=== PATIENT | male | born 1950 | race Caucasian/White ===

== ENCOUNTER 2017-04-12 14:31 | Inpatient (IN) | payer MEDICARE, OTHER ==
--- NOTE | 2017-04-12 15:02 | ED Physician Chart ---
Chief Complaint/HPI - Patient Information Date Seen:: 04/12/17 Time Seen:: 14:57 Chief Complaint:: psychosis History of Present Illness:: This is a 66 [facility] male [facility] treatment of his psychotic behavior. He has been wandering in and out of other patients room and fighting with the staff. Allergies:: Allergies Allergy/AdvReac Type Severity Reaction Status Date / Time No Known Allergies Allergy Verified 06/30/16 18:07 Vitals:: Vital Signs - 8 hr 04/12/17 14:39 Temp 98.2 F HR 88 RR 16 BP 162/67 O2 Sat % 99 Historian:: EMS, Medical Records Review:: Nurse's Note Reviewed, Old Chart Reviewed Review of Systems - Review of Systems General/Constitutional: No fever, No chills, No weight loss, No weakness, No diaphoresis, No edema, No loss of appetite Skin: No skin lesions, No rash, No bruising Head: No headache, No light-headedness Eyes: No loss of vision, No pain, No diplopia ENT: No earache, No nasal drainage, No sore throat, No tinnitus Neck: No neck pain, No swelling, No thyromegaly, No stiffness, No mass noted Cardio Vascular: No chest pain, No palpitations, No PND, No orthopnea, No edema Pulmonary: No SOB, No cough, No sputum, No wheezing GI: No nausea, No vomiting, No diarrhea, No pain, No melena, No hematochezia, No constipation, No hematemesis G/U: No dysuria, No frequency, No hematuria Musculoskeletal: No bone or joint pain, No back pain, No muscle pain Endocrine: No polyuria, No polydipsia Psychiatric: Prior psych history, No depression, No anxiety, No suicidal ideation, Homicidal ideation Hematopoietic: No bruising, No lymphadenopathy Allergic/Immuno: No urticaria, No angioedema Neurological: No syncope, No focal symptoms, No weakness, No paresthesia, No headache, No seizure, No dizziness, No confusion, No vertigo Past Medical History - Past Medical History Obtainable: Yes Past Medical History: HTN, DM, CVA/TIA, Dyslipidemia, Dementia Family History: None Social History: Non Smoker, No Alcohol, No Drug Use Surgical History: None Psychiatricy History: Dementia Medication: Reviewed Family Medical History - Family Member Mother History Unknown: Yes Ethnicity: Physical Exam - Physical Examination General/Constitutional: Awake, Well-developed, well-nourished, Alert, No distress, GCS 15, Non-toxic appearing, Ambulatory Head: Atraumatic Eyes: Lids, conjuctiva normal, PERRL, EOMI Skin: Nl inspection, No rash, No skin lesions, No ecchymosis, Well hydrated, No lymphadenopathy ENMT: External ears, nose nl, Nasal exam nl, Lips, teeth, gums nl Neck: Nontender, Full ROM w/o pain, No JVD, No nuchal rigidity, No bruit, No mass, No stridor Respiratory: Nl effort/Exclusion, Clear to Auscultation, No Wheeze/Rhonchi/Rales Cardio Vascular: RRR, No murmur, gallop, rubs, NL S1 S2 GI: No tenderness/rebounding/guarding, No organomegaly, No hernia, Normal BS's, Nondistended, No mass/bruits, No McBurney tenderness : No CVA tenderness Extremities: No tenderness or effusion, Full ROM, normal strength in all extremities, No edema, Normal digits & nails Neuro/Psych: Alert/oriented, DTR's symmetric, Normal sensory exam, Normal motor strength, Normal gait, No focal deficits Other Neuro/Psych comments:: THIS PATIENT IS UNCOOPERATIVE AND ANXIOUS. Misc: normal gait, Normal back, No paraspinal tenderness Labs/Radiology/EKG Results - Lab Results Results: Abnormal Lab Results 04/12/17 04/12/17 04/12/17 14:54 14:54 14:54 WBC 6.7 RBC 3.03 L Hgb 8.6 L Hct 25.8 L D MCV 85.3 MCH 28.4 MCHC Differential 33.3 RDW 14.6 Plt Count 225 MPV 8.5 Neutrophils % 63.9 Lymphocytes % 21.5 Monocytes % 10.6 H Eosinophils % 3.6 Basophils % 0.4 PT 9.1 L INR 0.89 PTT (Actin FS) 23.4 L Sodium Potassium Chloride Carbon Dioxide Anion Gap BUN Creatinine Est GFR ( Amer) Est GFR (Non-Af Amer) BUN/Creatinine Ratio Glucose Calcium Total Bilirubin AST ALT Alkaline Phosphatase Troponin I Total Protein Albumin Globulin Albumin/Globulin Ratio Triglycerides 217 H Cholesterol 178 LDL Cholesterol Direct 108 HDL Cholesterol 47 04/12/17 04/12/17 14:54 14:54 WBC RBC Hgb Hct MCV MCH MCHC Differential RDW Plt Count MPV Neutrophils % Lymphocytes % Monocytes % Eosinophils % Basophils % PT INR PTT (Actin FS) Sodium 134 L Potassium 4.7 Chloride 107 Carbon Dioxide 23.2 Anion Gap 8.5 BUN 33 H Creatinine 1.7 H Est GFR ( Amer) 52.3 Est GFR (Non-Af Amer) 43.2 BUN/Creatinine Ratio 19.4 Glucose 395 H Calcium 9.3 Total Bilirubin 0.2 L AST 43 H ALT 71 H Alkaline Phosphatase 145 H Troponin I 0.01 Total Protein 7.2 Albumin 3.7 L Globulin 3.5 Albumin/Globulin Ratio 1.1 Triglycerides Cholesterol LDL Cholesterol Direct HDL Cholesterol - Radiology Results Results: CHEST X-RAY = NAD - EKG Interpretations EKG Time:: 14:57 Rate & Rhythm: 86 , SINUS RHYTHM [place]: LEFT Intervals: NO ECTOPY SEEN Assessment - Assessment General Assessment: SEVERE ANEMIA RENAL FAILURE PSYCHOSIS ED Septic Shock - . Is Septic Shock (SBP<90, OR Lactate>4 mmol\L) present?: No - <6hrs of presentation: Vital Signs: Vital Signs - 8 hr 04/12/17 14:39 Temp 98.2 F HR 88 RR 16 BP 162/67 O2 Sat % 99 Reassessment (Disposition) - Reassessment Reassessment Condition:: Unchanged - Diagnosis Diagnosis:: SEVERE ANEMIA RENAL FAILURE PSYCHOSIS - Patient Disposition Discharge/Transfer:: Acute Care w/in this hosp Admitting Medical Physician:: Jermaine Nobles Admitting Psych Physician:: Jonny Allen Condition at Disposition:: Unchanged ED Discharge Plan - Patient Disposition Admit/Discharge/Transfer: Acute Care w/in this hosp Condition at Disposition: Unchanged Instructions: Psychosis
[2017-04-12 15:05] LABS: % BASOPHILS 0.4 % (0.0-2.0); % EOSINOPHILS 3.6 % (0.0-5.0); % LYMPHOCYTES 21.5 % (20.0-50.0); % MONOCYTES 10.6 % (2.0-10.0); % NEUTROPHILS 63.9 % (40.0-80.0); HEMOGLOBIN 8.6 gm/dL (12.6-17.4); MEAN CELL VOLUME 85.3 fl (80-99); MEAN CORPUSCULAR HEMOGLOBIN 28.4 pg (27.0-31.0); MEAN CORPUSCULAR HGB CONC 33.3 pg (28.0-36.0); MEAN PLATELET VOLUME 8.5 fl; NEUTROPHILE ABSOLUTE 4.4 Th/cmm (1.8-8.0); PLATELET COUNT 225 Th/cmm (150-400); RED BLOOD COUNT 3.03 Mil/cmm (3.80-5.80); RED CELL DISTRIBUTION WIDTH 14.6 % (11.5-20.0); WHITE BLOOD COUNT 6.7 Th/cmm (4.8-10.8)
[2017-04-12 15:06] LABS: HEMATOCRIT 25.8 % (39.0-49.0)
--- NOTE | 2017-04-12 15:08 | Diagnostic Imaging Report ---
Portable chest x-ray History: Shortness of breath Allowing for portable technique the heart size is normal. No focal pulmonary parenchymal processes. No hilar or mediastinal abnormalities. Impression: No acute abnormalities.
[2017-04-12 15:16] LABS: INR 0.89 (0.5-1.4); PROTHROMBIN TIME (TEST) 9.1 SECONDS (9.5-11.5)
[2017-04-12 15:20] LABS: ALB/GLOB RATIO 1.1 (1.0-1.8); ANION GAP 8.5 (7.0-16.0); BILIRUBIN,TOTAL 0.2 mg/dL (0.3-1.0); BUN/CREATININE RATIO 19.4; CALCIUM SERUM 9.3 mg/dL (8.6-10.3); CARBON DIOXIDE 23.2 mEq/L (21.0-31.0); CREATININE - SERUM 1.7 mg/dL (0.7-1.3); POTASSIUM SERUM 4.7 mEq/L (3.5-5.1)
[2017-04-12 15:21] LABS: CHOLESTEROL 178 mg/dL (<200); TRIGLYCERIDES 217 mg/dL (<150)
--- NOTE | 2017-04-12 16:57 | Admit Criteria Form ---
Admit Criteria Forms - Admit Criteria Diagnosis: ANEMIA, IRON DEFICIENCY OR UNSPECIFIED Clinical Indications for Inpatient Care (Place 'X' for any and all applicable criteria): Admission is indicated for ANY ONE of the following(1)(2)(3)(4)(5)(6)(7): [X] I. Inpatient admission required rather than observation care (Also use Anemia, Iron Deficiency or Unspecified: Observation Care guideline as appropriate) because of ANY ONE of the following: [] a) Hemodynamic instability that is severe or persistent [] b) Active bleeding that cannot be rapidly controlled [] c) CVS symptoms (i.e., dyspnea, chest pain, heart failure) that are severe or persistent [] d) Neurologic symptoms (i.e., cognitive impairment, recurrent syncope or near syncope) that are severe or persistent [] e) Cardiac arrhythmias of immediate concern [] f) Acute peripheral ischemia (e.g., pulseless, cool, mottled, or cyanotic extremity) [] g) High-risk low platelet count [X] h) Acute renal failure [] i) Ongoing transfusion for blood loss (greater than 2 units) [] j) IV fluid to replace significant ongoing (eg, >24 hours) losses (> 3 L/m2 per day) [] k) Pulmonary artery catheter monitoring [] l) Supplemental oxygen or respiratory treatments for over 24 hours that are performable only in acute inpatient setting [] m) Immediate inpatient surgery [] n) Other condition, treatment or monitoring requiring inpatient admission [] II Active massive hemorrhage [] III. Active hemolysis with rapidly progressive anemia [A](6) Extended stay beyond goal length of stay may be needed for (17)(18) []a) Diagnosed cause of anemia requiring longer hospitalization (eg, active GI bleeding, immune hemolysis requiring electrophoresis, complications of malignancy requiring acute care []b) Continued emergent anemia indicators (23) []c) Transfusion reactions []d) Associated leukopenia or thrombocytopenia needing inpatient care []e) Active comorbidities (eg, renal failure, heart failure) The original [employer] content created by [employer] has been revised. The portions of the content which have been revised are identified through the use of italic text or in bold. [employer] has neither reviewed nor approved the modified material. All other unmodified content is copyright [employer]. Please see references footnoted in the original [facility] edition 2016
[2017-04-12] MEDS ORDERED: Magnesium Hydroxide (MOM) 30 mL UDC PO PRN (18:54)
[2017-04-12] MEDS: Insulin Detemir 100 units/mL 10mL Vial SUBQ SCH (22:36)
[2017-04-12] MEDS: INSULIN ASPART SLIDING SCALE 100 UNITS/ML UNIT SUBQ SCH (22:37)
[2017-04-12] MEDS: Polyvinyl Alcohol Ophth Soln 15 mL Bottle EACH EYE SCH (23:09)
[2017-04-13] MEDS: Sodium Chloride 0.9% 1,000 ML IV SCH ×2 (02:45→08:23)
[2017-04-13 03:04] VITALS: BP 154/78
[2017-04-13] MEDS: INSULIN ASPART SLIDING SCALE 100 UNITS/ML UNIT SUBQ SCH ×4 (06:59→20:34)
[2017-04-13 07:16] LABS: % BASOPHILS 0.5 % (0.0-2.0); % EOSINOPHILS 3.8 % (0.0-5.0); % NEUTROPHILS 59.7 % (40.0-80.0); HEMOGLOBIN 10.3 gm/dL (12.6-17.4); MEAN CELL VOLUME 85.4 fl (80-99); MEAN CORPUSCULAR HEMOGLOBIN 28.1 pg (27.0-31.0); MEAN CORPUSCULAR HGB CONC 32.9 pg (28.0-36.0); MEAN PLATELET VOLUME 8.7 fl; PLATELET COUNT 211 Th/cmm (150-400); RED BLOOD COUNT 3.68 Mil/cmm (3.80-5.80)
[2017-04-13 07:21] LABS: HEMATOCRIT 31.5 % (39.0-49.0); WHITE BLOOD COUNT 8.3 Th/cmm (4.8-10.8)
[2017-04-13] MEDS ORDERED: INSULIN ASPART SLIDING SCALE 100 UNITS/ML UNIT SUBQ SCH (07:30)
[2017-04-13 07:34] LABS: ANION GAP 9.3 (7.0-16.0); BILIRUBIN,TOTAL 0.3 mg/dL (0.3-1.0); BUN/CREATININE RATIO 19.4; CALCIUM SERUM 9.1 mg/dL (8.6-10.3); CARBON DIOXIDE 23.8 mEq/L (21.0-31.0); CREATININE - SERUM 1.6 mg/dL (0.7-1.3); POTASSIUM SERUM 4.1 mEq/L (3.5-5.1)
[2017-04-13] MEDS: Multivitamin w/ Minerals Tab PO SCH (08:23)
[2017-04-13] MEDS: Polyvinyl Alcohol Ophth Soln 15 mL Bottle EACH EYE SCH ×4 (08:24→20:33)
[2017-04-13] MEDS ORDERED: VTE Chemical Prophylaxis Screen/Admission MC PRN (09:10)
[2017-04-13] MEDS ORDERED: Pneumococcal Vaccine 0.5 mL Vial IM ONE (10:12)
--- NOTE | 2017-04-13 11:21 | History and Physical ---
History of Present Illness - HPI Chief Complaint: Increased in agitation HPI: Patient was transfered from SNF for eval due to woundering and became aggresive to nurses and workers. During evaluation in ER was found anemia and ARF reazon why patient was send to Medical/Surgical floor. 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: Dementia GI: Report: No Pertinent Hx Psych: Report: Psychosis Musculoskeletal: Report: Weakness Rheumatologic: Report: No pertinent Hx Infectious Disease: Report: No Pertinent Hx Renal/: Report: Chronic Renal Failure, Other (Acute Renal failure over Chronic renal failure.) Endocrine: Report: Diabetes Dermatology: Report: No Pertinent Hx - Past Surgical History Past Surgical History: No pertinent Hx Family Medical History - Family Member Mother History Unknown: Yes Ethnicity: Social History Smoke: No Alcohol: None Drugs: None Lives: Prison Domestic Violence: Negative - Medications Home Medications: Home Medication Medication Instructions Recorded Type Aspirin [Adult Low Dose Aspirin EC] 81 mg PO DAILY #0 tablet. 07/02/16 Rx Clopidogrel [Plavix] 75 mg PO DAILY #0 tab 07/02/16 Rx Levetiracetam [Keppra] 500 mg PO BID #0 tab 07/02/16 Rx Acetaminophen [Tylenol Extra 100 mg PO Q4HR PRN 04/12/17 History Strength] Acetaminophen [Tylenol Extra 500 mg PO Q4HR PRN 04/12/17 History Strength] Acetaminophen [Tylenol] 650 mg PO Q4HR PRN 04/12/17 History Amlodipine Besylate 10 mg PO DAILY 04/12/17 History Bisacodyl [Dulcolax 10 Mg Supp] 10 mg RC PRN PRN 04/12/17 History Donepezil HCl [Donepezil HCl Odt] 5 mg PO DAILY 04/12/17 History Fleet Enema [Fleet Enema] 135 ml RC Q72H PRN 04/12/17 History Folic Acid [Folate] 1 mg PO DAILY 04/12/17 History Insulin Detemir [Levemir] 10 unit SQ HS 04/12/17 History Insulin Human Regular [NovoLIN R] 0 units SUBQ AC 04/12/17 History Magnesium Hydroxide [Milk of 30 ml PO Q48H PRN 04/12/17 History Magnesia] Multivitamin w/ Minerals 1 tab PO DAILY 04/12/17 History [Theragran M] Polyvinyl Alcohol Ophth Soln 1 drop EACH EYE QID 04/12/17 History [Artificial Tears Ophth Soln] Thiamine [Vitamin B1] 100 mg PO DAILY 04/12/17 History - Allergies Allergies/Adverse Reactions: Allergies Allergy/AdvReac Type Severity Reaction Status Date / Time No Known Allergies Allergy Verified 06/30/16 18:07 Review of Systems - Review of Systems Constitutional: Report: Weakness Eyes: Report: Other (Pupils reactive to light, isocoric) ENT: Report: Other (No nasal congestion) Respiratory: Report: Cough Cardiovascular: Report: Other (none) Musculoskeletal: Report: Other (no pain) Skin: Report: Other (warm and dry) Neurological: Report: Weakness, Confusion Physical Exam - Physical Exam HEENT: Report: Ears Nose Throat Within Normal Limits Neck: Report: WNL Cardiovascular Systems: Report: Regular, Rate and Rhythm Respiratory: Report: Clear to Auscultation of lung velazquez Abdomen: Report: Non-tender to palpation Back: Report: Inspection of back is within normal limits. Extremities: Report: Non-tender to palpation., No pedal edema was noted on inspection Skin: Report: Color of skin is within normal limits Neuro/Psych: Report: CN II-XII intact, No motor deficit - Lab Results All Lab Results last 24 hours: Laboratory Last Values WBC 8.3 Th/cmm (4.8-10.8) D 04/13/17 07:00 RBC 3.68 Mil/cmm (3.80-5.80) L 04/13/17 07:00 Hgb 10.3 gm/dL (12.6-17.4) L 04/13/17 07:00 Hct 31.5 % (39.0-49.0) L D 04/13/17 07:00 MCV 85.4 fl (80-99) 04/13/17 07:00 MCH 28.1 pg (27.0-31.0) 04/13/17 07:00 MCHC Differential 32.9 pg (28.0-36.0) 04/13/17 07:00 RDW 14.0 % (11.5-20.0) 04/13/17 07:00 Plt Count 211 Th/cmm (150-400) 04/13/17 07:00 MPV 8.7 fl 04/13/17 07:00 Neutrophils % 59.7 % (40.0-80.0) 04/13/17 07:00 Lymphocytes % 24.0 % (20.0-50.0) 04/13/17 07:00 Monocytes % 12.0 % (2.0-10.0) H 04/13/17 07:00 Eosinophils % 3.8 % (0.0-5.0) 04/13/17 07:00 Basophils % 0.5 % (0.0-2.0) 04/13/17 07:00 PT 9.1 SECONDS (9.5-11.5) L 04/12/17 14:54 INR 0.89 (0.5-1.4) 04/12/17 14:54 PTT (Actin FS) 23.4 SECONDS (26.0-38.0) L 04/12/17 14:54 Sodium 136 mEq/L (136-145) 04/13/17 07:00 Potassium 4.1 mEq/L (3.5-5.1) 04/13/17 07:00 Chloride 107 mEq/L (98-107) 04/13/17 07:00 Carbon Dioxide 23.8 mEq/L (21.0-31.0) 04/13/17 07:00 Anion Gap 9.3 (7.0-16.0) 04/13/17 07:00 BUN 31 mg/dL (7-25) H 04/13/17 07:00 Creatinine 1.6 mg/dL (0.7-1.3) H 04/13/17 07:00 Est GFR ( Amer) 56.1 ml/min (>90) 04/13/17 07:00 Est GFR (Non-Af Amer) 46.3 ml/min 04/13/17 07:00 BUN/Creatinine Ratio 19.4 04/13/17 07:00 Glucose 171 mg/dL (70-105) H 04/13/17 07:00 POC Glucose 156 MG/DL (70 - 105) H 04/13/17 06:50 Hemoglobin A1c % 7.0 % (4.0-6.0) H 04/12/17 14:54 Calcium 9.1 mg/dL (8.6-10.3) 04/13/17 07:00 Total Bilirubin 0.3 mg/dL (0.3-1.0) 04/13/17 07:00 AST 43 U/L (13-39) H 04/13/17 07:00 ALT 65 U/L (7-52) H 04/13/17 07:00 Alkaline Phosphatase 126 U/L (34-104) H 04/13/17 07:00 Troponin I 0.01 ng/mL (0.01-0.05) 04/12/17 14:54 Total Protein 6.9 gm/dL (6.0-8.3) 04/13/17 07:00 Albumin 3.5 gm/dL (4.2-5.5) L 04/13/17 07:00 Globulin 3.4 gm/dL 04/13/17 07:00 Albumin/Globulin Ratio 1.0 (1.0-1.8) 04/13/17 07:00 Triglycerides 217 mg/dL (<150) H 04/12/17 14:54 Cholesterol 178 mg/dL (<200) 04/12/17 14:54 LDL Cholesterol Direct 108 mg/dL (75-193) 04/12/17 14:54 HDL Cholesterol 47 mg/dL (23-92) 04/12/17 14:54 TSH 1.12 uIU/ml (0.34-5.60) 04/12/17 14:54 RPR NONREACTIVE (NONREACTIVE) 04/12/17 14:54 Blood Type A POSITIVE 04/12/17 19:34 Antibody Screen NEGATIVE 04/12/17 19:34 Crossmatch See Detail 04/12/17 19:34 Laboratory Results - last 24 hr 04/12/17 04/12/17 04/13/17 19:34 22:00 06:50 WBC RBC Hgb Hct MCV MCH MCHC Differential RDW Plt Count MPV Neutrophils % Lymphocytes % Monocytes % Eosinophils % Basophils % Sodium Potassium Chloride Carbon Dioxide Anion Gap BUN Creatinine Est GFR ( Amer) Est GFR (Non-Af Amer) BUN/Creatinine Ratio Glucose POC Glucose 341 H 156 H Calcium Total Bilirubin AST ALT Alkaline Phosphatase Total Protein Albumin Globulin Albumin/Globulin Ratio Blood Type A POSITIVE Antibody Screen NEGATIVE Crossmatch See Detail 04/13/17 04/13/17 07:00 07:00 WBC 8.3 D RBC 3.68 L Hgb 10.3 L Hct 31.5 L D MCV 85.4 MCH 28.1 MCHC Differential 32.9 RDW 14.0 Plt Count 211 MPV 8.7 Neutrophils % 59.7 Lymphocytes % 24.0 Monocytes % 12.0 H Eosinophils % 3.8 Basophils % 0.5 Sodium 136 Potassium 4.1 Chloride 107 Carbon Dioxide 23.8 Anion Gap 9.3 BUN 31 H Creatinine 1.6 H Est GFR ( Amer) 56.1 Est GFR (Non-Af Amer) 46.3 BUN/Creatinine Ratio 19.4 Glucose 171 H POC Glucose Calcium 9.1 Total Bilirubin 0.3 AST 43 H ALT 65 H Alkaline Phosphatase 126 H Total Protein 6.9 Albumin 3.5 L Globulin 3.4 Albumin/Globulin Ratio 1.0 Blood Type Antibody Screen Crossmatch - Assessment Assessment: Current Active Problems Problem Status Onset WANDERING AND UNABLE TO REDIRECT Acute - Plan Plan: Patient came from SNF and during ER examination was found that he had anemia and ARF, patient was send to Medical/surgical floor. Dx; Anemia, ARF over CRF , Psychosis, Dementia, HTN. Plan: patient was tranfused, Continue with SNF meds, awaiting Nephro eval. As soon patient is clear by nephro, patient will be transfer to [facility].
--- NOTE | 2017-04-13 12:13 | Consultation ---
Consult Note - Consult Note Service Date: 04/13/17 Consult Note: PHYSICIAN Consultation Note: Date of Admission: 04/12/17 Purpose of Consultation: CKD Chief Complaint: Elevated Bun/Cr History of Present Illness: 66 Y/O H,M PMH: CKD came in because of aggressive behavior. 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 Brought to ER. HGB was 8.6. Transfused 1 U PRBC. HGB up to 10.3. Hx of CKD. His bun/cr 3 mos. ago were 65/2.1. Bun/Cr today were 31/1.6. No N/V , diarrhea. Past Medical History: Htn Type 2 DM CKD Anemia of CKD ESS HTN Epilepsy Allergies NKDA Allergy/AdvReac Type Severity Reaction Status Date / Time No Known Allergies Allergy Verified 06/30/16 18:07 Vital Signs Temp 98.4 F 04/13/17 08:00 Pulse 91 04/13/17 08:23 Resp 18 04/13/17 08:00 BP 161/84 04/13/17 08:23 Pulse Ox 97 04/13/17 08:00 Intake & Output 04/12/17 04/13/17 04/13/17 18:59 06:59 18:59 Intake Total 507 Balance 507 Weight (lbs) 58.649 kg Intake: Intake, IV Amount 507 Sodium Chloride 0.9% 1, 507 000 ml @ 90 mls/hr IV . Q11H7M [facility] Rx#:[id number] Other: Stool Characteristics Soft Soft Laboratory Results - last 24 hr 04/12/17 04/12/17 04/13/17 19:34 22:00 06:50 WBC RBC Hgb Hct MCV MCH MCHC Differential RDW Plt Count MPV Neutrophils % Lymphocytes % Monocytes % Eosinophils % Basophils % Sodium Potassium Chloride Carbon Dioxide Anion Gap BUN Creatinine Est GFR ( Amer) Est GFR (Non-Af Amer) BUN/Creatinine Ratio Glucose POC Glucose 341 H 156 H Calcium Total Bilirubin AST ALT Alkaline Phosphatase Total Protein Albumin Globulin Albumin/Globulin Ratio Blood Type A POSITIVE Antibody Screen NEGATIVE Crossmatch See Detail 04/13/17 04/13/17 04/13/17 07:00 07:00 11:46 WBC 8.3 D RBC 3.68 L Hgb 10.3 L Hct 31.5 L D MCV 85.4 MCH 28.1 MCHC Differential 32.9 RDW 14.0 Plt Count 211 MPV 8.7 Neutrophils % 59.7 Lymphocytes % 24.0 Monocytes % 12.0 H Eosinophils % 3.8 Basophils % 0.5 Sodium 136 Potassium 4.1 Chloride 107 Carbon Dioxide 23.8 Anion Gap 9.3 BUN 31 H Creatinine 1.6 H Est GFR ( Amer) 56.1 Est GFR (Non-Af Amer) 46.3 BUN/Creatinine Ratio 19.4 Glucose 171 H POC Glucose 305 H Calcium 9.1 Total Bilirubin 0.3 AST 43 H ALT 65 H Alkaline Phosphatase 126 H Total Protein 6.9 Albumin 3.5 L Globulin 3.4 Albumin/Globulin Ratio 1.0 Blood Type Antibody Screen Crossmatch Home Medication Medication Instructions Recorded Type Aspirin [Adult Low Dose Aspirin EC] 81 mg PO DAILY #0 tablet. 07/02/16 Rx Clopidogrel [Plavix] 75 mg PO DAILY #0 tab 07/02/16 Rx Levetiracetam [Keppra] 500 mg PO BID #0 tab 07/02/16 Rx Acetaminophen [Tylenol Extra 100 mg PO Q4HR PRN 04/12/17 History Strength] Acetaminophen [Tylenol Extra 500 mg PO Q4HR PRN 04/12/17 History Strength] Acetaminophen [Tylenol] 650 mg PO Q4HR PRN 04/12/17 History Amlodipine Besylate 10 mg PO DAILY 04/12/17 History Bisacodyl [Dulcolax 10 Mg Supp] 10 mg RC PRN PRN 04/12/17 History Donepezil HCl [Donepezil HCl Odt] 5 mg PO DAILY 04/12/17 History Fleet Enema [Fleet Enema] 135 ml RC Q72H PRN 04/12/17 History Folic Acid [Folate] 1 mg PO DAILY 04/12/17 History Insulin Detemir [Levemir] 10 unit SQ HS 04/12/17 History Insulin Human Regular [NovoLIN R] 0 units SUBQ AC 04/12/17 History Magnesium Hydroxide [Milk of 30 ml PO Q48H PRN 04/12/17 History Magnesia] Multivitamin w/ Minerals 1 tab PO DAILY 04/12/17 History [Theragran M] Polyvinyl Alcohol Ophth Soln 1 drop EACH EYE QID 04/12/17 History [Artificial Tears Ophth Soln] Thiamine [Vitamin B1] 100 mg PO DAILY 04/12/17 History Current Medications Generic Name Dose Route Start Last Admin Trade Name Freq PRN Reason Stop Dose Admin Acetaminophen 650 mg 04/12/17 18:54 Tylenol PO 06/11/17 18:53 Q4HR PRN MODERATE PAIN Amlodipine Besylate 10 mg 04/13/17 09:00 04/13/17 08:23 Norvasc PO 06/12/17 08:59 10 mg DAILY HOLGER Administration Artificial Tears 1 drop 04/12/17 21:00 04/13/17 08:24 Artificial Tears Ophth Soln EACH EYE 06/11/17 20:59 1 drop QID HOLGER Administration Aspirin 81 mg 04/13/17 09:00 04/13/17 08:23 Ecotrin PO 06/12/17 08:59 81 mg DAILY HOLGER Administration Bisacodyl 10 mg 04/12/17 18:54 Dulcolax 10 Mg Supp RC 06/11/17 18:53 PRN PRN FOR CONSTIPATION IF MOM INEFFE Clopidogrel Bisulfate 75 mg 04/13/17 09:00 04/13/17 08:23 Plavix PO 06/12/17 08:59 75 mg DAILY HOLGER Administration Donepezil HCl 5 mg 04/13/17 09:00 04/13/17 08:23 Aricept PO 06/12/17 08:59 5 mg DAILY HOLGER Administration Folic Acid 1 mg 04/13/17 09:00 04/13/17 08:23 Folate PO 06/12/17 08:59 1 mg DAILY HOLGER Administration Insulin Aspart 0 units 04/12/17 22:25 04/13/17 11:51 Novolog Insulin Sliding Scale SUBQ 06/11/17 22:24 9 units ACHS HOLGER Administration Protocol Insulin Detemir 10 units 04/12/17 21:00 04/12/17 22:36 Levemir Insulin SUBQ 06/11/17 20:59 10 units HS HOLGER Administration Protocol Levetiracetam 500 mg 04/13/17 09:00 04/13/17 08:23 Keppra PO 06/12/17 08:59 500 mg BID HOLGER Administration Magnesium Hydroxide 30 ml 04/12/17 18:54 Milk Of Magnesia PO 06/11/17 18:53 Q48H PRN IF NO BM Miscellaneous 1 ea 04/13/17 09:10 Vte Chemical Prophylaxis Screen/ Admission 06/12/17 09:09 PRN PRN PROTOCOL Thiamine HCl 100 mg 04/13/17 09:00 04/13/17 08:23 Vitamin B1 PO 06/12/17 08:59 100 mg DAILY HOLGER Administration Review of Systems: A 12 point ROS was reviewed with the pertinent positive and negatives noted in the HPI. Social History UNKNOWN Family Medical History Family Medical History Start: 04/12/17 18: 02 Freq: ONCE Status: Active Document 04/12/17 18:02 DALE (Rec: 04/13/17 02:52 DALE NANCY-[id number]) Family Medical History UNKNOWN Physical Exam: General: awake, confused, No Acute Distress HEENT: EOMI Bilaterally, Head is normocephalic, atraumatic on inspection, supple Cardio: +S1/S2 Auscultated, RRR, no murmurs/rubs/gallops noted Respiratory: Clear to Auscultate Bilaterally, no use of accessory ms Abdominal: Soft, Nondistended, Nontender to palpation x 4 quadrants Genital/Urinary: deferred, rectal: deferred Extremities: No Edema noted in the lower extremities, pulses intact Neurological: No Focal Deficits noted, uncooperative Assessment: CKD Acute decompensation of Psychosis Dementia w/ Behvioral Disturbance Ess Htn Anemia of CKD Epilepsy PLAN: continue ivf encourage po intake possible transfer to [facility] in am f/u electrolytes Signed, Angel Jacobson 04/13/[id number]
[2017-04-13] MEDS: Insulin Detemir 100 units/mL 10mL Vial SUBQ SCH (20:34)
[2017-04-13 22:31] LABS: URINE BILIRUBIN NEGATIVE (NEGATIVE); URINE COLOR YELLOW; URINE GLUCOSE (UA) 100 mg/dL (NEGATIVE); URINE KETONE NEGATIVE (NEGATIVE)
[2017-04-13 22:32] LABS: URINE BLOOD MODERATE (NEGATIVE); URINE PH 5.5; URINE PROTEIN >300 mg/dL (NEGATIVE); URINE UROBILINOGEN 0.2 E.U./dL (0.2 - 1.0)
[2017-04-13 22:33] LABS: URINE BACTERIA FEW /hpf (NONE SEEN); URINE EPITHELIAL CELLS FEW /lpf (FEW); URINE WBC 0-2 /hpf (0-5)
[2017-04-14 06:37] LABS: % BASOPHILS 0.3 % (0.0-2.0); % EOSINOPHILS 3.2 % (0.0-5.0); % MONOCYTES 10.6 % (2.0-10.0); % NEUTROPHILS 61.9 % (40.0-80.0); HEMATOCRIT 29.2 % (39.0-49.0); HEMOGLOBIN 9.6 gm/dL (12.6-17.4); MEAN CELL VOLUME 85.3 fl (80-99); MEAN CORPUSCULAR HGB CONC 32.8 pg (28.0-36.0); MEAN PLATELET VOLUME 8.1 fl; PLATELET COUNT 227 Th/cmm (150-400); RED BLOOD COUNT 3.42 Mil/cmm (3.80-5.80); RED CELL DISTRIBUTION WIDTH 14.6 % (11.5-20.0); WHITE BLOOD COUNT 8.1 Th/cmm (4.8-10.8)
[2017-04-14] MEDS: INSULIN ASPART SLIDING SCALE 100 UNITS/ML UNIT SUBQ SCH ×2 (06:49→12:06)
[2017-04-14 07:33] LABS: ANION GAP 9.4 (7.0-16.0); BUN - UREA NITROGEN 29 mg/dL (7-25); BUN/CREATININE RATIO 19.3; CALCIUM SERUM 8.5 mg/dL (8.6-10.3); CARBON DIOXIDE 21.5 mEq/L (21.0-31.0); CHLORIDE 113 mEq/L (98-107); CREATININE - SERUM 1.5 mg/dL (0.7-1.3); GLUCOSE 94 mg/dL (70-105); POTASSIUM SERUM 3.9 mEq/L (3.5-5.1); SODIUM SERUM 140 mEq/L (136-145); URIC ACID 5.2 mg/dL (4.4-7.6)
--- NOTE | 2017-04-14 08:52 | General Progress Note ---
Subjective - Review of Systems Service Date: 04/14/17 Subjective: Patient is confused Objective - Results Result Diagrams: 04/14/17 06:20 04/14/17 06:20 Recent Labs: Laboratory Last Values WBC 8.1 Th/cmm (4.8-10.8) 04/14/17 06:20 RBC 3.42 Mil/cmm (3.80-5.80) L 04/14/17 06:20 Hgb 9.6 gm/dL (12.6-17.4) L 04/14/17 06:20 Hct 29.2 % (39.0-49.0) L 04/14/17 06:20 MCV 85.3 fl (80-99) 04/14/17 06:20 MCH 28.0 pg (27.0-31.0) 04/14/17 06:20 MCHC Differential 32.8 pg (28.0-36.0) 04/14/17 06:20 RDW 14.6 % (11.5-20.0) 04/14/17 06:20 Plt Count 227 Th/cmm (150-400) 04/14/17 06:20 MPV 8.1 fl 04/14/17 06:20 Neutrophils % 61.9 % (40.0-80.0) 04/14/17 06:20 Lymphocytes % 24.0 % (20.0-50.0) 04/14/17 06:20 Monocytes % 10.6 % (2.0-10.0) H 04/14/17 06:20 Eosinophils % 3.2 % (0.0-5.0) 04/14/17 06:20 Basophils % 0.3 % (0.0-2.0) 04/14/17 06:20 PT 9.1 SECONDS (9.5-11.5) L 04/12/17 14:54 INR 0.89 (0.5-1.4) 04/12/17 14:54 PTT (Actin FS) 23.4 SECONDS (26.0-38.0) L 04/12/17 14:54 Sodium 140 mEq/L (136-145) 04/14/17 06:20 Potassium 3.9 mEq/L (3.5-5.1) 04/14/17 06:20 Chloride 113 mEq/L (98-107) H 04/14/17 06:20 Carbon Dioxide 21.5 mEq/L (21.0-31.0) 04/14/17 06:20 Anion Gap 9.4 (7.0-16.0) 04/14/17 06:20 BUN 29 mg/dL (7-25) H 04/14/17 06:20 Creatinine 1.5 mg/dL (0.7-1.3) H 04/14/17 06:20 Est GFR ( Amer) > 60.0 ml/min (>90) 04/14/17 06:20 Est GFR (Non-Af Amer) 49.9 ml/min 04/14/17 06:20 BUN/Creatinine Ratio 19.3 04/14/17 06:20 Glucose 94 mg/dL (70-105) 04/14/17 06:20 POC Glucose 86 MG/DL (70 - 105) 04/14/17 05:35 Hemoglobin A1c % 7.0 % (4.0-6.0) H 04/12/17 14:54 Uric Acid 5.2 mg/dL (4.4-7.6) 04/14/17 06:20 Calcium 8.5 mg/dL (8.6-10.3) L 04/14/17 06:20 Phosphorus 4.0 mg/dL (2.5-5.0) 04/14/17 06:20 Magnesium 2.0 mg/dL (1.9-2.7) 04/14/17 06:20 Total Bilirubin 0.3 mg/dL (0.3-1.0) 04/13/17 07:00 AST 43 U/L (13-39) H 04/13/17 07:00 ALT 65 U/L (7-52) H 04/13/17 07:00 Alkaline Phosphatase 126 U/L (34-104) H 04/13/17 07:00 Troponin I 0.01 ng/mL (0.01-0.05) 04/12/17 14:54 Total Protein 6.9 gm/dL (6.0-8.3) 04/13/17 07:00 Albumin 3.5 gm/dL (4.2-5.5) L 04/13/17 07:00 Globulin 3.4 gm/dL 04/13/17 07:00 Albumin/Globulin Ratio 1.0 (1.0-1.8) 04/13/17 07:00 Triglycerides 217 mg/dL (<150) H 04/12/17 14:54 Cholesterol 178 mg/dL (<200) 04/12/17 14:54 LDL Cholesterol Direct 108 mg/dL (75-193) 04/12/17 14:54 HDL Cholesterol 47 mg/dL (23-92) 04/12/17 14:54 TSH 1.12 uIU/ml (0.34-5.60) 04/12/17 14:54 Urine Source MIDSTREAM 04/13/17 20:57 Urine Color YELLOW 04/13/17 20:57 Urine Clarity CLEAR (CLEAR) 04/13/17 20:57 Urine pH 5.5 04/13/17 20:57 Ur Specific [place] 1.020 (1.005-1.030) 04/13/17 20:57 Urine Protein >300 mg/dL (NEGATIVE) H 04/13/17 20:57 Urine Glucose (UA) 100 mg/dL (NEGATIVE) H 04/13/17 20:57 Urine Ketones NEGATIVE mg/dL (NEGATIVE) 04/13/17 20:57 Urine Blood MODERATE (NEGATIVE) H 04/13/17 20:57 Urine Nitrate NEGATIVE (NEGATIVE) 04/13/17 20:57 Urine Bilirubin NEGATIVE (NEGATIVE) 04/13/17 20:57 Urine Urobilinogen 0.2 E.U./dL (0.2 - 1.0) 04/13/17 20:57 Ur Leukocyte Esterase NEGATIVE (NEGATIVE) 04/13/17 20:57 Urine RBC 5-10 /hpf (0-5) H 04/13/17 20:57 Urine WBC 0-2 /hpf (0-5) 04/13/17 20:57 Ur Epithelial Cells FEW /lpf (FEW) 04/13/17 20:57 Urine Bacteria FEW /hpf (NONE SEEN) 04/13/17 20:57 Ur Random Sodium 70 mmol/L 04/13/17 20:57 Urine Creatinine 107.0 mg/dl (39.0-259.0) 04/13/17 20:57 RPR NONREACTIVE (NONREACTIVE) 04/12/17 14:54 Blood Type A POSITIVE 04/12/17 19:34 Antibody Screen NEGATIVE 04/12/17 19:34 Crossmatch See Detail 04/12/17 19:34 - Physical Exam Vitals and I&O: Vital Signs Temp 98.4 F 04/14/17 04:00 Pulse 67 04/14/17 04:00 Resp 19 04/14/17 04:00 BP 146/73 04/14/17 04:00 Pulse Ox 100 04/14/17 04:00 Intake & Output 04/13/17 04/14/17 04/14/17 18:59 06:59 18:59 Intake Total 1207 350 Balance 1207 350 Weight (lbs) 58.513 kg 58.559 kg Intake: Intake, IV Amount 507 Sodium Chloride 0.9% 1, 507 000 ml @ 90 mls/hr IV . Q11H7M [facility] Rx#:[id number] Oral 700 350 Other: # Voids 3 1 # Bowel Movements 2 Stool Characteristics Soft Soft Active Medications: Current Medications Acetaminophen (Tylenol) 650 mg PO Q4HR PRN PRN Reason: MODERATE PAIN Stop: 06/11/17 18:53 Amlodipine Besylate (Norvasc) 10 mg PO DAILY [facility] Stop: 06/12/17 08:59 Last Admin: 04/13/17 08:23 Dose: 10 mg Artificial Tears (Artificial Tears Ophth Soln) 1 drop EACH EYE QID [facility] Stop: 06/11/17 20:59 Last Admin: 04/13/17 20:33 Dose: 1 drop Aspirin (Ecotrin) 81 mg PO DAILY [facility] Stop: 06/12/17 08:59 Last Admin: 04/13/17 08:23 Dose: 81 mg Bisacodyl (Dulcolax 10 Mg Supp) 10 mg RC PRN PRN PRN Reason: FOR CONSTIPATION IF MOM INEFFE Stop: 06/11/17 18:53 Clopidogrel Bisulfate (Plavix) 75 mg PO DAILY [facility] Stop: 06/12/17 08:59 Last Admin: 04/13/17 08:23 Dose: 75 mg Donepezil HCl (Aricept) 5 mg PO DAILY [facility] Stop: 06/12/17 08:59 Last Admin: 04/13/17 08:23 Dose: 5 mg Folic Acid (Folate) 1 mg PO DAILY [facility] Stop: 06/12/17 08:59 Last Admin: 04/13/17 08:23 Dose: 1 mg Insulin Aspart (Novolog Insulin Sliding Scale) 0 units SUBQ ACHS [facility] PRN Reason: Protocol Stop: 06/11/17 22:24 Last Admin: 04/14/17 06:49 Dose: Not Given Insulin Detemir (Levemir Insulin) 10 units SUBQ HS [facility] PRN Reason: Protocol Stop: 06/11/17 20:59 Last Admin: 04/13/17 20:34 Dose: 10 units Levetiracetam (Keppra) 500 mg PO BID [facility] Stop: 06/12/17 08:59 Last Admin: 04/13/17 16:44 Dose: 500 mg Magnesium Hydroxide (Milk Of Magnesia) 30 ml PO Q48H PRN PRN Reason: IF NO BM Stop: 06/11/17 18:53 Miscellaneous (Vte Chemical Prophylaxis Screen/ Admission) 1 ea [facility] PRN PRN PRN Reason: PROTOCOL Stop: 06/12/17 09:09 Thiamine HCl (Vitamin B1) 100 mg PO DAILY [facility] Stop: 06/12/17 08:59 Last Admin: 04/13/17 08:23 Dose: 100 mg General: Alert, Other (Confused) HEENT: Atraumatic Neck: Supple Cardiovascular: Regular rate Lungs: Clear to auscultation Abdomen: Bowel sounds, Soft Extremities: Other (No edema) Neurological: Other (Unstable gait) Skin: Other (Warm and dry) Psych/Mental Status: Other (Confused) - Procedures Procedures: Procedures Procedure Code Date BLOOD TRANSFUSION SERVICE 18526 04/12/17 TRANSFUSE NONAUT RED BLOOD CELLS IN PERIPH VEIN, [facility]C 63803D3 04/12/17 Assessment/Plan - Problem List Patient Problems: All Active Problems WANDERING AND UNABLE TO REDIRECT (Acute) - Assessment Assessment: Current Active Problems Problem Status Onset WANDERING AND UNABLE TO REDIRECT Acute Patient is sleeping but arousable, in no acute distress. Dx: increased in agitation, anemia, HTN, dementia. - Plan Plan: Patient came from SNF and during ER examination was found that he had anemia and ARF, patient was send to Medical/surgical floor. Dx; Anemia, ARF over CRF , Psychosis, Dementia, HTN. Plan: patient was tranfused, Continue with SNF meds, awaiting Nephro eval. As soon patient is clear by nephro, patient will be transfer to [facility]. Nutritional Asmnt/Malnutr-PDOC - Dietary Evaluation Malnutrition Findings (Please click <Entered> for more info): Nutritional Asmnt/Malnutrition Start: 04/13/17 12: 08 Text: Status: Complete Freq: Document 04/13/17 12:08 NICKI (Rec: 04/13/17 12:38 [id number]) Nutritional Asmnt/Malnutrition Patient General Information Nutritional Screening High Risk Screening Diagnosis Reason for visit: severe anemia, acute renal failure Pertinent Medical Hx/Surgical Hx HTN, dementia, chronic renal failure, DM, psychosis Subjective Information 66 year old male from SNF. Pt made eye contact with RD, appeared ot be selectively mute during visit. RD asked several nutrition questions and explained diet, pt nodded only. Unable to provide edu due to cognition. No severe wasting noted. Spoke to RN at bedside, RN stated pt with good appetite, ate 100% of breakfast, no difficulties noted. Current Diet Order/ Nutrition Support Renal Pertinent Medications Dulcolax, Folate, Novolog, Levemir, MOM, Vitamin B1 Pertinent Labs /: A1c 7H, glucose 395H, BUN 33H, Compensation Agent 1.7H, triglycerides 217H Nutritional Hx/Data Height 1.57 m Height (Calculated Centimeters) 157.5 Current Weight (lbs) 58.649 kg Weight (Calculated Kilograms) 58.6 Weight (Calculated Grams) 85139.5 [place] Body Weight 110 Weight Status Approriate GI Symptoms Food Allergies No Skin Integrity/Comment: Maykel 14. Skin intact. Current %PO Good (75-100%) Estimated Nutritional Goals BEE in Kcals: Using Current wt Calories/Kcals/Kg CBW 129.3lb/58.8kg Kcals Calculated 1470-1764kcal (25-30kcal/kg) Protein: Using Current wt Protein Calculated 59g (1g/kg) Fluid: ml 1470-1764ml (1ml/kcal) Nutritional Problem 2. Problem Problem Impaired nutrient utilization related to Etiology renal failure aeb Signs/Symptoms: BUN 33H, creatinine 1.7H 1. Problem Problem Altered nutrition related laboratory values related to Etiology DM aeb Signs/Symptoms: A1c 7, glucose 395 on adm Intervention/Recommendation Comments 1. Recommend [id number] renal diet. RD briefly explained diet, pt nodded. Pt noted with good appetite. Expected Outcomes/Goals Expected Outcomes/Goals 1. PO itnake to meet at least 75% of estimated nutritional needs.
[2017-04-14] MEDS: Polyvinyl Alcohol Ophth Soln 15 mL Bottle EACH EYE SCH ×2 (10:00→13:39)
[2017-04-14] MEDS: Multivitamin w/ Minerals Tab PO SCH (10:00)
--- NOTE | 2017-04-14 12:50 | Diagnostic Imaging Report ---
Renal ultrasound HISTORY: Chronic renal disease. COMPARISON: Ultrasound abdomen on 07/01/2016 Technique: Sonography of the kidneys and urinary bladder was performed in multiple planes. FINDINGS: The right kidney measures 10.7 x 5 cm. The left kidney measures 10.7 x 6.1 cm. No evidence of focal lesions or hydronephrosis. The prostate gland measures 5.6 x 7.1 x 4.6 cm demonstrates a heterogeneous echotexture. The prevoid urinary bladder volume is 274 ml. Patient refused voiding during the exam. IMPRESSION: No evidence of hydronephrosis Prominent heterogeneous prostate gland. Please correlate with clinical findings and PSA levels. Distended urinary bladder. Note patient refuse voiding, as such, post void residual bladder wall was not performed.
--- NOTE | 2017-04-14 14:33 | General Progress Note ---
Subjective - Review of Systems Service Date: 04/14/17 Subjective: Alert, comfortable, periods of confusion Objective - Results Result Diagrams: 04/14/17 06:20 04/14/17 06:20 Recent Labs: Laboratory Last Values WBC 8.1 Th/cmm (4.8-10.8) 04/14/17 06:20 RBC 3.42 Mil/cmm (3.80-5.80) L 04/14/17 06:20 Hgb 9.6 gm/dL (12.6-17.4) L 04/14/17 06:20 Hct 29.2 % (39.0-49.0) L 04/14/17 06:20 MCV 85.3 fl (80-99) 04/14/17 06:20 MCH 28.0 pg (27.0-31.0) 04/14/17 06:20 MCHC Differential 32.8 pg (28.0-36.0) 04/14/17 06:20 RDW 14.6 % (11.5-20.0) 04/14/17 06:20 Plt Count 227 Th/cmm (150-400) 04/14/17 06:20 MPV 8.1 fl 04/14/17 06:20 Neutrophils % 61.9 % (40.0-80.0) 04/14/17 06:20 Lymphocytes % 24.0 % (20.0-50.0) 04/14/17 06:20 Monocytes % 10.6 % (2.0-10.0) H 04/14/17 06:20 Eosinophils % 3.2 % (0.0-5.0) 04/14/17 06:20 Basophils % 0.3 % (0.0-2.0) 04/14/17 06:20 Eos Smear Source URINE 04/13/17 20:57 Eos Smear Total Cells NONE SEEN (NONE SEEN) 04/13/17 20:57 PT 9.1 SECONDS (9.5-11.5) L 04/12/17 14:54 INR 0.89 (0.5-1.4) 04/12/17 14:54 PTT (Actin FS) 23.4 SECONDS (26.0-38.0) L 04/12/17 14:54 Sodium 140 mEq/L (136-145) 04/14/17 06:20 Potassium 3.9 mEq/L (3.5-5.1) 04/14/17 06:20 Chloride 113 mEq/L (98-107) H 04/14/17 06:20 Carbon Dioxide 21.5 mEq/L (21.0-31.0) 04/14/17 06:20 Anion Gap 9.4 (7.0-16.0) 04/14/17 06:20 BUN 29 mg/dL (7-25) H 04/14/17 06:20 Creatinine 1.5 mg/dL (0.7-1.3) H 04/14/17 06:20 Est GFR ( Amer) > 60.0 ml/min (>90) 04/14/17 06:20 Est GFR (Non-Af Amer) 49.9 ml/min 04/14/17 06:20 BUN/Creatinine Ratio 19.3 04/14/17 06:20 Glucose 94 mg/dL (70-105) 04/14/17 06:20 POC Glucose 193 MG/DL (70 - 105) H 04/14/17 11:20 Hemoglobin A1c % 7.0 % (4.0-6.0) H 04/12/17 14:54 Uric Acid 5.2 mg/dL (4.4-7.6) 04/14/17 06:20 Calcium 8.5 mg/dL (8.6-10.3) L 04/14/17 06:20 Phosphorus 4.0 mg/dL (2.5-5.0) 04/14/17 06:20 Magnesium 2.0 mg/dL (1.9-2.7) 04/14/17 06:20 Total Bilirubin 0.3 mg/dL (0.3-1.0) 04/13/17 07:00 AST 43 U/L (13-39) H 04/13/17 07:00 ALT 65 U/L (7-52) H 04/13/17 07:00 Alkaline Phosphatase 126 U/L (34-104) H 04/13/17 07:00 Troponin I 0.01 ng/mL (0.01-0.05) 04/12/17 14:54 Total Protein 6.9 gm/dL (6.0-8.3) 04/13/17 07:00 Albumin 3.5 gm/dL (4.2-5.5) L 04/13/17 07:00 Globulin 3.4 gm/dL 04/13/17 07:00 Albumin/Globulin Ratio 1.0 (1.0-1.8) 04/13/17 07:00 Triglycerides 217 mg/dL (<150) H 04/12/17 14:54 Cholesterol 178 mg/dL (<200) 04/12/17 14:54 LDL Cholesterol Direct 108 mg/dL (75-193) 04/12/17 14:54 HDL Cholesterol 47 mg/dL (23-92) 04/12/17 14:54 TSH 1.12 uIU/ml (0.34-5.60) 04/12/17 14:54 Urine Source MIDSTREAM 04/13/17 20:57 Urine Color YELLOW 04/13/17 20:57 Urine Clarity CLEAR (CLEAR) 04/13/17 20:57 Urine pH 5.5 04/13/17 20:57 Ur Specific [place] 1.020 (1.005-1.030) 04/13/17 20:57 Urine Protein >300 mg/dL (NEGATIVE) H 04/13/17 20:57 Urine Glucose (UA) 100 mg/dL (NEGATIVE) H 04/13/17 20:57 Urine Ketones NEGATIVE mg/dL (NEGATIVE) 04/13/17 20:57 Urine Blood MODERATE (NEGATIVE) H 04/13/17 20:57 Urine Nitrate NEGATIVE (NEGATIVE) 04/13/17 20:57 Urine Bilirubin NEGATIVE (NEGATIVE) 04/13/17 20:57 Urine Urobilinogen 0.2 E.U./dL (0.2 - 1.0) 04/13/17 20:57 Ur Leukocyte Esterase NEGATIVE (NEGATIVE) 04/13/17 20:57 Urine RBC 5-10 /hpf (0-5) H 04/13/17 20:57 Urine WBC 0-2 /hpf (0-5) 04/13/17 20:57 Ur Epithelial Cells FEW /lpf (FEW) 04/13/17 20:57 Urine Bacteria FEW /hpf (NONE SEEN) 04/13/17 20:57 Ur Random Sodium 70 mmol/L 04/13/17 20:57 Urine Creatinine 107.0 mg/dl (39.0-259.0) 04/13/17 20:57 RPR NONREACTIVE (NONREACTIVE) 04/12/17 14:54 Blood Type A POSITIVE 04/12/17 19:34 Antibody Screen NEGATIVE 04/12/17 19:34 Crossmatch See Detail 04/12/17 19:34 - Physical Exam Vitals and I&O: Vital Signs Temp 97.3 F 04/14/17 13:50 Pulse 82 04/14/17 13:50 Resp 18 04/14/17 13:50 BP 148/71 04/14/17 13:50 Pulse Ox 100 04/14/17 13:50 Intake & Output 04/13/17 04/14/17 04/14/17 18:59 06:59 18:59 Intake Total 1207 350 Balance 1207 350 Weight (lbs) 58.513 kg 58.559 kg Intake: Intake, IV Amount 507 Sodium Chloride 0.9% 1, 507 000 ml @ 90 mls/hr IV . Q11H7M [facility] Rx#:[id number] Oral 700 350 Other: # Voids 3 1 # Bowel Movements 2 Stool Characteristics Soft Soft Soft Active Medications: Current Medications Acetaminophen (Tylenol) 650 mg PO Q4HR PRN PRN Reason: MODERATE PAIN Stop: 06/11/17 18:53 Amlodipine Besylate (Norvasc) 10 mg PO DAILY [facility] Stop: 06/12/17 08:59 Last Admin: 04/14/17 10:00 Dose: 10 mg Artificial Tears (Artificial Tears Ophth Soln) 1 drop EACH EYE QID [facility] Stop: 06/11/17 20:59 Last Admin: 04/14/17 13:39 Dose: 1 drop Aspirin (Ecotrin) 81 mg PO DAILY [facility] Stop: 06/12/17 08:59 Last Admin: 04/14/17 10:00 Dose: 81 mg Bisacodyl (Dulcolax 10 Mg Supp) 10 mg RC PRN PRN PRN Reason: FOR CONSTIPATION IF MOM INEFFE Stop: 06/11/17 18:53 Clopidogrel Bisulfate (Plavix) 75 mg PO DAILY [facility] Stop: 06/12/17 08:59 Last Admin: 04/14/17 10:00 Dose: 75 mg Donepezil HCl (Aricept) 5 mg PO DAILY [facility] Stop: 06/12/17 08:59 Last Admin: 04/14/17 10:00 Dose: 5 mg Folic Acid (Folate) 1 mg PO DAILY [facility] Stop: 06/12/17 08:59 Last Admin: 04/14/17 10:00 Dose: 1 mg Insulin Aspart (Novolog Insulin Sliding Scale) 0 units SUBQ ACHS [facility] PRN Reason: Protocol Stop: 06/11/17 22:24 Last Admin: 04/14/17 12:06 Dose: 3 units Insulin Detemir (Levemir Insulin) 10 units SUBQ HS [facility] PRN Reason: Protocol Stop: 06/11/17 20:59 Last Admin: 04/13/17 20:34 Dose: 10 units Levetiracetam (Keppra) 500 mg PO BID [facility] Stop: 06/12/17 08:59 Last Admin: 04/14/17 10:00 Dose: 500 mg Magnesium Hydroxide (Milk Of Magnesia) 30 ml PO Q48H PRN PRN Reason: IF NO BM Stop: 06/11/17 18:53 Miscellaneous (Vte Chemical Prophylaxis Screen/ Admission) 1 ea [facility] PRN PRN PRN Reason: PROTOCOL Stop: 06/12/17 09:09 Thiamine HCl (Vitamin B1) 100 mg PO DAILY [facility] Stop: 06/12/17 08:59 Last Admin: 04/14/17 10:00 Dose: 100 mg General: Alert, No acute distress HEENT: Atraumatic, EOMI, Mucous membr. moist/pink Neck: Supple, +2 carotid pulse wo bruit Cardiovascular: Normal S2 Lungs: Clear to auscultation Abdomen: Bowel sounds, Soft Extremities: no Edema Neurological: Sensation intact Skin: no Rash Psych/Mental Status: Mood NL - Procedures Procedures: Procedures Procedure Code Date BLOOD TRANSFUSION SERVICE 44514 04/12/17 TRANSFUSE NONAUT RED BLOOD CELLS IN PERIPH VEIN, [facility] [id number] 04/12/17 Assessment/Plan - Problem List Patient Problems: All Active Problems WANDERING AND UNABLE TO REDIRECT (Acute) - Assessment Assessment: CKD Acute decompensation of psychosis Dementia with behavioral modification Essential hypertension Anemia CKD Epilepsy - Plan Plan: Lab - Result Diagrams 04/14/17 06:20 04/14/17 06:20 Current Medications Acetaminophen (Tylenol) 650 mg PO Q4HR PRN PRN Reason: MODERATE PAIN Stop: 06/11/17 18:53 Amlodipine Besylate (Norvasc) 10 mg PO DAILY [facility] Stop: 06/12/17 08:59 Last Admin: 04/14/17 10:00 Dose: 10 mg Artificial Tears (Artificial Tears Ophth Soln) 1 drop EACH EYE QID [facility] Stop: 06/11/17 20:59 Last Admin: 04/14/17 13:39 Dose: 1 drop Aspirin (Ecotrin) 81 mg PO DAILY [facility] Stop: 06/12/17 08:59 Last Admin: 04/14/17 10:00 Dose: 81 mg Bisacodyl (Dulcolax 10 Mg Supp) 10 mg RC PRN PRN PRN Reason: FOR CONSTIPATION IF MOM INEFFE Stop: 06/11/17 18:53 Clopidogrel Bisulfate (Plavix) 75 mg PO DAILY [facility] Stop: 06/12/17 08:59 Last Admin: 04/14/17 10:00 Dose: 75 mg Donepezil HCl (Aricept) 5 mg PO DAILY [facility] Stop: 06/12/17 08:59 Last Admin: 04/14/17 10:00 Dose: 5 mg Folic Acid (Folate) 1 mg PO DAILY [facility] Stop: 06/12/17 08:59 Last Admin: 04/14/17 10:00 Dose: 1 mg Insulin Aspart (Novolog Insulin Sliding Scale) 0 units SUBQ ACHS [facility] PRN Reason: Protocol Stop: 06/11/17 22:24 Last Admin: 04/14/17 12:06 Dose: 3 units Insulin Detemir (Levemir Insulin) 10 units SUBQ HS [facility] PRN Reason: Protocol Stop: 06/11/17 20:59 Last Admin: 04/13/17 20:34 Dose: 10 units Levetiracetam (Keppra) 500 mg PO BID [facility] Stop: 06/12/17 08:59 Last Admin: 04/14/17 10:00 Dose: 500 mg Magnesium Hydroxide (Milk Of Magnesia) 30 ml PO Q48H PRN PRN Reason: IF NO BM Stop: 06/11/17 18:53 Miscellaneous (Vte Chemical Prophylaxis Screen/ Admission) 1 ea [facility] PRN PRN PRN Reason: PROTOCOL Stop: 06/12/17 09:09 Thiamine HCl (Vitamin B1) 100 mg PO DAILY [facility] Stop: 06/12/17 08:59 Last Admin: 04/14/17 10:00 Dose: 100 mg Lab - Result Diagrams 04/14/17 06:20 04/14/17 06:20 Kidney function slightly improved with a BUN/creatinine of 29/1.5 Received IV hydration No need for further IV hydration but encourage mouth fluid intake Possible transfer to [facility] Nutritional Asmnt/Malnutr-PDOC - Dietary Evaluation Malnutrition Findings (Please click <Entered> for more info): Nutritional Asmnt/Malnutrition Start: 04/13/17 12: 08 Text: Status: Complete Freq: Document 04/13/17 12:08 NICKI (Rec: 04/13/17 12:38 [email or web address] [id number]) Nutritional Asmnt/Malnutrition Patient General Information Nutritional Screening High Risk Screening Diagnosis Reason for visit: severe anemia, acute renal failure Pertinent Medical Hx/Surgical Hx HTN, dementia, chronic renal failure, DM, psychosis Subjective Information 66 year old male from SNF. Pt made eye contact with RD, appeared ot be selectively mute during visit. RD asked several nutrition questions and explained diet, pt nodded only. Unable to provide edu due to cognition. No severe wasting noted. Spoke to RN at bedside, RN stated pt with good appetite, ate 100% of breakfast, no difficulties noted. Current Diet Order/ Nutrition Support Renal Pertinent Medications Dulcolax, Folate, Novolog, Levemir, MOM, Vitamin B1 Pertinent Labs /: A1c 7H, glucose 395H, BUN 33H, Senior Web Analyst 1.7H, triglycerides 217H Nutritional Hx/Data Height 1.57 m Height (Calculated Centimeters) 157.5 Current Weight (lbs) 58.649 kg Weight (Calculated Kilograms) 58.6 Weight (Calculated Grams) 42568.5 [place] Body Weight 110 Weight Status Approriate GI Symptoms Food Allergies No Skin Integrity/Comment: Maykel 14. Skin intact. Current %PO Good (75-100%) Estimated Nutritional Goals BEE in Kcals: Using Current wt Calories/Kcals/Kg CBW 129.3lb/58.8kg Kcals Calculated 1470-1764kcal (25-30kcal/kg) Protein: Using Current wt Protein Calculated 59g (1g/kg) Fluid: ml 1470-1764ml (1ml/kcal) Nutritional Problem 2. Problem Problem Impaired nutrient utilization related to Etiology renal failure aeb Signs/Symptoms: BUN 33H, creatinine 1.7H 1. Problem Problem Altered nutrition related laboratory values related to Etiology DM aeb Signs/Symptoms: A1c 7, glucose 395 on adm Intervention/Recommendation Comments 1. Recommend [id number] renal diet. RD briefly explained diet, pt nodded. Pt noted with good appetite. Expected Outcomes/Goals Expected Outcomes/Goals 1. PO itnake to meet at least 75% of estimated nutritional needs.
[2017-04-15 12:15] LABS: MICROALBUMIN RANDOM RUINE 1085.7 ug/mL (Not Estab.)
== END 2017-04-14 14:53 | DRG 683 ==
LOC: ER 14:31 → MSI 16:22
PROVIDERS: ADMIT General Practice; ATTEND General Practice
PROC: 30233N1 Transfusion of Nonautologous Red Blood Cells into Peripheral Vein, Percutaneous Approach (ICD-10-PCS; principal; 2017-04-13)
DX: N17.9 Acute kidney failure, unspecified (principal); F03.91 Unspecified dementia, unspecified severity, with behavioral disturbance; E11.22 Type 2 diabetes mellitus with diabetic chronic kidney disease; F29 Unspecified psychosis not due to a substance or known physiological condition; I12.9 Hypertensive chronic kidney disease with stage 1 through stage 4 chronic kidney disease, or unspecified chronic kidney disease; N18.9 Chronic kidney disease, unspecified; G40.909 Epilepsy, unspecified, not intractable, without status epilepticus; E78.5 Hyperlipidemia, unspecified; D63.1 Anemia in chronic kidney disease; Z86.73 Personal history of transient ischemic attack (TIA), and cerebral infarction without residual deficits; Z79.82 Long term (current) use of aspirin; Z79.4 Long term (current) use of insulin
CPT/HCPCS: 36415-UA; 71010-TC; 76770-TC; 80048-TC; 80053-TC; 80061-TC; 81001-TC; 81015-TC; 82043-90; 82570-TC; 82948-90; 83036-90; 83735-TC; 84100-TC; 84300-TC; 84443-TC; 84484-TC; 84550-TC; 85025-TC; 85610-TC; 85730-TC; 86592-TC; 86850-TC; 86900-TC; 86901-TC; 86922-TC; 93005; J1815; J7030; P9016; Z7610

== ENCOUNTER 2017-04-14 15:00 | Inpatient (IN) | payer MEDICARE, OTHER ==
[2017-04-14 16:26] VITALS: BP 138/72
[2017-04-14] MEDS ORDERED: Magnesium Hydroxide (MOM) 30 mL UDC PO PRN (17:39)
[2017-04-14] MEDS ORDERED: Fleet Enema 135 mL RC PRN (17:39)
[2017-04-14] MEDS: INSULIN ASPART SLIDING SCALE 100 UNITS/ML UNIT SUBQ SCH (21:00)
[2017-04-14] MEDS ORDERED: Insulin Detemir 100 units/mL 10mL Vial SUBQ SCH (21:00)
[2017-04-14] MEDS: Polyvinyl Alcohol Ophth Soln 15 mL Bottle EACH EYE SCH (21:15)
[2017-04-15] MEDS: INSULIN ASPART SLIDING SCALE 100 UNITS/ML UNIT SUBQ SCH ×4 (07:35→20:54)
--- NOTE | 2017-04-15 09:12 | History and Physical ---
History of Present Illness - HPI Chief Complaint: Increased in agitation HPI: Patient was send from SNF to evaluate due that he has been woundering, became agressive to employes. During ER exam, was found ARF and anemia reazon why he stayed at [facility]. Patient was tranfer to [facility] to continue treatment. Vital Signs: Last Vital Signs Temp 99 F 04/14/17 20:00 Pulse 93 04/14/17 20:00 Resp 20 04/14/17 20:00 BP 134/83 04/14/17 20:00 Pulse Ox 100 04/14/17 20:00 Past Medical History Cardiovascular: Report: HTN Pulmonary: Report: No Pertinent Hx [employer]: Report: Dementia GI: Report: No Pertinent Hx Psych: Report: Psychosis Musculoskeletal: Report: Weakness Rheumatologic: Report: No pertinent Hx Infectious Disease: Report: No Pertinent Hx Renal/: Report: Chronic Renal Insuff Endocrine: Report: No Pertinent Hx Dermatology: Report: No Pertinent Hx - Past Surgical History Past Surgical History: No pertinent Hx Family Medical History - Family Member Mother History Unknown: Yes Ethnicity: Social History Smoke: No Alcohol: None Drugs: None Lives: Care Home Domestic Violence: Negative Health Maintenance Health Maintenance: Cholesterol - Medications Home Medications: Home Medication Medication Instructions Recorded Type Acetaminophen [Tylenol Extra 100 mg PO Q4HR PRN 04/12/17 History Strength] Acetaminophen [Tylenol Extra 500 mg PO Q4HR PRN 04/12/17 History Strength] Acetaminophen [Tylenol] 650 mg PO Q4HR PRN 04/12/17 History Amlodipine Besylate 10 mg PO DAILY 04/12/17 History Bisacodyl [Dulcolax 10 Mg Supp] 10 mg RC PRN PRN 04/12/17 History Donepezil HCl [Donepezil HCl Odt] 5 mg PO DAILY 04/12/17 History Fleet Enema 135 ml RC Q72H PRN 04/12/17 History Folic Acid [Folate*] 1 mg PO DAILY 04/12/17 History Insulin Detemir [Levemir] 10 unit SQ HS 04/12/17 History Insulin Human Regular [NovoLIN R*] 0 units SUBQ AC 04/12/17 History Magnesium Hydroxide [Milk of 30 ml PO Q48H PRN 04/12/17 History Magnesia] Multivitamin w/ Minerals 1 tab PO DAILY 04/12/17 History [Theragran M] Polyvinyl Alcohol Ophth Soln 1 drop EACH EYE QID 04/12/17 History [Artificial Tears Ophth Soln*] Thiamine [Vitamin B1] 100 mg PO DAILY 04/12/17 History Aspirin [Adult Low Dose Aspirin EC] 81 mg PO DAILY 04/14/17 History Clopidogrel [Plavix] 75 mg PO DAILY 04/14/17 History Insulin Aspart Sliding Scale See Protocol SUBQ ACHS 04/14/17 History [NovoLOG INSULIN SLIDING SCALE] Levetiracetam [Keppra] 500 mg PO BID 04/14/17 History - Allergies Allergies/Adverse Reactions: Allergies Allergy/AdvReac Type Severity Reaction Status Date / Time No Known Allergies Allergy Verified 06/30/16 18:07 Review of Systems - Review of Systems Constitutional: Report: Other (WNL) Eyes: Report: Other (WNL) Respiratory: Report: Dry Cardiovascular: Report: Other (WNL) Neurological: Report: Confusion Other: Information was not obtain due to patient mental condition Physical Exam - Physical Exam Neck: Report: WNL Cardiovascular Systems: Report: Regular, Rate and Rhythm Respiratory: Report: Clear to Auscultation of lung velazquez Abdomen: Report: Non-tender to palpation Back: Report: Inspection of back is within normal limits. Extremities: Report: Non-tender to palpation. Skin: Report: Color of skin is within normal limits Neuro/Psych: Report: No motor deficit - Lab Results All Lab Results last 24 hours: Laboratory Last Values POC Glucose 149 MG/DL (70 - 105) H 04/15/17 06:00 Laboratory Results - last 24 hr 04/14/17 04/14/17 04/15/17 16:39 20:27 06:00 POC Glucose 213 H 308 H 149 H - Assessment Assessment: Patient is awake, alert, calm, in no acute distress. DX: Increased in agitation , CRF, HTN, Anemia, Psychosis, Dementia. - Plan Plan: Patient will continue with SNF meds. He is follow by psychiatry. Will continue to monitor.
[2017-04-15] MEDS: Multivitamin w/ Minerals Tab PO SCH (10:05)
[2017-04-15] MEDS: Polyvinyl Alcohol Ophth Soln 15 mL Bottle EACH EYE SCH ×4 (10:05→20:39)
[2017-04-15] MEDS: Insulin Detemir 100 units/mL 10mL Vial SUBQ SCH (20:54)
[2017-04-16] MEDS: INSULIN ASPART SLIDING SCALE 100 UNITS/ML UNIT SUBQ SCH ×4 (07:05→21:15)
[2017-04-16 07:12] LABS: ALB/GLOB RATIO 1.1 (1.0-1.8); ANION GAP 5.8 (7.0-16.0); BILIRUBIN,TOTAL 0.2 mg/dL (0.3-1.0); BUN/CREATININE RATIO 20.5; CALCIUM SERUM 8.7 mg/dL (8.6-10.3); CARBON DIOXIDE 23.3 mEq/L (21.0-31.0); POTASSIUM SERUM 4.1 mEq/L (3.5-5.1)
[2017-04-16 07:36] LABS: % BASOPHILS 0.3 % (0.0-2.0); % EOSINOPHILS 4.7 % (0.0-5.0); % LYMPHOCYTES 29.7 % (20.0-50.0); % MONOCYTES 12.4 % (2.0-10.0); % NEUTROPHILS 52.9 % (40.0-80.0); HEMATOCRIT 26.7 % (39.0-49.0); HEMOGLOBIN 8.8 gm/dL (12.6-17.4); MEAN CELL VOLUME 84.2 fl (80-99); MEAN CORPUSCULAR HEMOGLOBIN 27.8 pg (27.0-31.0); MEAN CORPUSCULAR HGB CONC 33.1 pg (28.0-36.0); MEAN PLATELET VOLUME 8.7 fl; NEUTROPHILE ABSOLUTE 3.6 Th/cmm (1.8-8.0); PLATELET COUNT 233 Th/cmm (150-400); RED BLOOD COUNT 3.17 Mil/cmm (3.80-5.80); RED CELL DISTRIBUTION WIDTH 14.7 % (11.5-20.0); WHITE BLOOD COUNT 6.7 Th/cmm (4.8-10.8)
[2017-04-16] MEDS: Multivitamin w/ Minerals Tab PO SCH (08:27)
[2017-04-16] MEDS: Polyvinyl Alcohol Ophth Soln 15 mL Bottle EACH EYE SCH ×4 (08:30→20:25)
--- NOTE | 2017-04-16 09:10 | General Progress Note ---
Subjective - Review of Systems Service Date: 04/16/17 Subjective: Patient is confused Objective - Results Result Diagrams: 04/16/17 06:27 04/16/17 06:27 Recent Labs: Laboratory Last Values WBC 6.7 Th/cmm (4.8-10.8) 04/16/17 06:27 RBC 3.17 Mil/cmm (3.80-5.80) L 04/16/17 06:27 Hgb 8.8 gm/dL (12.6-17.4) L 04/16/17 06:27 Hct 26.7 % (39.0-49.0) L 04/16/17 06:27 MCV 84.2 fl (80-99) 04/16/17 06:27 MCH 27.8 pg (27.0-31.0) 04/16/17 06:27 MCHC Differential 33.1 pg (28.0-36.0) 04/16/17 06:27 RDW 14.7 % (11.5-20.0) 04/16/17 06:27 Plt Count 233 Th/cmm (150-400) 04/16/17 06:27 MPV 8.7 fl 04/16/17 06:27 Neutrophils % 52.9 % (40.0-80.0) 04/16/17 06:27 Lymphocytes % 29.7 % (20.0-50.0) 04/16/17 06:27 Monocytes % 12.4 % (2.0-10.0) H 04/16/17 06:27 Eosinophils % 4.7 % (0.0-5.0) 04/16/17 06:27 Basophils % 0.3 % (0.0-2.0) 04/16/17 06:27 Sodium 138 mEq/L (136-145) 04/16/17 06:27 Potassium 4.1 mEq/L (3.5-5.1) 04/16/17 06:27 Chloride 113 mEq/L (98-107) H 04/16/17 06:27 Carbon Dioxide 23.3 mEq/L (21.0-31.0) 04/16/17 06:27 Anion Gap 5.8 (7.0-16.0) L 04/16/17 06:27 BUN 41 mg/dL (7-25) H 04/16/17 06:27 Creatinine 2.0 mg/dL (0.7-1.3) H 04/16/17 06:27 Est GFR ( Amer) 43.3 ml/min (>90) 04/16/17 06:27 Est GFR (Non-Af Amer) 35.8 ml/min 04/16/17 06:27 BUN/Creatinine Ratio 20.5 04/16/17 06:27 Glucose 132 mg/dL (70-105) H 04/16/17 06:27 POC Glucose 132 MG/DL (70 - 105) H 04/16/17 05:32 Calcium 8.7 mg/dL (8.6-10.3) 04/16/17 06:27 Total Bilirubin 0.2 mg/dL (0.3-1.0) L 04/16/17 06:27 AST 38 U/L (13-39) 04/16/17 06:27 ALT 54 U/L (7-52) H 04/16/17 06:27 Alkaline Phosphatase 102 U/L (34-104) 04/16/17 06:27 Total Protein 6.0 gm/dL (6.0-8.3) 04/16/17 06:27 Albumin 3.1 gm/dL (4.2-5.5) L 04/16/17 06:27 Globulin 2.9 gm/dL 04/16/17 06:27 Albumin/Globulin Ratio 1.1 (1.0-1.8) 04/16/17 06:27 - Physical Exam Vitals and I&O: Vital Signs Temp 98.2 F 04/16/17 07:02 Pulse 76 04/16/17 08:28 Resp 18 04/16/17 07:02 BP 147/72 04/16/17 08:28 Pulse Ox 99 04/16/17 07:02 Intake & Output 04/15/17 04/16/17 04/16/17 18:59 06:59 18:59 Intake Total 120 Balance 120 Intake: Oral 120 Other: # Voids 2 Active Medications: Current Medications Acetaminophen (Tylenol) 650 mg PO Q4HR PRN PRN Reason: MODERATE PAIN Stop: 06/13/17 17:38 Amlodipine Besylate (Norvasc) 10 mg PO DAILY [facility] Stop: 06/14/17 08:59 Last Admin: 04/16/17 08:28 Dose: 10 mg Artificial Tears (Artificial Tears Ophth Soln) 1 drop EACH EYE QID [facility] Stop: 06/13/17 20:59 Last Admin: 04/16/17 08:30 Dose: 1 drop Aspirin (Ecotrin) 81 mg PO DAILY [facility] Stop: 06/14/17 08:59 Last Admin: 04/16/17 08:28 Dose: 81 mg Bisacodyl (Dulcolax 10 Mg Supp) 10 mg RC PRN PRN PRN Reason: FOR CONSTIPATION IF MOM INEFFE Stop: 06/13/17 17:38 Clopidogrel Bisulfate (Plavix) 75 mg PO DAILY [facility] Stop: 06/14/17 08:59 Last Admin: 04/16/17 08:27 Dose: 75 mg Donepezil HCl (Aricept) 5 mg PO DAILY [facility] Stop: 06/14/17 08:59 Last Admin: 04/16/17 08:28 Dose: 5 mg Folic Acid (Folate) 1 mg PO DAILY [facility] Stop: 06/14/17 08:59 Last Admin: 04/16/17 08:28 Dose: 1 mg Insulin Aspart (Novolog Insulin Sliding Scale) 3 - 13 units SUBQ ACHS [facility] PRN Reason: Protocol Stop: 06/13/17 20:59 Last Admin: 04/16/17 07:05 Dose: Not Given Insulin Detemir (Levemir Insulin) 10 units SUBQ HS [facility] PRN Reason: Protocol Stop: 06/14/17 09:18 Last Admin: 04/15/17 20:54 Dose: 10 unit Levetiracetam (Keppra) 500 mg PO BID [facility] Stop: 06/14/17 08:59 Last Admin: 04/16/17 08:28 Dose: 500 mg Magnesium Hydroxide (Milk Of Magnesia) 30 ml PO Q48H PRN PRN Reason: IF NO BM Stop: 06/13/17 17:38 Sodium Phosphate (Fleet Enema) 135 ml RC Q72H PRN PRN Reason: Constipation Stop: 06/13/17 17:38 Thiamine HCl (Vitamin B1) 100 mg PO DAILY [facility] Stop: 06/14/17 08:59 Last Admin: 04/16/17 08:27 Dose: 100 mg General: Alert, Other (Confused) HEENT: Atraumatic Neck: Supple Cardiovascular: Regular rate Lungs: Clear to auscultation Abdomen: Bowel sounds, Soft Extremities: Other (No edema), no Edema Neurological: Other (Non ambulatory) Skin: Other (Warm and dry) Psych/Mental Status: Other (Confused) - Procedures Procedures: Procedures Procedure Code Date BLOOD TRANSFUSION SERVICE 60123 04/12/17 TRANSFUSE NONAUT RED BLOOD CELLS IN PERIPH VEIN, PERC 55303I0 04/12/17 Assessment/Plan - Problem List Patient Problems: All Active Problems WANDERING AND UNABLE TO REDIRECT (Acute) - Assessment Assessment: Patient is awake, alert, calm, in no acute distress. DX: Increased in agitation , CRF, HTN, Anemia, Psychosis, Dementia. - Plan Plan: Patient will continue with SNF meds. He is follow by psychiatry. Will continue to monitor.
[2017-04-16] MEDS: Insulin Detemir 100 units/mL 10mL Vial SUBQ SCH (21:16)
[2017-04-17] MEDS: INSULIN ASPART SLIDING SCALE 100 UNITS/ML UNIT SUBQ SCH ×2 (06:33→12:11)
[2017-04-17 07:18] LABS: % BASOPHILS 0.1 % (0.0-2.0); MEAN CORPUSCULAR HGB CONC 33.9 pg (28.0-36.0); MEAN PLATELET VOLUME 8.3 fl
[2017-04-17 07:22] LABS: % EOSINOPHILS 0.4 % (0.0-5.0); % LYMPHOCYTES 8.2 % (20.0-50.0); % MONOCYTES 7.1 % (2.0-10.0); % NEUTROPHILS 84.2 % (40.0-80.0); HEMATOCRIT 29.9 % (39.0-49.0); HEMOGLOBIN 10.1 gm/dL (12.6-17.4); MEAN CELL VOLUME 85.3 fl (80-99); MEAN CORPUSCULAR HEMOGLOBIN 28.9 pg (27.0-31.0); NEUTROPHILE ABSOLUTE 13.4 Th/cmm (1.8-8.0); PLATELET COUNT 253 Th/cmm (150-400); RED BLOOD COUNT 3.51 Mil/cmm (3.80-5.80); RED CELL DISTRIBUTION WIDTH 14.6 % (11.5-20.0)
[2017-04-17 07:31] LABS: WHITE BLOOD COUNT 15.9 Th/cmm (4.8-10.8)
[2017-04-17 07:39] LABS: ALB/GLOB RATIO 1.1 (1.0-1.8); ANION GAP 7.8 (7.0-16.0); BILIRUBIN,TOTAL 0.2 mg/dL (0.3-1.0); BUN/CREATININE RATIO 18.8; CALCIUM SERUM 8.9 mg/dL (8.6-10.3); CARBON DIOXIDE 22.2 mEq/L (21.0-31.0); CREATININE - SERUM 1.6 mg/dL (0.7-1.3)
[2017-04-17 08:29] LABS: HEMATOCRIT 29.4 % (39.0-49.0); HEMOGLOBIN 9.9 gm/dL (12.6-17.4); MEAN CELL VOLUME 84.9 fl (80-99); MEAN CORPUSCULAR HEMOGLOBIN 28.6 pg (27.0-31.0); MEAN CORPUSCULAR HGB CONC 33.7 pg (28.0-36.0); MEAN PLATELET VOLUME 8.6 fl; PLATELET COUNT 261 Th/cmm (150-400); RED BLOOD COUNT 3.46 Mil/cmm (3.80-5.80)
[2017-04-17 08:40] LABS: WHITE BLOOD COUNT 17.2 Th/cmm (4.8-10.8)
[2017-04-17 08:49] LABS: NEUTROPHILS 82 % (40-80); TOTAL CELLS COUNTED 100
[2017-04-17 08:50] LABS: BAND NEUTROPHILE 3 % (0-10); EOSINOPHIL 1 % (0-5); PLATELET ESTIMATE ADEQUATE (NORMAL)
--- NOTE | 2017-04-17 09:11 | General Progress Note ---
Subjective - Review of Systems Service Date: 04/17/17 Subjective: Patient is confused, in no acute distress Objective - Results Result Diagrams: 04/17/17 07:58 04/17/17 07:00 Recent Labs: Laboratory Last Values WBC 17.2 Th/cmm (4.8-10.8) H 04/17/17 07:58 RBC 3.46 Mil/cmm (3.80-5.80) L 04/17/17 07:58 Hgb 9.9 gm/dL (12.6-17.4) L 04/17/17 07:58 Hct 29.4 % (39.0-49.0) L 04/17/17 07:58 MCV 84.9 fl (80-99) 04/17/17 07:58 MCH 28.6 pg (27.0-31.0) 04/17/17 07:58 MCHC Differential 33.7 pg (28.0-36.0) 04/17/17 07:58 RDW 15.0 % (11.5-20.0) 04/17/17 07:58 Plt Count 261 Th/cmm (150-400) 04/17/17 07:58 MPV 8.6 fl 04/17/17 07:58 Neutrophils % 84.2 % (40.0-80.0) H 04/17/17 07:00 Band Neutrophils % 3 % (0-10) 04/17/17 07:58 Lymphocytes % 8.2 % (20.0-50.0) L 04/17/17 07:00 Monocytes % 7.1 % (2.0-10.0) 04/17/17 07:00 Eosinophils % 0.4 % (0.0-5.0) 04/17/17 07:00 Basophils % 0.1 % (0.0-2.0) 04/17/17 07:00 Neutrophils (Manual) 82 % (40-80) H 04/17/17 07:58 Lymphocytes 8 % (20-50) L 04/17/17 07:58 Monocytes 6 % (2-10) 04/17/17 07:58 Eosinophils 1 % (0-5) 04/17/17 07:58 Platelet Estimate ADEQUATE (NORMAL) 04/17/17 07:58 Sodium 136 mEq/L (136-145) 04/17/17 07:00 Potassium 4.0 mEq/L (3.5-5.1) 04/17/17 07:00 Chloride 110 mEq/L (98-107) H 04/17/17 07:00 Carbon Dioxide 22.2 mEq/L (21.0-31.0) 04/17/17 07:00 Anion Gap 7.8 (7.0-16.0) 04/17/17 07:00 BUN 30 mg/dL (7-25) H 04/17/17 07:00 Creatinine 1.6 mg/dL (0.7-1.3) H 04/17/17 07:00 Est GFR ( Amer) 56.1 ml/min (>90) 04/17/17 07:00 Est GFR (Non-Af Amer) 46.3 ml/min 04/17/17 07:00 BUN/Creatinine Ratio 18.8 04/17/17 07:00 Glucose 83 mg/dL (70-105) 04/17/17 07:00 POC Glucose 77 MG/DL (70 - 105) 04/17/17 06:22 Calcium 8.9 mg/dL (8.6-10.3) 04/17/17 07:00 Total Bilirubin 0.2 mg/dL (0.3-1.0) L 04/17/17 07:00 AST 43 U/L (13-39) H 04/17/17 07:00 ALT 58 U/L (7-52) H 04/17/17 07:00 Alkaline Phosphatase 109 U/L (34-104) H 04/17/17 07:00 Total Protein 6.6 gm/dL (6.0-8.3) 04/17/17 07:00 Albumin 3.4 gm/dL (4.2-5.5) L 04/17/17 07:00 Globulin 3.2 gm/dL 04/17/17 07:00 Albumin/Globulin Ratio 1.1 (1.0-1.8) 04/17/17 07:00 - Physical Exam Vitals and I&O: Vital Signs Temp 98 F 04/17/17 06:43 Pulse 83 04/17/17 06:43 Resp 20 04/17/17 06:43 BP 121/65 04/17/17 06:43 Pulse Ox 98 04/17/17 06:43 Intake & Output 04/16/17 04/17/17 04/17/17 18:59 06:59 18:59 Intake Total 120 120 Balance 120 120 Intake: Oral 120 120 Other: # Voids 2 3 Stool Characteristics Soft Formed Active Medications: Current Medications Acetaminophen (Tylenol) 650 mg PO Q4HR PRN PRN Reason: MODERATE PAIN Stop: 06/13/17 17:38 Amlodipine Besylate (Norvasc) 10 mg PO DAILY [facility] Stop: 06/14/17 08:59 Last Admin: 04/16/17 08:28 Dose: 10 mg Artificial Tears (Artificial Tears Ophth Soln) 1 drop EACH EYE QID [facility] Stop: 06/13/17 20:59 Last Admin: 04/16/17 20:25 Dose: 1 drop Aspirin (Ecotrin) 81 mg PO DAILY [facility] Stop: 06/14/17 08:59 Last Admin: 04/16/17 08:28 Dose: 81 mg Bisacodyl (Dulcolax 10 Mg Supp) 10 mg RC PRN PRN PRN Reason: FOR CONSTIPATION IF MOM INEFFE Stop: 06/13/17 17:38 Clopidogrel Bisulfate (Plavix) 75 mg PO DAILY [facility] Stop: 06/14/17 08:59 Last Admin: 04/16/17 08:27 Dose: 75 mg Donepezil HCl (Aricept) 5 mg PO DAILY [facility] Stop: 06/14/17 08:59 Last Admin: 04/16/17 08:28 Dose: 5 mg Folic Acid (Folate) 1 mg PO DAILY [facility] Stop: 06/14/17 08:59 Last Admin: 04/16/17 08:28 Dose: 1 mg Insulin Aspart (Novolog Insulin Sliding Scale) 3 - 13 units SUBQ ACHS [facility] PRN Reason: Protocol Stop: 06/13/17 20:59 Last Admin: 04/17/17 06:33 Dose: Not Given Insulin Detemir (Levemir Insulin) 10 units SUBQ HS [facility] PRN Reason: Protocol Stop: 06/14/17 09:18 Last Admin: 04/16/17 21:16 Dose: 10 unit Levetiracetam (Keppra) 500 mg PO BID [facility] Stop: 06/14/17 08:59 Last Admin: 04/16/17 17:03 Dose: 500 mg Magnesium Hydroxide (Milk Of Magnesia) 30 ml PO Q48H PRN PRN Reason: IF NO BM Stop: 06/13/17 17:38 Risperidone (Risperdal) 0.5 mg PO HS [facility] PRN Reason: Protocol Stop: 06/15/17 20:59 Sodium Phosphate (Fleet Enema) 135 ml RC Q72H PRN PRN Reason: Constipation Stop: 06/13/17 17:38 Thiamine HCl (Vitamin B1) 100 mg PO DAILY [facility] Stop: 06/14/17 08:59 Last Admin: 04/16/17 08:27 Dose: 100 mg General: Alert, No acute distress, Other (Confused) HEENT: Atraumatic Neck: Supple Cardiovascular: Regular rate Lungs: Clear to auscultation Abdomen: Bowel sounds, Soft Extremities: Other (No edema), no Edema Neurological: Other (Non ambulatory) Skin: Other (Warm and dry) Psych/Mental Status: Other (Confused) - Procedures Procedures: Procedures Procedure Code Date BLOOD TRANSFUSION SERVICE 15087 04/12/17 TRANSFUSE NONAUT RED BLOOD CELLS IN PERIPH VEIN, PERC 30796C4 04/12/17 Assessment/Plan - Problem List Patient Problems: All Active Problems WANDERING AND UNABLE TO REDIRECT (Acute) - Assessment Assessment: Patient is awake, alert, calm, in no acute distress. Today WBC is high. DX: Increased in agitation, CRF, HTN, Anemia, Psychosis, Dementia. - Plan Plan: Blood culture, CXR, and UA are requested. Patient will transfer to [facility] to start AB.
[2017-04-17] MEDS: Multivitamin w/ Minerals Tab PO SCH (09:25)
[2017-04-17] MEDS: Polyvinyl Alcohol Ophth Soln 15 mL Bottle EACH EYE SCH ×2 (09:26→14:10)
--- NOTE | 2017-04-17 09:47 | Diagnostic Imaging Report ---
Exam: Chest x-ray HISTORY: Elevated WBC Findings: Portable upright summation chest at 0916 hours reviewed no prior studies available for comparison. Bony thorax is intact. The mediastinal structures midline and the costophrenic angles are clear. IMPRESSION: No acute disease
[2017-04-17 14:25] LABS: URINE BILIRUBIN NEGATIVE (NEGATIVE); URINE BLOOD MODERATE (NEGATIVE); URINE COLOR YELLOW; URINE GLUCOSE (UA) NEGATIVE (NEGATIVE); URINE KETONE NEGATIVE (NEGATIVE); URINE PH 5.5; URINE PROTEIN >300 mg/dL (NEGATIVE); URINE UROBILINOGEN 0.2 E.U./dL (0.2 - 1.0)
[2017-04-17 14:26] LABS: URINE AMORPHOUS SEDIMENT MANY URATES (NONE SEEN); URINE BACTERIA FEW /hpf (NONE SEEN); URINE EPITHELIAL CELLS OCCASIONAL /lpf (FEW); URINE WBC 0-2 /hpf (0-5)
== END 2017-04-17 14:00 | DRG 884 ==
LOC: GERO 15:00
PROVIDERS: ADMIT Psychiatry & Neurology Psychiatry; ATTEND Psychiatry & Neurology Psychiatry
DX: F03.91 Unspecified dementia, unspecified severity, with behavioral disturbance (principal); I12.9 Hypertensive chronic kidney disease with stage 1 through stage 4 chronic kidney disease, or unspecified chronic kidney disease; N18.9 Chronic kidney disease, unspecified; D64.9 Anemia, unspecified; F29 Unspecified psychosis not due to a substance or known physiological condition; Z91.83 Wandering in diseases classified elsewhere
CPT/HCPCS: 36415-UA; 71010-TC; 80053-TC; 81001-TC; 82948-90; 85007-TC; 85025-TC; 85027-TC; J1815; Z7610

== ENCOUNTER 2017-04-17 14:07 | Inpatient (IN) | payer MEDICARE, OTHER ==
[2017-04-17 14:52] VITALS: BP 120/65
[2017-04-17] MEDS: Sodium Chloride 0.9% 1,000 ML IV SCH (15:06)
--- NOTE | 2017-04-17 16:15 | Consultation ---
Consult Note - Consult Note Service Date: 04/17/17 Consult Note: PHYSICIAN Consultation Note: Date of Admission: 04/17/17 Purpose of Consultation: History of chronic kidney disease Chief Complaint: History of chronic kidney disease History of Present Illness: 66-year-old male with past medical history of chronic kidney disease who was transferred from geropsychiatry unit to [facility] because of elevated white count of 17,000. Past Medical History: CKD Essential hypertension Anemia of chronic disease Epilepsy Allergies Allergy/AdvReac Type Severity Reaction Status Date / Time No Known Allergies Allergy Verified 06/30/16 18:07 Vital Signs Temp Pulse Resp BP 120/65 04/17/17 14:46 Pulse Ox Intake & Output 04/16/17 04/17/17 04/17/17 18:59 06:59 18:59 Weight (lbs) 55.338 kg Laboratory Results - last 24 hr 04/17/17 15:32 POC Glucose 185 H Home Medication Medication Instructions Recorded Type Acetaminophen [Tylenol] 650 mg PO Q4HR PRN tab 04/17/17 Rx Aspirin EC [Ecotrin] 81 mg PO DAILY ect 04/17/17 Rx Bisacodyl [Dulcolax 10 Mg Supp] 10 mg RC PRN PRN sup 04/17/17 Rx Clopidogrel [Plavix] 75 mg PO DAILY tab 04/17/17 Rx Donepezil Hcl [Aricept] 5 mg PO DAILY tab 04/17/17 Rx Fleet Enema 135 ml RC Q72H PRN 04/17/17 Rx Folic Acid [Folate*] 1 mg PO DAILY tab 04/17/17 Rx Insulin Aspart Sliding Scale 3 - 13 units SUBQ ACHS unit 04/17/17 Rx [NovoLOG INSULIN SLIDING SCALE] Insulin Detemir [Levemir Insulin] 10 units SUBQ HS vial 04/17/17 Rx Levetiracetam [Keppra] 500 mg PO BID tab 04/17/17 Rx Magnesium Hydroxide [Milk of 30 ml PO Q48H PRN udc 04/17/17 Rx Magnesia] Multivitamin w/ Minerals 1 tab PO DAILY tab 04/17/17 Rx [Theragran M] Polyvinyl Alcohol Ophth Soln 1 drop EACH EYE QID 04/17/17 Rx [Artificial Tears Ophth Soln*] Thiamine [Vitamin B1] 100 mg PO DAILY tab 04/17/17 Rx amLODIPine Besylate [Norvasc*] 10 mg PO DAILY tab 04/17/17 Rx risperiDONE [RisperDAL] 0.5 mg PO HS tab 04/17/17 Rx Current Medications Generic Name Dose Route Start Last Admin Trade Name Freq PRN Reason Stop Dose Admin Sodium Chloride 1,000 mls @ 90 mls/hr 04/17/17 14:42 04/17/17 15:06 Nacl 0.9% IV 06/16/17 14:41 90 mls/hr .[id number] [facility] Administration Piperacillin Sod/Tazobactam 50 mls @ 100 mls/hr 04/17/17 18:00 Sod 2.25 gm/ Sodium Chloride IV 06/16/17 17:59 Q6HR [facility] Vancomycin HCl 750 mg/ Sodium 250 mls @ 250 mls/hr 04/17/17 15:30 04/17/17 15 :35 Chloride IV 06/16/17 15:29 250 mls/hr Q24HR@1530 [facility] Administration Insulin Aspart 0 units 04/17/17 16:30 Novolog Insulin Sliding Scale SUBQ 06/16/17 16:29 ACHS [facility] Protocol Miscellaneous 1 ea 04/17/17 14:51 Vancomycin Iv Per Pharmacy [facility] 06/16/17 14:50 PRN PRN PROTOCOL Review of Systems: A 12 point ROS was reviewed with the pertinent positive and negatives noted in the HPI. Social History Smoking Status Smoker, status unknown Drug Use No Alcohol Use No Physical Exam: General: Alert and disOriented, No Acute Distress HEENT: EOMI Bilaterally, PERRLA Bilaterally, Head is normocephalic, atraumatic on inspection. Cardio: +S1/S2 Auscultated, RRR, no murmurs/rubs/gallops noted Respiratory: Clear to Auscultate Bilaterally Abdominal: Soft, Nondistended, Nontender to palpation x 4 quadrants Genital/Urinary: Normal-appearing male genitalia Extremities: No Edema noted in the lower extremities, palpable femoral, popliteal and dorsalis pedis pulses Neurological: Cranial Nerves II-XII intact bilaterally, Gait Steady, No Focal Deficits noted. 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
[2017-04-17] MEDS: INSULIN ASPART SLIDING SCALE 100 UNITS/ML UNIT SUBQ SCH ×2 (16:57→21:32)
[2017-04-17] MEDS: Piperacillin/Tazobact 2.25 gm in 0.9% NS 50 ML IV SCH ×2 (17:42→23:58)
[2017-04-17] MEDS: Insulin Detemir 100 units/mL 10mL Vial SUBQ SCH (21:30)
[2017-04-18] MEDS: Sodium Chloride 0.9% 1,000 ML IV SCH ×2 (05:50→23:23)
[2017-04-18] MEDS: Piperacillin/Tazobact 2.25 gm in 0.9% NS 50 ML IV SCH ×4 (05:51→23:23)
[2017-04-18 06:32] LABS: % BASOPHILS 0.1 % (0.0-2.0); % EOSINOPHILS 2.7 % (0.0-5.0); % LYMPHOCYTES 15.9 % (20.0-50.0); % MONOCYTES 7.9 % (2.0-10.0); % NEUTROPHILS 73.4 % (40.0-80.0); HEMATOCRIT 27.2 % (39.0-49.0); HEMOGLOBIN 9.2 gm/dL (12.6-17.4); MEAN CORPUSCULAR HEMOGLOBIN 28.7 pg (27.0-31.0); MEAN CORPUSCULAR HGB CONC 33.7 pg (28.0-36.0); MEAN PLATELET VOLUME 8.5 fl; NEUTROPHILE ABSOLUTE 7.7 Th/cmm (1.8-8.0); PLATELET COUNT 246 Th/cmm (150-400); RED CELL DISTRIBUTION WIDTH 14.8 % (11.5-20.0); WHITE BLOOD COUNT 10.5 Th/cmm (4.8-10.8)
[2017-04-18 06:44] LABS: ALB/GLOB RATIO 1.1 (1.0-1.8); BILIRUBIN,TOTAL 0.2 mg/dL (0.3-1.0); BUN/CREATININE RATIO 15.6; CALCIUM SERUM 8.6 mg/dL (8.6-10.3); CARBON DIOXIDE 23.6 mEq/L (21.0-31.0); CREATININE - SERUM 1.6 mg/dL (0.7-1.3); MAGNESIUM 2.1 mg/dL (1.9-2.7); PHOSPHOROUS 3.4 mg/dL (2.5-5.0); POTASSIUM SERUM 3.6 mEq/L (3.5-5.1)
[2017-04-18] MEDS: INSULIN ASPART SLIDING SCALE 100 UNITS/ML UNIT SUBQ SCH ×4 (06:44→21:47)
[2017-04-18] MEDS: Multivitamin w/ Minerals Tab PO SCH (08:47)
--- NOTE | 2017-04-18 09:46 | History and Physical ---
History of Present Illness - HPI Chief Complaint: Elevated WBC HPI: Patient was in [facility] and WBC became elevated 17.2, reazon why patient was transfered to Med?surg unit. Vital Signs: Last Vital Signs Temp 98.2 F 04/18/17 00:00 Pulse 81 04/18/17 08:47 Resp 18 04/18/17 00:00 BP 147/75 04/18/17 08:47 Pulse Ox 94 04/18/17 00:00 Past Medical History Cardiovascular: Report: HTN Pulmonary: Report: No Pertinent Hx [employer]: Report: No Pertinent Hx GI: Report: Other (Dysphagia) Psych: Report: Psychosis, Other (Dementia) Musculoskeletal: Report: No Pertinent Hx Rheumatologic: Report: No pertinent Hx Infectious Disease: Report: Other (Rouled out sepsis) Renal/: Report: Acute Renal Failure Endocrine: Report: Diabetes Dermatology: Report: No Pertinent Hx - Past Surgical History Past Surgical History: No pertinent Hx Family Medical History - Family Member Mother History Unknown: Yes Ethnicity: Social History Smoke: No Alcohol: None Drugs: None Lives: Correction Domestic Violence: Negative Health Maintenance Health Maintenance: Cholesterol - Medications Home Medications: Home Medication Medication Instructions Recorded Type Acetaminophen [Tylenol] 650 mg PO Q4HR PRN tab 04/17/17 Rx Aspirin EC [Ecotrin] 81 mg PO DAILY ect 04/17/17 Rx Bisacodyl [Dulcolax 10 Mg Supp] 10 mg RC PRN PRN sup 04/17/17 Rx Clopidogrel [Plavix] 75 mg PO DAILY tab 04/17/17 Rx Donepezil Hcl [Aricept] 5 mg PO DAILY tab 04/17/17 Rx Fleet Enema 135 ml RC Q72H PRN 04/17/17 Rx Folic Acid [Folate*] 1 mg PO DAILY tab 04/17/17 Rx Insulin Aspart Sliding Scale 3 - 13 units SUBQ ACHS unit 04/17/17 Rx [NovoLOG INSULIN SLIDING SCALE] Insulin Detemir [Levemir Insulin] 10 units SUBQ HS vial 04/17/17 Rx Levetiracetam [Keppra] 500 mg PO BID tab 04/17/17 Rx Magnesium Hydroxide [Milk of 30 ml PO Q48H PRN udc 04/17/17 Rx Magnesia] Multivitamin w/ Minerals 1 tab PO DAILY tab 04/17/17 Rx [Theragran M] Polyvinyl Alcohol Ophth Soln 1 drop EACH EYE QID 04/17/17 Rx [Artificial Tears Ophth Soln*] Thiamine [Vitamin B1] 100 mg PO DAILY tab 04/17/17 Rx amLODIPine Besylate [Norvasc*] 10 mg PO DAILY tab 04/17/17 Rx risperiDONE [RisperDAL] 0.5 mg PO HS tab 04/17/17 Rx - Allergies Allergies/Adverse Reactions: Allergies Allergy/AdvReac Type Severity Reaction Status Date / Time No Known Allergies Allergy Verified 06/30/16 18:07 Review of Systems - Review of Systems Constitutional: Report: No Significant Eyes: Report: No Significant ENT: Report: No Significant Respiratory: Report: No Significant Cardiovascular: Report: No Significant Gastrointestinal: Report: Other (Dysphagia) Genitourinary: Report: No Significant Musculoskeletal: Report: No Significant Skin: Report: No Significant Neurological: Report: Weakness Physical Exam - Physical Exam HEENT: Report: Ears Nose Throat within normal limits Neck: Report: Within normal limits Cardiovascular Systems: Report: Regular, Rate and Rhythm Respiratory: Report: Breath Sounds are within normal limits Abdomen: Report: Non-tender to palpation Back: Report: Inspection of back is within normal limits. Extremities: Report: Non-tender to palpation. Skin: Report: Color of skin is within normal limits, Warm, Dry Neuro/Psych: Report: Disoriented to name time or place, No motor deficit - Lab Results All Lab Results last 24 hours: Laboratory Last Values WBC 10.5 Th/cmm (4.8-10.8) D 04/18/17 06:03 RBC 3.20 Mil/cmm (3.80-5.80) L 04/18/17 06:03 Hgb 9.2 gm/dL (12.6-17.4) L 04/18/17 06:03 Hct 27.2 % (39.0-49.0) L 04/18/17 06:03 MCV 85.0 fl (80-99) 04/18/17 06:03 MCH 28.7 pg (27.0-31.0) 04/18/17 06:03 MCHC Differential 33.7 pg (28.0-36.0) 04/18/17 06:03 RDW 14.8 % (11.5-20.0) 04/18/17 06:03 Plt Count 246 Th/cmm (150-400) 04/18/17 06:03 MPV 8.5 fl 04/18/17 06:03 Neutrophils % 73.4 % (40.0-80.0) 04/18/17 06:03 Lymphocytes % 15.9 % (20.0-50.0) L 04/18/17 06:03 Monocytes % 7.9 % (2.0-10.0) 04/18/17 06:03 Eosinophils % 2.7 % (0.0-5.0) 04/18/17 06:03 Basophils % 0.1 % (0.0-2.0) 04/18/17 06:03 Sodium 138 mEq/L (136-145) 04/18/17 06:03 Potassium 3.6 mEq/L (3.5-5.1) 04/18/17 06:03 Chloride 112 mEq/L (98-107) H 04/18/17 06:03 Carbon Dioxide 23.6 mEq/L (21.0-31.0) 04/18/17 06:03 Anion Gap 6.0 (7.0-16.0) L 04/18/17 06:03 BUN 25 mg/dL (7-25) 04/18/17 06:03 Creatinine 1.6 mg/dL (0.7-1.3) H 04/18/17 06:03 Est GFR ( Amer) 56.1 ml/min (>90) 04/18/17 06:03 Est GFR (Non-Af Amer) 46.3 ml/min 04/18/17 06:03 BUN/Creatinine Ratio 15.6 04/18/17 06:03 Glucose 67 mg/dL (70-105) L 04/18/17 06:03 POC Glucose 94 MG/DL (70 - 105) 04/18/17 07:08 Calcium 8.6 mg/dL (8.6-10.3) 04/18/17 06:03 Phosphorus 3.4 mg/dL (2.5-5.0) 04/18/17 06:03 Magnesium 2.1 mg/dL (1.9-2.7) 04/18/17 06:03 Total Bilirubin 0.2 mg/dL (0.3-1.0) L 04/18/17 06:03 AST 35 U/L (13-39) 04/18/17 06:03 ALT 48 U/L (7-52) 04/18/17 06:03 Alkaline Phosphatase 105 U/L (34-104) H 04/18/17 06:03 Total Protein 6.4 gm/dL (6.0-8.3) 04/18/17 06:03 Albumin 3.3 gm/dL (4.2-5.5) L 04/18/17 06:03 Globulin 3.1 gm/dL 04/18/17 06:03 Albumin/Globulin Ratio 1.1 (1.0-1.8) 04/18/17 06:03 Laboratory Results - last 24 hr 04/17/17 04/17/17 04/17/17 15:32 16:57 19:59 WBC RBC Hgb Hct MCV MCH MCHC Differential RDW Plt Count MPV Neutrophils % Lymphocytes % Monocytes % Eosinophils % Basophils % Sodium Potassium Chloride Carbon Dioxide Anion Gap BUN Creatinine Est GFR ( Amer) Est GFR (Non-Af Amer) BUN/Creatinine Ratio Glucose POC Glucose 185 H 143 H 188 H Calcium Phosphorus Magnesium Total Bilirubin AST ALT Alkaline Phosphatase Total Protein Albumin Globulin Albumin/Globulin Ratio 04/18/17 04/18/17 04/18/17 06:03 06:03 06:45 WBC 10.5 D RBC 3.20 L Hgb 9.2 L Hct 27.2 L MCV 85.0 MCH 28.7 MCHC Differential 33.7 RDW 14.8 Plt Count 246 MPV 8.5 Neutrophils % 73.4 Lymphocytes % 15.9 L Monocytes % 7.9 Eosinophils % 2.7 Basophils % 0.1 Sodium 138 Potassium 3.6 Chloride 112 H Carbon Dioxide 23.6 Anion Gap 6.0 L BUN 25 Creatinine 1.6 H Est GFR ( Amer) 56.1 Est GFR (Non-Af Amer) 46.3 BUN/Creatinine Ratio 15.6 Glucose 67 L POC Glucose 69 L Calcium 8.6 Phosphorus 3.4 Magnesium 2.1 Total Bilirubin 0.2 L AST 35 ALT 48 Alkaline Phosphatase 105 H Total Protein 6.4 Albumin 3.3 L Globulin 3.1 Albumin/Globulin Ratio 1.1 04/18/17 07:08 WBC RBC Hgb Hct MCV MCH MCHC Differential RDW Plt Count MPV Neutrophils % Lymphocytes % Monocytes % Eosinophils % Basophils % Sodium Potassium Chloride Carbon Dioxide Anion Gap BUN Creatinine Est GFR ( Amer) Est GFR (Non-Af Amer) BUN/Creatinine Ratio Glucose POC Glucose 94 Calcium Phosphorus Magnesium Total Bilirubin AST ALT Alkaline Phosphatase Total Protein Albumin Globulin Albumin/Globulin Ratio Microbiology 04/17/17 09:50 Urine Culture - Preliminary Urine,Clean Catch - Assessment Assessment: Patient is awake in no acute distress. Dx. Rouled out sepsis, CRF, DM, HTN, Psychosis, Dementia - Plan Plan: Patient was started on Vanco and Zosyn, he was continue with meds for HTN and DM. Consult with Nephro, ID and Psychiatry were done. Will continue to monitor.
--- NOTE | 2017-04-18 10:11 | Diagnostic Imaging Report ---
Exam: KUB HISTORY: Sepsis. Findings portable supine examination of the abdomen that 0844 hours reviewed. The study demonstrates a moderate amount of fecal content throughout the colon. The bowel gas distribution nonspecific. Bony structures are intact. Vascular calcifications are noted. No abnormal masses or calcifications are noted. IMPRESSION: Nonspecific bowel gas pattern.
--- NOTE | 2017-04-18 10:13 | Diagnostic Imaging Report ---
Exam: Portable positioning chest HISTORY: Sepsis. Findings: Portable upright examination of chest at 0836 hours reviewed. The study compared to previous exam the aerated. The study demonstrates no active pulmonic infiltrates or effusions. Costophrenic angles are clear. Bony thorax intact. Mediastinal structures midline. IMPRESSION: Normal chest.
--- NOTE | 2017-04-18 15:55 | General Progress Note ---
Subjective - Review of Systems Service Date: 04/18/17 Subjective: Sleeping, comfortable, quiet Objective - Results Result Diagrams: 04/18/17 06:03 04/18/17 06:03 Recent Labs: Laboratory Last Values WBC 10.5 Th/cmm (4.8-10.8) D 04/18/17 06:03 RBC 3.20 Mil/cmm (3.80-5.80) L 04/18/17 06:03 Hgb 9.2 gm/dL (12.6-17.4) L 04/18/17 06:03 Hct 27.2 % (39.0-49.0) L 04/18/17 06:03 MCV 85.0 fl (80-99) 04/18/17 06:03 MCH 28.7 pg (27.0-31.0) 04/18/17 06:03 MCHC Differential 33.7 pg (28.0-36.0) 04/18/17 06:03 RDW 14.8 % (11.5-20.0) 04/18/17 06:03 Plt Count 246 Th/cmm (150-400) 04/18/17 06:03 MPV 8.5 fl 04/18/17 06:03 Neutrophils % 73.4 % (40.0-80.0) 04/18/17 06:03 Lymphocytes % 15.9 % (20.0-50.0) L 04/18/17 06:03 Monocytes % 7.9 % (2.0-10.0) 04/18/17 06:03 Eosinophils % 2.7 % (0.0-5.0) 04/18/17 06:03 Basophils % 0.1 % (0.0-2.0) 04/18/17 06:03 Sodium 138 mEq/L (136-145) 04/18/17 06:03 Potassium 3.6 mEq/L (3.5-5.1) 04/18/17 06:03 Chloride 112 mEq/L (98-107) H 04/18/17 06:03 Carbon Dioxide 23.6 mEq/L (21.0-31.0) 04/18/17 06:03 Anion Gap 6.0 (7.0-16.0) L 04/18/17 06:03 BUN 25 mg/dL (7-25) 04/18/17 06:03 Creatinine 1.6 mg/dL (0.7-1.3) H 04/18/17 06:03 Est GFR ( Amer) 56.1 ml/min (>90) 04/18/17 06:03 Est GFR (Non-Af Amer) 46.3 ml/min 04/18/17 06:03 BUN/Creatinine Ratio 15.6 04/18/17 06:03 Glucose 67 mg/dL (70-105) L 04/18/17 06:03 POC Glucose 221 MG/DL (70 - 105) H 04/18/17 11:15 Calcium 8.6 mg/dL (8.6-10.3) 04/18/17 06:03 Phosphorus 3.4 mg/dL (2.5-5.0) 04/18/17 06:03 Magnesium 2.1 mg/dL (1.9-2.7) 04/18/17 06:03 Total Bilirubin 0.2 mg/dL (0.3-1.0) L 04/18/17 06:03 AST 35 U/L (13-39) 04/18/17 06:03 ALT 48 U/L (7-52) 04/18/17 06:03 Alkaline Phosphatase 105 U/L (34-104) H 04/18/17 06:03 Total Protein 6.4 gm/dL (6.0-8.3) 04/18/17 06:03 Albumin 3.3 gm/dL (4.2-5.5) L 04/18/17 06:03 Globulin 3.1 gm/dL 04/18/17 06:03 Albumin/Globulin Ratio 1.1 (1.0-1.8) 04/18/17 06:03 - Physical Exam Vitals and I&O: Vital Signs Temp 96.8 F 04/18/17 12:00 Pulse 84 04/18/17 12:00 Resp 17 04/18/17 12:00 BP 123/73 04/18/17 12:00 Pulse Ox 99 04/18/17 12:00 Intake & Output 04/17/17 04/18/17 04/18/17 18:59 06:59 18:59 Intake Total 300 1100 50 Balance 300 1100 50 Weight (lbs) 55.338 kg Intake: Intake, IV Amount 300 1100 50 Piperacillin Sodium/ 50 100 50 Tazobact 2.25 gm In Sodium Chloride 0.9% 50 ml @ 100 mls/hr IV Q6HR [facility] Rx#:[id number] Sodium Chloride 0.9% 1, 1000 000 ml @ 90 mls/hr IV . Q11H7M [facility] Rx#:[id number] Vancomycin HCl 750 mg In 250 Sodium Chloride 0.9% 250 ml @ 250 mls/hr IV Q24HR@ 1530 [facility] Rx#:[id number] Other: Stool Characteristics Soft Soft Formed Formed Active Medications: Current Medications Acetaminophen (Tylenol) 650 mg PO Q4HR PRN PRN Reason: MODERATE PAIN Stop: 06/16/17 19:36 Amlodipine Besylate (Norvasc) 10 mg PO DAILY [facility] Stop: 06/17/17 08:59 Last Admin: 04/18/17 08:47 Dose: 10 mg Aspirin (Ecotrin) 81 mg PO DAILY [facility] Stop: 06/17/17 08:59 Last Admin: 04/18/17 08:47 Dose: 81 mg Bisacodyl (Dulcolax 10 Mg Supp) 10 mg RC PRN PRN PRN Reason: FOR CONSTIPATION IF MOM INEFFE Stop: 06/16/17 19:36 Clopidogrel Bisulfate (Plavix) 75 mg PO DAILY [facility] Stop: 06/17/17 08:59 Last Admin: 04/18/17 08:47 Dose: 75 mg Donepezil HCl (Aricept) 5 mg PO DAILY [facility] Stop: 06/17/17 08:59 Last Admin: 04/18/17 08:47 Dose: 5 mg Folic Acid (Folate) 1 mg PO DAILY [facility] Stop: 06/17/17 08:59 Last Admin: 04/18/17 08:47 Dose: 1 mg Sodium Chloride (Nacl 0.9%) 1,000 mls @ 90 mls/hr IV .Q11H7M [facility] Stop: 06/16/17 14:41 Last Admin: 04/18/17 05:50 Dose: 90 mls/hr Piperacillin Sod/Tazobactam (Sod 2.25 gm/ Sodium Chloride) 50 mls @ 100 mls/hr IV Q6HR [facility] Stop: 06/16/17 17:59 Last Infusion: 04/18/17 11:46 Dose: Infused Vancomycin HCl 750 mg/ Sodium (Chloride) 250 mls @ 250 mls/hr IV Q24HR@1530 [facility] Stop: 06/16/17 15:29 Last Admin: 04/18/17 14:56 Dose: 250 mls/hr Insulin Aspart (Novolog Insulin Sliding Scale) 0 units SUBQ ACHS [facility] PRN Reason: Protocol Stop: 06/16/17 16:29 Last Admin: 04/18/17 11:17 Dose: 5 units Insulin Detemir (Levemir Insulin) 10 units SUBQ HS [facility] PRN Reason: Protocol Stop: 06/16/17 20:59 Last Admin: 04/17/17 21:30 Dose: 10 units Levetiracetam (Keppra) 500 mg PO BID [facility] Stop: 06/17/17 08:59 Last Admin: 04/18/17 08:47 Dose: 500 mg Miscellaneous (Vancomycin Iv Per Pharmacy) 1 ea [facility] PRN PRN PRN Reason: PROTOCOL Stop: 06/16/17 14:50 Risperidone (Risperdal) 0.5 mg PO HS [facility] PRN Reason: Protocol Stop: 06/16/17 20:59 Thiamine HCl (Vitamin B1) 100 mg PO DAILY [facility] Stop: 06/17/17 08:59 Last Admin: 04/18/17 08:47 Dose: 100 mg General: Alert, No acute distress HEENT: Atraumatic, PERRLA, EOMI, Mucous membr. moist/pink Neck: Supple, +2 carotid pulse wo bruit Cardiovascular: Regular rate, Normal S1, Normal S2 Lungs: Clear to auscultation Abdomen: Bowel sounds, Soft Extremities: no Edema Neurological: Sensation intact Skin: no Rash Psych/Mental Status: Mood NL - Procedures Procedures: Procedures Procedure Code Date BLOOD TRANSFUSION SERVICE 42577 04/12/17 TRANSFUSE NONAUT RED BLOOD CELLS IN PERIPH VEIN, [facility] 48864J3 04/12/17 Assessment/Plan - Problem List Patient Problems: All Active Problems WANDERING AND UNABLE TO REDIRECT (Acute) - Assessment Assessment: CKD Acute decompensation of psychosis Dementia with behavior modification Leukocytosis better Anemia of CKD Epilepsy - Plan Plan: Lab - Result Diagrams 04/18/17 06:03 04/18/17 06:03 Current Medications Acetaminophen (Tylenol) 650 mg PO Q4HR PRN PRN Reason: MODERATE PAIN Stop: 06/16/17 19:36 Amlodipine Besylate (Norvasc) 10 mg PO DAILY [facility] Stop: 06/17/17 08:59 Last Admin: 04/18/17 08:47 Dose: 10 mg Aspirin (Ecotrin) 81 mg PO DAILY [facility] Stop: 06/17/17 08:59 Last Admin: 04/18/17 08:47 Dose: 81 mg Bisacodyl (Dulcolax 10 Mg Supp) 10 mg RC PRN PRN PRN Reason: FOR CONSTIPATION IF MOM INEFFE Stop: 06/16/17 19:36 Clopidogrel Bisulfate (Plavix) 75 mg PO DAILY [facility] Stop: 06/17/17 08:59 Last Admin: 04/18/17 08:47 Dose: 75 mg Donepezil HCl (Aricept) 5 mg PO DAILY [facility] Stop: 06/17/17 08:59 Last Admin: 04/18/17 08:47 Dose: 5 mg Folic Acid (Folate) 1 mg PO DAILY [facility] Stop: 06/17/17 08:59 Last Admin: 04/18/17 08:47 Dose: 1 mg Sodium Chloride (Nacl 0.9%) 1,000 mls @ 90 mls/hr IV .Q11H7M [facility] Stop: 06/16/17 14:41 Last Admin: 04/18/17 05:50 Dose: 90 mls/hr Piperacillin Sod/Tazobactam (Sod 2.25 gm/ Sodium Chloride) 50 mls @ 100 mls/hr IV Q6HR [facility] Stop: 06/16/17 17:59 Last Infusion: 04/18/17 11:46 Dose: Infused Vancomycin HCl 750 mg/ Sodium (Chloride) 250 mls @ 250 mls/hr IV Q24HR@1530 [facility] Stop: 06/16/17 15:29 Last Admin: 04/18/17 14:56 Dose: 250 mls/hr Insulin Aspart (Novolog Insulin Sliding Scale) 0 units SUBQ ACHS [facility] PRN Reason: Protocol Stop: 06/16/17 16:29 Last Admin: 04/18/17 11:17 Dose: 5 units Insulin Detemir (Levemir Insulin) 10 units SUBQ HS [facility] PRN Reason: Protocol Stop: 06/16/17 20:59 Last Admin: 04/17/17 21:30 Dose: 10 units Levetiracetam (Keppra) 500 mg PO BID [facility] Stop: 06/17/17 08:59 Last Admin: 04/18/17 08:47 Dose: 500 mg Miscellaneous (Vancomycin Iv Per Pharmacy) 1 ea [facility] PRN PRN PRN Reason: PROTOCOL Stop: 06/16/17 14:50 Risperidone (Risperdal) 0.5 mg PO HS [facility] PRN Reason: Protocol Stop: 06/16/17 20:59 Thiamine HCl (Vitamin B1) 100 mg PO DAILY [facility] Stop: 06/17/17 08:59 Last Admin: 04/18/17 08:47 Dose: 100 mg Maintain IV hydration Continue Zosyn and vancomycin
--- NOTE | 2017-04-18 19:09 | Consultation ---
Consult Note - Consult Note Service Date: 04/17/17 Referring Physician: Jermaine Nobles Consult Note: PHYSICIAN Consultation Note: Date of Admission: 04/17/17 Purpose of Consultation: sepsis Chief Complaint: fever lethargy History of Present Illness: Patient CM RUDD was admitted to [facility] I with R/O SEPSIS. Past Medical History: ckd epilepsy dm2 lipid Allergies Allergy/AdvReac Type Severity Reaction Status Date / Time No Known Allergies Allergy Verified 06/30/16 18:07 Vital Signs Temp 97.3 F 04/18/17 16:00 Pulse 89 04/18/17 16:00 Resp 18 04/18/17 16:00 BP 156/70 04/18/17 16:00 Pulse Ox 99 04/18/17 16:00 Intake & Output 04/18/17 04/18/17 04/19/17 06:59 18:59 06:59 Intake Total 1100 1300 Balance 1100 1300 Intake: Intake, IV Amount 1100 1300 Piperacillin Sodium/ 100 50 Tazobact 2.25 gm In Sodium Chloride 0.9% 50 ml @ 100 mls/hr IV Q6HR [facility] Rx#:[id number] Sodium Chloride 0.9% 1, 1000 1000 000 ml @ 90 mls/hr IV . Q11H7M [facility] Rx#:[id number] Vancomycin HCl 750 mg In 250 Sodium Chloride 0.9% 250 ml @ 250 mls/hr IV Q24HR@ 1530 [facility] Rx#:[id number] Other: Stool Characteristics Soft Soft Formed Formed Laboratory Results - last 24 hr 04/17/17 04/18/17 04/18/17 19:59 06:03 06:03 WBC 10.5 D RBC 3.20 L Hgb 9.2 L Hct 27.2 L MCV 85.0 MCH 28.7 MCHC Differential 33.7 RDW 14.8 Plt Count 246 MPV 8.5 Neutrophils % 73.4 Lymphocytes % 15.9 L Monocytes % 7.9 Eosinophils % 2.7 Basophils % 0.1 Sodium 138 Potassium 3.6 Chloride 112 H Carbon Dioxide 23.6 Anion Gap 6.0 L BUN 25 Creatinine 1.6 H Est GFR ( Amer) 56.1 Est GFR (Non-Af Amer) 46.3 BUN/Creatinine Ratio 15.6 Glucose 67 L POC Glucose 188 H Calcium 8.6 Phosphorus 3.4 Magnesium 2.1 Total Bilirubin 0.2 L AST 35 ALT 48 Alkaline Phosphatase 105 H Total Protein 6.4 Albumin 3.3 L Globulin 3.1 Albumin/Globulin Ratio 1.1 04/18/17 04/18/17 04/18/17 06:45 07:08 11:15 WBC RBC Hgb Hct MCV MCH MCHC Differential RDW Plt Count MPV Neutrophils % Lymphocytes % Monocytes % Eosinophils % Basophils % Sodium Potassium Chloride Carbon Dioxide Anion Gap BUN Creatinine Est GFR ( Amer) Est GFR (Non-Af Amer) BUN/Creatinine Ratio Glucose POC Glucose 69 L 94 221 H Calcium Phosphorus Magnesium Total Bilirubin AST ALT Alkaline Phosphatase Total Protein Albumin Globulin Albumin/Globulin Ratio 04/18/17 16:27 WBC RBC Hgb Hct MCV MCH MCHC Differential RDW Plt Count MPV Neutrophils % Lymphocytes % Monocytes % Eosinophils % Basophils % Sodium Potassium Chloride Carbon Dioxide Anion Gap BUN Creatinine Est GFR ( Amer) Est GFR (Non-Af Amer) BUN/Creatinine Ratio Glucose POC Glucose 174 H Calcium Phosphorus Magnesium Total Bilirubin AST ALT Alkaline Phosphatase Total Protein Albumin Globulin Albumin/Globulin Ratio Home Medication Medication Instructions Recorded Type Acetaminophen [Tylenol] 650 mg PO Q4HR PRN tab 04/17/17 Rx Aspirin EC [Ecotrin] 81 mg PO DAILY ect 04/17/17 Rx Bisacodyl [Dulcolax 10 Mg Supp] 10 mg RC PRN PRN sup 04/17/17 Rx Clopidogrel [Plavix] 75 mg PO DAILY tab 04/17/17 Rx Donepezil Hcl [Aricept] 5 mg PO DAILY tab 04/17/17 Rx Fleet Enema 135 ml RC Q72H PRN 04/17/17 Rx Folic Acid [Folate*] 1 mg PO DAILY tab 04/17/17 Rx Insulin Aspart Sliding Scale 3 - 13 units SUBQ ACHS unit 04/17/17 Rx [NovoLOG INSULIN SLIDING SCALE] Insulin Detemir [Levemir Insulin] 10 units SUBQ HS vial 04/17/17 Rx Levetiracetam [Keppra] 500 mg PO BID tab 04/17/17 Rx Magnesium Hydroxide [Milk of 30 ml PO Q48H PRN udc 04/17/17 Rx Magnesia] Multivitamin w/ Minerals 1 tab PO DAILY tab 04/17/17 Rx [Theragran M] Polyvinyl Alcohol Ophth Soln 1 drop EACH EYE QID 04/17/17 Rx [Artificial Tears Ophth Soln*] Thiamine [Vitamin B1] 100 mg PO DAILY tab 04/17/17 Rx amLODIPine Besylate [Norvasc*] 10 mg PO DAILY tab 04/17/17 Rx risperiDONE [RisperDAL] 0.5 mg PO HS tab 04/17/17 Rx Current Medications Generic Name Dose Route Start Last Admin Trade Name Freq PRN Reason Stop Dose Admin Acetaminophen 650 mg 04/17/17 19:37 Tylenol PO 06/16/17 19:36 Q4HR PRN MODERATE PAIN Amlodipine Besylate 10 mg 04/18/17 09:00 04/18/17 08:47 Norvasc PO 06/17/17 08:59 10 mg DAILY [facility] Administration Aspirin 81 mg 04/18/17 09:00 04/18/17 08:47 Ecotrin PO 06/17/17 08:59 81 mg DAILY [facility] Administration Bisacodyl 10 mg 04/17/17 19:37 Dulcolax 10 Mg Supp RC 06/16/17 19:36 PRN PRN FOR CONSTIPATION IF MOM INEFFE Clopidogrel Bisulfate 75 mg 04/18/17 09:00 04/18/17 08:47 Plavix PO 06/17/17 08:59 75 mg DAILY [facility] Administration Donepezil HCl 5 mg 04/18/17 09:00 04/18/17 08:47 Aricept PO 06/17/17 08:59 5 mg DAILY [facility] Administration Folic Acid 1 mg 04/18/17 09:00 04/18/17 08:47 Folate PO 06/17/17 08:59 1 mg DAILY [facility] Administration Sodium Chloride 1,000 mls @ 90 mls/hr 04/17/17 14:42 04/18/17 16:57 Nacl 0.9% IV 06/16/17 14:41 Infused .Q11H7M [facility] Infusion Piperacillin Sod/Tazobactam 50 mls @ 100 mls/hr 04/17/17 18:00 04/18/17 17:24 Sod 2.25 gm/ Sodium Chloride IV 06/16/17 17:59 100 mls/hr Q6HR [facility] Administration Vancomycin HCl 750 mg/ Sodium 250 mls @ 250 mls/hr 04/17/17 15:30 04/18/17 16 :35 Chloride IV 06/16/17 15:29 Infused Q24HR@1530 [facility] Infusion Insulin Aspart 0 units 04/17/17 16:30 04/18/17 16:33 Novolog Insulin Sliding Scale SUBQ 06/16/17 16:29 3 units ACHS [facility] Administration Protocol Insulin Detemir 10 units 04/17/17 21:00 04/17/17 21:30 Levemir Insulin SUBQ 06/16/17 20:59 10 units HS [facility] Administration Protocol Levetiracetam 500 mg 04/18/17 09:00 04/18/17 16:25 Keppra PO 06/17/17 08:59 500 mg BID [facility] Administration Miscellaneous 1 ea 04/17/17 14:51 Vancomycin Iv Per Pharmacy [facility] 06/16/17 14:50 PRN PRN PROTOCOL Risperidone 0.5 mg 04/17/17 21:00 Risperdal PO 06/16/17 20:59 HS [facility] Protocol Thiamine HCl 100 mg 04/18/17 09:00 04/18/17 08:47 Vitamin B1 PO 06/17/17 08:59 100 mg DAILY HOLGER Administration Review of Systems: A 12 point ROS was reviewed with the pertinent positive and negatives noted in the HPI. Social History Smoking Status Never smoker Drug Use No Alcohol Use No Family Medical History Family Medical History Start: 04/17/17 14: 26 Freq: ONCE Status: Active Document 04/17/17 14:26 AD (Rec: 04/18/17 11:42 AD [id number]) Family Medical History Mother History Unknown Yes Living Status Still Living Hx Family Hypertension Yes Hx Family Diabetes Yes Physical Exam: General: Alert and Oriented x3, No Acute Distress HEENT: EOMI Bilaterally, PERRLA Bilaterally, Head is normocephalic, atraumatic on inspection. Cardio: +S1/S2 Auscultated, RRR, no murmurs/rubs/gallops noted Respiratory: Clear to Auscultate Bilaterally Abdominal: Soft, Nondistended, Nontender to palpation x 4 quadrants Genital/Urinary: Extremities: No Edema noted in the lower extremities Neurological: Cranial Nerves II-XII intact bilaterally, Gait Steady, No Focal Deficits noted. Assessment/Plan: sepsis vanco zosyn cxr urine ordered Signed, Erwin Javed N. 04/18/148029
[2017-04-18] MEDS: Insulin Detemir 100 units/mL 10mL Vial SUBQ SCH (21:48)
[2017-04-19] MEDS: Piperacillin/Tazobact 2.25 gm in 0.9% NS 50 ML IV SCH ×3 (06:44→19:36)
[2017-04-19] MEDS: INSULIN ASPART SLIDING SCALE 100 UNITS/ML UNIT SUBQ SCH ×3 (06:45→18:26)
[2017-04-19 07:20] LABS: % BASOPHILS 0.6 % (0.0-2.0); % LYMPHOCYTES 20.6 % (20.0-50.0); % MONOCYTES 10.6 % (2.0-10.0); % NEUTROPHILS 64.2 % (40.0-80.0); HEMATOCRIT 26.6 % (39.0-49.0); HEMOGLOBIN 8.9 gm/dL (12.6-17.4); MEAN CELL VOLUME 85.5 fl (80-99); MEAN CORPUSCULAR HEMOGLOBIN 28.5 pg (27.0-31.0); MEAN CORPUSCULAR HGB CONC 33.3 pg (28.0-36.0); MEAN PLATELET VOLUME 8.5 fl; PLATELET COUNT 267 Th/cmm (150-400); RED BLOOD COUNT 3.12 Mil/cmm (3.80-5.80); RED CELL DISTRIBUTION WIDTH 14.9 % (11.5-20.0)
[2017-04-19 07:22] LABS: ALB/GLOB RATIO 1.1 (1.0-1.8); ANION GAP 5.6 (7.0-16.0); BILIRUBIN,TOTAL 0.2 mg/dL (0.3-1.0); BUN/CREATININE RATIO 12.5; CALCIUM SERUM 8.2 mg/dL (8.6-10.3); CARBON DIOXIDE 23.2 mEq/L (21.0-31.0); CREATININE - SERUM 1.6 mg/dL (0.7-1.3); POTASSIUM SERUM 3.8 mEq/L (3.5-5.1)
[2017-04-19 07:28] LABS: WHITE BLOOD COUNT 7.7 Th/cmm (4.8-10.8)
--- NOTE | 2017-04-19 08:45 | General Progress Note ---
Subjective - Review of Systems Service Date: 04/19/17 Subjective: I am fine Objective - Results Result Diagrams: 04/19/17 06:35 04/19/17 06:35 Recent Labs: Laboratory Last Values WBC 7.7 Th/cmm (4.8-10.8) D 04/19/17 06:35 RBC 3.12 Mil/cmm (3.80-5.80) L 04/19/17 06:35 Hgb 8.9 gm/dL (12.6-17.4) L 04/19/17 06:35 Hct 26.6 % (39.0-49.0) L 04/19/17 06:35 MCV 85.5 fl (80-99) 04/19/17 06:35 MCH 28.5 pg (27.0-31.0) 04/19/17 06:35 MCHC Differential 33.3 pg (28.0-36.0) 04/19/17 06:35 RDW 14.9 % (11.5-20.0) 04/19/17 06:35 Plt Count 267 Th/cmm (150-400) 04/19/17 06:35 MPV 8.5 fl 04/19/17 06:35 Neutrophils % 64.2 % (40.0-80.0) 04/19/17 06:35 Lymphocytes % 20.6 % (20.0-50.0) 04/19/17 06:35 Monocytes % 10.6 % (2.0-10.0) H 04/19/17 06:35 Eosinophils % 4.0 % (0.0-5.0) 04/19/17 06:35 Basophils % 0.6 % (0.0-2.0) 04/19/17 06:35 Sodium 138 mEq/L (136-145) 04/19/17 06:35 Potassium 3.8 mEq/L (3.5-5.1) 04/19/17 06:35 Chloride 113 mEq/L (98-107) H 04/19/17 06:35 Carbon Dioxide 23.2 mEq/L (21.0-31.0) 04/19/17 06:35 Anion Gap 5.6 (7.0-16.0) L 04/19/17 06:35 BUN 20 mg/dL (7-25) 04/19/17 06:35 Creatinine 1.6 mg/dL (0.7-1.3) H 04/19/17 06:35 Est GFR ( Amer) 56.1 ml/min (>90) 04/19/17 06:35 Est GFR (Non-Af Amer) 46.3 ml/min 04/19/17 06:35 BUN/Creatinine Ratio 12.5 04/19/17 06:35 Glucose 104 mg/dL (70-105) 04/19/17 06:35 POC Glucose 107 MG/DL (70 - 105) H 04/19/17 06:42 Calcium 8.2 mg/dL (8.6-10.3) L 04/19/17 06:35 Phosphorus 3.4 mg/dL (2.5-5.0) 04/18/17 06:03 Magnesium 2.1 mg/dL (1.9-2.7) 04/18/17 06:03 Total Bilirubin 0.2 mg/dL (0.3-1.0) L 04/19/17 06:35 AST 35 U/L (13-39) 04/19/17 06:35 ALT 46 U/L (7-52) 04/19/17 06:35 Alkaline Phosphatase 99 U/L (34-104) 04/19/17 06:35 Total Protein 6.1 gm/dL (6.0-8.3) 04/19/17 06:35 Albumin 3.2 gm/dL (4.2-5.5) L 04/19/17 06:35 Globulin 2.9 gm/dL 04/19/17 06:35 Albumin/Globulin Ratio 1.1 (1.0-1.8) 04/19/17 06:35 - Physical Exam Vitals and I&O: Vital Signs Temp 98.3 F 04/19/17 04:00 Pulse 65 04/19/17 04:00 Resp 18 04/19/17 04:00 BP 130/59 04/19/17 04:00 Pulse Ox 94 04/19/17 04:00 Intake & Output 04/18/17 04/19/17 04/19/17 18:59 06:59 18:59 Intake Total 1350 50 Balance 1350 50 Intake: Intake, IV Amount 1350 50 Piperacillin Sodium/ 100 50 Tazobact 2.25 gm In Sodium Chloride 0.9% 50 ml @ 100 mls/hr IV Q6HR [facility] Rx#:[id number] Sodium Chloride 0.9% 1, 1000 000 ml @ 90 mls/hr IV . Q11H7M [facility] Rx#:[id number] Vancomycin HCl 750 mg In 250 Sodium Chloride 0.9% 250 ml @ 250 mls/hr IV Q24HR@ 1530 [facility] Rx#:[id number] Other: Stool Characteristics Soft Formed Active Medications: Current Medications Acetaminophen (Tylenol) 650 mg PO Q4HR PRN PRN Reason: MODERATE PAIN Stop: 06/16/17 19:36 Amlodipine Besylate (Norvasc) 10 mg PO DAILY [facility] Stop: 06/17/17 08:59 Last Admin: 04/18/17 08:47 Dose: 10 mg Aspirin (Ecotrin) 81 mg PO DAILY [facility] Stop: 06/17/17 08:59 Last Admin: 04/18/17 08:47 Dose: 81 mg Bisacodyl (Dulcolax 10 Mg Supp) 10 mg RC DAILY PRN PRN Reason: CONSTIPATION Stop: 06/16/17 19:36 Clopidogrel Bisulfate (Plavix) 75 mg PO DAILY [facility] Stop: 06/17/17 08:59 Last Admin: 04/18/17 08:47 Dose: 75 mg Donepezil HCl (Aricept) 5 mg PO DAILY [facility] Stop: 06/17/17 08:59 Last Admin: 04/18/17 08:47 Dose: 5 mg Folic Acid (Folate) 1 mg PO DAILY [facility] Stop: 06/17/17 08:59 Last Admin: 04/18/17 08:47 Dose: 1 mg Sodium Chloride (Nacl 0.9%) 1,000 mls @ 90 mls/hr IV .Q11H7M [facility] Stop: 06/16/17 14:41 Last Admin: 04/18/17 23:23 Dose: 90 mls/hr Piperacillin Sod/Tazobactam (Sod 2.25 gm/ Sodium Chloride) 50 mls @ 100 mls/hr IV Q6HR [facility] Stop: 06/16/17 17:59 Last Admin: 04/19/17 06:44 Dose: 100 mls/hr Vancomycin HCl 750 mg/ Sodium (Chloride) 250 mls @ 250 mls/hr IV Q24HR@1530 [facility] Stop: 06/16/17 15:29 Last Infusion: 04/18/17 16:35 Dose: Infused Insulin Aspart (Novolog Insulin Sliding Scale) 0 units SUBQ ACHS [facility] PRN Reason: Protocol Stop: 06/16/17 16:29 Last Admin: 04/19/17 06:45 Dose: Not Given Insulin Detemir (Levemir Insulin) 10 units SUBQ HS [facility] PRN Reason: Protocol Stop: 06/16/17 20:59 Last Admin: 04/18/17 21:48 Dose: Not Given Levetiracetam (Keppra) 500 mg PO BID [facility] Stop: 06/17/17 08:59 Last Admin: 04/18/17 16:25 Dose: 500 mg Miscellaneous (Vancomycin Iv Per Pharmacy) 1 ea [facility] PRN PRN PRN Reason: PROTOCOL Stop: 06/16/17 14:50 Risperidone (Risperdal) 0.5 mg PO HS [facility] PRN Reason: Protocol Stop: 06/16/17 20:59 Thiamine HCl (Vitamin B1) 100 mg PO DAILY [facility] Stop: 06/17/17 08:59 Last Admin: 04/18/17 08:47 Dose: 100 mg General: Alert, No acute distress HEENT: Atraumatic, PERRLA, EOMI, Mucous membr. moist/pink Neck: Supple, +2 carotid pulse wo bruit Cardiovascular: Regular rate, Normal S1, Normal S2 Lungs: Clear to auscultation Abdomen: Bowel sounds, Soft Extremities: no Edema Neurological: Sensation intact Skin: no Rash Psych/Mental Status: Mood NL, Other (Confused) - Procedures Procedures: Procedures Procedure Code Date BLOOD TRANSFUSION SERVICE 28009 04/12/17 TRANSFUSE NONAUT RED BLOOD CELLS IN PERIPH VEIN, [facility] [id number] 04/12/17 Assessment/Plan - Problem List Patient Problems: All Active Problems WANDERING AND UNABLE TO REDIRECT (Acute) - Assessment Assessment: Patient is awake in no acute distress. WBC has been normal, patient is asymptomatic, will discuss case with Dr. melo. Rouled out sepsis, CRF, DM , HTN, Psychosis, Dementia - Plan Plan: Patient was started on Vanco and Zosyn, he was continue with meds for HTN and DM. Consult with Nephro, ID and Psychiatry were done. Will continue to monitor.
[2017-04-19] MEDS: Multivitamin w/ Minerals Tab PO SCH (10:27)
--- NOTE | 2017-04-19 13:19 | General Progress Note ---
Subjective - Review of Systems Service Date: 04/19/17 Subjective: Sleeping, comfortable, quiet Objective - Results Result Diagrams: 04/19/17 06:35 04/19/17 06:35 Recent Labs: Laboratory Last Values WBC 7.7 Th/cmm (4.8-10.8) D 04/19/17 06:35 RBC 3.12 Mil/cmm (3.80-5.80) L 04/19/17 06:35 Hgb 8.9 gm/dL (12.6-17.4) L 04/19/17 06:35 Hct 26.6 % (39.0-49.0) L 04/19/17 06:35 MCV 85.5 fl (80-99) 04/19/17 06:35 MCH 28.5 pg (27.0-31.0) 04/19/17 06:35 MCHC Differential 33.3 pg (28.0-36.0) 04/19/17 06:35 RDW 14.9 % (11.5-20.0) 04/19/17 06:35 Plt Count 267 Th/cmm (150-400) 04/19/17 06:35 MPV 8.5 fl 04/19/17 06:35 Neutrophils % 64.2 % (40.0-80.0) 04/19/17 06:35 Lymphocytes % 20.6 % (20.0-50.0) 04/19/17 06:35 Monocytes % 10.6 % (2.0-10.0) H 04/19/17 06:35 Eosinophils % 4.0 % (0.0-5.0) 04/19/17 06:35 Basophils % 0.6 % (0.0-2.0) 04/19/17 06:35 Sodium 138 mEq/L (136-145) 04/19/17 06:35 Potassium 3.8 mEq/L (3.5-5.1) 04/19/17 06:35 Chloride 113 mEq/L (98-107) H 04/19/17 06:35 Carbon Dioxide 23.2 mEq/L (21.0-31.0) 04/19/17 06:35 Anion Gap 5.6 (7.0-16.0) L 04/19/17 06:35 BUN 20 mg/dL (7-25) 04/19/17 06:35 Creatinine 1.6 mg/dL (0.7-1.3) H 04/19/17 06:35 Est GFR ( Amer) 56.1 ml/min (>90) 04/19/17 06:35 Est GFR (Non-Af Amer) 46.3 ml/min 04/19/17 06:35 BUN/Creatinine Ratio 12.5 04/19/17 06:35 Glucose 104 mg/dL (70-105) 04/19/17 06:35 POC Glucose 160 MG/DL (70 - 105) H 04/19/17 12:20 Calcium 8.2 mg/dL (8.6-10.3) L 04/19/17 06:35 Phosphorus 3.4 mg/dL (2.5-5.0) 04/18/17 06:03 Magnesium 2.1 mg/dL (1.9-2.7) 04/18/17 06:03 Total Bilirubin 0.2 mg/dL (0.3-1.0) L 04/19/17 06:35 AST 35 U/L (13-39) 04/19/17 06:35 ALT 46 U/L (7-52) 04/19/17 06:35 Alkaline Phosphatase 99 U/L (34-104) 04/19/17 06:35 Total Protein 6.1 gm/dL (6.0-8.3) 04/19/17 06:35 Albumin 3.2 gm/dL (4.2-5.5) L 04/19/17 06:35 Globulin 2.9 gm/dL 04/19/17 06:35 Albumin/Globulin Ratio 1.1 (1.0-1.8) 04/19/17 06:35 - Physical Exam Vitals and I&O: Vital Signs Temp 98.3 F 04/19/17 04:00 Pulse 65 04/19/17 04:00 Resp 18 04/19/17 04:00 BP 130/59 04/19/17 04:00 Pulse Ox 94 04/19/17 04:00 Intake & Output 04/18/17 04/19/17 04/19/17 18:59 06:59 18:59 Intake Total 1350 50 50 Balance 1350 50 50 Intake: Intake, IV Amount 1350 50 50 Piperacillin Sodium/ 100 50 50 Tazobact 2.25 gm In Sodium Chloride 0.9% 50 ml @ 100 mls/hr IV Q6HR [facility] Rx#:[id number] Sodium Chloride 0.9% 1, 1000 000 ml @ 90 mls/hr IV . Q11H7M [facility] Rx#:[id number] Vancomycin HCl 750 mg In 250 Sodium Chloride 0.9% 250 ml @ 250 mls/hr IV Q24HR@ 1530 [facility] Rx#:[id number] Other: Stool Characteristics Soft Formed Active Medications: Current Medications Acetaminophen (Tylenol) 650 mg PO Q4HR PRN PRN Reason: MODERATE PAIN Stop: 06/16/17 19:36 Amlodipine Besylate (Norvasc) 10 mg PO DAILY [facility] Stop: 06/17/17 08:59 Last Admin: 04/19/17 10:27 Dose: Not Given Aspirin (Ecotrin) 81 mg PO DAILY [facility] Stop: 06/17/17 08:59 Last Admin: 04/19/17 10:27 Dose: Not Given Bisacodyl (Dulcolax 10 Mg Supp) 10 mg RC DAILY PRN PRN Reason: CONSTIPATION Stop: 06/16/17 19:36 Clopidogrel Bisulfate (Plavix) 75 mg PO DAILY [facility] Stop: 06/17/17 08:59 Last Admin: 04/19/17 10:27 Dose: Not Given Donepezil HCl (Aricept) 5 mg PO DAILY [facility] Stop: 06/17/17 08:59 Last Admin: 04/19/17 10:27 Dose: Not Given Folic Acid (Folate) 1 mg PO DAILY [facility] Stop: 06/17/17 08:59 Last Admin: 04/19/17 10:27 Dose: Not Given Sodium Chloride (Nacl 0.9%) 1,000 mls @ 90 mls/hr IV .Q11H7M [facility] Stop: 06/16/17 14:41 Last Admin: 04/18/17 23:23 Dose: 90 mls/hr Piperacillin Sod/Tazobactam (Sod 2.25 gm/ Sodium Chloride) 50 mls @ 100 mls/hr IV Q6HR [facility] Stop: 06/16/17 17:59 Last Admin: 04/19/17 12:46 Dose: 100 mls/hr Vancomycin HCl 750 mg/ Sodium (Chloride) 250 mls @ 250 mls/hr IV Q24HR@1530 [facility] Stop: 06/16/17 15:29 Last Infusion: 04/18/17 16:35 Dose: Infused Insulin Aspart (Novolog Insulin Sliding Scale) 0 units SUBQ ACHS [facility] PRN Reason: Protocol Stop: 06/16/17 16:29 Last Admin: 04/19/17 12:43 Dose: 3 units Insulin Detemir (Levemir Insulin) 10 units SUBQ HS [facility] PRN Reason: Protocol Stop: 06/16/17 20:59 Last Admin: 04/18/17 21:48 Dose: Not Given Levetiracetam (Keppra) 500 mg PO BID [facility] Stop: 06/17/17 08:59 Last Admin: 04/19/17 10:27 Dose: Not Given Miscellaneous (Vancomycin Iv Per Pharmacy) 1 ea [facility] PRN PRN PRN Reason: PROTOCOL Stop: 06/16/17 14:50 Risperidone (Risperdal) 0.5 mg PO HS [facility] PRN Reason: Protocol Stop: 06/16/17 20:59 Thiamine HCl (Vitamin B1) 100 mg PO DAILY [facility] Stop: 06/17/17 08:59 Last Admin: 04/19/17 10:27 Dose: Not Given General: Alert, No acute distress HEENT: Atraumatic, PERRLA, EOMI, Mucous membr. moist/pink Neck: Supple, +2 carotid pulse wo bruit Cardiovascular: Regular rate, Normal S1, Normal S2 Lungs: Clear to auscultation Abdomen: Bowel sounds, Soft Extremities: no Edema Neurological: Sensation intact Skin: no Rash Psych/Mental Status: Mood NL, Other (Confused) - Procedures Procedures: Procedures Procedure Code Date BLOOD TRANSFUSION SERVICE 04205 04/12/17 TRANSFUSE NONAUT RED BLOOD CELLS IN PERIPH VEIN, [facility] [id number] 04/12/17 Assessment/Plan - Problem List Patient Problems: All Active Problems WANDERING AND UNABLE TO REDIRECT (Acute) - Assessment Assessment: CKD Acute decompensation of psychosis Dementia with behavior modification Leukocytosis better Anemia of CKD Epilepsy - Plan Plan: Lab - Result Diagrams 04/18/17 06:03 04/18/17 06:03 Current Medications Acetaminophen (Tylenol) 650 mg PO Q4HR PRN PRN Reason: MODERATE PAIN Stop: 06/16/17 19:36 Amlodipine Besylate (Norvasc) 10 mg PO DAILY [facility] Stop: 06/17/17 08:59 Last Admin: 04/18/17 08:47 Dose: 10 mg Aspirin (Ecotrin) 81 mg PO DAILY [facility] Stop: 06/17/17 08:59 Last Admin: 04/18/17 08:47 Dose: 81 mg Bisacodyl (Dulcolax 10 Mg Supp) 10 mg RC PRN PRN PRN Reason: FOR CONSTIPATION IF MOM INEFFE Stop: 06/16/17 19:36 Clopidogrel Bisulfate (Plavix) 75 mg PO DAILY [facility] Stop: 06/17/17 08:59 Last Admin: 04/18/17 08:47 Dose: 75 mg Donepezil HCl (Aricept) 5 mg PO DAILY [facility] Stop: 06/17/17 08:59 Last Admin: 04/18/17 08:47 Dose: 5 mg Folic Acid (Folate) 1 mg PO DAILY [facility] Stop: 06/17/17 08:59 Last Admin: 04/18/17 08:47 Dose: 1 mg Sodium Chloride (Nacl 0.9%) 1,000 mls @ 90 mls/hr IV .Q11H7M [facility] Stop: 06/16/17 14:41 Last Admin: 04/18/17 05:50 Dose: 90 mls/hr Piperacillin Sod/Tazobactam (Sod 2.25 gm/ Sodium Chloride) 50 mls @ 100 mls/hr IV Q6HR [facility] Stop: 06/16/17 17:59 Last Infusion: 04/18/17 11:46 Dose: Infused Vancomycin HCl 750 mg/ Sodium (Chloride) 250 mls @ 250 mls/hr IV Q24HR@1530 [facility] Stop: 06/16/17 15:29 Last Admin: 04/18/17 14:56 Dose: 250 mls/hr Insulin Aspart (Novolog Insulin Sliding Scale) 0 units SUBQ ACHS [facility] PRN Reason: Protocol Stop: 06/16/17 16:29 Last Admin: 04/18/17 11:17 Dose: 5 units Insulin Detemir (Levemir Insulin) 10 units SUBQ HS [facility] PRN Reason: Protocol Stop: 06/16/17 20:59 Last Admin: 04/17/17 21:30 Dose: 10 units Levetiracetam (Keppra) 500 mg PO BID [facility] Stop: 06/17/17 08:59 Last Admin: 04/18/17 08:47 Dose: 500 mg Miscellaneous (Vancomycin Iv Per Pharmacy) 1 ea [facility] PRN PRN PRN Reason: PROTOCOL Stop: 06/16/17 14:50 Risperidone (Risperdal) 0.5 mg PO HS [facility] PRN Reason: Protocol Stop: 06/16/17 20:59 Thiamine HCl (Vitamin B1) 100 mg PO DAILY [facility] Stop: 06/17/17 08:59 Last Admin: 04/18/17 08:47 Dose: 100 mg Maintain IV hydration Continue Zosyn and vancomycin WBC stable @ 7.7 Cr. of 1.6 likely his baseline
--- NOTE | 2017-04-20 10:57 | Diagnostic Imaging Report ---
CT scan of the abdomen and pelvis without intravenous contrast History: Pain, sepsis Total DLP equals 410 CTDI equals 8.0 Axial sections were obtained from the xiphoid process down to the pubic symphysis. The liver demonstrates a normal size and contour. No focal lesions are seen. The spleen appears normal. No abnormalities are seen in the region of the pancreas. The kidneys appear normal bilaterally. The exam of the pelvis demonstrates preservation of normal fat planes. No abnormal soft tissue masses. No abnormal fluid collections. Nondilated stool-filled large bowel noted. Several colonic diverticula are seen. Diffuse atherosclerotic vascular calcification noted. Diffuse degenerative changes are seen in the spine. Impression: 1. No acute abnormalities 2. Stool-filled nondilated large bowel 3. Diffuse atherosclerotic vascular changes as well as evidence of coronary artery calcification.
== END 2017-04-19 20:08 | DRG 683 ==
LOC: MSI 14:07
PROVIDERS: ADMIT General Practice; ATTEND General Practice
DX: N17.9 Acute kidney failure, unspecified (principal); F03.91 Unspecified dementia, unspecified severity, with behavioral disturbance; E11.22 Type 2 diabetes mellitus with diabetic chronic kidney disease; D72.829 Elevated white blood cell count, unspecified; I12.9 Hypertensive chronic kidney disease with stage 1 through stage 4 chronic kidney disease, or unspecified chronic kidney disease; N18.9 Chronic kidney disease, unspecified; F29 Unspecified psychosis not due to a substance or known physiological condition; D63.1 Anemia in chronic kidney disease; G40.909 Epilepsy, unspecified, not intractable, without status epilepticus; Z79.4 Long term (current) use of insulin; Z79.82 Long term (current) use of aspirin; Z82.49 Family history of ischemic heart disease and other diseases of the circulatory system; Z83.3 Family history of diabetes mellitus; Z91.83 Wandering in diseases classified elsewhere
CPT/HCPCS: 36415-UA; 71010-TC; 74000-TC; 80053-TC; 80202-TC; 82948-90; 83735-TC; 84100-TC; 85025-TC; 87086-90; J1815; J2543; J3370; J7030; X3401; X3904; Z7610

== ENCOUNTER 2017-04-19 20:08 | Inpatient (IN) | payer MEDICARE, OTHER ==
[2017-04-19] MEDS ORDERED: Maalox 30 mL Cup PO PRN (22:05)
[2017-04-19] MEDS ORDERED: Magnesium Hydroxide (MOM) 30 mL UDC PO PRN (22:05)
[2017-04-19] MEDS: INSULIN ASPART SLIDING SCALE 100 UNITS/ML UNIT SUBQ SCH (22:52)
[2017-04-19] MEDS: Insulin Detemir 100 units/mL 10mL Vial SUBQ SCH (22:54)
[2017-04-20 07:12] VITALS: BP 142/71
[2017-04-20 07:12] LABS: % BASOPHILS 0.1 % (0.0-2.0); % EOSINOPHILS 3.5 % (0.0-5.0); % MONOCYTES 11.5 % (2.0-10.0); % NEUTROPHILS 59.9 % (40.0-80.0); HEMATOCRIT 27.5 % (39.0-49.0); HEMOGLOBIN 9.1 gm/dL (12.6-17.4); MEAN CELL VOLUME 85.8 fl (80-99); MEAN CORPUSCULAR HEMOGLOBIN 28.5 pg (27.0-31.0); MEAN CORPUSCULAR HGB CONC 33.2 pg (28.0-36.0); MEAN PLATELET VOLUME 8.1 fl; NEUTROPHILE ABSOLUTE 5.8 Th/cmm (1.8-8.0); PLATELET COUNT 293 Th/cmm (150-400); RED BLOOD COUNT 3.21 Mil/cmm (3.80-5.80); RED CELL DISTRIBUTION WIDTH 15.3 % (11.5-20.0)
[2017-04-20 07:31] LABS: WHITE BLOOD COUNT 9.6 Th/cmm (4.8-10.8)
[2017-04-20 07:34] LABS: ALB/GLOB RATIO 1.1 (1.0-1.8); ALKALINE PHOSPHATASE 99 U/L (34-104); BILIRUBIN,TOTAL 0.2 mg/dL (0.3-1.0); BUN - UREA NITROGEN 19 mg/dL (7-25); BUN/CREATININE RATIO 12.7; CALCIUM SERUM 8.7 mg/dL (8.6-10.3); CARBON DIOXIDE 25.7 mEq/L (21.0-31.0); CHLORIDE 111 mEq/L (98-107); CREATININE - SERUM 1.5 mg/dL (0.7-1.3); GLUCOSE 69 mg/dL (70-105); POTASSIUM SERUM 3.7 mEq/L (3.5-5.1); SGOT 37 U/L (13-39); SGPT/ALT 46 U/L (7-52); SODIUM SERUM 139 mEq/L (136-145)
[2017-04-20] MEDS: INSULIN ASPART SLIDING SCALE 100 UNITS/ML UNIT SUBQ SCH ×4 (07:42→21:18)
[2017-04-20] MEDS: Multivitamin Tab PO SCH (08:23)
--- NOTE | 2017-04-20 08:46 | History and Physical ---
History of Present Illness - HPI Chief Complaint: Suicidal ideas HPI: Patient was send from SNF due to increased in agitation, he was keep in [facility] unit due to anemia and AKF over CKD, he was transfered to [facility]. After few days in [facility] unit he had a sudenlly incresed in WBC he was transfered back to [facility] unit to rouled out Sepsis. Afetr 2 days in [facility] and normal WBC and due that patient refer suicidal ideas he was transfered back to [facility]. 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 GI: Report: No Pertinent Hx Psych: Report: Psychosis Musculoskeletal: Report: Weakness Rheumatologic: Report: No pertinent Hx Infectious Disease: Report: Other (WBC is normal now) Renal/: Report: Chronic Renal Failure Endocrine: Report: No Pertinent Hx Dermatology: Report: No Pertinent Hx - Past Surgical History Past Surgical History: No pertinent Hx Family Medical History - Family Member Mother History Unknown: Yes Ethnicity: Living Status: Still Living Hx Family Hypertension: Yes Hx Family Diabetes: Yes Social History Smoke: No Alcohol: None Drugs: None Lives: Alone Domestic Violence: Negative Health Maintenance Health Maintenance: Cholesterol - Medications Home Medications: Home Medication Medication Instructions Recorded Type Acetaminophen [Tylenol] 650 mg PO Q4HR PRN tab 04/17/17 Rx Aspirin EC [Ecotrin] 81 mg PO DAILY ect 04/17/17 Rx Bisacodyl [Dulcolax 10 Mg Supp] 10 mg RC PRN PRN sup 04/17/17 Rx Clopidogrel [Plavix] 75 mg PO DAILY tab 04/17/17 Rx Donepezil Hcl [Aricept] 5 mg PO DAILY tab 04/17/17 Rx Fleet Enema 135 ml RC Q72H PRN 04/17/17 Rx Folic Acid [Folate*] 1 mg PO DAILY tab 04/17/17 Rx Insulin Aspart Sliding Scale 3 - 13 units SUBQ ACHS unit 04/17/17 Rx [NovoLOG INSULIN SLIDING SCALE] Insulin Detemir [Levemir Insulin] 10 units SUBQ HS vial 04/17/17 Rx Levetiracetam [Keppra] 500 mg PO BID tab 04/17/17 Rx Magnesium Hydroxide [Milk of 30 ml PO Q48H PRN udc 04/17/17 Rx Magnesia] Multivitamin w/ Minerals 1 tab PO DAILY tab 04/17/17 Rx [Theragran M] Polyvinyl Alcohol Ophth Soln 1 drop EACH EYE QID 04/17/17 Rx [Artificial Tears Ophth Soln*] Thiamine [Vitamin B1] 100 mg PO DAILY tab 04/17/17 Rx amLODIPine Besylate [Norvasc*] 10 mg PO DAILY tab 04/17/17 Rx risperiDONE [RisperDAL] 0.5 mg PO HS tab 04/17/17 Rx Insulin Aspart Sliding Scale See Protocol SUBQ ACHS unit 04/19/17 Rx [NovoLOG INSULIN SLIDING SCALE] - Allergies Allergies/Adverse Reactions: Allergies Allergy/AdvReac Type Severity Reaction Status Date / Time No Known Allergies Allergy Verified 06/30/16 18:07 Review of Systems - Review of Systems Constitutional: Report: No Significant Eyes: Report: No Significant ENT: Report: No Significant Respiratory: Report: No Significant Cardiovascular: Report: No Significant Gastrointestinal: Report: No Significant Genitourinary: Report: No Significant Musculoskeletal: Report: No Significant Skin: Report: No Significant Neurological: Report: Weakness Physical Exam - Physical Exam HEENT: Report: Ears Nose Throat within normal limits Neck: Report: Within normal limits Cardiovascular Systems: Report: Regular, Rate and Rhythm Respiratory: Report: Breath Sounds are within normal limits Abdomen: Report: Non-tender to palpation Back: Report: Inspection of back is within normal limits. Extremities: Report: Non-tender to palpation. Skin: Report: Color of skin is within normal limits Neuro/Psych: Report: Disoriented to name time or place, No motor deficit - Lab Results All Lab Results last 24 hours: Laboratory Last Values WBC 9.6 Th/cmm (4.8-10.8) D 04/20/17 06:45 RBC 3.21 Mil/cmm (3.80-5.80) L 04/20/17 06:45 Hgb 9.1 gm/dL (12.6-17.4) L 04/20/17 06:45 Hct 27.5 % (39.0-49.0) L 04/20/17 06:45 MCV 85.8 fl (80-99) 04/20/17 06:45 MCH 28.5 pg (27.0-31.0) 04/20/17 06:45 MCHC Differential 33.2 pg (28.0-36.0) 04/20/17 06:45 RDW 15.3 % (11.5-20.0) 04/20/17 06:45 Plt Count 293 Th/cmm (150-400) 04/20/17 06:45 MPV 8.1 fl 04/20/17 06:45 Neutrophils % 59.9 % (40.0-80.0) 04/20/17 06:45 Lymphocytes % 25.0 % (20.0-50.0) 04/20/17 06:45 Monocytes % 11.5 % (2.0-10.0) H 04/20/17 06:45 Eosinophils % 3.5 % (0.0-5.0) 04/20/17 06:45 Basophils % 0.1 % (0.0-2.0) 04/20/17 06:45 Sodium 139 mEq/L (136-145) 04/20/17 06:45 Potassium 3.7 mEq/L (3.5-5.1) 04/20/17 06:45 Chloride 111 mEq/L (98-107) H 04/20/17 06:45 Carbon Dioxide 25.7 mEq/L (21.0-31.0) 04/20/17 06:45 Anion Gap 6.0 (7.0-16.0) L 04/20/17 06:45 BUN 19 mg/dL (7-25) 04/20/17 06:45 Creatinine 1.5 mg/dL (0.7-1.3) H 04/20/17 06:45 Est GFR ( Amer) > 60.0 ml/min (>90) 04/20/17 06:45 Est GFR (Non-Af Amer) 49.9 ml/min 04/20/17 06:45 BUN/Creatinine Ratio 12.7 04/20/17 06:45 Glucose 69 mg/dL (70-105) L 04/20/17 06:45 POC Glucose 58 MG/DL (70 - 105) L 04/20/17 06:22 Calcium 8.7 mg/dL (8.6-10.3) 04/20/17 06:45 Total Bilirubin 0.2 mg/dL (0.3-1.0) L 04/20/17 06:45 AST 37 U/L (13-39) 04/20/17 06:45 ALT 46 U/L (7-52) 04/20/17 06:45 Alkaline Phosphatase 99 U/L (34-104) 04/20/17 06:45 Total Protein 6.2 gm/dL (6.0-8.3) 04/20/17 06:45 Albumin 3.2 gm/dL (4.2-5.5) L 04/20/17 06:45 Globulin 3.0 gm/dL 04/20/17 06:45 Albumin/Globulin Ratio 1.1 (1.0-1.8) 04/20/17 06:45 Laboratory Results - last 24 hr 04/19/17 04/20/17 04/20/17 22:38 06:22 06:45 WBC 9.6 D RBC 3.21 L Hgb 9.1 L Hct 27.5 L MCV 85.8 MCH 28.5 MCHC Differential 33.2 RDW 15.3 Plt Count 293 MPV 8.1 Neutrophils % 59.9 Lymphocytes % 25.0 Monocytes % 11.5 H Eosinophils % 3.5 Basophils % 0.1 Sodium Potassium Chloride Carbon Dioxide Anion Gap BUN Creatinine Est GFR ( Amer) Est GFR (Non-Af Amer) BUN/Creatinine Ratio Glucose POC Glucose 105 58 L Calcium Total Bilirubin AST ALT Alkaline Phosphatase Total Protein Albumin Globulin Albumin/Globulin Ratio 04/20/17 06:45 WBC RBC Hgb Hct MCV MCH MCHC Differential RDW Plt Count MPV Neutrophils % Lymphocytes % Monocytes % Eosinophils % Basophils % Sodium 139 Potassium 3.7 Chloride 111 H Carbon Dioxide 25.7 Anion Gap 6.0 L BUN 19 Creatinine 1.5 H Est GFR ( Amer) > 60.0 Est GFR (Non-Af Amer) 49.9 BUN/Creatinine Ratio 12.7 Glucose 69 L POC Glucose Calcium 8.7 Total Bilirubin 0.2 L AST 37 ALT 46 Alkaline Phosphatase 99 Total Protein 6.2 Albumin 3.2 L Globulin 3.0 Albumin/Globulin Ratio 1.1 - Assessment Assessment: Patient is awake, cvalm in no acute distress. Today WBC is normal. - Plan Plan: Patient is follow by psychiatry. Will continue to monitor.
[2017-04-20] MEDS: Insulin Detemir 100 units/mL 10mL Vial SUBQ SCH (21:18)
[2017-04-21] MEDS: INSULIN ASPART SLIDING SCALE 100 UNITS/ML UNIT SUBQ SCH ×4 (06:29→21:25)
[2017-04-21] MEDS: Multivitamin Tab PO SCH (08:36)
[2017-04-21] MEDS: Escitalopram Oxalate 5 mg Tab PO SCH (09:02)
--- NOTE | 2017-04-21 09:11 | General Progress Note ---
Subjective - Review of Systems Service Date: 04/21/17 Subjective: I am fine Objective - Results Result Diagrams: 04/20/17 06:45 04/20/17 06:45 Recent Labs: Laboratory Last Values WBC 9.6 Th/cmm (4.8-10.8) D 04/20/17 06:45 RBC 3.21 Mil/cmm (3.80-5.80) L 04/20/17 06:45 Hgb 9.1 gm/dL (12.6-17.4) L 04/20/17 06:45 Hct 27.5 % (39.0-49.0) L 04/20/17 06:45 MCV 85.8 fl (80-99) 04/20/17 06:45 MCH 28.5 pg (27.0-31.0) 04/20/17 06:45 MCHC Differential 33.2 pg (28.0-36.0) 04/20/17 06:45 RDW 15.3 % (11.5-20.0) 04/20/17 06:45 Plt Count 293 Th/cmm (150-400) 04/20/17 06:45 MPV 8.1 fl 04/20/17 06:45 Neutrophils % 59.9 % (40.0-80.0) 04/20/17 06:45 Lymphocytes % 25.0 % (20.0-50.0) 04/20/17 06:45 Monocytes % 11.5 % (2.0-10.0) H 04/20/17 06:45 Eosinophils % 3.5 % (0.0-5.0) 04/20/17 06:45 Basophils % 0.1 % (0.0-2.0) 04/20/17 06:45 Sodium 139 mEq/L (136-145) 04/20/17 06:45 Potassium 3.7 mEq/L (3.5-5.1) 04/20/17 06:45 Chloride 111 mEq/L (98-107) H 04/20/17 06:45 Carbon Dioxide 25.7 mEq/L (21.0-31.0) 04/20/17 06:45 Anion Gap 6.0 (7.0-16.0) L 04/20/17 06:45 BUN 19 mg/dL (7-25) 04/20/17 06:45 Creatinine 1.5 mg/dL (0.7-1.3) H 04/20/17 06:45 Est GFR ( Amer) > 60.0 ml/min (>90) 04/20/17 06:45 Est GFR (Non-Af Amer) 49.9 ml/min 04/20/17 06:45 BUN/Creatinine Ratio 12.7 04/20/17 06:45 Glucose 69 mg/dL (70-105) L 04/20/17 06:45 POC Glucose 66 MG/DL (70 - 105) L 04/21/17 06:06 Calcium 8.7 mg/dL (8.6-10.3) 04/20/17 06:45 Total Bilirubin 0.2 mg/dL (0.3-1.0) L 04/20/17 06:45 AST 37 U/L (13-39) 04/20/17 06:45 ALT 46 U/L (7-52) 04/20/17 06:45 Alkaline Phosphatase 99 U/L (34-104) 04/20/17 06:45 Total Protein 6.2 gm/dL (6.0-8.3) 04/20/17 06:45 Albumin 3.2 gm/dL (4.2-5.5) L 04/20/17 06:45 Globulin 3.0 gm/dL 04/20/17 06:45 Albumin/Globulin Ratio 1.1 (1.0-1.8) 04/20/17 06:45 - Physical Exam Vitals and I&O: Vital Signs Temp 98.2 F 04/21/17 06:38 Pulse 65 04/21/17 08:37 Resp 20 04/21/17 06:38 BP 108/57 04/21/17 08:37 Pulse Ox 96 04/21/17 06:38 Intake & Output 04/20/17 04/21/17 04/21/17 18:59 06:59 18:59 Intake Total 800 120 Balance 800 120 Intake: Oral 800 120 Other: # Voids 3 3 # Bowel Movements 0 Active Medications: Current Medications Acetaminophen (Tylenol) 650 mg PO Q4HR PRN PRN Reason: Mild Pain / Temp above 100 Stop: 06/18/17 22:04 Al Hydrox/Mg Hydrox/Simethicone (Maalox) 30 ml PO Q4HR PRN PRN Reason: GI DISTRESS Stop: 06/18/17 22:04 Amlodipine Besylate (Norvasc) 10 mg PO DAILY [facility] Stop: 06/19/17 08:59 Last Admin: 04/21/17 08:37 Dose: Not Given Aspirin (Ecotrin) 81 mg PO DAILY [facility] Stop: 06/19/17 08:59 Last Admin: 04/21/17 08:36 Dose: 81 mg Bisacodyl (Dulcolax 10 Mg Supp) 10 mg RC DAILY PRN PRN Reason: Constipation Stop: 06/18/17 22:42 Clopidogrel Bisulfate (Plavix) 75 mg PO DAILY [facility] Stop: 06/19/17 08:59 Last Admin: 04/21/17 08:36 Dose: 75 mg Donepezil HCl (Aricept) 5 mg PO DAILY [facility] Stop: 06/19/17 08:59 Last Admin: 04/21/17 08:36 Dose: 5 mg Escitalopram Oxalate (Lexapro) 5 mg PO DAILY [facility] PRN Reason: Protocol Stop: 06/20/17 08:59 Folic Acid (Folate) 1 mg PO DAILY [facility] Stop: 06/19/17 08:59 Last Admin: 04/21/17 08:36 Dose: 1 mg Insulin Aspart (Novolog Insulin Sliding Scale) 0 units SUBQ ACHS [facility] PRN Reason: Protocol Stop: 06/18/17 22:19 Last Admin: 04/21/17 06:29 Dose: Not Given Insulin Detemir (Levemir Insulin) 5 units SUBQ HS [facility] PRN Reason: Protocol Stop: 06/20/17 20:59 Levetiracetam (Keppra) 500 mg PO BID [facility] Stop: 06/19/17 08:59 Last Admin: 04/21/17 08:36 Dose: 500 mg Lorazepam (Ativan) 0.5 mg PO Q4HR PRN; Protocol PRN Reason: Anxiety Stop: 05/19/17 22:04 Magnesium Hydroxide (Milk Of Magnesia) 30 ml PO HS PRN PRN Reason: Constipation Multivitamins/Vitamin C (Theragran) 1 tab PO DAILY [facility] Stop: 06/19/17 08:59 Last Admin: 04/21/17 08:36 Dose: 1 tab Risperidone (Risperdal) 0.75 mg PO HS [facility] PRN Reason: Protocol Stop: 06/19/17 20:59 Last Admin: 04/20/17 21:16 Dose: 0.75 mg Thiamine HCl (Vitamin B1) 100 mg PO DAILY [facility] Stop: 06/19/17 08:59 Last Admin: 04/21/17 08:36 Dose: 100 mg Zolpidem Tartrate (Ambien) 5 mg PO HS PRN PRN Reason: Insomnia Stop: 06/18/17 22:04 General: Alert, Other (Confused) HEENT: Atraumatic Neck: Supple Cardiovascular: Regular rate Abdomen: Bowel sounds, Soft Extremities: Other (No edema) Neurological: Other (Unstable gait) Skin: Other (Warm and dry) Psych/Mental Status: Other (Confused) - Procedures Procedures: Procedures Procedure Code Date BLOOD TRANSFUSION SERVICE 83537 04/12/17 TRANSFUSE NONAUT RED BLOOD CELLS IN PERIPH VEIN, PERC 85551J2 04/12/17 Assessment/Plan - Problem List Patient Problems: All Active Problems WANDERING AND UNABLE TO REDIRECT (Acute) - Assessment Assessment: Patient is awake, calm in no acute distress. - Plan Plan: Patient is follow by psychiatry. Will continue to monitor.
[2017-04-21] MEDS: Insulin Detemir 100 units/mL 10mL Vial SUBQ SCH (21:26)
[2017-04-22] MEDS: INSULIN ASPART SLIDING SCALE 100 UNITS/ML UNIT SUBQ SCH ×4 (06:37→20:50)
[2017-04-22] MEDS: Escitalopram Oxalate 5 mg Tab PO SCH (09:02)
[2017-04-22] MEDS: Multivitamin Tab PO SCH (09:03)
--- NOTE | 2017-04-22 13:57 | General Progress Note ---
Subjective - Review of Systems Service Date: 04/22/17 Subjective: I am fine Objective - Results Result Diagrams: 04/20/17 06:45 04/20/17 06:45 Recent Labs: Laboratory Last Values WBC 9.6 Th/cmm (4.8-10.8) D 04/20/17 06:45 RBC 3.21 Mil/cmm (3.80-5.80) L 04/20/17 06:45 Hgb 9.1 gm/dL (12.6-17.4) L 04/20/17 06:45 Hct 27.5 % (39.0-49.0) L 04/20/17 06:45 MCV 85.8 fl (80-99) 04/20/17 06:45 MCH 28.5 pg (27.0-31.0) 04/20/17 06:45 MCHC Differential 33.2 pg (28.0-36.0) 04/20/17 06:45 RDW 15.3 % (11.5-20.0) 04/20/17 06:45 Plt Count 293 Th/cmm (150-400) 04/20/17 06:45 MPV 8.1 fl 04/20/17 06:45 Neutrophils % 59.9 % (40.0-80.0) 04/20/17 06:45 Lymphocytes % 25.0 % (20.0-50.0) 04/20/17 06:45 Monocytes % 11.5 % (2.0-10.0) H 04/20/17 06:45 Eosinophils % 3.5 % (0.0-5.0) 04/20/17 06:45 Basophils % 0.1 % (0.0-2.0) 04/20/17 06:45 Sodium 139 mEq/L (136-145) 04/20/17 06:45 Potassium 3.7 mEq/L (3.5-5.1) 04/20/17 06:45 Chloride 111 mEq/L (98-107) H 04/20/17 06:45 Carbon Dioxide 25.7 mEq/L (21.0-31.0) 04/20/17 06:45 Anion Gap 6.0 (7.0-16.0) L 04/20/17 06:45 BUN 19 mg/dL (7-25) 04/20/17 06:45 Creatinine 1.5 mg/dL (0.7-1.3) H 04/20/17 06:45 Est GFR ( Amer) > 60.0 ml/min (>90) 04/20/17 06:45 Est GFR (Non-Af Amer) 49.9 ml/min 04/20/17 06:45 BUN/Creatinine Ratio 12.7 04/20/17 06:45 Glucose 69 mg/dL (70-105) L 04/20/17 06:45 POC Glucose 72 MG/DL (70 - 105) 04/22/17 06:34 Calcium 8.7 mg/dL (8.6-10.3) 04/20/17 06:45 Total Bilirubin 0.2 mg/dL (0.3-1.0) L 04/20/17 06:45 AST 37 U/L (13-39) 04/20/17 06:45 ALT 46 U/L (7-52) 04/20/17 06:45 Alkaline Phosphatase 99 U/L (34-104) 04/20/17 06:45 Total Protein 6.2 gm/dL (6.0-8.3) 04/20/17 06:45 Albumin 3.2 gm/dL (4.2-5.5) L 04/20/17 06:45 Globulin 3.0 gm/dL 04/20/17 06:45 Albumin/Globulin Ratio 1.1 (1.0-1.8) 04/20/17 06:45 - Physical Exam Vitals and I&O: Vital Signs Temp 98.3 F 04/22/17 06:03 Pulse 74 04/22/17 09:03 Resp 19 04/22/17 06:03 BP 148/65 04/22/17 09:03 Pulse Ox 99 04/22/17 06:03 Intake & Output 04/21/17 04/22/17 04/22/17 18:59 06:59 18:59 Intake Total 2100 120 Balance 2100 120 Intake: Oral 2100 120 Other: # Voids 4 1 # Bowel Movements 0 0 Active Medications: Current Medications Acetaminophen (Tylenol) 650 mg PO Q4HR PRN PRN Reason: Mild Pain / Temp above 100 Stop: 06/18/17 22:04 Al Hydrox/Mg Hydrox/Simethicone (Maalox) 30 ml PO Q4HR PRN PRN Reason: GI DISTRESS Stop: 06/18/17 22:04 Amlodipine Besylate (Norvasc) 10 mg PO DAILY [facility] Stop: 06/19/17 08:59 Last Admin: 04/22/17 09:03 Dose: 10 mg Aspirin (Ecotrin) 81 mg PO DAILY [facility] Stop: 06/19/17 08:59 Last Admin: 04/22/17 09:03 Dose: 81 mg Bisacodyl (Dulcolax 10 Mg Supp) 10 mg RC DAILY PRN PRN Reason: Constipation Stop: 06/18/17 22:42 Clopidogrel Bisulfate (Plavix) 75 mg PO DAILY [facility] Stop: 06/19/17 08:59 Last Admin: 04/22/17 09:03 Dose: 75 mg Donepezil HCl (Aricept) 5 mg PO DAILY [facility] Stop: 06/19/17 08:59 Last Admin: 04/22/17 09:02 Dose: 5 mg Escitalopram Oxalate (Lexapro) 5 mg PO DAILY [facility] PRN Reason: Protocol Stop: 06/20/17 08:59 Last Admin: 04/22/17 09:02 Dose: 5 mg Folic Acid (Folate) 1 mg PO DAILY [facility] Stop: 06/19/17 08:59 Last Admin: 04/22/17 09:03 Dose: 1 mg Insulin Aspart (Novolog Insulin Sliding Scale) 0 units SUBQ ACHS [facility] PRN Reason: Protocol Stop: 06/18/17 22:19 Last Admin: 04/22/17 11:15 Dose: Not Given Insulin Detemir (Levemir Insulin) 5 units SUBQ HS [facility] PRN Reason: Protocol Stop: 06/20/17 20:59 Last Admin: 04/21/17 21:26 Dose: 5 unit Levetiracetam (Keppra) 500 mg PO BID [facility] Stop: 06/19/17 08:59 Last Admin: 04/22/17 09:03 Dose: 500 mg Lorazepam (Ativan) 0.5 mg PO Q4HR PRN; Protocol PRN Reason: Anxiety Stop: 05/19/17 22:04 Magnesium Hydroxide (Milk Of Magnesia) 30 ml PO HS PRN PRN Reason: Constipation Multivitamins/Vitamin C (Theragran) 1 tab PO DAILY [facility] Stop: 06/19/17 08:59 Last Admin: 04/22/17 09:03 Dose: 1 tab Risperidone (Risperdal) 0.75 mg PO HS [facility] PRN Reason: Protocol Stop: 06/19/17 20:59 Last Admin: 04/21/17 21:07 Dose: 0.75 mg Thiamine HCl (Vitamin B1) 100 mg PO DAILY [facility] Stop: 06/19/17 08:59 Last Admin: 04/22/17 09:03 Dose: 100 mg Zolpidem Tartrate (Ambien) 5 mg PO HS PRN PRN Reason: Insomnia Stop: 06/18/17 22:04 General: Alert, Other (Confused) HEENT: Atraumatic Neck: Supple Cardiovascular: Regular rate Abdomen: Bowel sounds, Soft Extremities: Other (No edema) Neurological: Other (Unstable gait) Skin: Other (Warm and dry) Psych/Mental Status: Other (Confused) - Procedures Procedures: Procedures Procedure Code Date BLOOD TRANSFUSION SERVICE 75310 04/12/17 TRANSFUSE NONAUT RED BLOOD CELLS IN PERIPH VEIN, PERC 01027L5 04/12/17 Assessment/Plan - Problem List Patient Problems: All Active Problems WANDERING AND UNABLE TO REDIRECT (Acute) - Assessment Assessment: Patient is awake, calm in no acute distress. - Plan Plan: Patient is follow by psychiatry. Will continue to monitor.
[2017-04-22] MEDS: Insulin Detemir 100 units/mL 10mL Vial SUBQ SCH (20:51)
[2017-04-23] MEDS: INSULIN ASPART SLIDING SCALE 100 UNITS/ML UNIT SUBQ SCH ×4 (06:38→20:50)
--- NOTE | 2017-04-23 08:57 | General Progress Note ---
Subjective - Review of Systems Service Date: 04/23/17 Subjective: I am fine Objective - Results Result Diagrams: 04/20/17 06:45 04/20/17 06:45 Recent Labs: Laboratory Last Values WBC 9.6 Th/cmm (4.8-10.8) D 04/20/17 06:45 RBC 3.21 Mil/cmm (3.80-5.80) L 04/20/17 06:45 Hgb 9.1 gm/dL (12.6-17.4) L 04/20/17 06:45 Hct 27.5 % (39.0-49.0) L 04/20/17 06:45 MCV 85.8 fl (80-99) 04/20/17 06:45 MCH 28.5 pg (27.0-31.0) 04/20/17 06:45 MCHC Differential 33.2 pg (28.0-36.0) 04/20/17 06:45 RDW 15.3 % (11.5-20.0) 04/20/17 06:45 Plt Count 293 Th/cmm (150-400) 04/20/17 06:45 MPV 8.1 fl 04/20/17 06:45 Neutrophils % 59.9 % (40.0-80.0) 04/20/17 06:45 Lymphocytes % 25.0 % (20.0-50.0) 04/20/17 06:45 Monocytes % 11.5 % (2.0-10.0) H 04/20/17 06:45 Eosinophils % 3.5 % (0.0-5.0) 04/20/17 06:45 Basophils % 0.1 % (0.0-2.0) 04/20/17 06:45 Sodium 139 mEq/L (136-145) 04/20/17 06:45 Potassium 3.7 mEq/L (3.5-5.1) 04/20/17 06:45 Chloride 111 mEq/L (98-107) H 04/20/17 06:45 Carbon Dioxide 25.7 mEq/L (21.0-31.0) 04/20/17 06:45 Anion Gap 6.0 (7.0-16.0) L 04/20/17 06:45 BUN 19 mg/dL (7-25) 04/20/17 06:45 Creatinine 1.5 mg/dL (0.7-1.3) H 04/20/17 06:45 Est GFR ( Amer) > 60.0 ml/min (>90) 04/20/17 06:45 Est GFR (Non-Af Amer) 49.9 ml/min 04/20/17 06:45 BUN/Creatinine Ratio 12.7 04/20/17 06:45 Glucose 69 mg/dL (70-105) L 04/20/17 06:45 POC Glucose 94 MG/DL (70 - 105) 04/23/17 06:14 Calcium 8.7 mg/dL (8.6-10.3) 04/20/17 06:45 Total Bilirubin 0.2 mg/dL (0.3-1.0) L 04/20/17 06:45 AST 37 U/L (13-39) 04/20/17 06:45 ALT 46 U/L (7-52) 04/20/17 06:45 Alkaline Phosphatase 99 U/L (34-104) 04/20/17 06:45 Total Protein 6.2 gm/dL (6.0-8.3) 04/20/17 06:45 Albumin 3.2 gm/dL (4.2-5.5) L 04/20/17 06:45 Globulin 3.0 gm/dL 04/20/17 06:45 Albumin/Globulin Ratio 1.1 (1.0-1.8) 04/20/17 06:45 - Physical Exam Vitals and I&O: Vital Signs Temp 97.4 F 04/23/17 07:18 Pulse 18 04/23/17 07:18 Resp 18 04/23/17 07:18 BP 105/69 04/23/17 07:18 Pulse Ox 97 04/23/17 07:18 Intake & Output 04/22/17 04/23/17 04/23/17 18:59 06:59 18:59 Other: # Voids 2 Active Medications: Current Medications Acetaminophen (Tylenol) 650 mg PO Q4HR PRN PRN Reason: Mild Pain / Temp above 100 Stop: 06/18/17 22:04 Al Hydrox/Mg Hydrox/Simethicone (Maalox) 30 ml PO Q4HR PRN PRN Reason: GI DISTRESS Stop: 06/18/17 22:04 Amlodipine Besylate (Norvasc) 10 mg PO DAILY [facility] Stop: 06/19/17 08:59 Last Admin: 04/22/17 09:03 Dose: 10 mg Aspirin (Ecotrin) 81 mg PO DAILY [facility] Stop: 06/19/17 08:59 Last Admin: 04/22/17 09:03 Dose: 81 mg Bisacodyl (Dulcolax 10 Mg Supp) 10 mg RC DAILY PRN PRN Reason: Constipation Stop: 06/18/17 22:42 Clopidogrel Bisulfate (Plavix) 75 mg PO DAILY [facility] Stop: 06/19/17 08:59 Last Admin: 04/22/17 09:03 Dose: 75 mg Donepezil HCl (Aricept) 5 mg PO DAILY [facility] Stop: 06/19/17 08:59 Last Admin: 04/22/17 09:02 Dose: 5 mg Escitalopram Oxalate (Lexapro) 10 mg PO DAILY [facility] PRN Reason: Protocol Stop: 06/20/17 08:59 Folic Acid (Folate) 1 mg PO DAILY [facility] Stop: 06/19/17 08:59 Last Admin: 04/22/17 09:03 Dose: 1 mg Insulin Aspart (Novolog Insulin Sliding Scale) 0 units SUBQ ACHS [facility] PRN Reason: Protocol Stop: 06/18/17 22:19 Last Admin: 04/23/17 06:38 Dose: Not Given Insulin Detemir (Levemir Insulin) 5 units SUBQ HS [facility] PRN Reason: Protocol Stop: 06/20/17 20:59 Last Admin: 04/22/17 20:51 Dose: 5 unit Levetiracetam (Keppra) 500 mg PO BID [facility] Stop: 06/19/17 08:59 Last Admin: 04/22/17 17:14 Dose: 500 mg Lorazepam (Ativan) 0.5 mg PO Q4HR PRN; Protocol PRN Reason: Anxiety Stop: 05/19/17 22:04 Magnesium Hydroxide (Milk Of Magnesia) 30 ml PO HS PRN PRN Reason: Constipation Multivitamins/Vitamin C (Theragran) 1 tab PO DAILY [facility] Stop: 06/19/17 08:59 Last Admin: 04/22/17 09:03 Dose: 1 tab Risperidone (Risperdal) 0.75 mg PO HS [facility] PRN Reason: Protocol Stop: 06/19/17 20:59 Last Admin: 04/22/17 20:43 Dose: 0.75 mg Thiamine HCl (Vitamin B1) 100 mg PO DAILY [facility] Stop: 06/19/17 08:59 Last Admin: 04/22/17 09:03 Dose: 100 mg Zolpidem Tartrate (Ambien) 5 mg PO HS PRN PRN Reason: Insomnia Stop: 06/18/17 22:04 General: Alert, Other (Confused) HEENT: Atraumatic Neck: Supple Cardiovascular: Regular rate Abdomen: Bowel sounds, Soft Extremities: Other (No edema) Neurological: Other (Unstable gait) Skin: Other (Warm and dry) Psych/Mental Status: Other (Confused) - Procedures Procedures: Procedures Procedure Code Date BLOOD TRANSFUSION SERVICE 95329 04/12/17 TRANSFUSE NONAUT RED BLOOD CELLS IN PERIPH VEIN, PERC 38246W5 04/12/17 Assessment/Plan - Problem List Patient Problems: All Active Problems WANDERING AND UNABLE TO REDIRECT (Acute) - Assessment Assessment: Patient is awake, calm in no acute distress. - Plan Plan: Patient is follow by psychiatry. Will continue to monitor
[2017-04-23 09:01] LABS: ANION GAP 8.1 (7.0-16.0); BILIRUBIN,TOTAL 0.3 mg/dL (0.3-1.0); BUN/CREATININE RATIO 17.2; CALCIUM SERUM 8.6 mg/dL (8.6-10.3); CREATININE - SERUM 1.8 mg/dL (0.7-1.3); POTASSIUM SERUM 4.1 mEq/L (3.5-5.1)
[2017-04-23] MEDS: Multivitamin Tab PO SCH (09:31)
[2017-04-23 10:19] LABS: % BASOPHILS 0.3 % (0.0-2.0); % EOSINOPHILS 3.8 % (0.0-5.0); % LYMPHOCYTES 22.9 % (20.0-50.0); % MONOCYTES 13.3 % (2.0-10.0); % NEUTROPHILS 59.7 % (40.0-80.0); HEMATOCRIT 27.3 % (39.0-49.0); MEAN CELL VOLUME 85.7 fl (80-99); MEAN CORPUSCULAR HEMOGLOBIN 28.1 pg (27.0-31.0); MEAN CORPUSCULAR HGB CONC 32.8 pg (28.0-36.0); MEAN PLATELET VOLUME 8.1 fl; PLATELET COUNT 287 Th/cmm (150-400); RED BLOOD COUNT 3.19 Mil/cmm (3.80-5.80); RED CELL DISTRIBUTION WIDTH 15.1 % (11.5-20.0); WHITE BLOOD COUNT 6.1 Th/cmm (4.8-10.8)
[2017-04-23 10:20] LABS: NEUTROPHILE ABSOLUTE 3.7 Th/cmm (1.8-8.0)
[2017-04-23] MEDS: Insulin Detemir 100 units/mL 10mL Vial SUBQ SCH (20:50)
[2017-04-24] MEDS: INSULIN ASPART SLIDING SCALE 100 UNITS/ML UNIT SUBQ SCH ×4 (06:49→20:26)
[2017-04-24] MEDS: Multivitamin Tab PO SCH (08:19)
[2017-04-24] MEDS: Insulin Detemir 100 units/mL 10mL Vial SUBQ SCH (20:27)
[2017-04-25] MEDS: INSULIN ASPART SLIDING SCALE 100 UNITS/ML UNIT SUBQ SCH ×4 (06:42→20:57)
[2017-04-25] MEDS: Multivitamin Tab PO SCH (09:16)
--- NOTE | 2017-04-25 09:17 | General Progress Note ---
Subjective - Review of Systems Service Date: 04/25/17 Subjective: I am fine Objective - Results Result Diagrams: 04/23/17 08:00 04/23/17 08:00 Recent Labs: Laboratory Last Values WBC 6.1 Th/cmm (4.8-10.8) D 04/23/17 08:00 RBC 3.19 Mil/cmm (3.80-5.80) L 04/23/17 08:00 Hgb 9.0 gm/dL (12.6-17.4) L 04/23/17 08:00 Hct 27.3 % (39.0-49.0) L 04/23/17 08:00 MCV 85.7 fl (80-99) 04/23/17 08:00 MCH 28.1 pg (27.0-31.0) 04/23/17 08:00 MCHC Differential 32.8 pg (28.0-36.0) 04/23/17 08:00 RDW 15.1 % (11.5-20.0) 04/23/17 08:00 Plt Count 287 Th/cmm (150-400) 04/23/17 08:00 MPV 8.1 fl 04/23/17 08:00 Neutrophils % 59.7 % (40.0-80.0) 04/23/17 08:00 Lymphocytes % 22.9 % (20.0-50.0) 04/23/17 08:00 Monocytes % 13.3 % (2.0-10.0) H 04/23/17 08:00 Eosinophils % 3.8 % (0.0-5.0) 04/23/17 08:00 Basophils % 0.3 % (0.0-2.0) 04/23/17 08:00 Sodium 139 mEq/L (136-145) 04/23/17 08:00 Potassium 4.1 mEq/L (3.5-5.1) 04/23/17 08:00 Chloride 109 mEq/L (98-107) H 04/23/17 08:00 Carbon Dioxide 26.0 mEq/L (21.0-31.0) 04/23/17 08:00 Anion Gap 8.1 (7.0-16.0) 04/23/17 08:00 BUN 31 mg/dL (7-25) H 04/23/17 08:00 Creatinine 1.8 mg/dL (0.7-1.3) H 04/23/17 08:00 Est GFR ( Amer) 48.9 ml/min (>90) 04/23/17 08:00 Est GFR (Non-Af Amer) 40.4 ml/min 04/23/17 08:00 BUN/Creatinine Ratio 17.2 04/23/17 08:00 Glucose 104 mg/dL (70-105) 04/23/17 08:00 POC Glucose 163 MG/DL (70 - 105) H 04/25/17 06:25 Calcium 8.6 mg/dL (8.6-10.3) 04/23/17 08:00 Total Bilirubin 0.3 mg/dL (0.3-1.0) 04/23/17 08:00 AST 39 U/L (13-39) 04/23/17 08:00 ALT 46 U/L (7-52) 04/23/17 08:00 Alkaline Phosphatase 111 U/L (34-104) H 04/23/17 08:00 Total Protein 6.6 gm/dL (6.0-8.3) 04/23/17 08:00 Albumin 3.3 gm/dL (4.2-5.5) L 04/23/17 08:00 Globulin 3.3 gm/dL 04/23/17 08:00 Albumin/Globulin Ratio 1.0 (1.0-1.8) 04/23/17 08:00 - Physical Exam Vitals and I&O: Vital Signs Temp 97.8 F 04/25/17 07:23 Pulse 88 04/25/17 07:23 Resp 18 04/25/17 07:23 BP 133/80 04/25/17 07:23 Pulse Ox 97 04/25/17 07:23 Intake & Output 04/24/17 04/25/17 04/25/17 18:59 06:59 18:59 Intake Total 1800 Balance 1800 Intake: Oral 1800 Other: # Voids 4 1 # Bowel Movements 1 Active Medications: Current Medications Acetaminophen (Tylenol) 650 mg PO Q4HR PRN PRN Reason: Mild Pain / Temp above 100 Stop: 06/18/17 22:04 Al Hydrox/Mg Hydrox/Simethicone (Maalox) 30 ml PO Q4HR PRN PRN Reason: GI DISTRESS Stop: 06/18/17 22:04 Amlodipine Besylate (Norvasc) 10 mg PO DAILY [facility] Stop: 06/19/17 08:59 Last Admin: 04/24/17 08:19 Dose: 10 mg Aspirin (Ecotrin) 81 mg PO DAILY [facility] Stop: 06/19/17 08:59 Last Admin: 04/24/17 08:19 Dose: 81 mg Bisacodyl (Dulcolax 10 Mg Supp) 10 mg RC DAILY PRN PRN Reason: Constipation Stop: 06/18/17 22:42 Clopidogrel Bisulfate (Plavix) 75 mg PO DAILY [facility] Stop: 06/19/17 08:59 Last Admin: 04/24/17 08:19 Dose: 75 mg Donepezil HCl (Aricept) 5 mg PO DAILY [facility] Stop: 06/19/17 08:59 Last Admin: 04/24/17 08:19 Dose: 5 mg Escitalopram Oxalate (Lexapro) 10 mg PO DAILY [facility] PRN Reason: Protocol Stop: 06/20/17 08:59 Last Admin: 04/24/17 08:19 Dose: 10 mg Folic Acid (Folate) 1 mg PO DAILY [facility] Stop: 06/19/17 08:59 Last Admin: 04/24/17 08:19 Dose: 1 mg Insulin Aspart (Novolog Insulin Sliding Scale) 0 units SUBQ ACHS [facility] PRN Reason: Protocol Stop: 06/18/17 22:19 Last Admin: 04/25/17 06:42 Dose: 3 units Insulin Detemir (Levemir Insulin) 5 units SUBQ HS [facility] PRN Reason: Protocol Stop: 06/20/17 20:59 Last Admin: 04/24/17 20:27 Dose: 5 unit Levetiracetam (Keppra) 500 mg PO BID [facility] Stop: 06/19/17 08:59 Last Admin: 04/24/17 18:00 Dose: 500 mg Lorazepam (Ativan) 0.5 mg PO Q4HR PRN; Protocol PRN Reason: Anxiety Stop: 05/19/17 22:04 Last Admin: 04/24/17 13:43 Dose: 0.5 mg Magnesium Hydroxide (Milk Of Magnesia) 30 ml PO HS PRN PRN Reason: Constipation Multivitamins/Vitamin C (Theragran) 1 tab PO DAILY [facility] Stop: 06/19/17 08:59 Last Admin: 04/24/17 08:19 Dose: 1 tab Risperidone (Risperdal) 1 mg PO HS [facility] PRN Reason: Protocol Stop: 06/24/17 07:45 Thiamine HCl (Vitamin B1) 100 mg PO DAILY [facility] Stop: 06/19/17 08:59 Last Admin: 04/24/17 08:19 Dose: 100 mg Zolpidem Tartrate (Ambien) 5 mg PO HS PRN PRN Reason: Insomnia Stop: 06/18/17 22:04 General: Alert, Other (Confused) HEENT: Atraumatic Neck: Supple Cardiovascular: Regular rate Abdomen: Bowel sounds, Soft Extremities: Other (No edema) Neurological: Other (Unstable gait) Skin: Other (Warm and dry) Psych/Mental Status: Other (Confused) - Procedures Procedures: Procedures Procedure Code Date BLOOD TRANSFUSION SERVICE 20531 04/12/17 TRANSFUSE NONAUT RED BLOOD CELLS IN PERIPH VEIN, PERC 26983U6 04/12/17 Assessment/Plan - Problem List Patient Problems: All Active Problems WANDERING AND UNABLE TO REDIRECT (Acute) - Assessment Assessment: Patient is awake, calm in no acute distress. - Plan Plan: Patient is follow by psychiatry. Will continue to monitor Nutritional Asmnt/Malnutr-PDOC - Dietary Evaluation Malnutrition Findings (Please click <Entered> for more info): Nutritional Asmnt/Malnutrition Start: 04/23/17 14: 45 Text: Status: Complete Freq: Document 04/23/17 14:45 GSUN (Rec: 04/23/17 14:47 [id number]) Nutritional Asmnt/Malnutrition Patient General Information Nutritional Screening Moderate Risk Screening Diagnosis Reason for visit: psychosis. Pertinent Medical Hx/Surgical Hx HTN, dementia, psychosis, weakness, chronic renal failure Subjective Information 66 year old male, transfered from [facility]. Pt was awake and pleasant, selectively responses, answered simple questions, did not provide meaningful information. Pt is edentulous, denied difficulties chewing/ swallowing. No wasting noted. Avg PO intake 92% of meals since adm, meeting nutritional needs. Current Diet Order/ Nutrition Support Renal, pureed Pertinent Medications Dulcolax, Folate, Novolog, Levemir, MOM, Theragran, Vitamin B1 Pertinent Labs 04/23: BUN 31H, creatinine 1.8H , glucose 104 POC glucose 58-228 since adm Nutritional Hx/Data Height 1.57 m Height (Calculated Centimeters) 157.5 Current Weight (lbs) 55.338 kg Weight (Calculated Kilograms) 55.3 Weight (Calculated Grams) 63645.3 [place] Body Weight 118 Weight Status Approriate GI Symptoms Food Allergies No Skin Integrity/Comment: Maykel 18. Skin intact. Current %PO Good (75-100%) Estimated Nutritional Goals BEE in Kcals: Using Current wt Calories/Kcals/Kg CBW 122lb/55.5kg Kcals Calculated 1388-1665kcal (25-30kcal/kg) Protein: Using Current wt Protein Calculated 56g (1g/kg) Fluid: ml 1388-1665ml (1ml/kcal) Nutritional Problem 2. Problem Problem Altered nutrition related laboratory values related to Etiology endocrine dysfunction, unknown etiology aeb Signs/Symptoms: pt is on insulin, POC glucose 58-228 since adm 1. Problem Problem Impaired nutrient utilization related to Etiology chronic renal failure aeb Signs/Symptoms: BUN 31H, creatinine 1.8H Intervention/Recommendation Comments 1. Recommend pureed renal [id number]. Pt noted with elevated glucose levels and on insulin. 2. Avg PO intake is adequate. Expected Outcomes/Goals Expected Outcomes/Goals 1. PO intake continue to meet at least 75% of estimated nutritional needs.
[2017-04-25] MEDS: Insulin Detemir 100 units/mL 10mL Vial SUBQ SCH (20:58)
[2017-04-26] MEDS: INSULIN ASPART SLIDING SCALE 100 UNITS/ML UNIT SUBQ SCH ×4 (06:35→21:00)
--- NOTE | 2017-04-26 08:37 | General Progress Note ---
Subjective - Review of Systems Service Date: 04/26/17 Subjective: I am fine Objective - Results Result Diagrams: 04/23/17 08:00 04/23/17 08:00 Recent Labs: Laboratory Last Values WBC 6.1 Th/cmm (4.8-10.8) D 04/23/17 08:00 RBC 3.19 Mil/cmm (3.80-5.80) L 04/23/17 08:00 Hgb 9.0 gm/dL (12.6-17.4) L 04/23/17 08:00 Hct 27.3 % (39.0-49.0) L 04/23/17 08:00 MCV 85.7 fl (80-99) 04/23/17 08:00 MCH 28.1 pg (27.0-31.0) 04/23/17 08:00 MCHC Differential 32.8 pg (28.0-36.0) 04/23/17 08:00 RDW 15.1 % (11.5-20.0) 04/23/17 08:00 Plt Count 287 Th/cmm (150-400) 04/23/17 08:00 MPV 8.1 fl 04/23/17 08:00 Neutrophils % 59.7 % (40.0-80.0) 04/23/17 08:00 Lymphocytes % 22.9 % (20.0-50.0) 04/23/17 08:00 Monocytes % 13.3 % (2.0-10.0) H 04/23/17 08:00 Eosinophils % 3.8 % (0.0-5.0) 04/23/17 08:00 Basophils % 0.3 % (0.0-2.0) 04/23/17 08:00 Sodium 139 mEq/L (136-145) 04/23/17 08:00 Potassium 4.1 mEq/L (3.5-5.1) 04/23/17 08:00 Chloride 109 mEq/L (98-107) H 04/23/17 08:00 Carbon Dioxide 26.0 mEq/L (21.0-31.0) 04/23/17 08:00 Anion Gap 8.1 (7.0-16.0) 04/23/17 08:00 BUN 31 mg/dL (7-25) H 04/23/17 08:00 Creatinine 1.8 mg/dL (0.7-1.3) H 04/23/17 08:00 Est GFR ( Amer) 48.9 ml/min (>90) 04/23/17 08:00 Est GFR (Non-Af Amer) 40.4 ml/min 04/23/17 08:00 BUN/Creatinine Ratio 17.2 04/23/17 08:00 Glucose 104 mg/dL (70-105) 04/23/17 08:00 POC Glucose 95 MG/DL (70 - 105) 04/26/17 06:05 Calcium 8.6 mg/dL (8.6-10.3) 04/23/17 08:00 Total Bilirubin 0.3 mg/dL (0.3-1.0) 04/23/17 08:00 AST 39 U/L (13-39) 04/23/17 08:00 ALT 46 U/L (7-52) 04/23/17 08:00 Alkaline Phosphatase 111 U/L (34-104) H 04/23/17 08:00 Total Protein 6.6 gm/dL (6.0-8.3) 04/23/17 08:00 Albumin 3.3 gm/dL (4.2-5.5) L 04/23/17 08:00 Globulin 3.3 gm/dL 04/23/17 08:00 Albumin/Globulin Ratio 1.0 (1.0-1.8) 04/23/17 08:00 - Physical Exam Vitals and I&O: Vital Signs Temp 97.6 F 04/26/17 06:38 Pulse 84 04/26/17 06:38 Resp 20 04/26/17 06:38 BP 153/71 04/26/17 06:38 Pulse Ox 98 04/26/17 06:38 Intake & Output 04/25/17 04/26/17 04/26/17 18:59 06:59 18:59 Intake Total 850 120 Balance 850 120 Intake: Oral 850 120 Other: # Voids 3 3 # Bowel Movements 0 Active Medications: Current Medications Acetaminophen (Tylenol) 650 mg PO Q4HR PRN PRN Reason: Mild Pain / Temp above 100 Stop: 06/18/17 22:04 Al Hydrox/Mg Hydrox/Simethicone (Maalox) 30 ml PO Q4HR PRN PRN Reason: GI DISTRESS Stop: 06/18/17 22:04 Amlodipine Besylate (Norvasc) 10 mg PO DAILY [facility] Stop: 06/19/17 08:59 Last Admin: 04/25/17 09:16 Dose: 10 mg Aspirin (Ecotrin) 81 mg PO DAILY [facility] Stop: 06/19/17 08:59 Last Admin: 04/25/17 09:16 Dose: 81 mg Bisacodyl (Dulcolax 10 Mg Supp) 10 mg RC DAILY PRN PRN Reason: Constipation Stop: 06/18/17 22:42 Clopidogrel Bisulfate (Plavix) 75 mg PO DAILY [facility] Stop: 06/19/17 08:59 Last Admin: 04/25/17 09:16 Dose: 75 mg Donepezil HCl (Aricept) 5 mg PO DAILY [facility] Stop: 06/19/17 08:59 Last Admin: 04/25/17 09:16 Dose: 5 mg Escitalopram Oxalate (Lexapro) 10 mg PO DAILY [facility] PRN Reason: Protocol Stop: 06/20/17 08:59 Last Admin: 04/25/17 09:15 Dose: 10 mg Folic Acid (Folate) 1 mg PO DAILY [facility] Stop: 06/19/17 08:59 Last Admin: 04/25/17 09:16 Dose: 1 mg Insulin Aspart (Novolog Insulin Sliding Scale) 0 units SUBQ ACHS [facility] PRN Reason: Protocol Stop: 06/18/17 22:19 Last Admin: 04/26/17 06:35 Dose: Not Given Insulin Detemir (Levemir Insulin) 5 units SUBQ HS [facility] PRN Reason: Protocol Stop: 06/20/17 20:59 Last Admin: 04/25/17 20:58 Dose: 5 unit Levetiracetam (Keppra) 500 mg PO BID [facility] Stop: 06/19/17 08:59 Last Admin: 04/25/17 17:43 Dose: 500 mg Lorazepam (Ativan) 0.5 mg PO Q4HR PRN; Protocol PRN Reason: Anxiety Stop: 05/19/17 22:04 Last Admin: 04/25/17 15:26 Dose: 0.5 mg Magnesium Hydroxide (Milk Of Magnesia) 30 ml PO HS PRN PRN Reason: Constipation Multivitamins/Vitamin C (Theragran) 1 tab PO DAILY [facility] Stop: 06/19/17 08:59 Last Admin: 04/25/17 09:16 Dose: 1 tab Risperidone (Risperdal) 1 mg PO HS [facility] PRN Reason: Protocol Stop: 06/24/17 07:45 Last Admin: 04/25/17 20:53 Dose: 1 mg Thiamine HCl (Vitamin B1) 100 mg PO DAILY [facility] Stop: 06/19/17 08:59 Last Admin: 04/25/17 09:16 Dose: 100 mg Zolpidem Tartrate (Ambien) 5 mg PO HS PRN PRN Reason: Insomnia Stop: 06/18/17 22:04 General: Alert, Other (Confused) HEENT: Atraumatic Neck: Supple Cardiovascular: Regular rate Abdomen: Bowel sounds, Soft Extremities: Other (No edema) Neurological: Other (Unstable gait) Skin: Other (Warm and dry) Psych/Mental Status: Other (Confused) - Procedures Procedures: Procedures Procedure Code Date BLOOD TRANSFUSION SERVICE 37997 04/12/17 TRANSFUSE NONAUT RED BLOOD CELLS IN PERIPH VEIN, PERC 03112O4 04/12/17 Assessment/Plan - Problem List Patient Problems: All Active Problems WANDERING AND UNABLE TO REDIRECT (Acute) - Assessment Assessment: Patient is awake, calm in no acute distress. - Plan Plan: Patient is follow by psychiatry. Will continue to monitor Nutritional Asmnt/Malnutr-PDOC - Dietary Evaluation Malnutrition Findings (Please click <Entered> for more info): Nutritional Asmnt/Malnutrition Start: 04/23/17 14: 45 Text: Status: Complete Freq: Document 04/23/17 14:45 GSUN (Rec: 04/23/17 14:47 [email or web address] [email or web address]) Nutritional Asmnt/Malnutrition Patient General Information Nutritional Screening Moderate Risk Screening Diagnosis Reason for visit: psychosis. Pertinent Medical Hx/Surgical Hx HTN, dementia, psychosis, weakness, chronic renal failure Subjective Information 66 year old male, transfered from [facility]. Pt was awake and pleasant, selectively responses, answered simple questions, did not provide meaningful information. Pt is edentulous, denied difficulties chewing/ swallowing. No wasting noted. Avg PO intake 92% of meals since adm, meeting nutritional needs. Current Diet Order/ Nutrition Support Renal, pureed Pertinent Medications Dulcolax, Folate, Novolog, Levemir, MOM, Theragran, Vitamin B1 Pertinent Labs 04/23: BUN 31H, creatinine 1.8H , glucose 104 POC glucose 58-228 since adm Nutritional Hx/Data Height 1.57 m Height (Calculated Centimeters) 157.5 Current Weight (lbs) 55.338 kg Weight (Calculated Kilograms) 55.3 Weight (Calculated Grams) 58178.3 [place] Body Weight 118 Weight Status Approriate GI Symptoms Food Allergies No Skin Integrity/Comment: Maykel 18. Skin intact. Current %PO Good (75-100%) Estimated Nutritional Goals BEE in Kcals: Using Current wt Calories/Kcals/Kg CBW 122lb/55.5kg Kcals Calculated 1388-1665kcal (25-30kcal/kg) Protein: Using Current wt Protein Calculated 56g (1g/kg) Fluid: ml 1388-1665ml (1ml/kcal) Nutritional Problem 2. Problem Problem Altered nutrition related laboratory values related to Etiology endocrine dysfunction, unknown etiology aeb Signs/Symptoms: pt is on insulin, POC glucose 58-228 since adm 1. Problem Problem Impaired nutrient utilization related to Etiology chronic renal failure aeb Signs/Symptoms: BUN 31H, creatinine 1.8H Intervention/Recommendation Comments 1. Recommend pureed renal [id number]. Pt noted with elevated glucose levels and on insulin. 2. Avg PO intake is adequate. Expected Outcomes/Goals Expected Outcomes/Goals 1. PO intake continue to meet at least 75% of estimated nutritional needs.
[2017-04-26] MEDS: Multivitamin Tab PO SCH (08:38)
[2017-04-26] MEDS: Insulin Detemir 100 units/mL 10mL Vial SUBQ SCH (21:01)
[2017-04-27] MEDS: INSULIN ASPART SLIDING SCALE 100 UNITS/ML UNIT SUBQ SCH ×4 (06:32→20:52)
[2017-04-27] MEDS ORDERED: Magnesium Hydroxide (MOM) 30 mL UDC PO PRN (08:00)
[2017-04-27 08:52] LABS: % BASOPHILS 0.4 % (0.0-2.0); % LYMPHOCYTES 21.4 % (20.0-50.0); % MONOCYTES 12.8 % (2.0-10.0); % NEUTROPHILS 62.4 % (40.0-80.0); HEMATOCRIT 26.2 % (39.0-49.0); HEMOGLOBIN 8.6 gm/dL (12.6-17.4); MEAN CELL VOLUME 85.1 fl (80-99); MEAN CORPUSCULAR HEMOGLOBIN 28.1 pg (27.0-31.0); NEUTROPHILE ABSOLUTE 4.2 Th/cmm (1.8-8.0); PLATELET COUNT 260 Th/cmm (150-400); RED BLOOD COUNT 3.08 Mil/cmm (3.80-5.80); WHITE BLOOD COUNT 6.8 Th/cmm (4.8-10.8)
--- NOTE | 2017-04-27 09:05 | General Progress Note ---
Subjective - Review of Systems Service Date: 04/27/17 Subjective: I am fine Objective - Results Result Diagrams: 04/27/17 08:10 04/23/17 08:00 Recent Labs: Laboratory Last Values WBC 6.8 Th/cmm (4.8-10.8) 04/27/17 08:10 RBC 3.08 Mil/cmm (3.80-5.80) L 04/27/17 08:10 Hgb 8.6 gm/dL (12.6-17.4) L 04/27/17 08:10 Hct 26.2 % (39.0-49.0) L 04/27/17 08:10 MCV 85.1 fl (80-99) 04/27/17 08:10 MCH 28.1 pg (27.0-31.0) 04/27/17 08:10 MCHC Differential 33.0 pg (28.0-36.0) 04/27/17 08:10 RDW 15.0 % (11.5-20.0) 04/27/17 08:10 Plt Count 260 Th/cmm (150-400) 04/27/17 08:10 MPV 8.0 fl 04/27/17 08:10 Neutrophils % 62.4 % (40.0-80.0) 04/27/17 08:10 Lymphocytes % 21.4 % (20.0-50.0) 04/27/17 08:10 Monocytes % 12.8 % (2.0-10.0) H 04/27/17 08:10 Eosinophils % 3.0 % (0.0-5.0) 04/27/17 08:10 Basophils % 0.4 % (0.0-2.0) 04/27/17 08:10 Sodium 139 mEq/L (136-145) 04/23/17 08:00 Potassium 4.1 mEq/L (3.5-5.1) 04/23/17 08:00 Chloride 109 mEq/L (98-107) H 04/23/17 08:00 Carbon Dioxide 26.0 mEq/L (21.0-31.0) 04/23/17 08:00 Anion Gap 8.1 (7.0-16.0) 04/23/17 08:00 BUN 31 mg/dL (7-25) H 04/23/17 08:00 Creatinine 1.8 mg/dL (0.7-1.3) H 04/23/17 08:00 Est GFR ( Amer) 48.9 ml/min (>90) 04/23/17 08:00 Est GFR (Non-Af Amer) 40.4 ml/min 04/23/17 08:00 BUN/Creatinine Ratio 17.2 04/23/17 08:00 Glucose 104 mg/dL (70-105) 04/23/17 08:00 POC Glucose 84 MG/DL (70 - 105) 04/27/17 06:10 Calcium 8.6 mg/dL (8.6-10.3) 04/23/17 08:00 Total Bilirubin 0.3 mg/dL (0.3-1.0) 04/23/17 08:00 AST 39 U/L (13-39) 04/23/17 08:00 ALT 46 U/L (7-52) 04/23/17 08:00 Alkaline Phosphatase 111 U/L (34-104) H 04/23/17 08:00 Total Protein 6.6 gm/dL (6.0-8.3) 04/23/17 08:00 Albumin 3.3 gm/dL (4.2-5.5) L 04/23/17 08:00 Globulin 3.3 gm/dL 04/23/17 08:00 Albumin/Globulin Ratio 1.0 (1.0-1.8) 04/23/17 08:00 - Physical Exam Vitals and I&O: Vital Signs Temp 98.3 F 04/27/17 06:13 Pulse 74 04/27/17 06:13 Resp 20 04/27/17 06:13 BP 138/70 04/27/17 06:13 Pulse Ox 96 04/27/17 06:13 Intake & Output 04/26/17 04/27/17 04/27/17 18:59 06:59 18:59 Intake Total 900 120 Balance 900 120 Intake: Oral 900 120 Other: # Voids 4 1 # Bowel Movements 1 0 Active Medications: Current Medications Acetaminophen (Tylenol) 650 mg PO Q4HR PRN PRN Reason: Mild Pain / Temp above 100 Stop: 06/18/17 22:04 Al Hydrox/Mg Hydrox/Simethicone (Maalox) 30 ml PO Q4HR PRN PRN Reason: GI DISTRESS Stop: 06/18/17 22:04 Amlodipine Besylate (Norvasc) 10 mg PO DAILY [facility] Stop: 06/19/17 08:59 Last Admin: 04/26/17 08:37 Dose: 10 mg Aspirin (Ecotrin) 81 mg PO DAILY [facility] Stop: 06/19/17 08:59 Last Admin: 04/26/17 08:38 Dose: 81 mg Bisacodyl (Dulcolax 10 Mg Supp) 10 mg RC DAILY PRN PRN Reason: Constipation Stop: 06/18/17 22:42 Clopidogrel Bisulfate (Plavix) 75 mg PO DAILY [facility] Stop: 06/19/17 08:59 Last Admin: 04/26/17 08:38 Dose: 75 mg Donepezil HCl (Aricept) 5 mg PO DAILY [facility] Stop: 06/19/17 08:59 Last Admin: 04/26/17 08:38 Dose: 5 mg Escitalopram Oxalate (Lexapro) 10 mg PO DAILY [facility] PRN Reason: Protocol Stop: 06/20/17 08:59 Last Admin: 04/26/17 08:38 Dose: 10 mg Folic Acid (Folate) 1 mg PO DAILY [facility] Stop: 06/19/17 08:59 Last Admin: 04/26/17 08:38 Dose: 1 mg Insulin Aspart (Novolog Insulin Sliding Scale) 0 units SUBQ ACHS [facility] PRN Reason: Protocol Stop: 06/18/17 22:19 Last Admin: 04/27/17 06:32 Dose: Not Given Insulin Detemir (Levemir Insulin) 5 units SUBQ HS [facility] PRN Reason: Protocol Stop: 06/20/17 20:59 Last Admin: 04/26/17 21:01 Dose: 5 unit Levetiracetam (Keppra) 500 mg PO BID [facility] Stop: 06/19/17 08:59 Last Admin: 04/26/17 16:24 Dose: 500 mg Lorazepam (Ativan) 0.5 mg PO Q4HR PRN; Protocol PRN Reason: Anxiety Stop: 05/19/17 22:04 Last Admin: 04/25/17 15:26 Dose: 0.5 mg Magnesium Hydroxide (Milk Of Magnesia) 30 ml PO DAILY PRN PRN Reason: Constipation Stop: 06/26/17 07:59 Multivitamins/Vitamin C (Theragran) 1 tab PO DAILY [facility] Stop: 06/19/17 08:59 Last Admin: 04/26/17 08:38 Dose: 1 tab Risperidone (Risperdal) 1 mg PO HS [facility] PRN Reason: Protocol Stop: 06/24/17 07:45 Last Admin: 04/26/17 20:46 Dose: 1 mg Thiamine HCl (Vitamin B1) 100 mg PO DAILY [facility] Stop: 06/19/17 08:59 Last Admin: 04/26/17 08:38 Dose: 100 mg Zolpidem Tartrate (Ambien) 5 mg PO HS PRN PRN Reason: Insomnia Stop: 06/18/17 22:04 General: Alert, Other (Confused) HEENT: Atraumatic Neck: Supple Cardiovascular: Regular rate Abdomen: Bowel sounds, Soft Extremities: Other (No edema) Neurological: Other (Unstable gait) Skin: Other (Warm and dry) Psych/Mental Status: Other (Confused) - Procedures Procedures: Procedures Procedure Code Date BLOOD TRANSFUSION SERVICE 18047 04/12/17 TRANSFUSE NONAUT RED BLOOD CELLS IN PERIPH VEIN, PERC 71559L5 04/12/17 Assessment/Plan - Problem List Patient Problems: All Active Problems WANDERING AND UNABLE TO REDIRECT (Acute) - Assessment Assessment: Patient is awake, calm in no acute distress. - Plan Plan: Patient is follow by psychiatry. Will continue to monitor. Nutritional Asmnt/Malnutr-PDOC - Dietary Evaluation Malnutrition Findings (Please click <Entered> for more info): Nutritional Asmnt/Malnutrition Start: 04/23/17 14: 45 Text: Status: Complete Freq: Document 04/23/17 14:45 GSUN (Rec: 04/23/17 14:47 [email or web address] [email or web address]) Nutritional Asmnt/Malnutrition Patient General Information Nutritional Screening Moderate Risk Screening Diagnosis Reason for visit: psychosis. Pertinent Medical Hx/Surgical Hx HTN, dementia, psychosis, weakness, chronic renal failure Subjective Information 66 year old male, transfered from [facility]. Pt was awake and pleasant, selectively responses, answered simple questions, did not provide meaningful information. Pt is edentulous, denied difficulties chewing/ swallowing. No wasting noted. Avg PO intake 92% of meals since adm, meeting nutritional needs. Current Diet Order/ Nutrition Support Renal, pureed Pertinent Medications Dulcolax, Folate, Novolog, Levemir, MOM, Theragran, Vitamin B1 Pertinent Labs 04/23: BUN 31H, creatinine 1.8H , glucose 104 POC glucose 58-228 since adm Nutritional Hx/Data Height 1.57 m Height (Calculated Centimeters) 157.5 Current Weight (lbs) 55.338 kg Weight (Calculated Kilograms) 55.3 Weight (Calculated Grams) 14949.3 [place] Body Weight 118 Weight Status Approriate GI Symptoms Food Allergies No Skin Integrity/Comment: Maykel 18. Skin intact. Current %PO Good (75-100%) Estimated Nutritional Goals BEE in Kcals: Using Current wt Calories/Kcals/Kg CBW 122lb/55.5kg Kcals Calculated 1388-1665kcal (25-30kcal/kg) Protein: Using Current wt Protein Calculated 56g (1g/kg) Fluid: ml 1388-1665ml (1ml/kcal) Nutritional Problem 2. Problem Problem Altered nutrition related laboratory values related to Etiology endocrine dysfunction, unknown etiology aeb Signs/Symptoms: pt is on insulin, POC glucose 58-228 since adm 1. Problem Problem Impaired nutrient utilization related to Etiology chronic renal failure aeb Signs/Symptoms: BUN 31H, creatinine 1.8H Intervention/Recommendation Comments 1. Recommend pureed renal [id number]. Pt noted with elevated glucose levels and on insulin. 2. Avg PO intake is adequate. Expected Outcomes/Goals Expected Outcomes/Goals 1. PO intake continue to meet at least 75% of estimated nutritional needs.
[2017-04-27 09:10] LABS: ALB/GLOB RATIO 0.9 (1.0-1.8); ANION GAP 7.4 (7.0-16.0); BILIRUBIN,TOTAL 0.2 mg/dL (0.3-1.0); BUN/CREATININE RATIO 16.5; CALCIUM SERUM 8.7 mg/dL (8.6-10.3); CARBON DIOXIDE 26.9 mEq/L (21.0-31.0); CREATININE - SERUM 1.7 mg/dL (0.7-1.3); POTASSIUM SERUM 4.3 mEq/L (3.5-5.1)
[2017-04-27] MEDS: Multivitamin Tab PO SCH (09:48)
[2017-04-27] MEDS: Insulin Detemir 100 units/mL 10mL Vial SUBQ SCH (20:54)
[2017-04-28] MEDS: INSULIN ASPART SLIDING SCALE 100 UNITS/ML UNIT SUBQ SCH ×4 (06:30→21:04)
--- NOTE | 2017-04-28 09:04 | General Progress Note ---
Subjective - Review of Systems Service Date: 04/28/17 Subjective: I am fine Objective - Results Result Diagrams: 04/27/17 08:10 04/27/17 08:10 Recent Labs: Laboratory Last Values WBC 6.8 Th/cmm (4.8-10.8) 04/27/17 08:10 RBC 3.08 Mil/cmm (3.80-5.80) L 04/27/17 08:10 Hgb 8.6 gm/dL (12.6-17.4) L 04/27/17 08:10 Hct 26.2 % (39.0-49.0) L 04/27/17 08:10 MCV 85.1 fl (80-99) 04/27/17 08:10 MCH 28.1 pg (27.0-31.0) 04/27/17 08:10 MCHC Differential 33.0 pg (28.0-36.0) 04/27/17 08:10 RDW 15.0 % (11.5-20.0) 04/27/17 08:10 Plt Count 260 Th/cmm (150-400) 04/27/17 08:10 MPV 8.0 fl 04/27/17 08:10 Neutrophils % 62.4 % (40.0-80.0) 04/27/17 08:10 Lymphocytes % 21.4 % (20.0-50.0) 04/27/17 08:10 Monocytes % 12.8 % (2.0-10.0) H 04/27/17 08:10 Eosinophils % 3.0 % (0.0-5.0) 04/27/17 08:10 Basophils % 0.4 % (0.0-2.0) 04/27/17 08:10 Sodium 135 mEq/L (136-145) L 04/27/17 08:10 Potassium 4.3 mEq/L (3.5-5.1) 04/27/17 08:10 Chloride 105 mEq/L (98-107) 04/27/17 08:10 Carbon Dioxide 26.9 mEq/L (21.0-31.0) 04/27/17 08:10 Anion Gap 7.4 (7.0-16.0) 04/27/17 08:10 BUN 28 mg/dL (7-25) H 04/27/17 08:10 Creatinine 1.7 mg/dL (0.7-1.3) H 04/27/17 08:10 Est GFR ( Amer) 52.3 ml/min (>90) 04/27/17 08:10 Est GFR (Non-Af Amer) 43.2 ml/min 04/27/17 08:10 BUN/Creatinine Ratio 16.5 04/27/17 08:10 Glucose 108 mg/dL (70-105) H 04/27/17 08:10 POC Glucose 79 MG/DL (70 - 105) 04/28/17 06:24 Calcium 8.7 mg/dL (8.6-10.3) 04/27/17 08:10 Total Bilirubin 0.2 mg/dL (0.3-1.0) L 04/27/17 08:10 AST 44 U/L (13-39) H 04/27/17 08:10 ALT 48 U/L (7-52) 04/27/17 08:10 Alkaline Phosphatase 108 U/L (34-104) H 04/27/17 08:10 Total Protein 6.8 gm/dL (6.0-8.3) 04/27/17 08:10 Albumin 3.3 gm/dL (4.2-5.5) L 04/27/17 08:10 Globulin 3.5 gm/dL 04/27/17 08:10 Albumin/Globulin Ratio 0.9 (1.0-1.8) L 04/27/17 08:10 TSH 2.88 uIU/ml (0.34-5.60) 04/27/17 08:10 - Physical Exam Vitals and I&O: Vital Signs Temp 97.8 F 04/28/17 06:03 Pulse 70 04/28/17 06:03 Resp 20 04/28/17 06:03 BP 142/73 04/28/17 06:03 Pulse Ox 98 04/28/17 06:03 Intake & Output 04/27/17 04/28/17 04/28/17 18:59 06:59 18:59 Intake Total 900 60 Balance 900 60 Intake: Oral 900 60 Other: # Voids 4 1 # Bowel Movements 1 1 Active Medications: Current Medications Acetaminophen (Tylenol) 650 mg PO Q4HR PRN PRN Reason: Mild Pain / Temp above 100 Stop: 06/18/17 22:04 Al Hydrox/Mg Hydrox/Simethicone (Maalox) 30 ml PO Q4HR PRN PRN Reason: GI DISTRESS Stop: 06/18/17 22:04 Amlodipine Besylate (Norvasc) 10 mg PO DAILY [facility] Stop: 06/19/17 08:59 Last Admin: 04/27/17 09:47 Dose: 10 mg Aspirin (Ecotrin) 81 mg PO DAILY [facility] Stop: 06/19/17 08:59 Last Admin: 04/27/17 09:49 Dose: 81 mg Bisacodyl (Dulcolax 10 Mg Supp) 10 mg RC DAILY PRN PRN Reason: Constipation Stop: 06/18/17 22:42 Clopidogrel Bisulfate (Plavix) 75 mg PO DAILY [facility] Stop: 06/19/17 08:59 Last Admin: 04/27/17 09:48 Dose: 75 mg Donepezil HCl (Aricept) 5 mg PO DAILY [facility] Stop: 06/19/17 08:59 Last Admin: 04/27/17 09:48 Dose: 5 mg Escitalopram Oxalate (Lexapro) 10 mg PO DAILY [facility] PRN Reason: Protocol Stop: 06/20/17 08:59 Last Admin: 04/27/17 09:48 Dose: 10 mg Folic Acid (Folate) 1 mg PO DAILY [facility] Stop: 06/19/17 08:59 Last Admin: 04/27/17 09:49 Dose: 1 mg Insulin Aspart (Novolog Insulin Sliding Scale) 0 units SUBQ ACHS [facility] PRN Reason: Protocol Stop: 06/18/17 22:19 Last Admin: 04/28/17 06:30 Dose: Not Given Insulin Detemir (Levemir Insulin) 5 units SUBQ HS [facility] PRN Reason: Protocol Stop: 06/20/17 20:59 Last Admin: 04/27/17 20:54 Dose: 5 unit Levetiracetam (Keppra) 500 mg PO BID [facility] Stop: 06/19/17 08:59 Last Admin: 04/27/17 17:02 Dose: 500 mg Lorazepam (Ativan) 0.5 mg PO Q4HR PRN; Protocol PRN Reason: Anxiety Stop: 05/19/17 22:04 Last Admin: 04/25/17 15:26 Dose: 0.5 mg Magnesium Hydroxide (Milk Of Magnesia) 30 ml PO DAILY PRN PRN Reason: Constipation Stop: 06/26/17 07:59 Multivitamins/Vitamin C (Theragran) 1 tab PO DAILY [facility] Stop: 06/19/17 08:59 Last Admin: 04/27/17 09:48 Dose: 1 tab Risperidone (Risperdal) 1 mg PO HS [facility] PRN Reason: Protocol Stop: 06/24/17 07:45 Last Admin: 04/27/17 20:46 Dose: 1 mg Thiamine HCl (Vitamin B1) 100 mg PO DAILY [facility] Stop: 06/19/17 08:59 Last Admin: 04/27/17 09:48 Dose: 100 mg Zolpidem Tartrate (Ambien) 5 mg PO HS PRN PRN Reason: Insomnia Stop: 06/18/17 22:04 General: Alert, Other (Confused) HEENT: Atraumatic Neck: Supple Cardiovascular: Regular rate Abdomen: Bowel sounds, Soft Extremities: Other (No edema) Neurological: Other (Unstable gait) Skin: Other (Warm and dry) Psych/Mental Status: Other (Confused) - Procedures Procedures: Procedures Procedure Code Date BLOOD TRANSFUSION SERVICE 63810 04/12/17 TRANSFUSE NONAUT RED BLOOD CELLS IN PERIPH VEIN, PERC 93650X9 04/12/17 Assessment/Plan - Problem List Patient Problems: All Active Problems WANDERING AND UNABLE TO REDIRECT (Acute) - Assessment Assessment: Patient is awake, calm in no acute distress. - Plan Plan: Patient is follow by psychiatry. Will continue to monitor. Nutritional Asmnt/Malnutr-PDOC - Dietary Evaluation Malnutrition Findings (Please click <Entered> for more info): Nutritional Asmnt/Malnutrition Start: 04/23/17 14: 45 Text: Status: Complete Freq: Document 04/23/17 14:45 GSUN (Rec: 04/23/17 14:47 [email or web address] [email or web address]) Nutritional Asmnt/Malnutrition Patient General Information Nutritional Screening Moderate Risk Screening Diagnosis Reason for visit: psychosis. Pertinent Medical Hx/Surgical Hx HTN, dementia, psychosis, weakness, chronic renal failure Subjective Information 66 year old male, transfered from [facility]. Pt was awake and pleasant, selectively responses, answered simple questions, did not provide meaningful information. Pt is edentulous, denied difficulties chewing/ swallowing. No wasting noted. Avg PO intake 92% of meals since adm, meeting nutritional needs. Current Diet Order/ Nutrition Support Renal, pureed Pertinent Medications Dulcolax, Folate, Novolog, Levemir, MOM, Theragran, Vitamin B1 Pertinent Labs 04/23: BUN 31H, creatinine 1.8H , glucose 104 POC glucose 58-228 since adm Nutritional Hx/Data Height 1.57 m Height (Calculated Centimeters) 157.5 Current Weight (lbs) 55.338 kg Weight (Calculated Kilograms) 55.3 Weight (Calculated Grams) 84483.3 [place] Body Weight 118 Weight Status Approriate GI Symptoms Food Allergies No Skin Integrity/Comment: Maykel 18. Skin intact. Current %PO Good (75-100%) Estimated Nutritional Goals BEE in Kcals: Using Current wt Calories/Kcals/Kg CBW 122lb/55.5kg Kcals Calculated 1388-1665kcal (25-30kcal/kg) Protein: Using Current wt Protein Calculated 56g (1g/kg) Fluid: ml 1388-1665ml (1ml/kcal) Nutritional Problem 2. Problem Problem Altered nutrition related laboratory values related to Etiology endocrine dysfunction, unknown etiology aeb Signs/Symptoms: pt is on insulin, POC glucose 58-228 since adm 1. Problem Problem Impaired nutrient utilization related to Etiology chronic renal failure aeb Signs/Symptoms: BUN 31H, creatinine 1.8H Intervention/Recommendation Comments 1. Recommend pureed renal [id number]. Pt noted with elevated glucose levels and on insulin. 2. Avg PO intake is adequate. Expected Outcomes/Goals Expected Outcomes/Goals 1. PO intake continue to meet at least 75% of estimated nutritional needs.
[2017-04-28] MEDS: Multivitamin Tab PO SCH (09:47)
[2017-04-28] MEDS ORDERED: VTE Chemical Prophylaxis Screen/Admission MC PRN (11:40)
[2017-04-28] MEDS: Insulin Detemir 100 units/mL 10mL Vial SUBQ SCH (21:05)
[2017-04-29] MEDS: INSULIN ASPART SLIDING SCALE 100 UNITS/ML UNIT SUBQ SCH ×4 (06:37→20:53)
--- NOTE | 2017-04-29 08:48 | General Progress Note ---
Subjective - Review of Systems Service Date: 04/29/17 Subjective: I am fine Objective - Results Result Diagrams: 04/27/17 08:10 04/27/17 08:10 Recent Labs: Laboratory Last Values WBC 6.8 Th/cmm (4.8-10.8) 04/27/17 08:10 RBC 3.08 Mil/cmm (3.80-5.80) L 04/27/17 08:10 Hgb 8.6 gm/dL (12.6-17.4) L 04/27/17 08:10 Hct 26.2 % (39.0-49.0) L 04/27/17 08:10 MCV 85.1 fl (80-99) 04/27/17 08:10 MCH 28.1 pg (27.0-31.0) 04/27/17 08:10 MCHC Differential 33.0 pg (28.0-36.0) 04/27/17 08:10 RDW 15.0 % (11.5-20.0) 04/27/17 08:10 Plt Count 260 Th/cmm (150-400) 04/27/17 08:10 MPV 8.0 fl 04/27/17 08:10 Neutrophils % 62.4 % (40.0-80.0) 04/27/17 08:10 Lymphocytes % 21.4 % (20.0-50.0) 04/27/17 08:10 Monocytes % 12.8 % (2.0-10.0) H 04/27/17 08:10 Eosinophils % 3.0 % (0.0-5.0) 04/27/17 08:10 Basophils % 0.4 % (0.0-2.0) 04/27/17 08:10 Sodium 135 mEq/L (136-145) L 04/27/17 08:10 Potassium 4.3 mEq/L (3.5-5.1) 04/27/17 08:10 Chloride 105 mEq/L (98-107) 04/27/17 08:10 Carbon Dioxide 26.9 mEq/L (21.0-31.0) 04/27/17 08:10 Anion Gap 7.4 (7.0-16.0) 04/27/17 08:10 BUN 28 mg/dL (7-25) H 04/27/17 08:10 Creatinine 1.7 mg/dL (0.7-1.3) H 04/27/17 08:10 Est GFR ( Amer) 52.3 ml/min (>90) 04/27/17 08:10 Est GFR (Non-Af Amer) 43.2 ml/min 04/27/17 08:10 BUN/Creatinine Ratio 16.5 04/27/17 08:10 Glucose 108 mg/dL (70-105) H 04/27/17 08:10 POC Glucose 72 MG/DL (70 - 105) 04/29/17 06:34 Calcium 8.7 mg/dL (8.6-10.3) 04/27/17 08:10 Total Bilirubin 0.2 mg/dL (0.3-1.0) L 04/27/17 08:10 AST 44 U/L (13-39) H 04/27/17 08:10 ALT 48 U/L (7-52) 04/27/17 08:10 Alkaline Phosphatase 108 U/L (34-104) H 04/27/17 08:10 Total Protein 6.8 gm/dL (6.0-8.3) 04/27/17 08:10 Albumin 3.3 gm/dL (4.2-5.5) L 04/27/17 08:10 Globulin 3.5 gm/dL 04/27/17 08:10 Albumin/Globulin Ratio 0.9 (1.0-1.8) L 04/27/17 08:10 TSH 2.88 uIU/ml (0.34-5.60) 04/27/17 08:10 - Physical Exam Vitals and I&O: Vital Signs Temp 97.8 F 04/29/17 07:07 Pulse 78 04/29/17 07:07 Resp 19 04/29/17 07:07 BP 160/77 04/29/17 07:07 Pulse Ox 97 04/29/17 07:07 Intake & Output 04/28/17 04/29/17 04/29/17 18:59 06:59 18:59 Intake Total 120 Balance 120 Intake: Oral 120 Other: # Voids 3 Stool Characteristics Soft Active Medications: Current Medications Acetaminophen (Tylenol) 650 mg PO Q4HR PRN PRN Reason: Mild Pain / Temp above 100 Stop: 06/18/17 22:04 Al Hydrox/Mg Hydrox/Simethicone (Maalox) 30 ml PO Q4HR PRN PRN Reason: GI DISTRESS Stop: 06/18/17 22:04 Amlodipine Besylate (Norvasc) 10 mg PO DAILY HOLGER Stop: 06/19/17 08:59 Last Admin: 04/28/17 09:48 Dose: 10 mg Aspirin (Ecotrin) 81 mg PO DAILY HOLGER Stop: 06/19/17 08:59 Last Admin: 04/28/17 09:47 Dose: 81 mg Bisacodyl (Dulcolax 10 Mg Supp) 10 mg RC DAILY PRN PRN Reason: Constipation Stop: 06/18/17 22:42 Clopidogrel Bisulfate (Plavix) 75 mg PO DAILY [facility] Stop: 06/19/17 08:59 Last Admin: 04/28/17 09:47 Dose: 75 mg Donepezil HCl (Aricept) 5 mg PO DAILY HOLGER Stop: 06/19/17 08:59 Last Admin: 04/28/17 09:48 Dose: 5 mg Escitalopram Oxalate (Lexapro) 10 mg PO DAILY HOLGER PRN Reason: Protocol Stop: 06/20/17 08:59 Last Admin: 04/28/17 09:47 Dose: 10 mg Folic Acid (Folate) 1 mg PO DAILY [facility] Stop: 06/19/17 08:59 Last Admin: 04/28/17 09:47 Dose: 1 mg Insulin Aspart (Novolog Insulin Sliding Scale) 0 units SUBQ ACHS HOLGER PRN Reason: Protocol Stop: 06/18/17 22:19 Last Admin: 04/29/17 06:37 Dose: Not Given Insulin Detemir (Levemir Insulin) 5 units SUBQ HS HOLGER PRN Reason: Protocol Stop: 06/20/17 20:59 Last Admin: 04/28/17 21:05 Dose: 5 unit Levetiracetam (Keppra) 500 mg PO BID [facility] Stop: 06/19/17 08:59 Last Admin: 04/28/17 17:19 Dose: 500 mg Lorazepam (Ativan) 0.5 mg PO Q4HR PRN; Protocol PRN Reason: Anxiety Stop: 05/19/17 22:04 Last Admin: 04/25/17 15:26 Dose: 0.5 mg Magnesium Hydroxide (Milk Of Magnesia) 30 ml PO DAILY PRN PRN Reason: Constipation Stop: 06/26/17 07:59 Multivitamins/Vitamin C (Theragran) 1 tab PO DAILY HOLGER Stop: 06/19/17 08:59 Last Admin: 04/28/17 09:47 Dose: 1 tab Risperidone (Risperdal) 1 mg PO HS HOLGER PRN Reason: Protocol Stop: 06/24/17 07:45 Last Admin: 04/28/17 21:04 Dose: 1 mg Thiamine HCl (Vitamin B1) 100 mg PO DAILY HOLGER Stop: 06/19/17 08:59 Last Admin: 04/28/17 09:47 Dose: 100 mg Zolpidem Tartrate (Ambien) 5 mg PO HS PRN PRN Reason: Insomnia Stop: 06/18/17 22:04 Last Admin: 04/28/17 21:04 Dose: 5 mg General: Alert, Other (Confused) HEENT: Atraumatic Neck: Supple Cardiovascular: Regular rate Abdomen: Bowel sounds, Soft Extremities: Other (No edema) Neurological: Other (Unstable gait) Skin: Other (Warm and dry) Psych/Mental Status: Other (Confused) - Procedures Procedures: Procedures Procedure Code Date BLOOD TRANSFUSION SERVICE 67467 04/12/17 TRANSFUSE NONAUT RED BLOOD CELLS IN PERIPH VEIN, PERC 26251I0 04/12/17 Assessment/Plan - Problem List Patient Problems: All Active Problems WANDERING AND UNABLE TO REDIRECT (Acute) - Assessment Assessment: Patient is awake, calm in no acute distress. - Plan Plan: Patient is follow by psychiatry. Will continue to monitor. Nutritional Asmnt/Malnutr-PDOC - Dietary Evaluation Malnutrition Findings (Please click <Entered> for more info): Nutritional Asmnt/Malnutrition Start: 04/23/17 14: 45 Text: Status: Complete Freq: Document 04/23/17 14:45 GSUN (Rec: 04/23/17 14:47 [email or web address] [id number]) Nutritional Asmnt/Malnutrition Patient General Information Nutritional Screening Moderate Risk Screening Diagnosis Reason for visit: psychosis. Pertinent Medical Hx/Surgical Hx HTN, dementia, psychosis, weakness, chronic renal failure Subjective Information 66 year old male, transfered from [facility]. Pt was awake and pleasant, selectively responses, answered simple questions, did not provide meaningful information. Pt is edentulous, denied difficulties chewing/ swallowing. No wasting noted. Avg PO intake 92% of meals since adm, meeting nutritional needs. Current Diet Order/ Nutrition Support Renal, pureed Pertinent Medications Dulcolax, Folate, Novolog, Levemir, MOM, Theragran, Vitamin B1 Pertinent Labs 04/23: BUN 31H, creatinine 1.8H , glucose 104 POC glucose 58-228 since adm Nutritional Hx/Data Height 1.57 m Height (Calculated Centimeters) 157.5 Current Weight (lbs) 55.338 kg Weight (Calculated Kilograms) 55.3 Weight (Calculated Grams) 17807.3 Halls Body Weight 118 Weight Status Approriate GI Symptoms Food Allergies No Skin Integrity/Comment: Maykel 18. Skin intact. Current %PO Good (75-100%) Estimated Nutritional Goals BEE in Kcals: Using Current wt Calories/Kcals/Kg CBW 122lb/55.5kg Kcals Calculated 1388-1665kcal (25-30kcal/kg) Protein: Using Current wt Protein Calculated 56g (1g/kg) Fluid: ml 1388-1665ml (1ml/kcal) Nutritional Problem 2. Problem Problem Altered nutrition related laboratory values related to Etiology endocrine dysfunction, unknown etiology aeb Signs/Symptoms: pt is on insulin, POC glucose 58-228 since adm 1. Problem Problem Impaired nutrient utilization related to Etiology chronic renal failure aeb Signs/Symptoms: BUN 31H, creatinine 1.8H Intervention/Recommendation Comments 1. Recommend pureed renal [id number]. Pt noted with elevated glucose levels and on insulin. 2. Avg PO intake is adequate. Expected Outcomes/Goals Expected Outcomes/Goals 1. PO intake continue to meet at least 75% of estimated nutritional needs.
[2017-04-29] MEDS: Multivitamin Tab PO SCH (09:53)
--- NOTE | 2017-04-29 16:14 | Discharge Summary ---
General Discharge Summary - Discharge Summary Date of Admission: 04/12/17 Admitting Diagnosis: Anemia, CARLOS ENRIQUE over CKI, Increased in agitation, HTN, DM, Dementia, Patient Problems: All Active Problems WANDERING AND UNABLE TO REDIRECT (Acute) Discharge Date: 04/14/17 Discharge Diagnosis: Anemia, CARLOS ENRIQUE over CKI, HTN, DM, Increased in agitation, Dementia Laboratory Findings: Laboratory Tests 04/19/17 04/20/17 04/20/17 22:38 06:22 06:45 WBC 9.6 D RBC 3.21 L Hgb 9.1 L Hct 27.5 L MCV 85.8 MCH 28.5 MCHC Differential 33.2 RDW 15.3 Plt Count 293 MPV 8.1 Neutrophils % 59.9 Lymphocytes % 25.0 Monocytes % 11.5 H Eosinophils % 3.5 Basophils % 0.1 Sodium Potassium Chloride Carbon Dioxide Anion Gap BUN Creatinine Est GFR ( Amer) Est GFR (Non-Af Amer) BUN/Creatinine Ratio Glucose POC Glucose 105 58 L Calcium Total Bilirubin AST ALT Alkaline Phosphatase Total Protein Albumin Globulin Albumin/Globulin Ratio [facility] 04/20/17 04/20/17 04/20/17 06:45 11:14 19:50 WBC RBC Hgb Hct MCV MCH MCHC Differential RDW Plt Count MPV Neutrophils % Lymphocytes % Monocytes % Eosinophils % Basophils % Sodium 139 Potassium 3.7 Chloride 111 H Carbon Dioxide 25.7 Anion Gap 6.0 L BUN 19 Creatinine 1.5 H Est GFR ( Amer) > 60.0 Est GFR (Non-Af Amer) 49.9 BUN/Creatinine Ratio 12.7 Glucose 69 L POC Glucose 188 H 206 H Calcium 8.7 Total Bilirubin 0.2 L AST 37 ALT 46 Alkaline Phosphatase 99 Total Protein 6.2 Albumin 3.2 L Globulin 3.0 Albumin/Globulin Ratio 1.1 [facility] 04/21/17 04/21/17 04/21/17 06:06 11:10 16:04 WBC RBC Hgb Hct MCV MCH MCHC Differential RDW Plt Count MPV Neutrophils % Lymphocytes % Monocytes % Eosinophils % Basophils % Sodium Potassium Chloride Carbon Dioxide Anion Gap BUN Creatinine Est GFR ( Amer) Est GFR (Non-Af Amer) BUN/Creatinine Ratio Glucose POC Glucose 66 L 133 H 166 H Calcium Total Bilirubin AST ALT Alkaline Phosphatase Total Protein Albumin Globulin Albumin/Globulin Ratio [facility] 04/21/17 04/22/17 04/22/17 21:09 06:34 20:49 WBC RBC Hgb Hct MCV MCH MCHC Differential RDW Plt Count MPV Neutrophils % Lymphocytes % Monocytes % Eosinophils % Basophils % Sodium Potassium Chloride Carbon Dioxide Anion Gap BUN Creatinine Est GFR ( Amer) Est GFR (Non-Af Amer) BUN/Creatinine Ratio Glucose POC Glucose 228 H 72 200 H Calcium Total Bilirubin AST ALT Alkaline Phosphatase Total Protein Albumin Globulin Albumin/Globulin Ratio [facility] 04/23/17 04/23/17 04/23/17 06:14 08:00 08:00 WBC 6.1 D RBC 3.19 L Hgb 9.0 L Hct 27.3 L MCV 85.7 MCH 28.1 MCHC Differential 32.8 RDW 15.1 Plt Count 287 MPV 8.1 Neutrophils % 59.7 Lymphocytes % 22.9 Monocytes % 13.3 H Eosinophils % 3.8 Basophils % 0.3 Sodium 139 Potassium 4.1 Chloride 109 H Carbon Dioxide 26.0 Anion Gap 8.1 BUN 31 H Creatinine 1.8 H Est GFR ( Amer) 48.9 Est GFR (Non-Af Amer) 40.4 BUN/Creatinine Ratio 17.2 Glucose 104 POC Glucose 94 Calcium 8.6 Total Bilirubin 0.3 AST 39 ALT 46 Alkaline Phosphatase 111 H Total Protein 6.6 Albumin 3.3 L Globulin 3.3 Albumin/Globulin Ratio 1.0 [facility] 04/23/17 04/23/17 04/24/17 11:17 20:33 06:44 WBC RBC Hgb Hct MCV MCH MCHC Differential RDW Plt Count MPV Neutrophils % Lymphocytes % Monocytes % Eosinophils % Basophils % Sodium Potassium Chloride Carbon Dioxide Anion Gap BUN Creatinine Est GFR ( Amer) Est GFR (Non-Af Amer) BUN/Creatinine Ratio Glucose POC Glucose 215 H 217 H 82 Calcium Total Bilirubin AST ALT Alkaline Phosphatase Total Protein Albumin Globulin Albumin/Globulin Ratio [facility] 04/24/17 04/24/17 04/24/17 11:30 16:32 20:24 WBC RBC Hgb Hct MCV MCH MCHC Differential RDW Plt Count MPV Neutrophils % Lymphocytes % Monocytes % Eosinophils % Basophils % Sodium Potassium Chloride Carbon Dioxide Anion Gap BUN Creatinine Est GFR ( Amer) Est GFR (Non-Af Amer) BUN/Creatinine Ratio Glucose POC Glucose 166 H 120 H 142 H Calcium Total Bilirubin AST ALT Alkaline Phosphatase Total Protein Albumin Globulin Albumin/Globulin Ratio [facility] 04/25/17 04/25/17 04/25/17 06:25 11:35 17:22 WBC RBC Hgb Hct MCV MCH MCHC Differential RDW Plt Count MPV Neutrophils % Lymphocytes % Monocytes % Eosinophils % Basophils % Sodium Potassium Chloride Carbon Dioxide Anion Gap BUN Creatinine Est GFR ( Amer) Est GFR (Non-Af Amer) BUN/Creatinine Ratio Glucose POC Glucose 163 H 163 H 161 H Calcium Total Bilirubin AST ALT Alkaline Phosphatase Total Protein Albumin Globulin Albumin/Globulin Ratio [facility] 04/25/17 04/26/17 04/26/17 19:58 06:05 11:47 WBC RBC Hgb Hct MCV MCH MCHC Differential RDW Plt Count MPV Neutrophils % Lymphocytes % Monocytes % Eosinophils % Basophils % Sodium Potassium Chloride Carbon Dioxide Anion Gap BUN Creatinine Est GFR ( Amer) Est GFR (Non-Af Amer) BUN/Creatinine Ratio Glucose POC Glucose 99 95 160 H Calcium Total Bilirubin AST ALT Alkaline Phosphatase Total Protein Albumin Globulin Albumin/Globulin Ratio [facility] 04/26/17 04/26/17 04/27/17 16:41 19:57 06:10 WBC RBC Hgb Hct MCV MCH MCHC Differential RDW Plt Count MPV Neutrophils % Lymphocytes % Monocytes % Eosinophils % Basophils % Sodium Potassium Chloride Carbon Dioxide Anion Gap BUN Creatinine Est GFR ( Amer) Est GFR (Non-Af Amer) BUN/Creatinine Ratio Glucose POC Glucose 108 H 218 H 84 Calcium Total Bilirubin AST ALT Alkaline Phosphatase Total Protein Albumin Globulin Albumin/Globulin Ratio [facility] 04/27/17 04/27/17 04/27/17 08:10 08:10 08:10 WBC 6.8 RBC 3.08 L Hgb 8.6 L Hct 26.2 L MCV 85.1 MCH 28.1 MCHC Differential 33.0 RDW 15.0 Plt Count 260 MPV 8.0 Neutrophils % 62.4 Lymphocytes % 21.4 Monocytes % 12.8 H Eosinophils % 3.0 Basophils % 0.4 Sodium 135 L Potassium 4.3 Chloride 105 Carbon Dioxide 26.9 Anion Gap 7.4 BUN 28 H Creatinine 1.7 H Est GFR ( Amer) 52.3 Est GFR (Non-Af Amer) 43.2 BUN/Creatinine Ratio 16.5 Glucose 108 H POC Glucose Calcium 8.7 Total Bilirubin 0.2 L AST 44 H ALT 48 Alkaline Phosphatase 108 H Total Protein 6.8 Albumin 3.3 L Globulin 3.5 Albumin/Globulin Ratio 0.9 L TSH 2.88 04/27/17 04/27/17 04/27/17 12:00 17:37 20:06 WBC RBC Hgb Hct MCV MCH MCHC Differential RDW Plt Count MPV Neutrophils % Lymphocytes % Monocytes % Eosinophils % Basophils % Sodium Potassium Chloride Carbon Dioxide Anion Gap BUN Creatinine Est GFR ( Amer) Est GFR (Non-Af Amer) BUN/Creatinine Ratio Glucose POC Glucose 144 H 166 H 162 H Calcium Total Bilirubin AST ALT Alkaline Phosphatase Total Protein Albumin Globulin Albumin/Globulin Ratio TSH 04/28/17 04/28/17 04/28/17 06:24 11:57 17:23 WBC RBC Hgb Hct MCV MCH MCHC Differential RDW Plt Count MPV Neutrophils % Lymphocytes % Monocytes % Eosinophils % Basophils % Sodium Potassium Chloride Carbon Dioxide Anion Gap BUN Creatinine Est GFR ( Amer) Est GFR (Non-Af Amer) BUN/Creatinine Ratio Glucose POC Glucose 79 153 H 90 Calcium Total Bilirubin AST ALT Alkaline Phosphatase Total Protein Albumin Globulin Albumin/Globulin Ratio TSH 04/28/17 04/29/17 04/29/17 20:35 06:34 11:39 WBC RBC Hgb Hct MCV MCH MCHC Differential RDW Plt Count MPV Neutrophils % Lymphocytes % Monocytes % Eosinophils % Basophils % Sodium Potassium Chloride Carbon Dioxide Anion Gap BUN Creatinine Est GFR ( Amer) Est GFR (Non-Af Amer) BUN/Creatinine Ratio Glucose POC Glucose 182 H 72 150 H Calcium Total Bilirubin AST ALT Alkaline Phosphatase Total Protein Albumin Globulin Albumin/Globulin Ratio TSH Hospital Course: Patient was send to ER from SNF due to increased in agitation, during ER evaluation was found that he has Anemia and CARLOS ENRIQUE and was hospitalized to [facility]. He was started in IV NS, Insulin sliding scale, continue with SNF meds, consult with Nephro was done and recommendation were follow. as soon renal function was adecuated patient was transfered to [facility]. Treatment: IV NS, Insulin sliding scale, continue with SNF meds Disposition: Other Care w/in this hosp Home Medications: Home Medication Medication Instructions Recorded Type Acetaminophen [Tylenol] 650 mg PO Q4HR PRN tab 04/17/17 Rx Aspirin EC [Ecotrin] 81 mg PO DAILY ect 04/17/17 Rx Bisacodyl [Dulcolax 10 Mg Supp] 10 mg RC PRN PRN sup 04/17/17 Rx Clopidogrel [Plavix] 75 mg PO DAILY tab 04/17/17 Rx Donepezil Hcl [Aricept] 5 mg PO DAILY tab 04/17/17 Rx Fleet Enema 135 ml RC Q72H PRN 04/17/17 Rx Folic Acid [Folate*] 1 mg PO DAILY tab 04/17/17 Rx Insulin Aspart Sliding Scale 3 - 13 units SUBQ ACHS unit 04/17/17 Rx [NovoLOG INSULIN SLIDING SCALE] Insulin Detemir [Levemir Insulin] 10 units SUBQ HS vial 04/17/17 Rx Levetiracetam [Keppra] 500 mg PO BID tab 04/17/17 Rx Magnesium Hydroxide [Milk of 30 ml PO Q48H PRN udc 04/17/17 Rx Magnesia] Multivitamin w/ Minerals 1 tab PO DAILY tab 04/17/17 Rx [Theragran M] Polyvinyl Alcohol Ophth Soln 1 drop EACH EYE QID 04/17/17 Rx [Artificial Tears Ophth Soln*] Thiamine [Vitamin B1] 100 mg PO DAILY tab 04/17/17 Rx amLODIPine Besylate [Norvasc*] 10 mg PO DAILY tab 04/17/17 Rx risperiDONE [RisperDAL] 0.5 mg PO HS tab 04/17/17 Rx Insulin Aspart Sliding Scale See Protocol SUBQ ACHS unit 04/19/17 Rx [NovoLOG INSULIN SLIDING SCALE] Inpatient Medications: Current Medications Acetaminophen (Tylenol) 650 mg PO Q4HR PRN PRN Reason: Mild Pain / Temp above 100 Stop: 06/18/17 22:04 Al Hydrox/Mg Hydrox/Simethicone (Maalox) 30 ml PO Q4HR PRN PRN Reason: GI DISTRESS Stop: 06/18/17 22:04 Amlodipine Besylate (Norvasc) 10 mg PO DAILY HOLGER Stop: 06/19/17 08:59 Last Admin: 04/29/17 09:52 Dose: 10 mg Aspirin (Ecotrin) 81 mg PO DAILY [facility]OLGER Stop: 06/19/17 08:59 Last Admin: 04/29/17 09:53 Dose: 81 mg Bisacodyl (Dulcolax 10 Mg Supp) 10 mg RC DAILY PRN PRN Reason: Constipation Stop: 06/18/17 22:42 Clopidogrel Bisulfate (Plavix) 75 mg PO DAILY HOLGER Stop: 06/19/17 08:59 Last Admin: 04/29/17 09:53 Dose: 75 mg Donepezil HCl (Aricept) 5 mg PO DAILY [facility]OLGER Stop: 06/19/17 08:59 Last Admin: 04/29/17 09:53 Dose: 5 mg Escitalopram Oxalate (Lexapro) 10 mg PO DAILY HOLGER PRN Reason: Protocol Stop: 06/20/17 08:59 Last Admin: 04/29/17 09:52 Dose: 10 mg Folic Acid (Folate) 1 mg PO DAILY HOLGER Stop: 06/19/17 08:59 Last Admin: 04/29/17 09:53 Dose: 1 mg Insulin Aspart (Novolog Insulin Sliding Scale) 0 units SUBQ ACHS HOLGER PRN Reason: Protocol Stop: 06/18/17 22:19 Last Admin: 04/29/17 11:41 Dose: Not Given Insulin Detemir (Levemir Insulin) 5 units SUBQ HS HOLGER PRN Reason: Protocol Stop: 06/20/17 20:59 Last Admin: 04/28/17 21:05 Dose: 5 unit Levetiracetam (Keppra) 500 mg PO BID HOLGER Stop: 06/19/17 08:59 Last Admin: 04/29/17 09:53 Dose: 500 mg Lorazepam (Ativan) 0.5 mg PO Q4HR PRN; Protocol PRN Reason: Anxiety Stop: 05/19/17 22:04 Last Admin: 04/25/17 15:26 Dose: 0.5 mg Magnesium Hydroxide (Milk Of Magnesia) 30 ml PO DAILY PRN PRN Reason: Constipation Stop: 06/26/17 07:59 Multivitamins/Vitamin C (Theragran) 1 tab PO DAILY HOLGER Stop: 06/19/17 08:59 Last Admin: 04/29/17 09:53 Dose: 1 tab Risperidone (Risperdal) 1 mg PO HS HOLGER PRN Reason: Protocol Stop: 06/24/17 07:45 Last Admin: 04/28/17 21:04 Dose: 1 mg Thiamine HCl (Vitamin B1) 100 mg PO DAILY HOLGER Stop: 06/19/17 08:59 Last Admin: 04/29/17 09:53 Dose: 100 mg Zolpidem Tartrate (Ambien) 5 mg PO HS PRN PRN Reason: Insomnia Stop: 06/18/17 22:04 Last Admin: 04/28/17 21:04 Dose: 5 mg Activity: As Tolerated Discharge Diet: Regular Consults and Follow-Up: Jermaine Nobles [Primary Care Provider] - Consulting Speciality: Psychology, Other (Psychiatry)
--- NOTE | 2017-04-29 16:39 | Discharge Summary ---
General Discharge Summary - Discharge Summary Date of Admission: 04/17/17 Admitting Diagnosis: Rouled out sepsis (Elevated WBC) Patient Problems: All Active Problems WANDERING AND UNABLE TO REDIRECT (Acute) Discharge Date: 04/19/17 Discharge Diagnosis: Elevated WBC, Psychosis, HTN, DM Laboratory Findings: Laboratory Tests 04/19/17 04/20/17 04/20/17 22:38 06:22 06:45 WBC 9.6 D RBC 3.21 L Hgb 9.1 L Hct 27.5 L MCV 85.8 MCH 28.5 MCHC Differential 33.2 RDW 15.3 Plt Count 293 MPV 8.1 Neutrophils % 59.9 Lymphocytes % 25.0 Monocytes % 11.5 H Eosinophils % 3.5 Basophils % 0.1 Sodium Potassium Chloride Carbon Dioxide Anion Gap BUN Creatinine Est GFR ( Amer) Est GFR (Non-Af Amer) BUN/Creatinine Ratio Glucose POC Glucose 105 58 L Calcium Total Bilirubin AST ALT Alkaline Phosphatase Total Protein Albumin Globulin Albumin/Globulin Ratio [facility] 04/20/17 04/20/17 04/20/17 06:45 11:14 19:50 WBC RBC Hgb Hct MCV MCH MCHC Differential RDW Plt Count MPV Neutrophils % Lymphocytes % Monocytes % Eosinophils % Basophils % Sodium 139 Potassium 3.7 Chloride 111 H Carbon Dioxide 25.7 Anion Gap 6.0 L BUN 19 Creatinine 1.5 H Est GFR ( Amer) > 60.0 Est GFR (Non-Af Amer) 49.9 BUN/Creatinine Ratio 12.7 Glucose 69 L POC Glucose 188 H 206 H Calcium 8.7 Total Bilirubin 0.2 L AST 37 ALT 46 Alkaline Phosphatase 99 Total Protein 6.2 Albumin 3.2 L Globulin 3.0 Albumin/Globulin Ratio 1.1 [facility] 04/21/17 04/21/17 04/21/17 06:06 11:10 16:04 WBC RBC Hgb Hct MCV MCH MCHC Differential RDW Plt Count MPV Neutrophils % Lymphocytes % Monocytes % Eosinophils % Basophils % Sodium Potassium Chloride Carbon Dioxide Anion Gap BUN Creatinine Est GFR ( Amer) Est GFR (Non-Af Amer) BUN/Creatinine Ratio Glucose POC Glucose 66 L 133 H 166 H Calcium Total Bilirubin AST ALT Alkaline Phosphatase Total Protein Albumin Globulin Albumin/Globulin Ratio [facility] 04/21/17 04/22/17 04/22/17 21:09 06:34 20:49 WBC RBC Hgb Hct MCV MCH MCHC Differential RDW Plt Count MPV Neutrophils % Lymphocytes % Monocytes % Eosinophils % Basophils % Sodium Potassium Chloride Carbon Dioxide Anion Gap BUN Creatinine Est GFR ( Amer) Est GFR (Non-Af Amer) BUN/Creatinine Ratio Glucose POC Glucose 228 H 72 200 H Calcium Total Bilirubin AST ALT Alkaline Phosphatase Total Protein Albumin Globulin Albumin/Globulin Ratio [facility] 04/23/17 04/23/17 04/23/17 06:14 08:00 08:00 WBC 6.1 D RBC 3.19 L Hgb 9.0 L Hct 27.3 L MCV 85.7 MCH 28.1 MCHC Differential 32.8 RDW 15.1 Plt Count 287 MPV 8.1 Neutrophils % 59.7 Lymphocytes % 22.9 Monocytes % 13.3 H Eosinophils % 3.8 Basophils % 0.3 Sodium 139 Potassium 4.1 Chloride 109 H Carbon Dioxide 26.0 Anion Gap 8.1 BUN 31 H Creatinine 1.8 H Est GFR ( Amer) 48.9 Est GFR (Non-Af Amer) 40.4 BUN/Creatinine Ratio 17.2 Glucose 104 POC Glucose 94 Calcium 8.6 Total Bilirubin 0.3 AST 39 ALT 46 Alkaline Phosphatase 111 H Total Protein 6.6 Albumin 3.3 L Globulin 3.3 Albumin/Globulin Ratio 1.0 [facility] 04/23/17 04/23/17 04/24/17 11:17 20:33 06:44 WBC RBC Hgb Hct MCV MCH MCHC Differential RDW Plt Count MPV Neutrophils % Lymphocytes % Monocytes % Eosinophils % Basophils % Sodium Potassium Chloride Carbon Dioxide Anion Gap BUN Creatinine Est GFR ( Amer) Est GFR (Non-Af Amer) BUN/Creatinine Ratio Glucose POC Glucose 215 H 217 H 82 Calcium Total Bilirubin AST ALT Alkaline Phosphatase Total Protein Albumin Globulin Albumin/Globulin Ratio [facility] 04/24/17 04/24/17 04/24/17 11:30 16:32 20:24 WBC RBC Hgb Hct MCV MCH MCHC Differential RDW Plt Count MPV Neutrophils % Lymphocytes % Monocytes % Eosinophils % Basophils % Sodium Potassium Chloride Carbon Dioxide Anion Gap BUN Creatinine Est GFR ( Amer) Est GFR (Non-Af Amer) BUN/Creatinine Ratio Glucose POC Glucose 166 H 120 H 142 H Calcium Total Bilirubin AST ALT Alkaline Phosphatase Total Protein Albumin Globulin Albumin/Globulin Ratio [facility] 04/25/17 04/25/17 04/25/17 06:25 11:35 17:22 WBC RBC Hgb Hct MCV MCH MCHC Differential RDW Plt Count MPV Neutrophils % Lymphocytes % Monocytes % Eosinophils % Basophils % Sodium Potassium Chloride Carbon Dioxide Anion Gap BUN Creatinine Est GFR ( Amer) Est GFR (Non-Af Amer) BUN/Creatinine Ratio Glucose POC Glucose 163 H 163 H 161 H Calcium Total Bilirubin AST ALT Alkaline Phosphatase Total Protein Albumin Globulin Albumin/Globulin Ratio TSH 04/25/17 04/26/17 04/26/17 19:58 06:05 11:47 WBC RBC Hgb Hct MCV MCH MCHC Differential RDW Plt Count MPV Neutrophils % Lymphocytes % Monocytes % Eosinophils % Basophils % Sodium Potassium Chloride Carbon Dioxide Anion Gap BUN Creatinine Est GFR ( Amer) Est GFR (Non-Af Amer) BUN/Creatinine Ratio Glucose POC Glucose 99 95 160 H Calcium Total Bilirubin AST ALT Alkaline Phosphatase Total Protein Albumin Globulin Albumin/Globulin Ratio TSH 04/26/17 04/26/17 04/27/17 16:41 19:57 06:10 WBC RBC Hgb Hct MCV MCH MCHC Differential RDW Plt Count MPV Neutrophils % Lymphocytes % Monocytes % Eosinophils % Basophils % Sodium Potassium Chloride Carbon Dioxide Anion Gap BUN Creatinine Est GFR ( Amer) Est GFR (Non-Af Amer) BUN/Creatinine Ratio Glucose POC Glucose 108 H 218 H 84 Calcium Total Bilirubin AST ALT Alkaline Phosphatase Total Protein Albumin Globulin Albumin/Globulin Ratio TSH 04/27/17 04/27/17 04/27/17 08:10 08:10 08:10 WBC 6.8 RBC 3.08 L Hgb 8.6 L Hct 26.2 L MCV 85.1 MCH 28.1 MCHC Differential 33.0 RDW 15.0 Plt Count 260 MPV 8.0 Neutrophils % 62.4 Lymphocytes % 21.4 Monocytes % 12.8 H Eosinophils % 3.0 Basophils % 0.4 Sodium 135 L Potassium 4.3 Chloride 105 Carbon Dioxide 26.9 Anion Gap 7.4 BUN 28 H Creatinine 1.7 H Est GFR ( Amer) 52.3 Est GFR (Non-Af Amer) 43.2 BUN/Creatinine Ratio 16.5 Glucose 108 H POC Glucose Calcium 8.7 Total Bilirubin 0.2 L AST 44 H ALT 48 Alkaline Phosphatase 108 H Total Protein 6.8 Albumin 3.3 L Globulin 3.5 Albumin/Globulin Ratio 0.9 L TSH 2.88 04/27/17 04/27/1717 12:00 17:37 20:06 WBC RBC Hgb Hct MCV MCH MCHC Differential RDW Plt Count MPV Neutrophils % Lymphocytes % Monocytes % Eosinophils % Basophils % Sodium Potassium Chloride Carbon Dioxide Anion Gap BUN Creatinine Est GFR ( Amer) Est GFR (Non-Af Amer) BUN/Creatinine Ratio Glucose POC Glucose 144 H 166 H 162 H Calcium Total Bilirubin AST ALT Alkaline Phosphatase Total Protein Albumin Globulin Albumin/Globulin Ratio TSH 04/28/17 04/28/17 04/28/17 06:24 11:57 17:23 WBC RBC Hgb Hct MCV MCH MCHC Differential RDW Plt Count MPV Neutrophils % Lymphocytes % Monocytes % Eosinophils % Basophils % Sodium Potassium Chloride Carbon Dioxide Anion Gap BUN Creatinine Est GFR ( Amer) Est GFR (Non-Af Amer) BUN/Creatinine Ratio Glucose POC Glucose 79 153 H 90 Calcium Total Bilirubin AST ALT Alkaline Phosphatase Total Protein Albumin Globulin Albumin/Globulin Ratio TSH 04/28/17 04/29/17 04/29/17 20:35 06:34 11:39 WBC RBC Hgb Hct MCV MCH MCHC Differential RDW Plt Count MPV Neutrophils % Lymphocytes % Monocytes % Eosinophils % Basophils % Sodium Potassium Chloride Carbon Dioxide Anion Gap BUN Creatinine Est GFR ( Amer) Est GFR (Non-Af Amer) BUN/Creatinine Ratio Glucose POC Glucose 182 H 72 150 H Calcium Total Bilirubin AST ALT Alkaline Phosphatase Total Protein Albumin Globulin Albumin/Globulin Ratio TSH Hospital Course: Patient was in [facility] unit and was found Elevated WBC and was transfered to [facility]. He was treated with IV NS, antibiotics and consult with ID and Nephro were requested and recommendations were follow. He was transferred back to [facility] due to suicidal ideas Condition at Discharge: Stable Disposition: Other Care w/in this hosp Home Medications: Home Medication Medication Instructions Recorded Type Acetaminophen [Tylenol] 650 mg PO Q4HR PRN tab 04/17/17 Rx Aspirin EC [Ecotrin] 81 mg PO DAILY ect 04/17/17 Rx Bisacodyl [Dulcolax 10 Mg Supp] 10 mg RC PRN PRN sup 04/17/17 Rx Clopidogrel [Plavix] 75 mg PO DAILY tab 04/17/17 Rx Donepezil Hcl [Aricept] 5 mg PO DAILY tab 04/17/17 Rx Fleet Enema 135 ml RC Q72H PRN 04/17/17 Rx Folic Acid [Folate*] 1 mg PO DAILY tab 04/17/17 Rx Insulin Aspart Sliding Scale 3 - 13 units SUBQ ACHS unit 04/17/17 Rx [NovoLOG INSULIN SLIDING SCALE] Insulin Detemir [Levemir Insulin] 10 units SUBQ HS vial 04/17/17 Rx Levetiracetam [Keppra] 500 mg PO BID tab 04/17/17 Rx Magnesium Hydroxide [Milk of 30 ml PO Q48H PRN udc 04/17/17 Rx Magnesia] Multivitamin w/ Minerals 1 tab PO DAILY tab 04/17/17 Rx [Theragran M] Polyvinyl Alcohol Ophth Soln 1 drop EACH EYE QID 04/17/17 Rx [Artificial Tears Ophth Soln*] Thiamine [Vitamin B1] 100 mg PO DAILY tab 04/17/17 Rx amLODIPine Besylate [Norvasc*] 10 mg PO DAILY tab 04/17/17 Rx risperiDONE [RisperDAL] 0.5 mg PO HS tab 04/17/17 Rx Insulin Aspart Sliding Scale See Protocol SUBQ ACHS unit 04/19/17 Rx [NovoLOG INSULIN SLIDING SCALE] Inpatient Medications: Current Medications Acetaminophen (Tylenol) 650 mg PO Q4HR PRN PRN Reason: Mild Pain / Temp above 100 Stop: 06/18/17 22:04 Al Hydrox/Mg Hydrox/Simethicone (Maalox) 30 ml PO Q4HR PRN PRN Reason: GI DISTRESS Stop: 06/18/17 22:04 Amlodipine Besylate (Norvasc) 10 mg PO DAILY [facility] Stop: 06/19/17 08:59 Last Admin: 04/29/17 09:52 Dose: 10 mg Aspirin (Ecotrin) 81 mg PO DAILY [facility] Stop: 06/19/17 08:59 Last Admin: 04/29/17 09:53 Dose: 81 mg Bisacodyl (Dulcolax 10 Mg Supp) 10 mg RC DAILY PRN PRN Reason: Constipation Stop: 06/18/17 22:42 Clopidogrel Bisulfate (Plavix) 75 mg PO DAILY [facility] Stop: 06/19/17 08:59 Last Admin: 04/29/17 09:53 Dose: 75 mg Donepezil HCl (Aricept) 5 mg PO DAILY [facility] Stop: 06/19/17 08:59 Last Admin: 04/29/17 09:53 Dose: 5 mg Escitalopram Oxalate (Lexapro) 10 mg PO DAILY [facility] PRN Reason: Protocol Stop: 06/20/17 08:59 Last Admin: 04/29/17 09:52 Dose: 10 mg Folic Acid (Folate) 1 mg PO DAILY [facility] Stop: 06/19/17 08:59 Last Admin: 04/29/17 09:53 Dose: 1 mg Insulin Aspart (Novolog Insulin Sliding Scale) 0 units SUBQ ACHS [facility] PRN Reason: Protocol Stop: 06/18/17 22:19 Last Admin: 04/29/17 11:41 Dose: Not Given Insulin Detemir (Levemir Insulin) 5 units SUBQ HS [facility] PRN Reason: Protocol Stop: 06/20/17 20:59 Last Admin: 04/28/17 21:05 Dose: 5 unit Levetiracetam (Keppra) 500 mg PO BID [facility] Stop: 06/19/17 08:59 Last Admin: 04/29/17 09:53 Dose: 500 mg Lorazepam (Ativan) 0.5 mg PO Q4HR PRN; Protocol PRN Reason: Anxiety Stop: 05/19/17 22:04 Last Admin: 04/25/17 15:26 Dose: 0.5 mg Magnesium Hydroxide (Milk Of Magnesia) 30 ml PO DAILY PRN PRN Reason: Constipation Stop: 06/26/17 07:59 Multivitamins/Vitamin C (Theragran) 1 tab PO DAILY [facility] Stop: 06/19/17 08:59 Last Admin: 04/29/17 09:53 Dose: 1 tab Risperidone (Risperdal) 1 mg PO HS [facility] PRN Reason: Protocol Stop: 06/24/17 07:45 Last Admin: 04/28/17 21:04 Dose: 1 mg Thiamine HCl (Vitamin B1) 100 mg PO DAILY [facility] Stop: 06/19/17 08:59 Last Admin: 04/29/17 09:53 Dose: 100 mg Zolpidem Tartrate (Ambien) 5 mg PO HS PRN PRN Reason: Insomnia Stop: 06/18/17 22:04 Last Admin: 04/28/17 21:04 Dose: 5 mg Activity: As Tolerated Discharge Diet: Other (Diabetic diet) Consults and Follow-Up: Jermaine Nobles [Primary Care Provider] - Consulting Speciality: Psychology, Other (Psychiatry)
[2017-04-29] MEDS: Insulin Detemir 100 units/mL 10mL Vial SUBQ SCH (20:52)
[2017-04-30] MEDS: INSULIN ASPART SLIDING SCALE 100 UNITS/ML UNIT SUBQ SCH ×4 (06:30→21:01)
--- NOTE | 2017-04-30 08:37 | General Progress Note ---
Subjective - Review of Systems Service Date: 04/30/17 Subjective: I am fine Objective - Results Result Diagrams: 04/27/17 08:10 04/27/17 08:10 Recent Labs: Laboratory Last Values WBC 6.8 Th/cmm (4.8-10.8) 04/27/17 08:10 RBC 3.08 Mil/cmm (3.80-5.80) L 04/27/17 08:10 Hgb 8.6 gm/dL (12.6-17.4) L 04/27/17 08:10 Hct 26.2 % (39.0-49.0) L 04/27/17 08:10 MCV 85.1 fl (80-99) 04/27/17 08:10 MCH 28.1 pg (27.0-31.0) 04/27/17 08:10 MCHC Differential 33.0 pg (28.0-36.0) 04/27/17 08:10 RDW 15.0 % (11.5-20.0) 04/27/17 08:10 Plt Count 260 Th/cmm (150-400) 04/27/17 08:10 MPV 8.0 fl 04/27/17 08:10 Neutrophils % 62.4 % (40.0-80.0) 04/27/17 08:10 Lymphocytes % 21.4 % (20.0-50.0) 04/27/17 08:10 Monocytes % 12.8 % (2.0-10.0) H 04/27/17 08:10 Eosinophils % 3.0 % (0.0-5.0) 04/27/17 08:10 Basophils % 0.4 % (0.0-2.0) 04/27/17 08:10 Sodium 135 mEq/L (136-145) L 04/27/17 08:10 Potassium 4.3 mEq/L (3.5-5.1) 04/27/17 08:10 Chloride 105 mEq/L (98-107) 04/27/17 08:10 Carbon Dioxide 26.9 mEq/L (21.0-31.0) 04/27/17 08:10 Anion Gap 7.4 (7.0-16.0) 04/27/17 08:10 BUN 28 mg/dL (7-25) H 04/27/17 08:10 Creatinine 1.7 mg/dL (0.7-1.3) H 04/27/17 08:10 Est GFR ( Amer) 52.3 ml/min (>90) 04/27/17 08:10 Est GFR (Non-Af Amer) 43.2 ml/min 04/27/17 08:10 BUN/Creatinine Ratio 16.5 04/27/17 08:10 Glucose 108 mg/dL (70-105) H 04/27/17 08:10 POC Glucose 106 MG/DL (70 - 105) H 04/30/17 06:20 Calcium 8.7 mg/dL (8.6-10.3) 04/27/17 08:10 Total Bilirubin 0.2 mg/dL (0.3-1.0) L 04/27/17 08:10 AST 44 U/L (13-39) H 04/27/17 08:10 ALT 48 U/L (7-52) 04/27/17 08:10 Alkaline Phosphatase 108 U/L (34-104) H 04/27/17 08:10 Total Protein 6.8 gm/dL (6.0-8.3) 04/27/17 08:10 Albumin 3.3 gm/dL (4.2-5.5) L 04/27/17 08:10 Globulin 3.5 gm/dL 04/27/17 08:10 Albumin/Globulin Ratio 0.9 (1.0-1.8) L 04/27/17 08:10 TSH 2.88 uIU/ml (0.34-5.60) 04/27/17 08:10 - Physical Exam Vitals and I&O: Vital Signs Temp 97.8 F 04/30/17 06:30 Pulse 86 04/30/17 06:30 Resp 20 04/30/17 06:30 BP 118/73 04/30/17 06:30 Pulse Ox 98 04/30/17 06:30 Intake & Output 04/29/17 04/30/17 04/30/17 18:59 06:59 18:59 Intake Total 120 Balance 120 Intake: Oral 120 Other: # Voids 3 Active Medications: Current Medications Acetaminophen (Tylenol) 650 mg PO Q4HR PRN PRN Reason: Mild Pain / Temp above 100 Stop: 06/18/17 22:04 Al Hydrox/Mg Hydrox/Simethicone (Maalox) 30 ml PO Q4HR PRN PRN Reason: GI DISTRESS Stop: 06/18/17 22:04 Amlodipine Besylate (Norvasc) 10 mg PO DAILY [facility] Stop: 06/19/17 08:59 Last Admin: 04/29/17 09:52 Dose: 10 mg Aspirin (Ecotrin) 81 mg PO DAILY [facility] Stop: 06/19/17 08:59 Last Admin: 04/29/17 09:53 Dose: 81 mg Bisacodyl (Dulcolax 10 Mg Supp) 10 mg RC DAILY PRN PRN Reason: Constipation Stop: 06/18/17 22:42 Clopidogrel Bisulfate (Plavix) 75 mg PO DAILY [facility] Stop: 06/19/17 08:59 Last Admin: 04/29/17 09:53 Dose: 75 mg Donepezil HCl (Aricept) 5 mg PO DAILY [facility] Stop: 06/19/17 08:59 Last Admin: 04/29/17 09:53 Dose: 5 mg Escitalopram Oxalate (Lexapro) 10 mg PO DAILY [facility] PRN Reason: Protocol Stop: 06/20/17 08:59 Last Admin: 04/29/17 09:52 Dose: 10 mg Folic Acid (Folate) 1 mg PO DAILY [facility] Stop: 06/19/17 08:59 Last Admin: 04/29/17 09:53 Dose: 1 mg Insulin Aspart (Novolog Insulin Sliding Scale) 0 units SUBQ ACHS [facility] PRN Reason: Protocol Stop: 06/18/17 22:19 Last Admin: 04/30/17 06:30 Dose: Not Given Insulin Detemir (Levemir Insulin) 5 units SUBQ HS [facility] PRN Reason: Protocol Stop: 06/20/17 20:59 Last Admin: 04/29/17 20:52 Dose: Not Given Levetiracetam (Keppra) 500 mg PO BID [facility] Stop: 06/19/17 08:59 Last Admin: 04/29/17 17:57 Dose: 500 mg Lorazepam (Ativan) 0.5 mg PO Q4HR PRN; Protocol PRN Reason: Anxiety Stop: 05/19/17 22:04 Last Admin: 04/25/17 15:26 Dose: 0.5 mg Magnesium Hydroxide (Milk Of Magnesia) 30 ml PO DAILY PRN PRN Reason: Constipation Stop: 06/26/17 07:59 Multivitamins/Vitamin C (Theragran) 1 tab PO DAILY [facility] Stop: 06/19/17 08:59 Last Admin: 04/29/17 09:53 Dose: 1 tab Risperidone (Risperdal) 1 mg PO HS [facility] PRN Reason: Protocol Stop: 06/24/17 07:45 Last Admin: 04/29/17 20:53 Dose: 1 mg Thiamine HCl (Vitamin B1) 100 mg PO DAILY [facility] Stop: 06/19/17 08:59 Last Admin: 04/29/17 09:53 Dose: 100 mg Zolpidem Tartrate (Ambien) 5 mg PO HS PRN PRN Reason: Insomnia Stop: 06/18/17 22:04 Last Admin: 04/28/17 21:04 Dose: 5 mg General: Alert, Other (Confused) HEENT: Atraumatic Neck: Supple Cardiovascular: Regular rate Abdomen: Bowel sounds, Soft Extremities: Other (No edema) Neurological: Other (Unstable gait) Skin: Other (Warm and dry) Psych/Mental Status: Other (Confused) - Procedures Procedures: Procedures Procedure Code Date BLOOD TRANSFUSION SERVICE 73321 04/12/17 TRANSFUSE NONAUT RED BLOOD CELLS IN PERIPH VEIN, PERC 19295N6 04/12/17 Assessment/Plan - Problem List Patient Problems: All Active Problems WANDERING AND UNABLE TO REDIRECT (Acute) - Assessment Assessment: Patient is awake, calm in no acute distress. BS has been in control. - Plan Plan: Patient is follow by psychiatry. Will continue to monitor. Nutritional Asmnt/Malnutr-PDOC - Dietary Evaluation Malnutrition Findings (Please click <Entered> for more info): Nutritional Asmnt/Malnutrition Start: 04/23/17 14: 45 Text: Status: Complete Freq: Document 04/23/17 14:45 GSUN (Rec: 04/23/17 14:47 GSUN [id number]) Nutritional Asmnt/Malnutrition Patient General Information Nutritional Screening Moderate Risk Screening Diagnosis Reason for visit: psychosis. Pertinent Medical Hx/Surgical Hx HTN, dementia, psychosis, weakness, chronic renal failure Subjective Information 66 year old male, transfered from [facility]. Pt was awake and pleasant, selectively responses, answered simple questions, did not provide meaningful information. Pt is edentulous, denied difficulties chewing/ swallowing. No wasting noted. Avg PO intake 92% of meals since adm, meeting nutritional needs. Current Diet Order/ Nutrition Support Renal, pureed Pertinent Medications Dulcolax, Folate, Novolog, Levemir, MOM, Theragran, Vitamin B1 Pertinent Labs 04/23: BUN 31H, creatinine 1.8H , glucose 104 POC glucose 58-228 since adm Nutritional Hx/Data Height 1.57 m Height (Calculated Centimeters) 157.5 Current Weight (lbs) 55.338 kg Weight (Calculated Kilograms) 55.3 Weight (Calculated Grams) 66055.3 [place] Body Weight 118 Weight Status Approriate GI Symptoms Food Allergies No Skin Integrity/Comment: Maykel 18. Skin intact. Current %PO Good (75-100%) Estimated Nutritional Goals BEE in Kcals: Using Current wt Calories/Kcals/Kg CBW 122lb/55.5kg Kcals Calculated 1388-1665kcal (25-30kcal/kg) Protein: Using Current wt Protein Calculated 56g (1g/kg) Fluid: ml 1388-1665ml (1ml/kcal) Nutritional Problem 2. Problem Problem Altered nutrition related laboratory values related to Etiology endocrine dysfunction, unknown etiology aeb Signs/Symptoms: pt is on insulin, POC glucose 58-228 since adm 1. Problem Problem Impaired nutrient utilization related to Etiology chronic renal failure aeb Signs/Symptoms: BUN 31H, creatinine 1.8H Intervention/Recommendation Comments 1. Recommend pureed renal [id number]. Pt noted with elevated glucose levels and on insulin. 2. Avg PO intake is adequate. Expected Outcomes/Goals Expected Outcomes/Goals 1. PO intake continue to meet at least 75% of estimated nutritional needs.
[2017-04-30] MEDS: Multivitamin Tab PO SCH (10:00)
[2017-04-30] MEDS: Insulin Detemir 100 units/mL 10mL Vial SUBQ SCH (21:01)
--- NOTE | 2017-04-30 22:00 | Progress Notes ---
DATE: 04/30/2017 SUBJECTIVE: Chart reviewed and the patient interviewed. Also discussed the patient's condition with the staff and reviewed records and labs. The patient is still anxious and is still in irritable mood. The patient also still wants to be left alone and is isolative and wants to stay by himself. The patient also is still depressed and is still not answering all other questions. Still has poor eye contact with low tone and rate of speech. ASSESSMENT: The patient is still depressed and psychotic. TREATMENT PLAN: We will continue to monitor his behavior and his condition closely. Also, continue to work on his irritability and anger, and has a history of depression, and we will continue to follow up. [facility]# [id number]
[2017-05-01] MEDS: INSULIN ASPART SLIDING SCALE 100 UNITS/ML UNIT SUBQ SCH ×4 (06:44→20:19)
[2017-05-01] MEDS: Multivitamin Tab PO SCH (09:44)
--- NOTE | 2017-05-01 13:10 | General Progress Note ---
Subjective - Review of Systems Service Date: 05/01/17 Subjective: I am fine Objective - Results Result Diagrams: 04/27/17 08:10 04/27/17 08:10 Recent Labs: Laboratory Last Values WBC 6.8 Th/cmm (4.8-10.8) 04/27/17 08:10 RBC 3.08 Mil/cmm (3.80-5.80) L 04/27/17 08:10 Hgb 8.6 gm/dL (12.6-17.4) L 04/27/17 08:10 Hct 26.2 % (39.0-49.0) L 04/27/17 08:10 MCV 85.1 fl (80-99) 04/27/17 08:10 MCH 28.1 pg (27.0-31.0) 04/27/17 08:10 MCHC Differential 33.0 pg (28.0-36.0) 04/27/17 08:10 RDW 15.0 % (11.5-20.0) 04/27/17 08:10 Plt Count 260 Th/cmm (150-400) 04/27/17 08:10 MPV 8.0 fl 04/27/17 08:10 Neutrophils % 62.4 % (40.0-80.0) 04/27/17 08:10 Lymphocytes % 21.4 % (20.0-50.0) 04/27/17 08:10 Monocytes % 12.8 % (2.0-10.0) H 04/27/17 08:10 Eosinophils % 3.0 % (0.0-5.0) 04/27/17 08:10 Basophils % 0.4 % (0.0-2.0) 04/27/17 08:10 Sodium 135 mEq/L (136-145) L 04/27/17 08:10 Potassium 4.3 mEq/L (3.5-5.1) 04/27/17 08:10 Chloride 105 mEq/L (98-107) 04/27/17 08:10 Carbon Dioxide 26.9 mEq/L (21.0-31.0) 04/27/17 08:10 Anion Gap 7.4 (7.0-16.0) 04/27/17 08:10 BUN 28 mg/dL (7-25) H 04/27/17 08:10 Creatinine 1.7 mg/dL (0.7-1.3) H 04/27/17 08:10 Est GFR ( Amer) 52.3 ml/min (>90) 04/27/17 08:10 Est GFR (Non-Af Amer) 43.2 ml/min 04/27/17 08:10 BUN/Creatinine Ratio 16.5 04/27/17 08:10 Glucose 108 mg/dL (70-105) H 04/27/17 08:10 POC Glucose 83 MG/DL (70 - 105) 05/01/17 06:05 Calcium 8.7 mg/dL (8.6-10.3) 04/27/17 08:10 Total Bilirubin 0.2 mg/dL (0.3-1.0) L 04/27/17 08:10 AST 44 U/L (13-39) H 04/27/17 08:10 ALT 48 U/L (7-52) 04/27/17 08:10 Alkaline Phosphatase 108 U/L (34-104) H 04/27/17 08:10 Total Protein 6.8 gm/dL (6.0-8.3) 04/27/17 08:10 Albumin 3.3 gm/dL (4.2-5.5) L 04/27/17 08:10 Globulin 3.5 gm/dL 04/27/17 08:10 Albumin/Globulin Ratio 0.9 (1.0-1.8) L 04/27/17 08:10 TSH 2.88 uIU/ml (0.34-5.60) 04/27/17 08:10 - Physical Exam Vitals and I&O: Vital Signs Temp 97.4 F 04/30/17 15:26 Pulse 81 05/01/17 09:42 Resp 18 04/30/17 15:26 BP 116/73 05/01/17 09:42 Pulse Ox 96 04/30/17 15:26 Intake & Output 04/30/17 05/01/17 05/01/17 18:59 06:59 18:59 Intake Total 1200 Balance 1200 Weight (lbs) 55.429 kg Intake: Oral 1200 Other: # Bowel Movements 1 Active Medications: Current Medications Acetaminophen (Tylenol) 650 mg PO Q4HR PRN PRN Reason: Mild Pain / Temp above 100 Stop: 06/18/17 22:04 Al Hydrox/Mg Hydrox/Simethicone (Maalox) 30 ml PO Q4HR PRN PRN Reason: GI DISTRESS Stop: 06/18/17 22:04 Amlodipine Besylate (Norvasc) 10 mg PO DAILY [facility] Stop: 06/19/17 08:59 Last Admin: 05/01/17 09:42 Dose: 10 mg Aspirin (Ecotrin) 81 mg PO DAILY [facility] Stop: 06/19/17 08:59 Last Admin: 05/01/17 09:43 Dose: 81 mg Bisacodyl (Dulcolax 10 Mg Supp) 10 mg RC DAILY PRN PRN Reason: Constipation Stop: 06/18/17 22:42 Clopidogrel Bisulfate (Plavix) 75 mg PO DAILY [facility] Stop: 06/19/17 08:59 Last Admin: 05/01/17 09:43 Dose: 75 mg Donepezil HCl (Aricept) 5 mg PO DAILY [facility] Stop: 06/19/17 08:59 Last Admin: 05/01/17 09:44 Dose: 5 mg Escitalopram Oxalate (Lexapro) 10 mg PO DAILY [facility] PRN Reason: Protocol Stop: 06/20/17 08:59 Last Admin: 05/01/17 09:43 Dose: 10 mg Folic Acid (Folate) 1 mg PO DAILY [facility] Stop: 06/19/17 08:59 Last Admin: 05/01/17 09:44 Dose: 1 mg Insulin Aspart (Novolog Insulin Sliding Scale) 0 units SUBQ ACHS [facility] PRN Reason: Protocol Stop: 06/18/17 22:19 Last Admin: 05/01/17 06:44 Dose: Not Given Insulin Detemir (Levemir Insulin) 5 units SUBQ HS [facility] PRN Reason: Protocol Stop: 06/20/17 20:59 Last Admin: 04/30/17 21:01 Dose: 5 unit Levetiracetam (Keppra) 500 mg PO BID [facility] Stop: 06/19/17 08:59 Last Admin: 05/01/17 09:42 Dose: 500 mg Lorazepam (Ativan) 0.5 mg PO Q4HR PRN; Protocol PRN Reason: Anxiety Stop: 05/19/17 22:04 Last Admin: 04/25/17 15:26 Dose: 0.5 mg Magnesium Hydroxide (Milk Of Magnesia) 30 ml PO DAILY PRN PRN Reason: Constipation Stop: 06/26/17 07:59 Multivitamins/Vitamin C (Theragran) 1 tab PO DAILY [facility] Stop: 06/19/17 08:59 Last Admin: 05/01/17 09:44 Dose: 1 tab Risperidone (Risperdal) 1 mg PO HS [facility] PRN Reason: Protocol Stop: 06/24/17 07:45 Last Admin: 04/30/17 21:01 Dose: 1 mg Thiamine HCl (Vitamin B1) 100 mg PO DAILY [facility] Stop: 06/19/17 08:59 Last Admin: 05/01/17 09:44 Dose: 100 mg Zolpidem Tartrate (Ambien) 5 mg PO HS PRN PRN Reason: Insomnia Stop: 06/18/17 22:04 Last Admin: 04/28/17 21:04 Dose: 5 mg General: Alert, Other (Confused) HEENT: Atraumatic Neck: Supple Cardiovascular: Regular rate Abdomen: Bowel sounds, Soft Extremities: Other (No edema) Neurological: Other (Unstable gait) Skin: Other (Warm and dry) Psych/Mental Status: Other (Confused) - Procedures Procedures: Procedures Procedure Code Date BLOOD TRANSFUSION SERVICE 48318 04/12/17 TRANSFUSE NONAUT RED BLOOD CELLS IN PERIPH VEIN, PERC 48054O2 04/12/17 Assessment/Plan - Problem List Patient Problems: All Active Problems WANDERING AND UNABLE TO REDIRECT (Acute) - Assessment Assessment: Patient is awake, calm in no acute distress. BS has been in control. - Plan Plan: Patient is follow by psychiatry. Will continue to monitor. Nutritional Asmnt/Malnutr-PDOC - Dietary Evaluation Malnutrition Findings (Please click <Entered> for more info): Nutritional Asmnt/Malnutrition Start: 04/23/17 14: 45 Text: Status: Complete Freq: Document 04/23/17 14:45 GSUN (Rec: 04/23/17 14:47 [facility]) Nutritional Asmnt/Malnutrition Patient General Information Nutritional Screening Moderate Risk Screening Diagnosis Reason for visit: psychosis. Pertinent Medical Hx/Surgical Hx HTN, dementia, psychosis, weakness, chronic renal failure Subjective Information 66 year old male, transfered from [facility]. Pt was awake and pleasant, selectively responses, answered simple questions, did not provide meaningful information. Pt is edentulous, denied difficulties chewing/ swallowing. No wasting noted. Avg PO intake 92% of meals since adm, meeting nutritional needs. Current Diet Order/ Nutrition Support Renal, pureed Pertinent Medications Dulcolax, Folate, Novolog, Levemir, MOM, Theragran, Vitamin B1 Pertinent Labs 04/23: BUN 31H, creatinine 1.8H , glucose 104 POC glucose 58-228 since adm Nutritional Hx/Data Height 1.57 m Height (Calculated Centimeters) 157.5 Current Weight (lbs) 55.338 kg Weight (Calculated Kilograms) 55.3 Weight (Calculated Grams) 78126.3 [place] Body Weight 118 Weight Status Approriate GI Symptoms Food Allergies No Skin Integrity/Comment: Maykel 18. Skin intact. Current %PO Good (75-100%) Estimated Nutritional Goals BEE in Kcals: Using Current wt Calories/Kcals/Kg CBW 122lb/55.5kg Kcals Calculated 1388-1665kcal (25-30kcal/kg) Protein: Using Current wt Protein Calculated 56g (1g/kg) Fluid: ml 1388-1665ml (1ml/kcal) Nutritional Problem 2. Problem Problem Altered nutrition related laboratory values related to Etiology endocrine dysfunction, unknown etiology aeb Signs/Symptoms: pt is on insulin, POC glucose 58-228 since adm 1. Problem Problem Impaired nutrient utilization related to Etiology chronic renal failure aeb Signs/Symptoms: BUN 31H, creatinine 1.8H Intervention/Recommendation Comments 1. Recommend pureed renal [id number]. Pt noted with elevated glucose levels and on insulin. 2. Avg PO intake is adequate. Expected Outcomes/Goals Expected Outcomes/Goals 1. PO intake continue to meet at least 75% of estimated nutritional needs.
[2017-05-01] MEDS: Insulin Detemir 100 units/mL 10mL Vial SUBQ SCH (20:17)
--- NOTE | 2017-05-01 20:37 | Progress Notes ---
DATE: 05/01/2017 SUBJECTIVE: Chart reviewed and the patient interviewed. Also discussed the patient's condition with the staff and reviewed records and labs. The patient is still confused and is still in irritable mood. The patient also is still noted to be talking to himself. The patient also is still restless and is still having disorganized thoughts. The patient also tends to isolate himself and stays by himself most of the time and wants to be left alone. Also, the patient had difficulty sleeping at night and only slept 4-5 hours last night. ASSESSMENT: The patient is still confused and considered to be gravely disabled. TREATMENT PLAN: We will continue monitoring his behavior and his condition closely. Also, continue to work on adjusting psychotropic medications and behavioral modification. JOB# [id number]
[2017-05-02] MEDS: INSULIN ASPART SLIDING SCALE 100 UNITS/ML UNIT SUBQ SCH ×4 (06:48→21:11)
[2017-05-02] MEDS: Multivitamin Tab PO SCH (09:30)
[2017-05-02] MEDS: Insulin Detemir 100 units/mL 10mL Vial SUBQ SCH (21:11)
[2017-05-03] MEDS: INSULIN ASPART SLIDING SCALE 100 UNITS/ML UNIT SUBQ SCH ×4 (06:47→21:42)
[2017-05-03] MEDS: Multivitamin Tab PO SCH (09:59)
--- NOTE | 2017-05-03 10:30 | Progress Notes ---
DATE: 05/03/2017 Case was discussed with staff of the patient, reviewed records. Covering for Dr. Ayala. SUBJECTIVE: This is a 66-year-old male who was admitted transferred from the medical floor on 04/19/2017. She is a well known case to me as I did the admission and the consult on him. He is still confused, isolating, unable to make safe plan for self-care, but he denies any current intent to harm himself or anybody. He is unable to participate in a meaningful conversation. He is compliant with the medication with no side effects, no sedation, no nausea, no extrapyramidal symptoms, and he is on Aricept 5 mg at bedtime, and Lexapro 10 mg daily. I will be increasing his Aricept to 10 mg at bedtime and no side effects with the medication, no sedation, no nausea. We will continue to work with the patient in group therapy, milieu therapy, adjust the medication as needed. JOB# [id number]
[2017-05-03] MEDS: Insulin Detemir 100 units/mL 10mL Vial SUBQ SCH (21:43)
[2017-05-04] MEDS: INSULIN ASPART SLIDING SCALE 100 UNITS/ML UNIT SUBQ SCH (06:51)
[2017-05-04] MEDS: Multivitamin Tab PO SCH (09:35)
--- NOTE | 2017-05-05 04:44 | Progress Notes ---
DATE: 05/04/2017 SUBJECTIVE: Case was discussed with staff of the patient, reviewed records. The patient is doing very well, sleeping well, eating well. No suicidal ideation. No homicidal ideation. No paranoia, no longer suicidal. Apparently Dr. Ayala already gave an order for the patient to be discharged and staff is already working on discharging him, and I have no problem with it as the patient is not currently suicidal danger. He will be going to [place] and I will be following up with the patient there. JOB# [id number]
== END 2017-05-04 13:15 | DRG 884 ==
LOC: GERO 20:08
PROVIDERS: ADMIT Psychiatry & Neurology Psychiatry; ATTEND Psychiatry & Neurology Psychiatry
DX: F03.91 Unspecified dementia, unspecified severity, with behavioral disturbance (principal); N17.9 Acute kidney failure, unspecified; F32.3 Major depressive disorder, single episode, severe with psychotic features; E11.22 Type 2 diabetes mellitus with diabetic chronic kidney disease; R45.851 Suicidal ideations; F39 Unspecified mood [affective] disorder; N18.9 Chronic kidney disease, unspecified; I12.9 Hypertensive chronic kidney disease with stage 1 through stage 4 chronic kidney disease, or unspecified chronic kidney disease; D64.9 Anemia, unspecified; F29 Unspecified psychosis not due to a substance or known physiological condition; Z83.3 Family history of diabetes mellitus; Z82.49 Family history of ischemic heart disease and other diseases of the circulatory system; Z79.82 Long term (current) use of aspirin; Z79.4 Long term (current) use of insulin; Z91.83 Wandering in diseases classified elsewhere
CPT/HCPCS: 36415-UA; 80053-TC; 82948-90; 84443-TC; 85025-TC; 90899; J1815; Z7610

== ENCOUNTER 2017-08-24 18:36 | Inpatient (IN) | payer MEDICARE, MEDICAID ==
[2017-08-24 19:31] LABS: % BASOPHILS 0.4 % (0.0-2.0); % LYMPHOCYTES 27.5 % (20.0-50.0); % MONOCYTES 11.3 % (2.0-10.0); % NEUTROPHILS 57.8 % (40.0-80.0); MEAN CELL VOLUME 85.9 fl (80-99); MEAN CORPUSCULAR HEMOGLOBIN 28.3 pg (27.0-31.0); MEAN CORPUSCULAR HGB CONC 32.9 pg (28.0-36.0); MEAN PLATELET VOLUME 7.8 fl; NEUTROPHILE ABSOLUTE 3.3 Th/cmm (1.8-8.0); PLATELET COUNT 230 Th/cmm (150-400); RED BLOOD COUNT 2.77 Mil/cmm (3.80-5.80); RED CELL DISTRIBUTION WIDTH 19.2 % (11.5-20.0); WHITE BLOOD COUNT 5.8 Th/cmm (4.8-10.8)
[2017-08-24 19:39] LABS: HEMOGLOBIN 7.8 gm/dL (12-16)
[2017-08-24 19:40] LABS: HEMATOCRIT 23.8 % (41.0-60)
[2017-08-24 19:44] LABS: ANION GAP 8.2 (7.0-16.0); BILIRUBIN,TOTAL 0.2 mg/dL (0.3-1.0); BUN/CREATININE RATIO 16.7; CALCIUM SERUM 8.9 mg/dL (8.6-10.3); CARBON DIOXIDE 26.6 mEq/L (21.0-31.0); CREATININE - SERUM 2.1 mg/dL (0.7-1.3); POTASSIUM SERUM 4.8 mEq/L (3.5-5.1)
[2017-08-24] MEDS ORDERED: Sodium Chloride 0.9% 500 ML IV ONE (20:56)
--- NOTE | 2017-08-24 21:07 | ED Physician Chart ---
ED Chief Complaint/HPI - Patient Information Date Seen:: 08/24/17 Time Seen:: 19:15 Chief Complaint:: Anemia, dementia, psychosis History of Present Illness:: 66 yo male who is a resident with dementia and psychosis at [facility]. He was found to have a Hb 7.5 at the SNF and was brought to the ER for further evaluation. At ER, his Hb was 7.8 on arrival. He is confused and resistant to treatment. Allergies:: Allergies Allergy/AdvReac Type Severity Reaction Status Date / Time No Known Allergies Allergy Verified 06/30/16 18:07 Vitals:: Vital Signs - 8 hr 08/24/17 18:44 Temp 96.3 F HR 54 RR 16 BP 156/68 O2 Sat % 99 ED Review of Systems - Review of Systems General/Constitutional: No fever, No chills, Weakness Skin: No bruising Head: No headache Eyes: No loss of vision ENT: No nasal drainage Neck: No swelling Cardio Vascular: No chest pain Pulmonary: No SOB GI: No nausea, No vomiting Musculoskeletal: No bone or joint pain Psychiatric: Prior psych history Hematopoietic: No bruising ED Past Medical History - Past Medical History Past Medical History: HTN, DM, Dementia, Other (Anemia) Social History: Non Smoker, No Alcohol, No Drug Use Psychiatricy History: Depression, Dementia Family Medical History - Family Member Mother History Unknown: Yes Ethnicity: Living Status: Still Living Hx Family Hypertension: Yes Hx Family Diabetes: Yes ED Physical Exam - Physical Examination General/Constitutional: Awake Other Gen/Cons comments:: Quiet, oriented to self Head: Atraumatic Eyes: PERRL, EOMI Skin: No ecchymosis ENMT: Nasal exam nl Neck: No nuchal rigidity Respiratory: Clear to Auscultation, No Wheeze/Rhonchi/Rales Cardio Vascular: RRR, No murmur, gallop, rubs, NL S1 S2 GI: No tenderness/rebounding/guarding Extremities: normal strength in all extremities Neuro/Psych: No focal deficits Other Neuro/Psych comments:: Patient fought against exam and treatment ED Labs/Radiology/EKG Results - Lab Results Results: Laboratory Tests 08/24/17 08/24/17 08/24/17 19:20 19:20 19:20 WBC 5.8 RBC 2.77 L Hgb 7.8 L* Hct 23.8 L MCV 85.9 MCH 28.3 MCHC Differential 32.9 RDW 19.2 Plt Count 230 MPV 7.8 Neutrophils % 57.8 Lymphocytes % 27.5 Monocytes % 11.3 H Eosinophils % 3.0 Basophils % 0.4 Sodium 129 L Potassium 4.8 Chloride 99 Carbon Dioxide 26.6 Anion Gap 8.2 BUN 35 H Creatinine 2.1 H Est GFR ( Amer) 41.0 Est GFR (Non-Af Amer) 33.9 BUN/Creatinine Ratio 16.7 Glucose 295 H Hemoglobin A1c % Calcium 8.9 Total Bilirubin 0.2 L AST 25 ALT 30 Alkaline Phosphatase 110 H Total Protein 7.2 Albumin 3.6 L Globulin 3.6 Albumin/Globulin Ratio 1.0 Blood Type A POSITIVE Antibody Screen NEGATIVE 08/24/17 19:20 WBC RBC Hgb Hct MCV MCH MCHC Differential RDW Plt Count MPV Neutrophils % Lymphocytes % Monocytes % Eosinophils % Basophils % Sodium Potassium Chloride Carbon Dioxide Anion Gap BUN Creatinine Est GFR ( Amer) Est GFR (Non-Af Amer) BUN/Creatinine Ratio Glucose Hemoglobin A1c % 6.4 H Calcium Total Bilirubin AST ALT Alkaline Phosphatase Total Protein Albumin Globulin Albumin/Globulin Ratio Blood Type Antibody Screen ED Assessment - Assessment General Assessment: Anemia Hyponatremia DM II Acute on chronic kidney disease Volume depletion Critical Care Time: 45 min Excludes all billable procedures: Yes This condition life threatening/high prob of deterioration: No Assessment/Comments:: CBC, CMP, HbA1c, Ferretin, B12, Folate NS 500ml IV bolus Admit to med surg ED Septic Shock - . Is Septic Shock (SBP<90, OR Lactate>4 mmol\L) present?: No - <6hrs of presentation: Vital Signs: Vital Signs - 8 hr 08/24/17 18:44 Temp 96.3 F HR 54 RR 16 BP 156/68 O2 Sat % 99 ED Reassessment (Disposition) - Reassessment Reassessment Condition:: Unchanged - Patient Disposition Discharge/Transfer:: Acute Care w/in this hosp Admitting Medical Physician:: Jermaine Nobles ED Discharge Plan - Patient Disposition Admit/Discharge/Transfer: Acute Care w/in this hosp
[2017-08-24] MEDS ORDERED: Magnesium Hydroxide (MOM) 30 mL UDC PO PRN (22:13)
[2017-08-24] MEDS ORDERED: Sodium Chloride 0.9% 1,000 ML IV SCH ×2 (22:15→23:24)
[2017-08-25 01:16] VITALS: BP 132/49
[2017-08-25] MEDS: INSULIN ASPART SLIDING SCALE 100 UNITS/ML UNIT SUBQ SCH ×4 (07:09→21:44)
--- NOTE | 2017-08-25 07:49 | History and Physical ---
History of Present Illness - HPI Chief Complaint: Critical labs HPI: This is a patient that I follow in a SNF, I received a call that Hgb was 7.5, order to transfer patient to ER was done. 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 GI: Report: No Pertinent Hx Psych: Report: Psychosis Musculoskeletal: Report: No Pertinent Hx Rheumatologic: Report: No pertinent Hx Infectious Disease: Report: No Pertinent Hx Renal/: Report: Acute Renal Failure, Chronic Renal Failure Endocrine: Report: Diabetes Dermatology: Report: No Pertinent Hx - Past Surgical History Past Surgical History: No pertinent Hx Family Medical History - Family Member Mother History Unknown: Yes Ethnicity: Living Status: Still Living Hx Family Hypertension: Yes Hx Family Diabetes: Yes Social History Smoke: No Alcohol: None Drugs: None Lives: Shelter Domestic Violence: Negative - Medications Home Medications: Home Medication Medication Instructions Recorded Type Acetaminophen [Tylenol] 650 mg PO Q4HR PRN tab 05/04/17 Rx Aspirin EC [Ecotrin] 81 mg PO DAILY ect 05/04/17 Rx Donepezil Hcl [Aricept] 10 mg PO DAILY tab 05/04/17 Rx Escitalopram Oxalate [Lexapro] 10 mg PO DAILY tab 05/04/17 Rx Folic Acid [Folate*] 1 mg PO DAILY tab 05/04/17 Rx Insulin Aspart Sliding Scale 0 units SUBQ ACHS unit 05/04/17 Rx [NovoLOG INSULIN SLIDING SCALE] Insulin Detemir [Levemir Insulin] 5 units SUBQ HS vial 05/04/17 Rx Levetiracetam [Keppra] 500 mg PO BID tab 05/04/17 Rx Magnesium Hydroxide [Milk of 30 ml PO DAILY PRN udc 05/04/17 Rx Magnesia] Multivitamin [Theragran] 1 tab PO DAILY tab 05/04/17 Rx Thiamine [Vitamin B1] 100 mg PO DAILY tab 05/04/17 Rx amLODIPine Besylate [Norvasc*] 10 mg PO DAILY tab 05/04/17 Rx risperiDONE [Risperdal] 1 mg PO HS tab 05/04/17 Rx - Allergies Allergies/Adverse Reactions: Allergies Allergy/AdvReac Type Severity Reaction Status Date / Time No Known Allergies Allergy Verified 06/30/16 18:07 Review of Systems - Review of Systems Constitutional: Report: No Significant Eyes: Report: No Significant ENT: Report: No Significant Respiratory: Report: No Significant Cardiovascular: Report: No Significant Gastrointestinal: Report: No Significant Genitourinary: Report: No Significant Musculoskeletal: Report: No Significant Skin: Report: No Significant Neurological: Report: Weakness Physical Exam - Physical Exam HEENT: Report: Ears Nose Throat within normal limits Neck: Report: Within normal limits Cardiovascular Systems: Report: Regular, Rate and Rhythm Respiratory: Report: Breath Sounds are within normal limits Abdomen: Report: Non-tender to palpation Back: Report: Inspection of back is within normal limits. Extremities: Report: Non-tender to palpation. Skin: Report: Color of skin is within normal limits, Warm, Dry Neuro/Psych: Report: Disoriented to name time or place - Lab Results All Lab Results last 24 hours: Laboratory Results - last 24 hr 08/25/17 06:58 POC Glucose 104 - Assessment Assessment: Patient is awake, alert calm, in no acute distress. Dx: Acute anemia, Hyponatremia, CARLOS ENRIQUE over CKI, DM, Dementia, HTN - Plan Plan: Patient will be transfused, on Na tabs, IV ns, FOB requested. Continue with SNF meds. Consult with nephro requested.
[2017-08-25] MEDS: Multivitamin Tab PO SCH (09:16)
[2017-08-25] MEDS ORDERED: VTE Chemical Prophylaxis Screen/Admission MC PRN (10:59)
[2017-08-25 12:40] LABS: % BASOPHILS 0.3 % (0.0-2.0); % EOSINOPHILS 2.8 % (0.0-5.0); % LYMPHOCYTES 13.7 % (20.0-50.0); % MONOCYTES 9.3 % (2.0-10.0); % NEUTROPHILS 73.9 % (40.0-80.0); MEAN CELL VOLUME 88.4 fl (80-99); MEAN CORPUSCULAR HEMOGLOBIN 29.2 pg (27.0-31.0); MEAN CORPUSCULAR HGB CONC 33.1 pg (28.0-36.0); MEAN PLATELET VOLUME 7.6 fl; NEUTROPHILE ABSOLUTE 5.2 Th/cmm (1.8-8.0); PLATELET COUNT 192 Th/cmm (150-400); RED BLOOD COUNT 3.63 Mil/cmm (3.80-5.80); RED CELL DISTRIBUTION WIDTH 16.4 % (11.5-20.0); WHITE BLOOD COUNT 6.9 Th/cmm (4.8-10.8)
[2017-08-25 12:48] LABS: HEMOGLOBIN 10.6 gm/dL (12-16)
[2017-08-25 12:49] LABS: HEMATOCRIT 32.1 % (41.0-60)
[2017-08-25 14:00] LABS: ANION GAP 7.9 (7.0-16.0); BILIRUBIN,TOTAL 0.5 mg/dL (0.3-1.0); BUN/CREATININE RATIO 15.3; CALCIUM SERUM 8.5 mg/dL (8.6-10.3); CREATININE - SERUM 1.7 mg/dL (0.7-1.3); POTASSIUM SERUM 4.9 mEq/L (3.5-5.1)
[2017-08-25] MEDS: D5-0.9%NS 1,000 ML IV SCH (17:33)
[2017-08-25] MEDS: Insulin Detemir 100 units/mL 10mL Vial SUBQ SCH (21:53)
[2017-08-26] MEDS: D5-0.9%NS 1,000 ML IV SCH ×2 (03:42→15:18)
[2017-08-26 06:13] LABS: % BASOPHILS 0.2 % (0.0-2.0); % EOSINOPHILS 0.8 % (0.0-5.0); % MONOCYTES 8.9 % (2.0-10.0); % NEUTROPHILS 81.1 % (40.0-80.0); HEMATOCRIT 30.3 % (41.0-60); MEAN CELL VOLUME 88.4 fl (80-99); MEAN CORPUSCULAR HEMOGLOBIN 29.1 pg (27.0-31.0); MEAN CORPUSCULAR HGB CONC 32.9 pg (28.0-36.0); MEAN PLATELET VOLUME 8.4 fl; NEUTROPHILE ABSOLUTE 9.7 Th/cmm (1.8-8.0); PLATELET COUNT 197 Th/cmm (150-400); RED BLOOD COUNT 3.43 Mil/cmm (3.80-5.80); RED CELL DISTRIBUTION WIDTH 17.3 % (11.5-20.0)
[2017-08-26] MEDS: INSULIN ASPART SLIDING SCALE 100 UNITS/ML UNIT SUBQ SCH ×4 (06:45→21:31)
[2017-08-26 06:51] LABS: ANION GAP 7.4 (7.0-16.0); BILIRUBIN,TOTAL 0.2 mg/dL (0.3-1.0); BUN/CREATININE RATIO 13.5; CALCIUM SERUM 8.3 mg/dL (8.6-10.3); CARBON DIOXIDE 24.1 mEq/L (21.0-31.0); CREATININE - SERUM 1.7 mg/dL (0.7-1.3); MAGNESIUM 2.3 mg/dL (1.9-2.7); PHOSPHOROUS 3.5 mg/dL (2.5-5.0); POTASSIUM SERUM 4.5 mEq/L (3.5-5.1); URIC ACID 5.6 mg/dL (4.4-7.6)
--- NOTE | 2017-08-26 07:19 | Consultation ---
DATE OF CONSULTATION: 08/25/2017 REASON FOR CONSULTATION: Electrolyte imbalance, fluid management, and worsening kidney function. HISTORY OF PRESENT ILLNESS: This is a 66-year-old male with past medical history of chronic kidney disease, who came in because of severe anemia. A few hours prior to admission, the patient had blood drawn at [facility]. This revealed a hemoglobin of 7.5. He was then brought to the Emergency Room. His hemoglobin at the Emergency Room was 7.8. He was transfused 2 units of packed RBC. His sodium was 129 with a BUN/creatinine of 35/2.1. He was hydrated aggressively with normal saline and sodium came up to 134 with a BUN/creatinine of 26/1.7. He denied any nausea and vomiting, no diarrhea. PAST MEDICAL HISTORY: 1. Chronic kidney disease. 2. Depression. 3. Psychosis. 4. Severe malnutrition. 5. Anemia of chronic disease. 6. Diverticulosis. 7. Type 2 diabetes mellitus. 8. Essential hypertension. 9. Dyslipidemia. CURRENT MEDICATIONS: He is currently on acetaminophen, amlodipine, aspirin, donepezil, citalopram, folic acid, Keppra, magnesium hydroxide, risperidone, sodium chloride, thiamine, and multivitamins. ALLERGIES: No known drug allergies. SOCIAL AND FAMILY HISTORY: I was not able to obtain directly from the patient because of his mental status. REVIEW OF SYSTEMS: Again, I was not able to decipher directly from the patient. PHYSICAL EXAMINATION: GENERAL: The patient is awake; however, confused, rarely responds. VITAL SIGNS: His temperature is 97.4 degrees, pulse 61, and blood pressure 143/76. SKIN: Poor turgor, warm, no rash, no jaundice appreciated. HEENT: Head normocephalic, atraumatic. Eyes: Extraocular muscles intact. Pupils equal, round, reactive to light and accommodate. Anicteric sclerae. Pale conjunctivae. Nose, midline nasal septum. Mouth: Dry mucosa with poor dentition. NECK: Supple, no adenopathy, no thyromegaly, no bruits. Trachea palpated in the midline. CHEST AND CARDIOVASCULAR: S1, S2. No rub, murmur, nor gallop appreciated. Point of maximal impulse fifth intercostal space, left midclavicular line. No abdominal or femoral bruits appreciated. LUNGS: Equal expansion. No use of accessory muscles or supraclavicular retractions, decreased breath sounds, few rhonchi, but no rales nor wheezes appreciated. ABDOMEN: Mildly globular, soft. Positive for bowel sounds. No bruits either diastolic or systolic. RECTAL: Lax sphincter tone. GENITOURINARY: Normal appearing male genitalia. MUSCULOSKELETAL: No effusions present in his joints, unable to assess his range of motion. EXTREMITIES: No evidence of edema, cyanosis, nor clubbing with palpable femoral, but unable to fully appreciate popliteal and dorsalis pedis pulses. NEUROLOGIC: The patient is awake, verbal, motor is 5/5. Cranial nerves III through XII intact. Sensory intact. LABORATORY DATA: Did reveal sodium 134, potassium 4.9, chloride 107, bicarbonate 24, BUN 26, creatinine 1.7, glucose 170, calcium 8.5, albumin 3.2. TSH 4.52. IMPRESSION: 1. Hyponatremia. The patient looks uvolemic at the present time; however, he had a very good response to fluid replacement with normal saline. Thus, the possibility of increased sodium loss compared to free water loss could have occurred. 2. Acute kidney injury on chronic kidney disease. MDRD GFR of 43.2 mL per minute, stage III. The patient again had a very good response with administration of IV fluids. This is suggestive that the patient had some form of prerenal azotemia although he has no congestion nor cough. Thus, he likely has a prerenal component as supported by poor skin turgor, dry oral mucosa. His prerenal component eventually progressed to acute tubular injury. His chronic kidney disease is possibly due to hypertensive nephrosclerosis with longstanding history of hypertension. 3. Severe anemia, possibly gastrointestinal bleed, the patient currently on aspirin. 4. Depression. 5. Psychosis. 6. Severe malnutrition. 7. Anemia of chronic disease. 8. Diverticulosis. 9. Type 2 diabetes mellitus. 10. Essential hypertension. 11. Dysphagia. PLAN: 1. Continue with IV fluids. 2. Transfuse as needed. 3. Follow up stool for occult blood. 4. Swallow eval. 5. Urinalysis. 6. Urine spot sodium, eosinophils, and creatinine. 7. Renal ultrasound in a.m. 8. Follow up electrolytes, uric acid, as well as serum osmolality. Thank you, Dr. Nobles for this consult. I will follow the patient closely with you. [facility]# [id number]
--- NOTE | 2017-08-26 09:01 | General Progress Note ---
Subjective - Review of Systems Service Date: 08/26/17 Subjective: I am fine Objective - Results Result Diagrams: 08/26/17 05:04 08/26/17 05:04 Recent Labs: Laboratory Last Values WBC 12.0 Th/cmm (4.8-10.8) H D 08/26/17 05:04 RBC 3.43 Mil/cmm (3.80-5.80) L 08/26/17 05:04 Hgb 10.0 gm/dL (12-16) L 08/26/17 05:04 Hct 30.3 % (41.0-60) L 08/26/17 05:04 MCV 88.4 fl (80-99) 08/26/17 05:04 MCH 29.1 pg (27.0-31.0) 08/26/17 05:04 MCHC Differential 32.9 pg (28.0-36.0) 08/26/17 05:04 RDW 17.3 % (11.5-20.0) 08/26/17 05:04 Plt Count 197 Th/cmm (150-400) 08/26/17 05:04 MPV 8.4 fl 08/26/17 05:04 Neutrophils % 81.1 % (40.0-80.0) H 08/26/17 05:04 Lymphocytes % 9.0 % (20.0-50.0) L 08/26/17 05:04 Monocytes % 8.9 % (2.0-10.0) 08/26/17 05:04 Eosinophils % 0.8 % (0.0-5.0) 08/26/17 05:04 Basophils % 0.2 % (0.0-2.0) 08/26/17 05:04 Sodium 138 mEq/L (136-145) 08/26/17 05:04 Potassium 4.5 mEq/L (3.5-5.1) 08/26/17 05:04 Chloride 111 mEq/L (98-107) H 08/26/17 05:04 Carbon Dioxide 24.1 mEq/L (21.0-31.0) 08/26/17 05:04 Anion Gap 7.4 (7.0-16.0) 08/26/17 05:04 BUN 23 mg/dL (7-25) 08/26/17 05:04 Creatinine 1.7 mg/dL (0.7-1.3) H 08/26/17 05:04 Est GFR ( Amer) 52.3 ml/min (>90) 08/26/17 05:04 Est GFR (Non-Af Amer) 43.2 ml/min 08/26/17 05:04 BUN/Creatinine Ratio 13.5 08/26/17 05:04 Glucose 114 mg/dL (70-105) H D 08/26/17 05:04 POC Glucose 114 MG/DL (70 - 105) H 08/26/17 06:44 Hemoglobin A1c % 6.4 % (4.0-6.0) H 08/24/17 19:20 Uric Acid 5.6 mg/dL (4.4-7.6) 08/26/17 05:04 Calcium 8.3 mg/dL (8.6-10.3) L 08/26/17 05:04 Phosphorus 3.5 mg/dL (2.5-5.0) 08/26/17 05:04 Magnesium 2.3 mg/dL (1.9-2.7) 08/26/17 05:04 Ferritin 26 ng/mL (30-400) L 08/24/17 19:20 Total Bilirubin 0.2 mg/dL (0.3-1.0) L 08/26/17 05:04 AST 27 U/L (13-39) 08/26/17 05:04 ALT 28 U/L (7-52) 08/26/17 05:04 Alkaline Phosphatase 103 U/L (34-104) 08/26/17 05:04 Total Protein 6.1 gm/dL (6.0-8.3) 08/26/17 05:04 Albumin 3.0 gm/dL (4.2-5.5) L 08/26/17 05:04 Globulin 3.1 gm/dL 08/26/17 05:04 Albumin/Globulin Ratio 1.0 (1.0-1.8) 08/26/17 05:04 Vitamin B12 915 pg/mL (211-946) 08/24/17 19:20 Folic Acid >20.0 ng/mL (>3.0) 08/24/17 19:20 TSH 4.52 uIU/ml (0.34-5.60) 08/25/17 12:30 Blood Type A POSITIVE 08/24/17 19:20 Antibody Screen NEGATIVE 08/24/17 19:20 Crossmatch See Detail 08/24/17 19:20 - Physical Exam Vitals and I&O: Vital Signs Temp 97.3 F 08/26/17 05:00 Pulse 88 08/26/17 05:00 Resp 18 08/26/17 07:31 BP 144/88 08/26/17 05:00 Pulse Ox 96 08/26/17 05:00 Intake & Output 08/25/17 08/26/17 08/26/17 18:59 06:59 18:59 Intake Total 1255.5 1000 Output Total 0 Balance 1255.5 1000 Weight (lbs) 63.412 kg 64.183 kg Intake: Intake, IV Amount 655.5 1000 D5-0.9%Ns 1,000 ml @ 100 1000 mls/hr IV .Q10H [facility] [place] Rx#: [id number] Sodium Chloride 0.9% 1, 655.5 000 ml @ 90 mls/hr IV . Q11H7M [facility] Rx#:[id number] Oral 600 Output: Stool 0 Other: # Voids 4 1 # Bowel Movements 0 Active Medications: Current Medications Acetaminophen (Tylenol) 650 mg PO Q4HR PRN PRN Reason: Mild Pain / Temp above 100 Stop: 10/23/17 22:10 Amlodipine Besylate (Norvasc) 10 mg PO DAILY [facility] [place] Stop: 10/24/17 08:59 Last Admin: 08/25/17 09:15 Dose: 10 mg Aspirin (Ecotrin) 81 mg PO DAILY [facility] [place] Stop: 10/24/17 08:59 Last Admin: 08/25/17 09:15 Dose: 81 mg Donepezil HCl (Aricept) 10 mg PO DAILY [facility] [place] Stop: 10/24/17 08:59 Last Admin: 08/25/17 09:13 Dose: 10 mg Escitalopram Oxalate (Lexapro) 10 mg PO DAILY [facility] [place] PRN Reason: Protocol Stop: 10/24/17 08:59 Folic Acid (Folate) 1 mg PO DAILY [facility] [place] Stop: 10/24/17 08:59 Last Admin: 08/25/17 09:15 Dose: 1 mg Dextrose/Sodium Chloride (D5-0.9%Ns) 1,000 mls @ 100 mls/hr IV .Q10H [facility] [place] Stop: 10/24/17 16:44 Last Admin: 08/26/17 03:42 Dose: 100 mls/hr Insulin Aspart (Novolog Insulin Sliding Scale) 0 units SUBQ ACHS [facility] PRN Reason: Protocol Stop: 10/24/17 07:29 Last Admin: 08/26/17 06:45 Dose: Not Given Insulin Detemir (Levemir Insulin) 5 units SUBQ HS [facility] PRN Reason: Protocol Stop: 10/24/17 20:59 Last Admin: 08/25/17 21:53 Dose: Not Given Levetiracetam (Keppra) 500 mg PO BID [facility] [place] Stop: 10/24/17 08:59 Last Admin: 08/25/17 17:32 Dose: Not Given Magnesium Hydroxide (Milk Of Magnesia) 30 ml PO DAILY PRN PRN Reason: Constipation Stop: 10/23/17 22:12 Miscellaneous (Vte Chemical Prophylaxis Screen/ Admission) 1 ea [facility] PRN PRN PRN Reason: PROTOCOL Stop: 10/24/17 10:58 Multivitamins/Vitamin C (Theragran) 1 tab PO DAILY [facility] [place] Stop: 10/24/17 08:59 Last Admin: 08/25/17 09:16 Dose: 1 tab Pneumococcal Polyvalent Vaccine (Pneumovax) 0.5 ml IM .ONCE ONE Stop: 08/27/17 09:01 Risperidone (Risperdal) 1 mg PO [facility] PRN Reason: Protocol Stop: 10/24/17 20:59 Sodium Chloride (Nacl Tab) 1 gm PO DAILY [facility] Stop: 10/24/17 08:59 Last Admin: 08/25/17 09:15 Dose: 1 gm Thiamine HCl (Vitamin B1) 100 mg PO DAILY [facility] Stop: 10/24/17 08:59 Last Admin: 08/25/17 09:16 Dose: 100 mg General: Alert, Other (Confused, not oriented) HEENT: Atraumatic Neck: Supple Cardiovascular: Regular rate Lungs: Clear to auscultation Abdomen: Bowel sounds, Soft Extremities: Other (No edema) Neurological: Other (Unstable gait) Skin: Other (Warm and dry) Psych/Mental Status: Other (Confused, not oriented) - Procedures Procedures: Procedures Procedure Code Date BLOOD TRANSFUSION SERVICE 31859 04/12/17 TRANSFUSE NONAUT RED BLOOD CELLS IN PERIPH VEIN, PERC 35736S1 04/12/17 Assessment/Plan - Problem List Patient Problems: All Active Problems WANDERING AND UNABLE TO REDIRECT (Acute) - Assessment Assessment: Patient is awake, alert calm, in no acute distress. Creatinine improving, WBC increased today. Dx: Acute anemia, Hyponatremia, CARLOS ENRIQUE over CKI, DM, Dementia, HTN - Plan Plan: Patient was transfused, on Na tabs, IV ns, awaiting swallow evaluation and FOB. Continue with SNF meds. patient seen by nephro. Nutritional Asmnt/Malnutr-PDOC - Dietary Evaluation Malnutrition Findings (Please click <Entered> for more info): Nutritional Asmnt/Malnutrition Start: 08/25/17 16: 00 Text: Status: Complete Freq: Document 08/25/17 16:00 [facility] (Rec: 08/25/17 16:36 HENG [id number]) Nutritional Asmnt/Malnutrition Patient General Information Nutritional Screening High Risk Consult Diagnosis acute anemia, hyponatrmia, CARLOS ENRIQUE overCKI, DM, dementia, HTN Pertinent Medical Hx/Surgical Hx Chronic renal failure, DM, psychosis, dementia Subjective Information Consult received for high blood glucose. Pt seen lying in bed, awake and confused, partial teeth noted. Pt denied any chewing/swallowing probelm. Pt stated good appetite and likes orange jucie with breakfast. Spoke to RN, pt consumed 100% of breakfast this morning, no chewing or swallowing issue, tolerated CCHO diet. Performed physical exam, no fat/muscle wasting note. Current Diet Order/ Nutrition Support CCHO-60mg Pertinent Medications Folate, Novolog, Levemir, MVI, Vit C, Nacl IV, Nacl tab, Vit B1 Pertinent Labs 08/25 Na 134L, K 4.9, Cl 107, BUN 26H, Cr 1.7H, Glu 184H, Ca 8.5, Alb 3.2L, POC 104/161H Nutritional Hx/Data Height 1.68 m Height (Calculated Centimeters) 167.6 Current Weight (lbs) 63.412 kg Weight (Calculated Kilograms) 63.4 Weight (Calculated Grams) 30574.2 Homer Body Weight 142 % Homer Body Weight 98 Body Mass Index (BMI) 22.5 Weight Status Approriate GI Symptoms GI Symptoms None Difficult in: None Usual diet at home pureed CCHO MARIANA at SNF Skin Integrity/Comment: intact Current %PO Good (75-100%) Estimated Nutritional Goals BEE in Kcals: Using Current wt Calories/Kcals/Kg 25-30 Kcals Calculated 8755-9518 Protein: Using Current wt Protein g/k.8-1 Protein Calculated 51-64 Fluid: ml 8681-4386 Nutritional Problem 1. Problem Problem altered nutrition related lab values Etiology dx of DM and chronic renal failure Signs/Symptoms: Glu 184, BUN 26H, Cr 1.7H Malnutrition Alert Protein-Calorie Malnutrition N/A Is there a minimum of two criteria No selected? Query Text:Check all the applicable criteria. A minimum of two criteria are recommended for diagnosis of either severe or non-severe malnutrition. Intervention/Recommendation Comments 1. continue with current diet as ordered. 2. notified didactic program in dietetics director to add orange juice to breakfast and updated diet profile 3. monitor PO intake, wt weekly, nutrition related labs (glucose, renal labs), skin integrity 4. F/U as high risk in 2-3 days, 08/27-08/28 Expected Outcomes/Goals Expected Outcomes/Goals 1. PO intake continue to meet at least 70% of nutritional needs 2. wt stability, labs to improve, skin to remain intact
--- NOTE | 2017-08-26 10:26 | Diagnostic Imaging Report ---
Renal ultrasound HISTORY: Acute on chronic renal disease. COMPARISON: Renal ultrasound on 04/14/[address] abdomen and pelvis on 04/19/2017 Technique: Sonography of the kidneys and urinary bladder was performed in multiple planes. FINDINGS: Exam is limited due to body habitus. The right kidney measures 9.3 x 4.9 cm. The Left kidney measures 10.5 x 5.7 cm. No evidence of focal lesions or hydronephrosis. There is mild increased echogenicity of the kidneys. No evidence of elevated post residual bladder volumes. IMPRESSION: No evidence of hydronephrosis. Mild increased echogenicity of the kidneys which may be due to underlying medical renal disease.
[2017-08-26] MEDS: Multivitamin Tab PO SCH (11:02)
--- NOTE | 2017-08-26 17:29 | Consultation ---
DATE OF CONSULTATION: 08/26/2017 INPATIENT GI CONSULTATION CONSULTING PHYSICIAN: Dr. Nobles. REASON FOR CONSULTATION: Anemia. HISTORY OF PRESENT ILLNESS: The patient is a 66-year-old male with past medical history significant for chronic kidney disease, psychosis, depression who is admitted to the hospital with anemia. The patient is a permanent resident of a nursing facility and does not give a history, thus most of this history is obtained from the chart. By report, the patient was noted to have a hemoglobin of 7.5 at his nursing facility yesterday and thus he was transferred here for evaluation and transfusion. There is no report of previous GI bleeding workup in the past or report of overt GI bleeding from the nursing facility. At the current time, the patient has received 2 units of packed red blood cells and his hemoglobin has come up to 10.0 this morning. He does not appear to be uncomfortable although he does not participate in dialogue. PAST MEDICAL HISTORY: Chronic kidney disease, depression, psychosis, malnutrition, diverticulosis, type 2 diabetes, hypertension and dyslipidemia. PAST SURGICAL HISTORY: Unknown at this time. FAMILY HISTORY: Noncontributory. SOCIAL HISTORY: The patient is a permanent resident of a nursing facility. There is no documented history of alcohol use or cigarette use. REVIEW OF SYSTEMS: A 12-point review of systems is not possible given the patient has reduced mental status. CURRENT MEDICATIONS: Tylenol, Norvasc, aspirin, bisacodyl, Aricept, Lexapro, folate, insulin, milk of magnesia, Keppra, vitamin C, Risperdal, thiamine. PHYSICAL EXAMINATION: VITAL SIGNS: Blood pressure is 149/67, temperature 98.1, pulse of 72 beats per minute, respiratory rate of 18, oxygenation 95%. GENERAL: The patient is lying flat in bed. He is alert and oriented x 0, no apparent distress. HEAD, EARS, EYES, NOSE AND THROAT: Normocephalic, atraumatic-appearing head. There is no scleral icterus. Pupils are equal and reactive to light. Extraocular muscles are intact. Moist mucous membranes. NECK: Supple. No JVD, no thyromegaly, no lymphadenopathy. CHEST: Clear to auscultation bilaterally. CARDIOVASCULAR: S1, S2 present. Regular rate and rhythm. ABDOMEN: Obese, soft, nontender to palpation. The patient does tense to deep palpation although it is unclear if this is by pain or not. No obvious distention or rebound tenderness. EXTREMITIES: There is no pitting edema. Pulses are not palpable. SKIN: No obvious jaundice or other rashes. There is no cyanosis. LABORATORY DATA: White blood cell count is 12, hemoglobin 10.0 although on admission it was 7.8, platelet count is 197. Sodium 138, BUN is 23, creatinine 1.7, AST 27, ALT 28, total bilirubin 0.2. An ultrasound was done on the kidneys and shows no evidence of hydronephrosis. IMPRESSION: This is a 66-year-old male with chronic kidney disease, hypertension, type 2 diabetes and psychosis who is a permanent resident at a nursing facility who is currently admitted to the hospital with anemia. 1. Anemia. 2. Psychosis and reduced mental status. 3. Chronic kidney disease. 4. History of type 2 diabetes, hypertension. DISCUSSION: It is currently unknown if the patient has had a GI workup for anemia in the past although his blood count on admission of 7.8 is alarming. We will attempt to find out if the patient has had a recent colonoscopy although if this cannot be found out or if he has not had one, an EGD/colonoscopy is indicated for evaluation of GI blood loss. Another possibility is that the patient is anemic from a nutritional deficiency or chronic kidney disease although the patient will still need an endoscopic workup to exclude that as a possibility. Of note, the nurses do report the patient might not be eating well at the current time although there is no obvious sign of malnutrition on exam and there is no evidence of recent weight loss. Thus the patient is going to undergo a swallow evaluation today but we will not plan on G-tube placement at the current time. This can be done further down the line if the patient truly is not able to eat well although on physical exam he appears nourished. RECOMMENDATIONS: 1. EGD and colonoscopy tomorrow in the GI lab with bowel preparation tonight. The patient may need an NG tube to take the bowel preparation. 2. Cycle CBCs and transfuse as needed to keep hemoglobin above 8. 3. Further recommendations to follow endoscopy. 4. We will follow up the swallow evaluation and track the patient's progress with eating. Thank you for allowing me to participate in this patient's care. Please call with any further questions. JOB# [id number]
--- NOTE | 2017-08-26 18:10 | General Progress Note ---
Subjective - Review of Systems Service Date: 08/26/17 Subjective: alert, comfortable Objective - Results Result Diagrams: 08/26/17 05:04 08/26/17 05:04 Recent Labs: Laboratory Last Values WBC 12.0 Th/cmm (4.8-10.8) H D 08/26/17 05:04 RBC 3.43 Mil/cmm (3.80-5.80) L 08/26/17 05:04 Hgb 10.0 gm/dL (12-16) L 08/26/17 05:04 Hct 30.3 % (41.0-60) L 08/26/17 05:04 MCV 88.4 fl (80-99) 08/26/17 05:04 MCH 29.1 pg (27.0-31.0) 08/26/17 05:04 MCHC Differential 32.9 pg (28.0-36.0) 08/26/17 05:04 RDW 17.3 % (11.5-20.0) 08/26/17 05:04 Plt Count 197 Th/cmm (150-400) 08/26/17 05:04 MPV 8.4 fl 08/26/17 05:04 Neutrophils % 81.1 % (40.0-80.0) H 08/26/17 05:04 Lymphocytes % 9.0 % (20.0-50.0) L 08/26/17 05:04 Monocytes % 8.9 % (2.0-10.0) 08/26/17 05:04 Eosinophils % 0.8 % (0.0-5.0) 08/26/17 05:04 Basophils % 0.2 % (0.0-2.0) 08/26/17 05:04 Sodium 138 mEq/L (136-145) 08/26/17 05:04 Potassium 4.5 mEq/L (3.5-5.1) 08/26/17 05:04 Chloride 111 mEq/L (98-107) H 08/26/17 05:04 Carbon Dioxide 24.1 mEq/L (21.0-31.0) 08/26/17 05:04 Anion Gap 7.4 (7.0-16.0) 08/26/17 05:04 BUN 23 mg/dL (7-25) 08/26/17 05:04 Creatinine 1.7 mg/dL (0.7-1.3) H 08/26/17 05:04 Est GFR ( Amer) 52.3 ml/min (>90) 08/26/17 05:04 Est GFR (Non-Af Amer) 43.2 ml/min 08/26/17 05:04 BUN/Creatinine Ratio 13.5 08/26/17 05:04 Glucose 114 mg/dL (70-105) H D 08/26/17 05:04 POC Glucose 141 MG/DL (70 - 105) H 08/26/17 17:21 Hemoglobin A1c % 6.4 % (4.0-6.0) H 08/24/17 19:20 Uric Acid 5.6 mg/dL (4.4-7.6) 08/26/17 05:04 Calcium 8.3 mg/dL (8.6-10.3) L 08/26/17 05:04 Phosphorus 3.5 mg/dL (2.5-5.0) 08/26/17 05:04 Magnesium 2.3 mg/dL (1.9-2.7) 08/26/17 05:04 Ferritin 26 ng/mL (30-400) L 08/24/17 19:20 Total Bilirubin 0.2 mg/dL (0.3-1.0) L 08/26/17 05:04 AST 27 U/L (13-39) 08/26/17 05:04 ALT 28 U/L (7-52) 08/26/17 05:04 Alkaline Phosphatase 103 U/L (34-104) 08/26/17 05:04 Total Protein 6.1 gm/dL (6.0-8.3) 08/26/17 05:04 Albumin 3.0 gm/dL (4.2-5.5) L 08/26/17 05:04 Globulin 3.1 gm/dL 08/26/17 05:04 Albumin/Globulin Ratio 1.0 (1.0-1.8) 08/26/17 05:04 Vitamin B12 915 pg/mL (211-946) 08/24/17 19:20 Folic Acid >20.0 ng/mL (>3.0) 08/24/17 19:20 TSH 4.52 uIU/ml (0.34-5.60) 08/25/17 12:30 Blood Type A POSITIVE 08/24/17 19:20 Antibody Screen NEGATIVE 08/24/17 19:20 Crossmatch See Detail 08/24/17 19:20 - Physical Exam Vitals and I&O: Vital Signs Temp 98.5 F 08/26/17 15:25 Pulse 71 08/26/17 15:25 Resp 18 08/26/17 15:25 BP 165/66 08/26/17 15:25 Pulse Ox 95 08/26/17 15:25 Intake & Output 08/25/17 08/26/17 08/26/17 18:59 06:59 18:59 Intake Total 1255.5 1000 1000 Output Total 0 Balance 1255.5 1000 1000 Weight (lbs) 63.412 kg 64.183 kg Intake: Intake, IV Amount 655.5 1000 1000 D5-0.9%Ns 1,000 ml @ 100 1000 1000 mls/hr IV .Q10H [facility] Rx#: [id number] Sodium Chloride 0.9% 1, 655.5 000 ml @ 90 mls/hr IV . Q11H7M [facility] Rx#:[id number] Oral 600 Output: Stool 0 Other: # Voids 4 1 # Bowel Movements 0 Active Medications: Current Medications Acetaminophen (Tylenol) 650 mg PO Q4HR PRN PRN Reason: Mild Pain / Temp above 100 Stop: 10/23/17 22:10 Amlodipine Besylate (Norvasc) 10 mg PO DAILY [facility] Stop: 10/24/17 08:59 Last Admin: 08/26/17 11:00 Dose: Not Given Aspirin (Ecotrin) 81 mg PO DAILY [facility] Stop: 10/24/17 08:59 Last Admin: 08/26/17 11:02 Dose: Not Given Donepezil HCl (Aricept) 10 mg PO DAILY [facility] Stop: 10/24/17 08:59 Last Admin: 08/26/17 11:02 Dose: Not Given Escitalopram Oxalate (Lexapro) 10 mg PO DAILY [facility] PRN Reason: Protocol Stop: 10/24/17 08:59 Folic Acid (Folate) 1 mg PO DAILY [facility] Stop: 10/24/17 08:59 Last Admin: 08/26/17 11:02 Dose: Not Given Dextrose/Sodium Chloride (D5-0.9%Ns) 1,000 mls @ 100 mls/hr IV .Q10H [facility] Stop: 10/24/17 16:44 Last Admin: 08/26/17 15:18 Dose: 100 mls/hr Insulin Aspart (Novolog Insulin Sliding Scale) 0 units SUBQ ACHS [facility] PRN Reason: Protocol Stop: 10/24/17 07:29 Last Admin: 08/26/17 17:22 Dose: Not Given Insulin Detemir (Levemir Insulin) 5 units SUBQ HS [facility] PRN Reason: Protocol Stop: 10/24/17 20:59 Last Admin: 08/25/17 21:53 Dose: Not Given Levetiracetam (Keppra) 500 mg PO BID [facility] Stop: 10/24/17 08:59 Last Admin: 08/26/17 17:22 Dose: Not Given Magnesium Hydroxide (Milk Of Magnesia) 30 ml PO DAILY PRN PRN Reason: Constipation Stop: 10/23/17 22:12 Miscellaneous (Vte Chemical Prophylaxis Screen/ Admission) 1 ea [facility] PRN PRN PRN Reason: PROTOCOL Stop: 10/24/17 10:58 Multivitamins/Vitamin C (Theragran) 1 tab PO DAILY [facility] Stop: 10/24/17 08:59 Last Admin: 08/26/17 11:02 Dose: Not Given Pneumococcal Polyvalent Vaccine (Pneumovax) 0.5 ml IM .ONCE ONE Stop: 08/27/17 09:01 Risperidone (Risperdal) 1 mg PO [facility] PRN Reason: Protocol Stop: 10/24/17 20:59 Sodium Chloride (Nacl Tab) 1 gm PO DAILY [facility] Stop: 10/24/17 08:59 Last Admin: 08/26/17 11:02 Dose: Not Given Thiamine HCl (Vitamin B1) 100 mg PO DAILY [facility] Stop: 10/24/17 08:59 Last Admin: 08/26/17 11:03 Dose: Not Given General: Alert, No acute distress, Other (Confused, not oriented) HEENT: Atraumatic, PERRLA, Mucous membr. moist/pink Neck: Supple, +2 carotid pulse wo bruit Cardiovascular: Regular rate, Normal S1, Normal S2 Lungs: Clear to auscultation Abdomen: Bowel sounds, Soft Extremities: Other (No edema), no Edema Neurological: Sensation intact, Other (Unstable gait) Skin: Other (Warm and dry), no Rash Psych/Mental Status: Mood NL, Other (Confused, not oriented) - Procedures Procedures: Procedures Procedure Code Date BLOOD TRANSFUSION SERVICE 79343 04/12/17 TRANSFUSE NONAUT RED BLOOD CELLS IN PERIPH VEIN, [facility] [id number] 04/12/17 Assessment/Plan - Problem List Patient Problems: All Active Problems WANDERING AND UNABLE TO REDIRECT (Acute) - Assessment Assessment: CARLOS ENRIQUE on CKD Hyponatremia Severe anemia Depression Psychosis Severe Malnutrition - Plan Plan: Lab - Result Diagrams 08/26/17 05:04 08/26/17 05:04 Current Medications Acetaminophen (Tylenol) 650 mg PO Q4HR PRN PRN Reason: Mild Pain / Temp above 100 Stop: 10/23/17 22:10 Amlodipine Besylate (Norvasc) 10 mg PO DAILY [facility] Stop: 10/24/17 08:59 Last Admin: 08/26/17 11:00 Dose: Not Given Aspirin (Ecotrin) 81 mg PO DAILY [facility] Stop: 10/24/17 08:59 Last Admin: 08/26/17 11:02 Dose: Not Given Donepezil HCl (Aricept) 10 mg PO DAILY [facility] Stop: 10/24/17 08:59 Last Admin: 08/26/17 11:02 Dose: Not Given Escitalopram Oxalate (Lexapro) 10 mg PO DAILY [facility] PRN Reason: Protocol Stop: 10/24/17 08:59 Folic Acid (Folate) 1 mg PO DAILY [facility] Stop: 10/24/17 08:59 Last Admin: 08/26/17 11:02 Dose: Not Given Dextrose/Sodium Chloride (D5-0.9%Ns) 1,000 mls @ 100 mls/hr IV .Q10H [facility] Stop: 10/24/17 16:44 Last Admin: 08/26/17 15:18 Dose: 100 mls/hr Insulin Aspart (Novolog Insulin Sliding Scale) 0 units SUBQ ACHS [facility] PRN Reason: Protocol Stop: 10/24/17 07:29 Last Admin: 08/26/17 17:22 Dose: Not Given Insulin Detemir (Levemir Insulin) 5 units SUBQ HS [facility] PRN Reason: Protocol Stop: 10/24/17 20:59 Last Admin: 08/25/17 21:53 Dose: Not Given Levetiracetam (Keppra) 500 mg PO BID [facility] Stop: 10/24/17 08:59 Last Admin: 08/26/17 17:22 Dose: Not Given Magnesium Hydroxide (Milk Of Magnesia) 30 ml PO DAILY PRN PRN Reason: Constipation Stop: 10/23/17 22:12 Miscellaneous (Vte Chemical Prophylaxis Screen/ Admission) 1 ea [facility] PRN PRN PRN Reason: PROTOCOL Stop: 10/24/17 10:58 Multivitamins/Vitamin C (Theragran) 1 tab PO DAILY [facility] Stop: 10/24/17 08:59 Last Admin: 08/26/17 11:02 Dose: Not Given Pneumococcal Polyvalent Vaccine (Pneumovax) 0.5 ml IM .ONCE ONE Stop: 08/27/17 09:01 Risperidone (Risperdal) 1 mg PO HS [facility] PRN Reason: Protocol Stop: 10/24/17 20:59 Sodium Chloride (Nacl Tab) 1 gm PO DAILY [facility] Stop: 10/24/17 08:59 Last Admin: 08/26/17 11:02 Dose: Not Given Thiamine HCl (Vitamin B1) 100 mg PO DAILY [facility] Stop: 10/24/17 08:59 Last Admin: 08/26/17 11:03 Dose: Not Given Lab - Result Diagrams 08/26/17 05:04 08/26/17 05:04 Na up to 138 bun down to 23 cr. 1.7 likely baseline continue IVF Nutritional Asmnt/Malnutr-PDOC - Dietary Evaluation Malnutrition Findings (Please click <Entered> for more info): Nutritional Asmnt/Malnutrition Start: 08/25/17 16: 00 Text: Status: Complete Freq: Document 08/25/17 16:00 CASE (Rec: 08/25/17 16:36 HEN [email or web address]) Nutritional Asmnt/Malnutrition Patient General Information Nutritional Screening High Risk Consult Diagnosis acute anemia, hyponatrmia, CARLOS ENRIQUE overCKI, DM, dementia, HTN Pertinent Medical Hx/Surgical Hx Chronic renal failure, DM, psychosis, dementia Subjective Information Consult received for high blood glucose. Pt seen lying in bed, awake and confused, partial teeth noted. Pt denied any chewing/swallowing probelm. Pt stated good appetite and likes orange jucie with breakfast. Spoke to RN, pt consumed 100% of breakfast this morning, no chewing or swallowing issue, tolerated CCHO diet. Performed physical exam, no fat/muscle wasting note. Current Diet Order/ Nutrition Support CCHO-60mg Pertinent Medications Folate, Novolog, Levemir, MVI, Vit C, Nacl IV, Nacl tab, Vit B1 Pertinent Labs 08/25 Na 134L, K 4.9, Cl 107, BUN 26H, Cr 1.7H, Glu 184H, Ca 8.5, Alb 3.2L, POC 104/161H Nutritional Hx/Data Height 1.68 m Height (Calculated Centimeters) 167.6 Current Weight (lbs) 63.412 kg Weight (Calculated Kilograms) 63.4 Weight (Calculated Grams) 41756.2 [place] Body Weight 142 % [place] Body Weight 98 Body Mass Index (BMI) 22.5 Weight Status Approriate GI Symptoms GI Symptoms None Difficult in: None Usual diet at home pureed CCHO MARIANA at [facility] Skin Integrity/Comment: intact Current %PO Good (75-100%) Estimated Nutritional Goals BEE in Kcals: Using Current wt Calories/Kcals/Kg 25-30 Kcals Calculated 8689-1577 Protein: Using Current wt Protein g/k.8-1 Protein Calculated 51-64 Fluid: ml 1513-8916 Nutritional Problem 1. Problem Problem altered nutrition related lab values Etiology dx of DM and chronic renal failure Signs/Symptoms: Glu 184, BUN 26H, Cr 1.7H Malnutrition Alert Protein-Calorie Malnutrition N/A Is there a minimum of two criteria No selected? Query Text:Check all the applicable criteria. A minimum of two criteria are recommended for diagnosis of either severe or non-severe malnutrition. Intervention/Recommendation Comments 1. continue with current diet as ordered. 2. notified field clerk to add orange juice to breakfast and updated diet profile 3. monitor PO intake, wt weekly, nutrition related labs (glucose, renal labs), skin integrity 4. F/U as high risk in 2-3 days, 08/27-08/28 Expected Outcomes/Goals Expected Outcomes/Goals 1. PO intake continue to meet at least 70% of nutritional needs 2. wt stability, labs to improve, skin to remain intact
[2017-08-26] MEDS: Insulin Detemir 100 units/mL 10mL Vial SUBQ SCH (21:31)
[2017-08-27] MEDS: D5-0.9%NS 1,000 ML IV SCH (00:53)
[2017-08-27 06:01] LABS: % BASOPHILS 0.4 % (0.0-2.0); % EOSINOPHILS 4.4 % (0.0-5.0); % LYMPHOCYTES 21.8 % (20.0-50.0); % MONOCYTES 14.3 % (2.0-10.0); % NEUTROPHILS 59.1 % (40.0-80.0); HEMATOCRIT 30.6 % (41.0-60); HEMOGLOBIN 10.1 gm/dL (12-16); MEAN CELL VOLUME 88.6 fl (80-99); MEAN CORPUSCULAR HEMOGLOBIN 29.3 pg (27.0-31.0); MEAN CORPUSCULAR HGB CONC 33.1 pg (28.0-36.0); MEAN PLATELET VOLUME 8.1 fl; NEUTROPHILE ABSOLUTE 4.1 Th/cmm (1.8-8.0); PLATELET COUNT 206 Th/cmm (150-400); RED BLOOD COUNT 3.45 Mil/cmm (3.80-5.80); RED CELL DISTRIBUTION WIDTH 17.8 % (11.5-20.0)
[2017-08-27 06:22] LABS: INR 0.95 (0.5-1.4); PROTHROMBIN TIME (TEST) 9.9 SECONDS (9.5-11.5)
[2017-08-27 06:31] LABS: WHITE BLOOD COUNT 6.9 Th/cmm (4.8-10.8)
[2017-08-27 06:33] LABS: ALB/GLOB RATIO 0.9 (1.0-1.8); ANION GAP 8.8 (7.0-16.0); BILIRUBIN,TOTAL 0.3 mg/dL (0.3-1.0); BUN/CREATININE RATIO 9.4; CALCIUM SERUM 8.4 mg/dL (8.6-10.3); CARBON DIOXIDE 25.1 mEq/L (21.0-31.0); CREATININE - SERUM 1.6 mg/dL (0.7-1.3); POTASSIUM SERUM 3.9 mEq/L (3.5-5.1)
[2017-08-27 08:10] LABS: IRON SATURATION 12 % (15-55); TIBC (LC) 330 ug/dL (250-450); UIBC 289 ug/dL (111-343)
--- NOTE | 2017-08-27 08:13 | Diagnostic Imaging Report ---
Portable chest x-ray Time: 0759 hours History: Shortness of breath Allowing for portable technique the heart size is normal. No focal pulmonary parenchymal processes. No hilar or mediastinal abnormalities. Impression: No acute abnormalities.
--- NOTE | 2017-08-27 08:55 | General Progress Note ---
Subjective - Review of Systems Service Date: 08/27/17 Subjective: I am fine Objective - Results Result Diagrams: 08/27/17 04:34 08/27/17 04:34 Recent Labs: Laboratory Last Values WBC 6.9 Th/cmm (4.8-10.8) D 08/27/17 04:34 RBC 3.45 Mil/cmm (3.80-5.80) L 08/27/17 04:34 Hgb 10.1 gm/dL (12-16) L 08/27/17 04:34 Hct 30.6 % (41.0-60) L 08/27/17 04:34 MCV 88.6 fl (80-99) 08/27/17 04:34 MCH 29.3 pg (27.0-31.0) 08/27/17 04:34 MCHC Differential 33.1 pg (28.0-36.0) 08/27/17 04:34 RDW 17.8 % (11.5-20.0) 08/27/17 04:34 Plt Count 206 Th/cmm (150-400) 08/27/17 04:34 MPV 8.1 fl 08/27/17 04:34 Neutrophils % 59.1 % (40.0-80.0) 08/27/17 04:34 Lymphocytes % 21.8 % (20.0-50.0) 08/27/17 04:34 Monocytes % 14.3 % (2.0-10.0) H 08/27/17 04:34 Eosinophils % 4.4 % (0.0-5.0) 08/27/17 04:34 Basophils % 0.4 % (0.0-2.0) 08/27/17 04:34 PT 9.9 SECONDS (9.5-11.5) 08/27/17 04:34 INR 0.95 (0.5-1.4) 08/27/17 04:34 Sodium 139 mEq/L (136-145) 08/27/17 04:34 Potassium 3.9 mEq/L (3.5-5.1) 08/27/17 04:34 Chloride 109 mEq/L (98-107) H 08/27/17 04:34 Carbon Dioxide 25.1 mEq/L (21.0-31.0) 08/27/17 04:34 Anion Gap 8.8 (7.0-16.0) 08/27/17 04:34 BUN 15 mg/dL (7-25) 08/27/17 04:34 Creatinine 1.6 mg/dL (0.7-1.3) H 08/27/17 04:34 Est GFR ( Amer) 56.1 ml/min (>90) 08/27/17 04:34 Est GFR (Non-Af Amer) 46.3 ml/min 08/27/17 04:34 BUN/Creatinine Ratio 9.4 08/27/17 04:34 Glucose 92 mg/dL (70-105) D 08/27/17 04:34 POC Glucose 95 MG/DL (70 - 105) 08/27/17 05:55 Hemoglobin A1c % 6.4 % (4.0-6.0) H 08/24/17 19:20 Uric Acid 5.6 mg/dL (4.4-7.6) 08/26/17 05:04 Calcium 8.4 mg/dL (8.6-10.3) L 08/27/17 04:34 Phosphorus 3.5 mg/dL (2.5-5.0) 08/26/17 05:04 Magnesium 2.3 mg/dL (1.9-2.7) 08/26/17 05:04 Iron 41 ug/dL (38-169) 08/26/17 05:04 TIBC 330 ug/dL (250-450) 08/26/17 05:04 Iron Saturation 12 % (15-55) L 08/26/17 05:04 Unsaturated IBC 289 ug/dL (111-343) 08/26/17 05:04 Ferritin 26 ng/mL (30-400) L 08/24/17 19:20 Total Bilirubin 0.3 mg/dL (0.3-1.0) 08/27/17 04:34 AST 26 U/L (13-39) 08/27/17 04:34 ALT 28 U/L (7-52) 08/27/17 04:34 Alkaline Phosphatase 108 U/L (34-104) H 08/27/17 04:34 Total Protein 6.4 gm/dL (6.0-8.3) 08/27/17 04:34 Albumin 3.0 gm/dL (4.2-5.5) L 08/27/17 04:34 Globulin 3.4 gm/dL 08/27/17 04:34 Albumin/Globulin Ratio 0.9 (1.0-1.8) L 08/27/17 04:34 Vitamin B12 915 pg/mL (211-946) 08/24/17 19:20 Folic Acid >20.0 ng/mL (>3.0) 08/24/17 19:20 TSH 4.52 uIU/ml (0.34-5.60) 08/25/17 12:30 Blood Type A POSITIVE 08/24/17 19:20 Antibody Screen NEGATIVE 08/24/17 19:20 Crossmatch See Detail 08/24/17 19:20 - Physical Exam Vitals and I&O: Vital Signs Temp 98.2 F 08/27/17 04:00 Pulse 69 08/27/17 04:00 Resp 18 08/27/17 04:00 BP 158/72 08/27/17 04:00 Pulse Ox 94 08/27/17 04:00 Intake & Output 08/26/17 08/27/17 08/27/17 18:59 06:59 18:59 Intake Total 1480 4958.333 Balance 1480 4958.333 Weight (lbs) 64.183 kg 63.957 kg Intake: Intake, IV Amount 1000 958.333 D5-0.9%Ns 1,000 ml @ 100 1000 958.333 mls/hr IV .Q10H [facility] Rx#: [id number] Oral 480 Other 4000 Other: # Voids 4 3 # Bowel Movements 0 1 Stool Characteristics Liquid Liquid Active Medications: Current Medications Acetaminophen (Tylenol) 650 mg PO Q4HR PRN PRN Reason: Mild Pain / Temp above 100 Stop: 10/23/17 22:10 Amlodipine Besylate (Norvasc) 10 mg PO DAILY [facility] Stop: 10/24/17 08:59 Last Admin: 08/26/17 11:00 Dose: Not Given Aspirin (Ecotrin) 81 mg PO DAILY [facility] Stop: 10/24/17 08:59 Last Admin: 08/26/17 11:02 Dose: Not Given Donepezil HCl (Aricept) 10 mg PO DAILY [facility] Stop: 10/24/17 08:59 Last Admin: 08/26/17 11:02 Dose: Not Given Escitalopram Oxalate (Lexapro) 10 mg PO DAILY [facility] PRN Reason: Protocol Stop: 10/24/17 08:59 Folic Acid (Folate) 1 mg PO DAILY [facility] Stop: 10/24/17 08:59 Last Admin: 08/26/17 11:02 Dose: Not Given Dextrose/Sodium Chloride (D5-0.9%Ns) 1,000 mls @ 100 mls/hr IV .Q10H [facility] Stop: 10/24/17 16:44 Last Admin: 08/27/17 00:53 Dose: 100 mls/hr Insulin Aspart (Novolog Insulin Sliding Scale) 0 units SUBQ ACHS [facility] PRN Reason: Protocol Stop: 10/24/17 07:29 Last Admin: 08/26/17 21:31 Dose: Not Given Insulin Detemir (Levemir Insulin) 5 units SUBQ HS [facility] PRN Reason: Protocol Stop: 10/24/17 20:59 Last Admin: 08/26/17 21:31 Dose: Not Given Levetiracetam (Keppra) 500 mg PO BID [facility] Stop: 10/24/17 08:59 Last Admin: 08/26/17 17:22 Dose: Not Given Magnesium Hydroxide (Milk Of Magnesia) 30 ml PO DAILY [facility] PRN Reason: Constipation Stop: 10/23/17 22:12 Miscellaneous (Vte Chemical Prophylaxis Screen/ Admission) 1 ea [facility] PRN PRN PRN Reason: PROTOCOL Stop: 10/24/17 10:58 Multivitamins/Vitamin C (Theragran) 1 tab PO DAILY [facility] Stop: 10/24/17 08:59 Last Admin: 08/26/17 11:02 Dose: Not Given Pneumococcal Polyvalent Vaccine (Pneumovax) 0.5 ml IM .ONCE ONE Stop: 08/27/17 09:01 Risperidone (Risperdal) 1 mg PO HS [facility] PRN Reason: Protocol Stop: 10/24/17 20:59 Sodium Chloride (Nacl Tab) 1 gm PO DAILY [facility] Stop: 10/24/17 08:59 Last Admin: 08/26/17 11:02 Dose: Not Given Thiamine HCl (Vitamin B1) 100 mg PO DAILY [facility] Stop: 10/24/17 08:59 Last Admin: 08/26/17 11:03 Dose: Not Given General: Alert, No acute distress, Other (Confused, not oriented) HEENT: Atraumatic, PERRLA, Mucous membr. moist/pink Neck: Supple, +2 carotid pulse wo bruit Cardiovascular: Regular rate, Normal S1, Normal S2 Lungs: Clear to auscultation Abdomen: Bowel sounds, Soft Extremities: Other (No edema), no Edema Neurological: Sensation intact, Other (Unstable gait) Skin: Other (Warm and dry), no Rash Psych/Mental Status: Mood NL, Other (Confused, not oriented) - Procedures Procedures: Procedures Procedure Code Date BLOOD TRANSFUSION SERVICE 35931 04/12/17 TRANSFUSE NONAUT RED BLOOD CELLS IN PERIPH VEIN, [facility] [id number] 04/12/17 Assessment/Plan - Problem List Patient Problems: All Active Problems WANDERING AND UNABLE TO REDIRECT (Acute) - Assessment Assessment: Patient is awake, alert calm, in no acute distress. Creatinine improving, WBC normal. Dx: Acute anemia, Hyponatremia, CARLOS ENRIQUE over CKI, DM, Dementia, HTN - Plan Plan: Patient was transfused, on Na tabs, IV ns, awaiting swallow evaluation. Colonoscopy will be done today. Continue with SNF meds. patient seen by nephro. Nutritional Asmnt/Malnutr-PDOC - Dietary Evaluation Malnutrition Findings (Please click <Entered> for more info): Nutritional Asmnt/Malnutrition Start: 08/25/17 16: 00 Text: Status: Complete Freq: Document 08/25/17 16:00 LCHENG (Rec: 08/25/17 16:36 LCHENG [email or web address]) Nutritional Asmnt/Malnutrition Patient General Information Nutritional Screening High Risk Consult Diagnosis acute anemia, hyponatrmia, CARLOS ENRIQUE overCKI, DM, dementia, HTN Pertinent Medical Hx/Surgical Hx Chronic renal failure, DM, psychosis, dementia Subjective Information Consult received for high blood glucose. Pt seen lying in bed, awake and confused, partial teeth noted. Pt denied any chewing/swallowing probelm. Pt stated good appetite and likes orange jucie with breakfast. Spoke to RN, pt consumed 100% of breakfast this morning, no chewing or swallowing issue, tolerated CCHO diet. Performed physical exam, no fat/muscle wasting note. Current Diet Order/ Nutrition Support CCHO-60mg Pertinent Medications Folate, Novolog, Levemir, MVI, Vit C, Nacl IV, Nacl tab, Vit B1 Pertinent Labs 08/25 Na 134L, K 4.9, Cl 107, BUN 26H, Cr 1.7H, Glu 184H, Ca 8.5, Alb 3.2L, POC 104/161H Nutritional Hx/Data Height 1.68 m Height (Calculated Centimeters) 167.6 Current Weight (lbs) 63.412 kg Weight (Calculated Kilograms) 63.4 Weight (Calculated Grams) 88006.2 [place] Body Weight 142 % [place] Body Weight 98 Body Mass Index (BMI) 22.5 Weight Status Approriate GI Symptoms GI Symptoms None Difficult in: None Usual diet at home pureed CCHO MARIANA at [facility] Skin Integrity/Comment: intact Current %PO Good (75-100%) Estimated Nutritional Goals BEE in Kcals: Using Current wt Calories/Kcals/Kg 25-30 Kcals Calculated 2359-6679 Protein: Using Current wt Protein g/k.8-1 Protein Calculated 51-64 Fluid: ml 7716-3795 Nutritional Problem 1. Problem Problem altered nutrition related lab values Etiology dx of DM and chronic renal failure Signs/Symptoms: Glu 184, BUN 26H, Cr 1.7H Malnutrition Alert Protein-Calorie Malnutrition N/A Is there a minimum of two criteria No selected? Query Text:Check all the applicable criteria. A minimum of two criteria are recommended for diagnosis of either severe or non-severe malnutrition. Intervention/Recommendation Comments 1. continue with current diet as ordered. 2. notified senior warehouse clerk to add orange juice to breakfast and updated diet profile 3. monitor PO intake, wt weekly, nutrition related labs (glucose, renal labs), skin integrity 4. F/U as high risk in 2-3 days, 08/27-08/28 Expected Outcomes/Goals Expected Outcomes/Goals 1. PO intake continue to meet at least 70% of nutritional needs 2. wt stability, labs to improve, skin to remain intact
[2017-08-27] MEDS ORDERED: Pneumococcal Vaccine 0.5 mL Vial IM ONE (09:00)
[2017-08-27] MEDS: Multivitamin Tab PO SCH (09:39)
[2017-08-27] MEDS ORDERED: Lidocaine 2% 5mL Abboject IVP ONE (09:50)
[2017-08-27] MEDS ORDERED: Pantoprazole 40 mg EC Tab PO SCH (10:45)
--- NOTE | 2017-08-27 11:49 | Operative Report ---
DATE OF SURGERY: 08/27/2017 INPATIENT EGD AND COLONOSCOPY REPORT ENDOSCOPIST: Lemuel Mi MD PROCEDURE PERFORMED: EGD with biopsy and colonoscopy with biopsy. PREOPERATIVE DIAGNOSES: Anemia, possible gastrointestinal bleed. POSTOPERATIVE DIAGNOSES: Gastritis, antral erosions, diverticulosis, colon polyps, and hemorrhoids. INDICATIONS: The patient is a 66-year-old male, who is a permanent [place], who was noted to have hemoglobin of 7.5 and possible GI bleeding. Thus, he is here for EGD and colonoscopy. CONSENT: Informed consent was obtained from the patient's health care proxy. The risks and benefits of these procedures were discussed and include, but not limited to infection, bleeding, perforation, need for surgery, cardiopulmonary complications, missed pathology, and even . The patient's health care proxy indicated that they understood these risks and wished to go forward with the procedure and signed the consent form. ANESTHESIA: General anesthesia was used under the care of anesthesiologist for these procedures. PROCEDURE IN DETAIL: After the initiation of general anesthesia, the patient was placed in the left lateral decubitus position and a mouthpiece was inserted and secured. Next, a gastroscope was introduced into the mouth and guided under direct visualization into the esophagus, stomach and duodenum. The scope was then slowly withdrawn making sure to examine the entire mucosa. Retroflexion was performed in the stomach prior to scope straightening and withdrawal from the body. Next, the patient was repositioned into the colonoscopy position. A rectal exam was performed. Next, a well lubricated colonoscope was introduced into the anus and guided under direct visualization into the level of the cecum, which was confirmed by the presence of the appendiceal orifice and IC valve, which were photographed. The scope was then slowly and systematically withdrawn making sure to carefully examine the entire colonic mucosa. Retroflexion was performed in the rectum prior to scope straightening and withdrawal from the body. There were no obvious complications at the end of the procedure. FINDINGS: EGD PORTION: Esophagus: The GE junction was located at 37 cm from the incisors. There was no obvious esophagitis or ulceration in the esophagus. The Z-line was biopsied as it did appear somewhat irregular on endoscopic view. Stomach: The fundus, cardia and gastric body all appeared endoscopically normal. Within the antrum and on the angularis, there was gastritis and multiple areas of raised nodularity. This area was extensively biopsied and CHANELLE testing was performed. Endoscopically, this might be consistent with possible H. pylori disease versus NSAID disease versus intestinal metaplasia. Duodenum: The duodenal bulb and second portion appeared endoscopically normal. COLONOSCOPY PORTION: The Mercer bowel prep score was 3 in all segments of the colon after cleaning. There was severe diverticulosis noted in the ascending colon, which was nonbleeding at the time of the colonoscopy. A 3 mm flat polyp was found in the descending colon and removed completely with cold biopsy forceps. Within the rectum, there were linear erosions and ulceration consistent with possible constipation-induced ulcers. Additionally, there may have been an ulcer with heaped up edges versus polyp right at the anal verge. This area was biopsied. No other mass lesion was found. There were internal hemorrhoids seen on forward facing and retroflexed view that were moderate in size. IMPRESSION: 1. Gastritis with antral nodularity. Follow up biopsies. 2. Followup the Z-line biopsy. 3. Diverticulosis in the ascending colon. 4. Colon polyp. 5. Rectal ulceration and possible polyp, which was biopsied. RECOMMENDATIONS: 1. We will follow up the biopsy results and treat any H. pylori if found. 2. We would maintain the patient on daily PPI given the gastritis seen in the antrum on the EGD portion. 3. We will follow up the colon biopsy of the polyp. Next colonoscopy will be due in 5-10 years most likely. 4. We will follow up the biopsies of the rectum lesion. If this is found to be an adenoma, the patient may require repeat procedure for removal. However, if this is found to be benign tissue, then the patient will just need to be maintained on a very strong bowel regimen to prevent ulceration in the rectum due to fecal stasis and constipation. Thank you for allowing me to participate in this patient's care. Please call with any further questions. JOB# [id number]
[2017-08-27] MEDS: INSULIN ASPART SLIDING SCALE 100 UNITS/ML UNIT SUBQ SCH ×2 (11:56→17:16)
--- NOTE | 2017-08-27 15:23 | General Progress Note ---
Subjective - Review of Systems Service Date: 08/27/17 Subjective: alert, comfortable Objective - Results Result Diagrams: 08/27/17 04:34 08/27/17 04:34 Recent Labs: Laboratory Last Values WBC 6.9 Th/cmm (4.8-10.8) D 08/27/17 04:34 RBC 3.45 Mil/cmm (3.80-5.80) L 08/27/17 04:34 Hgb 10.1 gm/dL (12-16) L 08/27/17 04:34 Hct 30.6 % (41.0-60) L 08/27/17 04:34 MCV 88.6 fl (80-99) 08/27/17 04:34 MCH 29.3 pg (27.0-31.0) 08/27/17 04:34 MCHC Differential 33.1 pg (28.0-36.0) 08/27/17 04:34 RDW 17.8 % (11.5-20.0) 08/27/17 04:34 Plt Count 206 Th/cmm (150-400) 08/27/17 04:34 MPV 8.1 fl 08/27/17 04:34 Neutrophils % 59.1 % (40.0-80.0) 08/27/17 04:34 Lymphocytes % 21.8 % (20.0-50.0) 08/27/17 04:34 Monocytes % 14.3 % (2.0-10.0) H 08/27/17 04:34 Eosinophils % 4.4 % (0.0-5.0) 08/27/17 04:34 Basophils % 0.4 % (0.0-2.0) 08/27/17 04:34 PT 9.9 SECONDS (9.5-11.5) 08/27/17 04:34 INR 0.95 (0.5-1.4) 08/27/17 04:34 Sodium 139 mEq/L (136-145) 08/27/17 04:34 Potassium 3.9 mEq/L (3.5-5.1) 08/27/17 04:34 Chloride 109 mEq/L (98-107) H 08/27/17 04:34 Carbon Dioxide 25.1 mEq/L (21.0-31.0) 08/27/17 04:34 Anion Gap 8.8 (7.0-16.0) 08/27/17 04:34 BUN 15 mg/dL (7-25) 08/27/17 04:34 Creatinine 1.6 mg/dL (0.7-1.3) H 08/27/17 04:34 Est GFR ( Amer) 56.1 ml/min (>90) 08/27/17 04:34 Est GFR (Non-Af Amer) 46.3 ml/min 08/27/17 04:34 BUN/Creatinine Ratio 9.4 08/27/17 04:34 Glucose 92 mg/dL (70-105) D 08/27/17 04:34 POC Glucose 80 MG/DL (70 - 105) 08/27/17 11:37 Hemoglobin A1c % 6.4 % (4.0-6.0) H 08/24/17 19:20 Uric Acid 5.6 mg/dL (4.4-7.6) 08/26/17 05:04 Calcium 8.4 mg/dL (8.6-10.3) L 08/27/17 04:34 Phosphorus 3.5 mg/dL (2.5-5.0) 08/26/17 05:04 Magnesium 2.3 mg/dL (1.9-2.7) 08/26/17 05:04 Iron 41 ug/dL (38-169) 08/26/17 05:04 TIBC 330 ug/dL (250-450) 08/26/17 05:04 Iron Saturation 12 % (15-55) L 08/26/17 05:04 Unsaturated IBC 289 ug/dL (111-343) 08/26/17 05:04 Ferritin 26 ng/mL (30-400) L 08/24/17 19:20 Total Bilirubin 0.3 mg/dL (0.3-1.0) 08/27/17 04:34 AST 26 U/L (13-39) 08/27/17 04:34 ALT 28 U/L (7-52) 08/27/17 04:34 Alkaline Phosphatase 108 U/L (34-104) H 08/27/17 04:34 Total Protein 6.4 gm/dL (6.0-8.3) 08/27/17 04:34 Albumin 3.0 gm/dL (4.2-5.5) L 08/27/17 04:34 Globulin 3.4 gm/dL 08/27/17 04:34 Albumin/Globulin Ratio 0.9 (1.0-1.8) L 08/27/17 04:34 Vitamin B12 915 pg/mL (211-946) 08/24/17 19:20 Folic Acid >20.0 ng/mL (>3.0) 08/24/17 19:20 TSH 4.52 uIU/ml (0.34-5.60) 08/25/17 12:30 Blood Type A POSITIVE 08/24/17 19:20 Antibody Screen NEGATIVE 08/24/17 19:20 Crossmatch See Detail 08/24/17 19:20 - Physical Exam Vitals and I&O: Vital Signs Temp 96.4 F 08/27/17 13:00 Pulse 62 08/27/17 13:00 Resp 18 08/27/17 13:00 BP 160/80 08/27/17 13:00 Pulse Ox 100 08/27/17 13:00 Intake & Output 08/26/17 08/27/17 08/27/17 18:59 06:59 18:59 Intake Total 1480 4958.333 Balance 1480 4958.333 Weight (lbs) 64.183 kg 63.957 kg Intake: Intake, IV Amount 1000 958.333 D5-0.9%Ns 1,000 ml @ 100 1000 958.333 mls/hr IV .Q10H [facility] Rx#: [id number] Oral 480 Other 4000 Other: # Voids 4 3 # Bowel Movements 0 1 Stool Characteristics Liquid Liquid Active Medications: Current Medications Acetaminophen (Tylenol) 650 mg PO Q4HR PRN PRN Reason: Mild Pain / Temp above 100 Stop: 10/23/17 22:10 Amlodipine Besylate (Norvasc) 10 mg PO DAILY [facility] Stop: 10/24/17 08:59 Last Admin: 08/27/17 12:12 Dose: 10 mg Aspirin (Ecotrin) 81 mg PO DAILY [facility] Stop: 10/24/17 08:59 Last Admin: 08/27/17 09:38 Dose: Not Given Donepezil HCl (Aricept) 10 mg PO DAILY [facility] Stop: 10/24/17 08:59 Last Admin: 08/27/17 09:38 Dose: Not Given Escitalopram Oxalate (Lexapro) 10 mg PO DAILY [facility] PRN Reason: Protocol Stop: 10/24/17 08:59 Folic Acid (Folate) 1 mg PO DAILY [facility] Stop: 10/24/17 08:59 Last Admin: 08/27/17 09:38 Dose: Not Given Dextrose/Sodium Chloride (D5-0.9%Ns) 1,000 mls @ 100 mls/hr IV .Q10H [facility] Stop: 10/24/17 16:44 Last Admin: 08/27/17 00:53 Dose: 100 mls/hr Insulin Aspart (Novolog Insulin Sliding Scale) 0 units SUBQ ACHS [facility] PRN Reason: Protocol Stop: 10/24/17 07:29 Last Admin: 08/27/17 11:56 Dose: Not Given Insulin Detemir (Levemir Insulin) 5 units SUBQ HS [facility] PRN Reason: Protocol Stop: 10/24/17 20:59 Last Admin: 08/26/17 21:31 Dose: Not Given Levetiracetam (Keppra) 500 mg PO BID [facility] Stop: 10/24/17 08:59 Last Admin: 08/27/17 09:39 Dose: Not Given Magnesium Hydroxide (Milk Of Magnesia) 30 ml PO DAILY PRN PRN Reason: Constipation Stop: 10/23/17 22:12 Miscellaneous (Vte Chemical Prophylaxis Screen/ Admission) 1 ea MC PRN PRN PRN Reason: PROTOCOL Stop: 10/24/17 10:58 Multivitamins/Vitamin C (Theragran) 1 tab PO DAILY [facility] Stop: 10/24/17 08:59 Last Admin: 08/27/17 09:39 Dose: Not Given Pantoprazole Sodium (Protonix) 40 mg PO DAILY [facility] Stop: 10/26/17 10:44 Last Admin: 08/27/17 12:12 Dose: 40 mg Risperidone (Risperdal) 1 mg PO HS HOLGER PRN Reason: Protocol Stop: 10/24/17 20:59 Sodium Chloride (Nacl Tab) 1 gm PO DAILY [facility] Stop: 10/24/17 08:59 Last Admin: 08/27/17 09:39 Dose: Not Given Thiamine HCl (Vitamin B1) 100 mg PO DAILY [facility] Stop: 10/24/17 08:59 Last Admin: 08/27/17 09:39 Dose: Not Given General: Alert, No acute distress, Other (Confused, not oriented) HEENT: Atraumatic, PERRLA, Mucous membr. moist/pink Neck: Supple, +2 carotid pulse wo bruit Cardiovascular: Regular rate, Normal S1, Normal S2 Lungs: Clear to auscultation Abdomen: Bowel sounds, Soft Extremities: Other (No edema), no Edema Neurological: Sensation intact, Other (Unstable gait) Skin: Other (Warm and dry), no Rash Psych/Mental Status: Mood NL, Other (Confused, not oriented) - Procedures Procedures: Procedures Procedure Code Date BLOOD TRANSFUSION SERVICE 03529 04/12/17 TRANSFUSE NONAUT RED BLOOD CELLS IN PERIPH VEIN, PERC 63250F0 04/12/17 Assessment/Plan - Problem List Patient Problems: All Active Problems WANDERING AND UNABLE TO REDIRECT (Acute) - Assessment Assessment: CARLOS ENRIQUE on CKD Hyponatremia Severe anemia Depression Psychosis Severe Malnutrition - Plan Plan: Lab - Result Diagrams 08/26/17 05:04 08/26/17 05:04 Current Medications Acetaminophen (Tylenol) 650 mg PO Q4HR PRN PRN Reason: Mild Pain / Temp above 100 Stop: 10/23/17 22:10 Amlodipine Besylate (Norvasc) 10 mg PO DAILY [facility] Stop: 10/24/17 08:59 Last Admin: 08/26/17 11:00 Dose: Not Given Aspirin (Ecotrin) 81 mg PO DAILY [facility] Stop: 10/24/17 08:59 Last Admin: 08/26/17 11:02 Dose: Not Given Donepezil HCl (Aricept) 10 mg PO DAILY [facility] Stop: 10/24/17 08:59 Last Admin: 08/26/17 11:02 Dose: Not Given Escitalopram Oxalate (Lexapro) 10 mg PO DAILY HOLGER PRN Reason: Protocol Stop: 10/24/17 08:59 Folic Acid (Folate) 1 mg PO DAILY [facility] Stop: 10/24/17 08:59 Last Admin: 08/26/17 11:02 Dose: Not Given Dextrose/Sodium Chloride (D5-0.9%Ns) 1,000 mls @ 100 mls/hr IV .Q10H [facility] Stop: 10/24/17 16:44 Last Admin: 08/26/17 15:18 Dose: 100 mls/hr Insulin Aspart (Novolog Insulin Sliding Scale) 0 units SUBQ ACHS H[facility]GER PRN Reason: Protocol Stop: 10/24/17 07:29 Last Admin: 08/26/17 17:22 Dose: Not Given Insulin Detemir (Levemir Insulin) 5 units SUBQ HS H[facility]GER PRN Reason: Protocol Stop: 10/24/17 20:59 Last Admin: 08/25/17 21:53 Dose: Not Given Levetiracetam (Keppra) 500 mg PO BID [facility] Stop: 10/24/17 08:59 Last Admin: 08/26/17 17:22 Dose: Not Given Magnesium Hydroxide (Milk Of Magnesia) 30 ml PO DAILY PRN PRN Reason: Constipation Stop: 10/23/17 22:12 Miscellaneous (Vte Chemical Prophylaxis Screen/ Admission) 1 ea MC PRN PRN PRN Reason: PROTOCOL Stop: 10/24/17 10:58 Multivitamins/Vitamin C (Theragran) 1 tab PO DAILY [facility] Stop: 10/24/17 08:59 Last Admin: 08/26/17 11:02 Dose: Not Given Pneumococcal Polyvalent Vaccine (Pneumovax) 0.5 ml IM .ONCE ONE Stop: 08/27/17 09:01 Risperidone (Risperdal) 1 mg PO HS HOLGER PRN Reason: Protocol Stop: 10/24/17 20:59 Sodium Chloride (Nacl Tab) 1 gm PO DAILY [facility] Stop: 10/24/17 08:59 Last Admin: 08/26/17 11:02 Dose: Not Given Thiamine HCl (Vitamin B1) 100 mg PO DAILY [facility] Stop: 10/24/17 08:59 Last Admin: 08/26/17 11:03 Dose: Not Given Lab - Result Diagrams 08/27/17 04:34 08/27/17 04:34 Na up to 139 bun down to 15 cr. 1.6 likely baseline continue IVF results of EGD, Colonoscopy noted Nutritional Asmnt/Malnutr-PDOC - Dietary Evaluation Malnutrition Findings (Please click <Entered> for more info): Nutritional Asmnt/Malnutrition Start: 08/25/17 16: 00 Text: Status: Complete Freq: Document 08/25/17 16:00 TORIN (Rec: 08/25/17 16:36 CASEG [id number]) Nutritional Asmnt/Malnutrition Patient General Information Nutritional Screening High Risk Consult Diagnosis acute anemia, hyponatrmia, CARLOS ENRIQUE overCKI, DM, dementia, HTN Pertinent Medical Hx/Surgical Hx Chronic renal failure, DM, psychosis, dementia Subjective Information Consult received for high blood glucose. Pt seen lying in bed, awake and confused, partial teeth noted. Pt denied any chewing/swallowing probelm. Pt stated good appetite and likes orange jucie with breakfast. Spoke to RN, pt consumed 100% of breakfast this morning, no chewing or swallowing issue, tolerated CCHO diet. Performed physical exam, no fat/muscle wasting note. Current Diet Order/ Nutrition Support CCHO-60mg Pertinent Medications Folate, Novolog, Levemir, MVI, Vit C, Nacl IV, Nacl tab, Vit B1 Pertinent Labs 08/25 Na 134L, K 4.9, Cl 107, BUN 26H, Cr 1.7H, Glu 184H, Ca 8.5, Alb 3.2L, POC 104/161H Nutritional Hx/Data Height 1.68 m Height (Calculated Centimeters) 167.6 Current Weight (lbs) 63.412 kg Weight (Calculated Kilograms) 63.4 Weight (Calculated Grams) 35494.2 [place] Body Weight 142 % [place] Body Weight 98 Body Mass Index (BMI) 22.5 Weight Status Approriate GI Symptoms GI Symptoms None Difficult in: None Usual diet at home pureed CCHO [facility]IANA at [facility] Skin Integrity/Comment: intact Current %PO Good (75-100%) Estimated Nutritional Goals BEE in Kcals: Using Current wt Calories/Kcals/Kg 25-30 Kcals Calculated 6218-2256 Protein: Using Current wt Protein g/k.8-1 Protein Calculated 51-64 Fluid: ml 7401-2329 Nutritional Problem 1. Problem Problem altered nutrition related lab values Etiology dx of DM and chronic renal failure Signs/Symptoms: Glu 184, BUN 26H, Cr 1.7H Malnutrition Alert Protein-Calorie Malnutrition N/A Is there a minimum of two criteria No selected? Query Text:Check all the applicable criteria. A minimum of two criteria are recommended for diagnosis of either severe or non-severe malnutrition. Intervention/Recommendation Comments 1. continue with current diet as ordered. 2. notified dietitian assistant to add orange juice to breakfast and updated diet profile 3. monitor PO intake, wt weekly, nutrition related labs (glucose, renal labs), skin integrity 4. F/U as high risk in 2-3 days, 08/27-08/28 Expected Outcomes/Goals Expected Outcomes/Goals 1. PO intake continue to meet at least 70% of nutritional needs 2. wt stability, labs to improve, skin to remain intact
--- NOTE | 2017-08-30 16:55 | Pathology Report ---
[id number] Collection Date: 08/27/2017 Surgeon: Dr. Mike Mi Specimen Description: 1. Antrum biopsy 2. Gastroesophageal junction biopsy 3. Descending colon polyp 4. Rectal biopsy Gross Description: Part I: Received in formalin are three khalil soft tissue fragments ranging from 0.1 to 0.2 cm in greatest dimension. Totally submitted in one cassette labeled A. Gross Description: Part II: Received in formalin are two khalil soft tissue fragments ranging from 0.1 to 0.2 cm in greatest dimension. Totally submitted in one cassette labeled B. Gross Description: Part III: Received in formalin is a single khalil soft tissue fragment measuring 0.1 cm in greatest dimension. Totally submitted in one cassette labeled C. Gross Description: Part IV: Received in formalin are two khalil soft tissue fragments ranging from 0.1 to 0.2 cm in greatest dimension. Totally submitted in one cassette labeled D. Microscopic Description: Part I: The histologic sections show gastric mucosa with chronic inflammation present consisting of lymphocytes and plasma cells. The Giemsa stain shows no evidence for Helicobacter pylori. Diagnosis: Part I: 1. Chronic gastritis, antrum biopsy. 2. The Giemsa stain is negative for Helicobacter pylori. Microscopic Description: Part II: The histologic sections show glandular mucosa with chronic inflammation present consisting of lymphocytes and plasma cells. The Alcian blue stain shows no significant abnormalities. The PAS stain shows no evidence for fungus. Diagnosis: Part II: Chronic inflammation consistent with chronic esophagogastritis (gastroesophageal junction biopsy). Microscopic Description: Part III: The histologic sections show a portion of benign colon mucosa with mild chronic inflammation present consisting of lymphocytes and plasma cells. There is no evidence for ulceration, and no adenomatous changes are appreciated. Diagnosis: Part III: Mild nonspecific chronic inflammation, descending colon. Microscopic Description: Part IV: The histologic sections show colorectal mucosa with mild chronic inflammation present consisting of lymphocytes and plasma cells. There is no evidence for ulceration, and no adenomatous changes are appreciated. Diagnosis: Part IV: Mild nonspecific chronic inflammation, rectal biopsy. [facility]# [id number]
== END 2017-08-27 18:54 | disposition home or self-care (01) | DRG 682 ==
LOC: ER 18:36 → MSI 21:15
PROVIDERS: ADMIT General Practice; ATTEND General Practice
PROC: 30233N1 Transfusion of Nonautologous Red Blood Cells into Peripheral Vein, Percutaneous Approach (ICD-10-PCS; 2017-08-25)
PROC: 0DB48ZX Excision of Esophagogastric Junction, Via Natural or Artificial Opening Endoscopic, Diagnostic (ICD-10-PCS; principal; 2017-08-27)
PROC: 0DB68ZX Excision of Stomach, Via Natural or Artificial Opening Endoscopic, Diagnostic (ICD-10-PCS; 2017-08-27)
PROC: 0DBQ8ZX Excision of Anus, Via Natural or Artificial Opening Endoscopic, Diagnostic (ICD-10-PCS; 2017-08-27)
PROC: 0DBM8ZX Excision of Descending Colon, Via Natural or Artificial Opening Endoscopic, Diagnostic (ICD-10-PCS; 2017-08-27)
PROC: 0DBP8ZX Excision of Rectum, Via Natural or Artificial Opening Endoscopic, Diagnostic (ICD-10-PCS; 2017-08-27)
DX: N17.9 Acute kidney failure, unspecified (principal); E43 Unspecified severe protein-calorie malnutrition; E11.22 Type 2 diabetes mellitus with diabetic chronic kidney disease; F03.90 Unspecified dementia, unspecified severity, without behavioral disturbance, psychotic disturbance, mood disturbance, and anxiety; R13.10 Dysphagia, unspecified; E87.1 Hypo-osmolality and hyponatremia; K62.6 Ulcer of anus and rectum; E86.9 Volume depletion, unspecified; K62.1 Rectal polyp; I12.9 Hypertensive chronic kidney disease with stage 1 through stage 4 chronic kidney disease, or unspecified chronic kidney disease; I25.10 Atherosclerotic heart disease of native coronary artery without angina pectoris; F32.9 Major depressive disorder, single episode, unspecified; D63.8 Anemia in other chronic diseases classified elsewhere; E78.5 Hyperlipidemia, unspecified; F29 Unspecified psychosis not due to a substance or known physiological condition; N18.3 Chronic kidney disease, stage 3 (moderate); K29.70 Gastritis, unspecified, without bleeding; K64.8 Other hemorrhoids; K57.30 Diverticulosis of large intestine without perforation or abscess without bleeding; K25.9 Gastric ulcer, unspecified as acute or chronic, without hemorrhage or perforation; K63.5 Polyp of colon; Z68.23 Body mass index [BMI] 23.0-23.9, adult; Z83.3 Family history of diabetes mellitus; Z82.49 Family history of ischemic heart disease and other diseases of the circulatory system; Z79.82 Long term (current) use of aspirin; Z79.4 Long term (current) use of insulin
CPT/HCPCS: 36415-UA; 71010-TC; 76770-TC; 80053-TC; 82607-90; 82728-90; 82746-90; 82948-90; 83036-90; 83540-90; 83550-90; 83735-TC; 84100-TC; 84443-TC; 84550-TC; 85025-TC; 85610-TC; 86850-TC; 86900-TC; 86901-TC; 86922-TC; 87338-TC; 93005; J1815; J2704; J7030; J7040; J7042; P9016; X3401; X6470; Z7502; Z7506; Z7610

== ENCOUNTER 2018-11-20 12:04 | Emergency (ER) | payer MEDICARE, MEDICAID ==
[2018-11-20 13:04] LABS: % BASOPHILS 0.6 % (0.0-2.0); % EOSINOPHILS 2.4 % (0.0-5.0); % LYMPHOCYTES 15.8 % (20.0-50.0); % MONOCYTES 9.1 % (2.0-10.0); % NEUTROPHILS 72.1 % (40.0-80.0); EOSINOPHILE ABSOLUTE 0.2 Th/cmm (0.1-0.4); HEMATOCRIT 35.1 % (41.0-60); HEMOGLOBIN 11.9 gm/dL (12-16); LYMPHOCYTE ABSOLUTE 1.2 Th/cmm (1.5-3.0); MEAN CELL VOLUME 93.7 fl (80-99); MEAN CORPUSCULAR HEMOGLOBIN 31.7 pg (27.0-31.0); MEAN CORPUSCULAR HGB CONC 33.8 pg (28.0-36.0); MEAN PLATELET VOLUME 7.4 fl; MONOCYTE ABSOLUTE 0.7 Th/cmm (0.3-1.0); NEUTROPHILE ABSOLUTE 5.2 Th/cmm (1.8-8.0); PLATELET COUNT 240 Th/cmm (150-400); RED BLOOD COUNT 3.74 Mil/cmm (3.80-5.80); RED CELL DISTRIBUTION WIDTH 13.8 % (11.5-20.0); WHITE BLOOD COUNT 7.3 Th/cmm (4.8-10.8)
[2018-11-20 13:21] LABS: ANION GAP 11.4 (7.0-16.0); CALCIUM SERUM 8.8 mg/dL (8.6-10.3); CARBON DIOXIDE 24.4 mEq/L (21.0-31.0); GFR AFRICAN-AMERICAN 18.3 ml/min (>90); GFR NON AFRICAN-AMERICAN 15.1 ml/min; POTASSIUM SERUM 4.8 mEq/L (3.5-5.1)
[2018-11-20 13:25] LABS: CREATININE - SERUM 4.2 mg/dL (0.7-1.3)
[2018-11-20] MEDS ORDERED: Lactated Ringer 1,000 ML IV ONE (13:28)
[2018-11-20 14:32] LABS: URINE SOURCE CLEAN C
[2018-11-20 14:35] LABS: BILIRUBIN,TOTAL 0.3 mg/dL (0.3-1.0); MAGNESIUM 2.4 mg/dL (1.9-2.7)
[2018-11-20 14:39] LABS: URINE BILIRUBIN NEGATIVE (NEGATIVE); URINE BLOOD SMALL (NEGATIVE); URINE GLUCOSE (UA) NEGATIVE (NEGATIVE); URINE KETONE NEGATIVE (NEGATIVE); URINE LEUKOCYTE ESTERASE NEGATIVE (NEGATIVE); URINE MICROSCOPIC INDICATED? YES; URINE NITRATE NEGATIVE (NEGATIVE); URINE PROTEIN 100 mg/dL (NEGATIVE); URINE UROBILINOGEN 0.2 E.U./dL (0.2 - 1.0)
[2018-11-20 14:51] LABS: AMPHETAMINE URINE NEGATIVE (NEGATIVE); BARBITURATES URINE NEGATIVE (NEGATIVE); BENZODIAZEPINES QUAL URINE NEGATIVE (NEGATIVE); CANNABINOID THC NEGATIVE (NEGATIVE); COCAINE METABOLITE QUAL URINE NEGATIVE (NEGATIVE); METHADONE URINE NEGATIVE (NEGATIVE); METHAMPHETAMINES QUAL URINE NEGATIVE (NEGATIVE); OPIATES (MORPHINE) QUAL. URINE NEGATIVE (NEGATIVE); PHENCYCLIDINE (PCP) URINE NEGATIVE (NEGATIVE); TRICYCLICS (TCA) QUAL. URINE NEGATIVE (NEGATIVE)
[2018-11-20 15:00] LABS: URINE CLARITY CLEAR (CLEAR); URINE COLOR YELLOW; URINE RBC NONE SEEN /hpf (0-5)
[2018-11-20 15:01] LABS: URINE BACTERIA FEW /hpf (NONE SEEN); URINE EPITHELIAL CELLS NONE SEEN /lpf (FEW)
--- NOTE | 2018-11-20 15:07 | ED Physician Chart ---
ED Chief Complaint/HPI - Patient Information Date Seen:: 11/20/18 Time Seen:: 12:22 Chief Complaint:: left upper lid closed & swollen History of Present Illness:: left upper lid closed & swollen. seen by an eye Óscar and told to observe it 4 days ago. diagnosed with new onset of ptosis. Allergies:: Allergies Allergy/AdvReac Type Severity Reaction Status Date / Time No Known Allergies Allergy Verified 11/20/18 12:22 Vitals:: Vital Signs - 8 hr 11/20/18 11/20/18 12:22 13:54 Temp 97.7 F 97.4 F HR 65 57 RR 18 10 BP 181/87 154/75 O2 Sat % 100 97 Historian:: Medical Records Review:: Nurse's Note Reviewed, Transfer documents Reviewed ED Review of Systems - Review of Systems General/Constitutional: No fever, No chills, No weight loss, No weakness, No diaphoresis, No edema, No loss of appetite Skin: No skin lesions, No rash, No bruising Head: No headache, No light-headedness Eyes: No loss of vision, No pain, No diplopia ENT: No earache, No nasal drainage, No sore throat, No tinnitus, Other (left upper lid swollen and closed.) Neck: No neck pain, No swelling, No thyromegaly, No stiffness, No mass noted Cardio Vascular: No chest pain, No palpitations, No PND, No orthopnea, No edema Pulmonary: No SOB, No cough, No sputum, No wheezing GI: No nausea, No vomiting, No diarrhea, No pain, No melena, No hematochezia, No constipation, No hematemesis G/U: No dysuria, No frequency, No hematuria Musculoskeletal: No bone or joint pain, No back pain, No muscle pain Endocrine: No polyuria, No polydipsia Psychiatric: No prior psych history, No depression, No anxiety, No suicidal ideation Hematopoietic: No bruising, No lymphadenopathy Allergic/Immuno: No urticaria, No angioedema Neurological: No syncope, No focal symptoms, No weakness, No paresthesia, No headache, No seizure, No dizziness, No confusion, No vertigo, Other (LEFT UPPER LID IS SWOLLEN AND CLOSED. PATIENT CAN NOT OPEN UP HIS LEFT UPPER LID.) ED Past Medical History - Past Medical History Obtainable: No Past Medical History: HTN, DM, Seizures, Other (diverticulosis; dysphagia, oropharyngeal phase; pneumonia; chronic kidney disease; anemia) Psychiatricy History: Depression, Dementia Family Medical History - Family Member Mother History Unknown: Yes Ethnicity: Living Status: Still Living Hx Family Hypertension: Yes Hx Family Diabetes: Yes ED Physical Exam - Physical Examination General/Constitutional: Awake, Well-developed, well-nourished, Alert, No distress, Non-toxic appearing Head: Atraumatic Eyes: PERRL Other Eyes comments:: LEFT UPPER LID IS CLOSED AND SWOLLEN. PATIENT IS NOT ABLE TO OPEN HIS LID IN THE LEAST. THIS IS A THIRD NERVE PALSY. both pupils are 2 mm to 1 mm reactive. Right eye is dysconjugate gaze. able to count fingers accurately. Skin: Nl inspection, No rash, No skin lesions, No ecchymosis, Well hydrated, No lymphadenopathy ENMT: External ears, nose nl Neck: Nontender, No nuchal rigidity, No stridor Respiratory: Nl effort/Exclusion, Clear to Auscultation, No Wheeze/Rhonchi/Rales Cardio Vascular: RRR, No murmur, gallop, rubs, NL S1 S2 GI: No tenderness/rebounding/guarding, No organomegaly, No hernia, Normal BS's, Nondistended, No mass/bruits, No McBurney tenderness Extremities: No tenderness or effusion, Full ROM, normal strength in all extremities, No edema, Normal digits & nails Neuro/Psych: Alert/oriented, Normal sensory exam, Normal motor strength Other Neuro/Psych comments:: LEFT UPPER LID IS CLOSED AND SWOLLEN. PATIENT IS NOT ABLE TO OPEN HIS LID IN THE LEAST. THIS IS A THIRD NERVE PALSY. both pupils are 2 mm to 1 mm reactive. Right eye is dysconjugate gaze. ED Labs/Radiology/EKG Results - Lab Results Results: Laboratory Tests 11/20/18 11/20/18 11/20/18 12:57 12:57 12:57 WBC 7.3 RBC 3.74 L Hgb 11.9 L Hct 35.1 L MCV 93.7 MCH 31.7 H MCHC Differential 33.8 RDW 13.8 Plt Count 240 MPV 7.4 Neutrophils % 72.1 Lymphocytes % 15.8 L Monocytes % 9.1 Eosinophils % 2.4 Basophils % 0.6 Sodium 136 Potassium 4.8 Chloride 105 Carbon Dioxide 24.4 Anion Gap 11.4 BUN 46 H Creatinine 4.2 H* Est GFR ( Amer) 18.3 Est GFR (Non-Af Amer) 15.1 BUN/Creatinine Ratio 11.0 Glucose 104 Calcium 8.8 Troponin I 0.01 TSH Urine Opiates Screen Urine Methadone Screen Ur Barbiturates Screen Ur Tricyclics Screen Ur Phencyclidine Scrn Amphetamines Screen U Methamphetamines Scrn U Benzodiazepines Scrn U Cocaine Metab Screen U Cannabinoids Screen 11/20/18 11/20/18 13:30 14:09 WBC RBC Hgb Hct MCV MCH MCHC Differential RDW Plt Count MPV Neutrophils % Lymphocytes % Monocytes % Eosinophils % Basophils % Sodium Potassium Chloride Carbon Dioxide Anion Gap BUN Creatinine Est GFR ( Amer) Est GFR (Non-Af Amer) BUN/Creatinine Ratio Glucose Calcium Troponin I TSH 3.61 Urine Opiates Screen NEGATIVE Urine Methadone Screen NEGATIVE Ur Barbiturates Screen NEGATIVE Ur Tricyclics Screen NEGATIVE Ur Phencyclidine Scrn NEGATIVE Amphetamines Screen NEGATIVE U Methamphetamines Scrn NEGATIVE U Benzodiazepines Scrn NEGATIVE U Cocaine Metab Screen NEGATIVE U Cannabinoids Screen NEGATIVE ED Assessment - Assessment General Assessment: EKG from 13:40:59 p.m. reveals normal sinus rhythm with prolonged [place] interval. CXR per my reading: no left upper lung mass (Pancoast tumor) with left sided ptosis. 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 PRESENTED CASE TO DR. STRICKLAND AT 3:30 P.M. WHO ACCEPTED THIS PATIENT TO BE EVALUATED HERE. TOLD HIM THAT THIS IS A THIRD NERVE PALSY ON THE LEFT WHICH IS CONCERNING FOR ANEURYSM OR NEOPLASM CAUSING THE PROBLEM. ALSO PRESENTED THE FACT THAT THE PATIENT IS IN RENAL FAILURE (UP FROM 2.8 TO CREATININE OF 4.2). HE AGREES THAT WE NEED THIS PATIENT TO BE TRANSFERRED TO AN [facility] HIGHER LEVEL OF CARE WHERE AN STRAND AND BINDER CONTROLLER AND NEUROLOGIST ARE AVAILABLE FOR FURTHER WORK UP. ED Septic Shock - . Is Septic Shock (SBP<90, OR Lactate>4 mmol\L) present?: No - <6hrs of presentation: Vital Signs: Vital Signs - 8 hr 11/20/18 11/20/18 12:22 13:54 Temp 97.7 F 97.4 F HR 65 57 RR 18 10 BP 181/87 154/75 O2 Sat % 100 97 ED Reassessment (Disposition) - Reassessment Reassessment:: PRESENTED CASE TO DR. STRICKLAND AT 3:30 P.M. WHO ACCEPTED THIS PATIENT TO BE EVALUATED HERE. TOLD HIM THAT THIS IS A THIRD NERVE PALSY ON THE LEFT WHICH IS CONCERNING FOR ANEURYSM OR NEOPLASM CAUSING THE PROBLEM. ALSO PRESENTED THE FACT THAT THE PATIENT IS IN RENAL FAILURE (UP FROM 2.8 TO CREATININE OF 4.2). HE AGREES THAT WE NEED THIS PATIENT TO BE TRANSFERRED TO AN [facility] HIGHER LEVEL OF CARE WHERE AN STRAND AND BINDER CONTROLLER AND NEUROLOGIST ARE AVAILABLE FOR FURTHER WORK UP Reassessment Condition:: Unchanged - Diagnosis Diagnosis:: Left third nerve palsy in a patient who needs further workup up for an aneurysm and neoplasm. Renal failure, creatinine up from 2.8 to 4.2 Anemia Hematuria Proteinuria - Patient Disposition Discharge/Transfer:: Acute Care (other hosp) Condition at Disposition:: Stable, Unchanged
[2018-11-20 15:12] LABS: ALB/GLOB RATIO 1.3 (1.0-1.8); ALBUMIN 3.9 gm/dL (4.2-5.5); BILIRUBIN,DIRECT 0.08 mg/dL (0.0-0.2); TOTAL PROTEIN,SERUM 6.9 gm/dL (6.0-8.3)
--- NOTE | 2018-11-21 08:25 | Diagnostic Imaging Report ---
Head CT without intravenous contrast Indication: Left third nerve palsy, rule out aneurysm or cancer Comparison: None Technique: Axial images were obtained from the vertex to the skull base without IV contrast. Coronal reconstructions were made. Total DLP: 690, [id number] FINDINGS: Images of the brain obtained without contrast demonstrate no evidence of an acute hemorrhage. Atrophy is noted. Diffuse white matter disease is noted. Encephalomalacia of the right parietal-occipital lobe is also noted. There is also evidence of encephalomalacia along the left cerebellar hemisphere. No gross mass lesions identified. No midline shift. Diffuse atherosclerotic vascular disease is noted. No evidence of a skull fracture or focal soft tissue swelling. The visualized paranasal sinuses demonstrate mucosal thickening. Old nasal fractures are noted. IMPRESSION: No evidence of an acute intracranial hemorrhage. Encephalomalacia and likely old infarct involving the right parietal and occipital regions Additional area of encephalomalacia and likely old infarct along the left cerebellar region. Diffuse supratentorial white matter disease which is nonspecific and may be due to chronic microvessel ischemia. Atrophy. Atherosclerotic vascular disease Given clinical findings of third nerve palsy, and concern for underlying aneurysm or cancer, MRI with IV contrast or MRA examination may also be obtained for further assessment.
--- NOTE | 2018-11-21 08:35 | Diagnostic Imaging Report ---
Chest x-ray (single view, AP) HISTORY: Cough The heart size is normal. No focal pulmonary processes. No hilar or mediastinal abnormalities. IMPRESSION: No acute abnormalities
== END 2018-11-21 01:10 | disposition short-term general hospital (02) ==
LOC: ER 12:04
DX: H49.02 Third [oculomotor] nerve palsy, left eye (principal); N19 Unspecified kidney failure; D64.9 Anemia, unspecified; R80.9 Proteinuria, unspecified; R31.9 Hematuria, unspecified; E11.9 Type 2 diabetes mellitus without complications; I10 Essential (primary) hypertension; F32.9 Major depressive disorder, single episode, unspecified; F03.90 Unspecified dementia, unspecified severity, without behavioral disturbance, psychotic disturbance, mood disturbance, and anxiety
CPT/HCPCS: 36415-UA; 70450-TC; 71045-TC; 80048-TC; 80076-TC; 80307; 81001-TC; 83735-TC; 84443-TC; 84484-TC; 85025-TC; 93005; 96374; 96376; J2060; Z7610

== ENCOUNTER 2019-03-24 15:27 | Inpatient (IN) | payer MEDICARE, MEDICAID ==
--- NOTE | 2019-03-24 15:49 | ED Physician Chart ---
ED Chief Complaint/HPI - Patient Information Date Seen:: 03/24/19 Time Seen:: 15:43 Chief Complaint:: abnormal labs History of Present Illness:: this is a chronically ill 68 yo male sent from a senior care for evaluation and treatment in regards to his abnormal labs. Allergies:: Allergies Allergy/AdvReac Type Severity Reaction Status Date / Time No Known Allergies Allergy Verified 11/20/18 12:22 Historian:: Medical Records Review:: Nurse's Note Reviewed, Old Chart Reviewed ED Review of Systems - Review of Systems General/Constitutional: No fever, No chills, No weight loss, No weakness, No diaphoresis, No edema, No loss of appetite Skin: No skin lesions, No rash, No bruising Head: No headache, No light-headedness Eyes: No loss of vision, No pain, No diplopia ENT: No earache, No nasal drainage, No sore throat, No tinnitus Neck: No neck pain, No swelling, No thyromegaly, No stiffness, No mass noted Cardio Vascular: No chest pain, No palpitations, No PND, No orthopnea, No edema Pulmonary: No SOB, No cough, No sputum, No wheezing GI: No nausea, No vomiting, No diarrhea, No pain, No melena, No hematochezia, No constipation, No hematemesis G/U: No dysuria, No frequency, No hematuria Musculoskeletal: No bone or joint pain, No back pain, No muscle pain Endocrine: No polyuria, No polydipsia Psychiatric: No prior psych history, No depression, No anxiety, No suicidal ideation Hematopoietic: No bruising, No lymphadenopathy Allergic/Immuno: No urticaria, No angioedema Neurological: No syncope, No focal symptoms, No weakness, No paresthesia, No headache, No seizure, No dizziness, No confusion, No vertigo ED Past Medical History - Past Medical History Obtainable: Yes Past Medical History: DM, CAD, CHF, Seizures, Dementia Family History: None Social History: Non Smoker, No Alcohol, No Drug Use, Care Facility Surgical History: None Psychiatricy History: Dementia Family Medical History - Family Member Mother History Unknown: Yes Ethnicity: Living Status: Still Living Hx Family Hypertension: Yes Hx Family Diabetes: Yes ED Physical Exam - Physical Examination General/Constitutional: Awake, Well-developed, well-nourished (thin and cachexic ), Alert, No distress, GCS 15, Non-toxic appearing, Ambulatory Other Gen/Cons comments:: disoriented and lethargic Head: Atraumatic Eyes: Lids, conjuctiva normal, PERRL, EOMI Skin: Nl inspection, No rash, No skin lesions, No ecchymosis, Well hydrated, No lymphadenopathy ENMT: External ears, nose nl, Nasal exam nl, Lips, teeth, gums nl Neck: Nontender, Full ROM w/o pain, No JVD, No nuchal rigidity, No bruit, No mass, No stridor Respiratory: Nl effort/Exclusion, Clear to Auscultation, No Wheeze/Rhonchi/Rales Cardio Vascular: RRR, No murmur, gallop, rubs, NL S1 S2 GI: No tenderness/rebounding/guarding, No organomegaly, No hernia, Normal BS's, Nondistended, No mass/bruits, No McBurney tenderness : No CVA tenderness Extremities: No tenderness or effusion, Full ROM, normal strength in all extremities, No edema, Normal digits & nails Neuro/Psych: Alert/oriented, DTR's symmetric, Normal sensory exam, Normal motor strength, Judgement/insight normal, Mood normal, Normal gait, No focal deficits Misc: Normal back, No paraspinal tenderness ED Labs/Radiology/EKG Results - Lab Results Results: Abnormal Lab Results 03/24/19 03/24/19 03/24/19 16:00 16:00 16:00 WBC 6.8 RBC 3.21 L Hgb 10.1 L Hct 30.0 L MCV 93.5 MCH 31.3 H MCHC Differential 33.5 RDW 15.8 Plt Count 279 MPV 7.4 Neutrophils % 78.2 Lymphocytes % 11.7 L Monocytes % 8.4 Eosinophils % 1.3 Basophils % 0.4 PT 9.9 INR 0.95 PTT (Actin FS) 27.6 Specimen Source Sample Site pH pCO2 pO2 HCO3 Base Excess O2 Saturation Diaz Test Vent Rate Inspired O2 Tidal Volume PEEP Pressure (ins/psv/peep) Critical Value Sodium 156 H D Potassium 6.2 H* Chloride 126 H Carbon Dioxide 18.3 L Anion Gap 17.9 H BUN 84 H* Creatinine 9.0 H* Est GFR ( Amer) 7.6 Est GFR (Non-Af Amer) 6.3 BUN/Creatinine Ratio 9.3 Glucose 212 H POC Glucose Calcium 8.8 Total Bilirubin 0.2 L AST 22 ALT 24 Alkaline Phosphatase 172 H Troponin I B-Natriuretic Peptide Total Protein 7.5 Albumin 3.7 L Globulin 3.8 Albumin/Globulin Ratio 1.0 Triglycerides 261 H Cholesterol 171 LDL Cholesterol Direct 102 HDL Cholesterol 43 TSH Urine Source Urine Color Urine Clarity Urine pH Ur Specific [place] Urine Protein Urine Glucose (UA) Urine Ketones Urine Blood Urine Nitrate Urine Bilirubin Urine Urobilinogen Ur Leukocyte Esterase Urine RBC Urine WBC Ur Epithelial Cells Urine Bacteria Coarse Granular Casts 03/24/19 03/24/19 03/24/19 16:00 16:00 16:00 WBC RBC Hgb Hct MCV MCH MCHC Differential RDW Plt Count MPV Neutrophils % Lymphocytes % Monocytes % Eosinophils % Basophils % PT INR PTT (Actin FS) Specimen Source Sample Site pH pCO2 pO2 HCO3 Base Excess O2 Saturation Diaz Test Vent Rate Inspired O2 Tidal Volume PEEP Pressure (ins/psv/peep) Critical Value Sodium Potassium Chloride Carbon Dioxide Anion Gap BUN Creatinine Est GFR ( Amer) Est GFR (Non-Af Amer) BUN/Creatinine Ratio Glucose POC Glucose Calcium Total Bilirubin AST ALT Alkaline Phosphatase Troponin I 0.01 B-Natriuretic Peptide 145.0 H Total Protein Albumin Globulin Albumin/Globulin Ratio Triglycerides Cholesterol LDL Cholesterol Direct HDL Cholesterol TSH 2.42 Urine Source Urine Color Urine Clarity Urine pH Ur Specific [place] Urine Protein Urine Glucose (UA) Urine Ketones Urine Blood Urine Nitrate Urine Bilirubin Urine Urobilinogen Ur Leukocyte Esterase Urine RBC Urine WBC Ur Epithelial Cells Urine Bacteria Coarse Granular Casts 03/24/19 03/24/19 03/24/19 16:54 17:00 17:13 WBC RBC Hgb Hct MCV MCH MCHC Differential RDW Plt Count MPV Neutrophils % Lymphocytes % Monocytes % Eosinophils % Basophils % PT INR PTT (Actin FS) Specimen Source ARTERIAL Sample Site LEFT RADIAL pH 7.280 L pCO2 38.5 pO2 187.0 H HCO3 18.0 L Base Excess -8.0 L O2 Saturation 99.0 Diaz Test YES Vent Rate N/A Inspired O2 28 Tidal Volume N/A PEEP N/A Pressure (ins/psv/peep) N/A Critical Value OR Sodium Potassium Chloride Carbon Dioxide Anion Gap BUN Creatinine Est GFR ( Amer) Est GFR (Non-Af Amer) BUN/Creatinine Ratio Glucose POC Glucose 136 H Calcium Total Bilirubin AST ALT Alkaline Phosphatase Troponin I B-Natriuretic Peptide Total Protein Albumin Globulin Albumin/Globulin Ratio Triglycerides Cholesterol LDL Cholesterol Direct HDL Cholesterol TSH Urine Source CLEAN C Urine Color YELLOW Urine Clarity CLOUDY Urine pH 5.0 Ur Specific [place] >= 1.030 Urine Protein >=300 Urine Glucose (UA) 100 H Urine Ketones NEGATIVE Urine Blood SMALL H Urine Nitrate NEGATIVE Urine Bilirubin NEGATIVE Urine Urobilinogen 0.2 Ur Leukocyte Esterase NEGATIVE Urine RBC 2-5 H Urine WBC 0-2 Ur Epithelial Cells MANY Urine Bacteria 1+ H Coarse Granular Casts 2-5 H 03/24/19 03/24/19 17:44 18:23 WBC RBC Hgb Hct MCV MCH MCHC Differential RDW Plt Count MPV Neutrophils % Lymphocytes % Monocytes % Eosinophils % Basophils % PT INR PTT (Actin FS) Specimen Source Sample Site pH pCO2 pO2 HCO3 Base Excess O2 Saturation Diaz Test Vent Rate Inspired O2 Tidal Volume PEEP Pressure (ins/psv/peep) Critical Value Sodium Potassium Chloride Carbon Dioxide Anion Gap BUN Creatinine Est GFR ( Amer) Est GFR (Non-Af Amer) BUN/Creatinine Ratio Glucose POC Glucose 118 H 153 H Calcium Total Bilirubin AST ALT Alkaline Phosphatase Troponin I B-Natriuretic Peptide Total Protein Albumin Globulin Albumin/Globulin Ratio Triglycerides Cholesterol LDL Cholesterol Direct HDL Cholesterol TSH Urine Source Urine Color Urine Clarity Urine pH Ur Specific [place] Urine Protein Urine Glucose (UA) Urine Ketones Urine Blood Urine Nitrate Urine Bilirubin Urine Urobilinogen Ur Leukocyte Esterase Urine RBC Urine WBC Ur Epithelial Cells Urine Bacteria Coarse Granular Casts - Radiology Results Results: chest x-ray = nad - EKG Interpretations EKG Time:: 15:47 Rate & Rhythm: rate = 81 sinus [place]: right ED Assessment - Assessment General Assessment: esrd seizures ED Septic Shock - . Is Septic Shock (SBP<90, OR Lactate>4 mmol\L) present?: No ED Reassessment (Disposition) - Reassessment Reassessment Condition:: Improved - Diagnosis Diagnosis:: renal failure diabetes mellitus - Patient Disposition Discharge/Transfer:: Acute Care w/in this hosp Admitted to:: Telemetry Admitting Medical Physician:: Jonnathan Ferraro Condition at Disposition:: Improved
[2019-03-24 16:08] LABS: % BASOPHILS 0.4 % (0.0-2.0); % EOSINOPHILS 1.3 % (0.0-5.0); % LYMPHOCYTES 11.7 % (20.0-50.0); % MONOCYTES 8.4 % (2.0-10.0); % NEUTROPHILS 78.2 % (40.0-80.0); EOSINOPHILE ABSOLUTE 0.1 Th/cmm (0.1-0.4); HEMOGLOBIN 10.1 gm/dL (12-16); LYMPHOCYTE ABSOLUTE 0.8 Th/cmm (1.5-3.0); MEAN CELL VOLUME 93.5 fl (80-99); MEAN CORPUSCULAR HEMOGLOBIN 31.3 pg (27.0-31.0); MEAN CORPUSCULAR HGB CONC 33.5 pg (28.0-36.0); MONOCYTE ABSOLUTE 0.6 Th/cmm (0.3-1.0); NEUTROPHILE ABSOLUTE 5.3 Th/cmm (1.8-8.0); PLATELET COUNT 279 Th/cmm (150-400); RED BLOOD COUNT 3.21 Mil/cmm (3.80-5.80); RED CELL DISTRIBUTION WIDTH 15.8 % (11.5-20.0); WHITE BLOOD COUNT 6.8 Th/cmm (4.8-10.8)
[2019-03-24 16:22] LABS: ALBUMIN 3.7 gm/dL (4.2-5.5); ANION GAP 17.9 (7.0-16.0); BILIRUBIN,TOTAL 0.2 mg/dL (0.3-1.0); CALCIUM SERUM 8.8 mg/dL (8.6-10.3); CARBON DIOXIDE 18.3 mEq/L (21.0-31.0); GFR AFRICAN-AMERICAN 7.6 ml/min (>90); GFR NON AFRICAN-AMERICAN 6.3 ml/min; TOTAL PROTEIN,SERUM 7.5 gm/dL (6.0-8.3)
[2019-03-24 16:26] LABS: INR 0.95 (0.5-1.4)
[2019-03-24 16:27] LABS: POTASSIUM SERUM 6.2 mEq/L (3.5-5.1)
[2019-03-24] MEDS ORDERED: Sodium Chloride 0.45% 500 ML IV ONE (16:35)
[2019-03-24] MEDS ORDERED: INSULIN HUMAN REGULAR 100 UNITS/ML UNIT IV ONE (16:36)
[2019-03-24] MEDS ORDERED: Dextrose 50% 50 mL Abboject IVP STA ×3 (16:37→19:20)
[2019-03-24] MEDS ORDERED: Dextrose 50% 50 mL Abboject IVP ONE ×3 (16:42→19:06)
[2019-03-24 17:11] LABS: URINE SOURCE CLEAN C
[2019-03-24] MEDS ORDERED: Sodium Chloride 0.45% 1,000 ML IV ONE (17:12)
[2019-03-24 17:18] LABS: URINE BILIRUBIN NEGATIVE (NEGATIVE); URINE BLOOD SMALL (NEGATIVE); URINE GLUCOSE (UA) 100 mg/dL (NEGATIVE); URINE KETONE NEGATIVE (NEGATIVE); URINE LEUKOCYTE ESTERASE NEGATIVE (NEGATIVE); URINE MICROSCOPIC INDICATED? YES; URINE NITRATE NEGATIVE (NEGATIVE); URINE PROTEIN >=300 mg/dL (NEGATIVE); URINE UROBILINOGEN 0.2 E.U./dL (0.2 - 1.0)
[2019-03-24 17:20] LABS: URINE CLARITY CLOUDY (CLEAR); URINE COLOR YELLOW
[2019-03-24 17:25] LABS: URINE BACTERIA 1+ /hpf (NONE SEEN); URINE EPITHELIAL CELLS MANY /lpf (FEW); URINE WBC 0-2 /hpf (0-5)
[2019-03-24 17:37] LABS: PaCO2 38.5 mmHg (35.0-45.0)
[2019-03-24 17:39] LABS: ALLEN TEST YES
[2019-03-24] MEDS ORDERED: Sodium Bicarbonate 8.4% 50mEq PFS IVP STA (17:45)
[2019-03-24] MEDS ORDERED: Sodium Bicarbonate 8.4% 50mEq PFS IVP ONE (17:49)
[2019-03-24] MEDS ORDERED: Dextrose 5% 1,000 ML IV ONE (19:12)
[2019-03-24 19:34] LABS: ALBUMIN 3.4 gm/dL (4.2-5.5); ANION GAP 17.8 (7.0-16.0); BILIRUBIN,TOTAL 0.2 mg/dL (0.3-1.0); CALCIUM SERUM 8.4 mg/dL (8.6-10.3); CARBON DIOXIDE 19.2 mEq/L (21.0-31.0); GFR AFRICAN-AMERICAN 7.7 ml/min (>90); GFR NON AFRICAN-AMERICAN 6.4 ml/min; TOTAL PROTEIN,SERUM 6.8 gm/dL (6.0-8.3)
[2019-03-24 19:38] LABS: CREATININE - SERUM 8.9 mg/dL (0.7-1.3)
[2019-03-24] MEDS ORDERED: Dextrose 5% 1,000 ML IV SCH (21:00)
[2019-03-24] MEDS ORDERED: Magnesium Hydroxide (MOM) 30 mL UDC PO PRN (21:33)
[2019-03-25 00:45] LABS: URINE SOURCE FOLEY PORT
[2019-03-25 01:28] LABS: URINE BILIRUBIN NEGATIVE (NEGATIVE); URINE BLOOD LARGE (NEGATIVE); URINE CLARITY HAZY (CLEAR); URINE COLOR LIGHT YELLOW; URINE GLUCOSE (UA) NEGATIVE (NEGATIVE); URINE KETONE NEGATIVE (NEGATIVE); URINE MICROSCOPIC INDICATED? YES
[2019-03-25 01:29] LABS: URINE EPITHELIAL CELLS FEW /lpf (FEW); URINE LEUKOCYTE ESTERASE NEGATIVE (NEGATIVE); URINE NITRATE NEGATIVE (NEGATIVE); URINE PROTEIN 100 mg/dL (NEGATIVE); URINE UROBILINOGEN 0.2 E.U./dL (0.2 - 1.0); URINE WBC 0-2 /hpf (0-5)
[2019-03-25 01:30] LABS: URINE BACTERIA FEW /hpf (NONE SEEN)
[2019-03-25] MEDS ORDERED: GLUCAGON HCl 1 MG KIT IM PRN (04:05)
[2019-03-25 06:08] LABS: A1C 5.7 % (4.8-5.6)
[2019-03-25 06:17] LABS: ALBUMIN 3.3 gm/dL (4.2-5.5); ANION GAP 16.4 (7.0-16.0); BILIRUBIN,TOTAL 0.3 mg/dL (0.3-1.0); CALCIUM SERUM 8.4 mg/dL (8.6-10.3); CARBON DIOXIDE 20.4 mEq/L (21.0-31.0); GFR AFRICAN-AMERICAN 8.3 ml/min (>90); GFR NON AFRICAN-AMERICAN 6.9 ml/min; MAGNESIUM 2.6 mg/dL (1.9-2.7); POTASSIUM SERUM 4.8 mEq/L (3.5-5.1); TOTAL PROTEIN,SERUM 6.7 gm/dL (6.0-8.3)
[2019-03-25] MEDS: INSULIN LISPRO SLIDING SCALE 100 UNITS/ML UNIT SUBQ SCH ×4 (06:41→20:36)
[2019-03-25] MEDS: Dextrose 5% 1,000 ML IV SCH ×2 (06:42→18:08)
[2019-03-25 06:45] LABS: HEMATOCRIT 29.2 % (41.0-60); HEMOGLOBIN 9.6 gm/dL (12-16); MEAN CELL VOLUME 94.1 fl (80-99); PLATELET COUNT 241 Th/cmm (150-400); RED BLOOD COUNT 3.11 Mil/cmm (3.80-5.80); RED CELL DISTRIBUTION WIDTH 15.7 % (11.5-20.0); WHITE BLOOD COUNT 7.5 Th/cmm (4.8-10.8)
[2019-03-25 06:50] LABS: CREATININE - SERUM 8.3 mg/dL (0.7-1.3)
--- NOTE | 2019-03-25 08:34 | Diagnostic Imaging Report ---
Chest x-ray single view History: Pain The heart size is normal. Atherosclerotic calcination seen within the aorta and right carotid artery regions. No focal pulmonary parenchymal processes. No hilar or mediastinal abnormalities. Impression: 1. No acute abnormalities 2. Atherosclerotic vascular changes
--- NOTE | 2019-03-25 08:37 | Diagnostic Imaging Report ---
CT scan of the brain without intravenous contrast HISTORY: Headache Total DLP equals 677 CTDI equals 36.6 Axial sections were obtained from the base of the skull the vertex. The exam is compared to prior study of November 20, 2018. There is enlargement of the ventricular system along with enlargement of cerebral sulci and subarachnoid cisterns reflecting generalized atrophy. Hypodensity noted within the periventricular and supratentorial white matter regions without mass effect. This is unchanged from the prior exam and may be associated with chronic small vessel ischemic disease. Focal hypodensity and encephalomalacia spine loss noted within the right posterior parietal region consistent with changes of an old infarct. Focal hypodensity consistent with encephalomalacia noted within the cortex of the left cerebellum. Again, findings consistent with changes of an old infarct. No acute intracerebral hemorrhage. No mass effect or shift of midline structures. No extra-axial masses or abnormal fluid collections. Severe atherosclerotic vascular changes noted. IMPRESSION: 1. No significant change compared to prior study of November 20, 2018 2. Generalized cerebral atrophy and chronic changes including findings consistent with old infarcts as described above 3. Extensive atherosclerotic vascular changes
[2019-03-25 08:47] LABS: BAND NEUTROPHILE 0 % (0-10); BASOPHIL 0 % (0-3); EOSINOPHIL 3 % (0-5); LYMPHOCYTE 15 % (20-50); MONOCYTE 11 % (2-10); NEUTROPHILS 71 % (40-80)
[2019-03-25 08:48] LABS: PLATELET ESTIMATE ADEQUATE (NORMAL)
[2019-03-25] MEDS: Multivitamin Tab PO SCH (09:18)
[2019-03-25] MEDS: Ferrous Sulfate 325 MG TAB PO SCH (09:19)
[2019-03-25] MEDS: Aspirin 81mg Chewable Tab PO SCH (09:19)
[2019-03-25] MEDS ORDERED: Sodium Bicarbonate 8.4% 50mEq PFS IVP ONE (13:21)
[2019-03-25 14:24] LABS: ANION GAP 18.2 (7.0-16.0); CALCIUM SERUM 8.2 mg/dL (8.6-10.3); GFR NON AFRICAN-AMERICAN 7.4 ml/min; PHOSPHOROUS 6.9 mg/dL (2.5-5.0); POTASSIUM SERUM 4.2 mEq/L (3.5-5.1)
[2019-03-25 15:25] LABS: CREATININE - SERUM 7.8 mg/dL (0.7-1.3)
--- NOTE | 2019-03-25 16:23 | History & Physical ---
ADMIT DATE: 03/25/2019 PATIENT IDENTIFICATION: This is a 68-year-old male. CHIEF COMPLAINT: Transferred to [facility] Emergency Room for abnormal labs. HISTORY OF PRESENT ILLNESS: The patient is a 68-[facility] [place] [facility] myself and my nurse practitioner, has multiple comorbid medical conditions, which include diabetes, hypertension, CHF, DJD and psychotic disorder, noted to have sodium of 156 along with potassium of 6.5 associated with BUN and creatinine of 79 and 8.89. The patient was transferred to Emergency Room. The patient was also noted to have a Keppra toxicity as well. The patient was evaluated and subsequently advised to be admitted in the hospital. The patient does not provide a meaningful history. PAST MEDICAL HISTORY: Remarkable for: 1. Diabetes. 2. Hypertension. 3. Degenerative joint disease. 4. Dementia. 5. Congestive heart failure. 6. Psychotic disorder. 7. Declining self-care and mobility. MEDICATIONS AT HOME: Aricept, aspirin, cranberry tablet, Colace, ferrous sulfate, Keppra, Lasix, Levemir, milk of magnesia, multivitamin, Norvasc, Tylenol, and thiamine. ALLERGIES: The patient is not allergic to medication. SOCIAL HISTORY: The patient resides in a retirement. No history of smoking cigarette, alcohol, or drug use. FAMILY MEDICAL HISTORY: Unavailable. REVIEW OF SYSTEMS: Unable to obtain meaningful history from the patient. PHYSICAL EXAMINATION: GENERAL: The patient is alert, awake, follows 1-step command. VITAL SIGNS: Temperature 98, pulse is 74, respiratory rate 18, blood pressure 138/80. SKIN: Warm to touch. HEENT: Normocephalic, atraumatic. Extraocular muscles are intact. Tongue was pink and coated. Poor dentition noted. No oral lesion. No exudate. NECK: Supple, no JVD, no hepatojugular reflex. No lymphadenopathy, thyromegaly or carotid bruit. HEART: Both heart sounds are regular. Grade 2/6 systolic murmur noted. CHEST: Lung equal in expansion with no expiratory wheezing. ABDOMEN: Soft. No guarding, no rigidity. Bowel sounds present. No palpable mass. EXTREMITIES: No edema, no cyanosis. Peripheral pulses +1. No calf tenderness noted. NEUROLOGIC: Alert, awake, follows command. AVAILABLE DIAGNOSTIC DATA: Performed in the Emergency Room has been reviewed. Total time reviewing the records approximately of 3 minutes. CLINICAL IMPRESSION: 1. Hypernatremia. 2. Hyperkalemia. 3. Acute kidney injury. 4. Chronic kidney disease, stage 3. 5. Diabetes mellitus. 6. Hypertension. 7. Congestive heart failure. 8. Degenerative joint disease. 9. Psychotic disorder. 10. Dementia. 11. Dysphagia. PLAN: 1. Admit this patient to telemetry unit. 2. Hold diuretics. 3. Correct potassium. 4. D5W. 5. Nephrology consultation. 6. Appropriate home medicine reconciliation. 7. General nursing care. 8. Cardiac monitoring. 9. Cardiac enzymes. 10. Follow lab. 11. Follow consult recommendation. 12. Care plan reviewed and discussed with staff. JOB# [id number]
--- NOTE | 2019-03-25 16:54 | Consultation ---
DATE OF CONSULTATION: CRITICAL CARE CONSULT AND RENAL CONSULT LOCATION: [facility], room #10, bed A. ATTENDING PHYSICIAN: Dr. Ferraro. Thank you very much, Dr. Ferraro for this consult. IDENTIFICATION: This is a 68-year-old male patient who is non-communicable, history has been taken from ER staff, floor staff, reviewing the old chart. HISTORY OF PRESENT ILLNESS: a 68-year-old male. The patient is a resident of shelter at [facility]. The patient is a known case of multiple chronic problems. The patient has dementia, seizure disorder, insulin-dependent diabetes mellitus, chronic constipation, hypertension. The patient also has unsteady gait with difficulty in walking. The patient at one time was found to have dysphagia. The patient has a prior history of pneumonia, electrolyte imbalance, anemia, hypertension, CKD 4, history of UTI in the past. The patient was brought to the [facility] since he was found to have abnormal labs, which include severely elevated BUN and creatinine, anemia, hyperkalemia and hence the patient has been admitted and renal consultation has been requested. According to the nursing staff, since the patient has been here, he does not have any vomiting or diarrhea. There are no seizures. The patient does not have loss of consciousness. No history of high fever. The patient is making good urine in Delgadillo catheter. Initially urine was cloudy color, but is clearing up now. The patient is tolerating food by mouth. PAST MEDICAL AND SURGICAL HISTORY: Diabetes mellitus, coronary artery disease, seizures, CHF, dementia, possible CKD, possible anemia. SOCIAL HISTORY: No history of alcoholism or smoking. No drug use. The patient is being cared at shelter. PHYSICAL EXAMINATION: VITAL SIGNS: At the time of admission, blood pressure was 159/75 and at this time it has improved to 126/67, respiration rate is ranging from 18-20. The patient has been afebrile and oxygen saturation is around 98-100. Yesterday's intake and output are not very well documented. HEAD: Normocephalic, atraumatic. EYES: Sclerae are nonicteric. Conjunctivae are pale. Pupils are reactive. EAR, NOSE AND THROAT: No bleeding or discharge. NECK: Jugular venous pressure is normal. No lymphadenopathy. No stiffness,: Jugular venous pressure not distended. HEART: Regular. No rub or gallop. LUNGS: Good air entry. No rales or rhonchi. ABDOMEN: Soft, not distended. Bowel sounds are present. EXTREMITIES: No edema of the legs. No calf tenderness. LABORATORY DATA: Hemoglobin 10.1, WBC 6.8, repeat hemoglobin has dropped to 9.6 and WBC 7.5. Sodium 156, potassium 6.2, chloride 126, bicarbonate 18.3, BUN 84, creatinine 9, blood sugar 212, EGFR 6, albumin 3.7, triglyceride 261. Urinalysis: Urine protein more than 300, nitrite negative, rbc's 2-5, bacteria 1+. ASSESSMENT: 1. Hypernatremia. 2. Hyperkalemia. 3. Acidosis. 4. Acute kidney injury. 5. Rule out underlying chronic kidney disease 4 or 5. 6. Anemia could be secondary to chronic kidney disease. 7. Volume depletion. 8. Possible urinary tract infection. 9. History of dementia. 10. History of hypertension. 11. History of pneumonia, urinary tract infection and gout in the past. PLAN: 1. Start the patient on IV hydration at about 125-150 mL with D5W. Strict I and O with Delgadillo catheter. Anemia workup including stool OB and iron saturation, T3, T4, TSH, obtain kidney ultrasound, urine eosinophil count, phosphorus and magnesium in the morning. Continue the patient on Keppra. Start the patient on amlodipine and avoid JANAE inhibitor or ARB at this time. Also, start the patient on sodium bicarbonate IV followed by p.o. Start the placed on ferrous sulfate. Continue the patient on insulin and insulin coverage. We will try to find out the patient's conservatives and then we will see if the patient is CKD 5, then patient may require dialysis in the future and we will arrange for it if it has been accepted by the conservative. Case has been discussed with Dr. Ferraro, hospital staff multiple times. Total time spent in the last 12 hours is more than 80 minutes. JOB# [id number]
[2019-03-25] MEDS ORDERED: cefTRIAXone 1 GM in 0.9% NS 50 ML IV SCH (18:00)
[2019-03-25] MEDS: Insulin Glargine 100 units/ml 10ml Vial SUBQ SCH (20:40)
[2019-03-26 01:18] LABS: EOSINOPHIL SMEAR SOURCE URINE; EOSINOPHILS SMEAR COUNT NONE SEEN (NONE SEEN)
[2019-03-26 06:27] LABS: % BASOPHILS 0.4 % (0.0-2.0); % LYMPHOCYTES 16.5 % (20.0-50.0); % NEUTROPHILS 67.1 % (40.0-80.0); EOSINOPHILE ABSOLUTE 0.3 Th/cmm (0.1-0.4); HEMATOCRIT 28.5 % (41.0-60); HEMOGLOBIN 9.7 gm/dL (12-16); LYMPHOCYTE ABSOLUTE 1.4 Th/cmm (1.5-3.0); MEAN CELL VOLUME 93.8 fl (80-99); MEAN CORPUSCULAR HEMOGLOBIN 31.9 pg (27.0-31.0); NEUTROPHILE ABSOLUTE 5.8 Th/cmm (1.8-8.0); PLATELET COUNT 231 Th/cmm (150-400); RED BLOOD COUNT 3.04 Mil/cmm (3.80-5.80); RED CELL DISTRIBUTION WIDTH 14.9 % (11.5-20.0); WHITE BLOOD COUNT 8.5 Th/cmm (4.8-10.8)
[2019-03-26 06:53] LABS: ANION GAP 15.1 (7.0-16.0); CALCIUM SERUM 8.2 mg/dL (8.6-10.3); CARBON DIOXIDE 23.1 mEq/L (21.0-31.0); GFR AFRICAN-AMERICAN 9.4 ml/min (>90); GFR NON AFRICAN-AMERICAN 7.7 ml/min; PHOSPHOROUS 6.6 mg/dL (2.5-5.0); POTASSIUM SERUM 4.2 mEq/L (3.5-5.1)
[2019-03-26] MEDS: INSULIN LISPRO SLIDING SCALE 100 UNITS/ML UNIT SUBQ SCH ×4 (06:58→21:14)
[2019-03-26 07:26] LABS: CREATININE - SERUM 7.5 mg/dL (0.7-1.3)
[2019-03-26 08:05] LABS: T3 FREE 1.7 pg/mL (2.0-4.4); T4 FREE 0.81 ng/dL (0.82-1.77)
[2019-03-26] MEDS: Dextrose 5% 1,000 ML IV SCH (08:26)
[2019-03-26] MEDS: Ferrous Sulfate 325 MG TAB PO SCH (08:29)
[2019-03-26] MEDS: Multivitamin Tab PO SCH (08:30)
[2019-03-26] MEDS: Lactobacillus Rhamnosus GG 15 Billion CFU CAP.SPRINK PO SCH (08:30)
[2019-03-26] MEDS: Aspirin 81mg Chewable Tab PO SCH (08:31)
[2019-03-26] MEDS ORDERED: BACILLUS COAGULANS PO SCH (09:00)
[2019-03-26] MEDS ORDERED: Multivitamin Tab PO SCH (09:00)
--- NOTE | 2019-03-26 09:33 | Diagnostic Imaging Report ---
Renal ultrasound HISTORY: Abnormal renal function tests Right kidney measures 9.0 x 4.6 0.8 cm. Several echogenic densities noted within the medullary region consistent calculi. The largest measures 8 mm. No associated hydronephrosis. The left kidney measures 9.2 x 5.8 x 6.0 cm. No focal lesions are no hydronephrosis. Delgadillo catheter seen within the urinary bladder. IMPRESSION: 1. Findings suggesting subcentimeter nonobstructing right renal calculi
--- NOTE | 2019-03-26 16:55 | Progress Notes ---
DATE: 03/26/2019 IDENTIFICATION: A 68-year-old male. SUBJECTIVE: The patient is seen and examined. OBJECTIVE: GENERAL: The patient is lying in the bed. No new event. VITAL SIGNS: Temperature 97.7, pulse 75, respiratory rate 18, blood pressure 152/69. HEENT: No facial asymmetry. NECK: Supple, no JVD. HEART: Regular. CHEST: Lung equal in expansion. No expiratory wheezing. ABDOMEN: Soft. No guarding or rigidity. Bowel sounds present. No palpable mass. EXTREMITIES: No edema. AVAILABLE DIAGNOSTIC DATA: White count of 8.5, hemoglobin 9.7, platelet count of 231. Potassium of 4.2, sodium of 152, BUN and creatinine are 16 and 7.5, phosphorus 6.6. CLINICAL IMPRESSION: 1. Acute kidney injury, improving. 2. Anemia of chronic kidney disease and chronic inflammation. 3. Diabetes mellitus. 4. Hypertension. 5. Degenerative joint disease. 6. Alzheimer's dementia. 7. Decline in self-care and mobility. PLAN: The patient to continue IV hydration as prescribed. Monitor labs. Follow [employer] consultant recommendation. Continue to follow. Continue empirical IV antibiotic for now. General nursing care as well. Follow up lab and we will start physical therapy. Care plan has been reviewed and discussed with staff. [facility]# [id number]
--- NOTE | 2019-03-26 16:55 | Progress Notes ---
DATE: 03/26/2019 RENAL FOLLOWUP LOCATION: Room #10, bed A. SUBJECTIVE: The patient is more alert. He is tolerating food well. No dysphagia noted. No vomiting or diarrhea. The patient is on a D5W IV fluid at 75 mL per hour with good urine output. He is receiving IV piggy antibiotics. OBJECTIVE: VITAL SIGNS: Blood pressure 143/73, temperature 97.7, pulse 74, respirations 18. Yesterday's intake more than 1000 mL, intake and output not well documented. HEENT: Head is normocephalic. HEART: Regular. LUNGS: Good air entry. ABDOMEN: Soft. EXTREMITIES: No edema. LABORATORY DATA: Hemoglobin 9.7, WBC 8.5, platelet 231,000. Sodium 152, increased from 150. CO2 improved from 19-23. BUN down from 73 to 6.9. Creatinine is down from 7.8 to 7.5. Calcium 8.2, phosphorus decreased to 6.6. IMPRESSION: 1. Hypernatremia, worsening, possibly due to negative fluid balance. 2. Acute kidney injury, improving. 3. Hyperglycemia, improving. 4. Volume water deficit, improving. 5. History of dementia. 6. Urinary tract infection. 7. Anemia, stable. 8. Hyperkalemia, improving. PLAN: 1. Discontinue sodium bicarbonate p.o. since acidosis is improving and hypernatremia worsening. 2. Increase D5W IV since the patient has negative fluid balance. 3. Discussed with nursing staff to decrease IV piggy using D5W and not in NS. 4. Repeat BMP, phosphorus, CBC in the morning. 5. Add phosphate binders for the next 2-3 days. Discussed with nursing staff. JOB# [id number]
[2019-03-26] MEDS: Insulin Glargine 100 units/ml 10ml Vial SUBQ SCH (21:16)
[2019-03-27 05:31] LABS: % BASOPHILS 0.3 % (0.0-2.0); % EOSINOPHILS 4.1 % (0.0-5.0); % LYMPHOCYTES 14.6 % (20.0-50.0); % MONOCYTES 10.6 % (2.0-10.0); % NEUTROPHILS 70.4 % (40.0-80.0); EOSINOPHILE ABSOLUTE 0.3 Th/cmm (0.1-0.4); HEMATOCRIT 25.5 % (41.0-60); HEMOGLOBIN 8.6 gm/dL (12-16); LYMPHOCYTE ABSOLUTE 1.2 Th/cmm (1.5-3.0); MEAN CELL VOLUME 93.5 fl (80-99); MEAN CORPUSCULAR HEMOGLOBIN 31.5 pg (27.0-31.0); MEAN CORPUSCULAR HGB CONC 33.7 pg (28.0-36.0); MONOCYTE ABSOLUTE 0.8 Th/cmm (0.3-1.0); NEUTROPHILE ABSOLUTE 5.6 Th/cmm (1.8-8.0); PLATELET COUNT 189 Th/cmm (150-400); RED BLOOD COUNT 2.73 Mil/cmm (3.80-5.80); RED CELL DISTRIBUTION WIDTH 15.2 % (11.5-20.0); WHITE BLOOD COUNT 7.9 Th/cmm (4.8-10.8)
[2019-03-27 06:03] LABS: ALB/GLOB RATIO 0.9 (1.0-1.8); ANION GAP 15.8 (7.0-16.0); BILIRUBIN,TOTAL 0.3 mg/dL (0.3-1.0); CALCIUM SERUM 7.5 mg/dL (8.6-10.3); CARBON DIOXIDE 21.3 mEq/L (21.0-31.0); GFR AFRICAN-AMERICAN 11.1 ml/min (>90); GFR NON AFRICAN-AMERICAN 9.1 ml/min; PHOSPHOROUS 6.2 mg/dL (2.5-5.0); POTASSIUM SERUM 4.1 mEq/L (3.5-5.1); TOTAL PROTEIN,SERUM 6.3 gm/dL (6.0-8.3)
[2019-03-27] MEDS: Dextrose 5% 1,000 ML IV SCH ×2 (06:15→16:41)
[2019-03-27 06:29] LABS: CREATININE - SERUM 6.5 mg/dL (0.7-1.3)
[2019-03-27] MEDS: INSULIN LISPRO SLIDING SCALE 100 UNITS/ML UNIT SUBQ SCH ×4 (06:50→20:24)
[2019-03-27 08:06] LABS: IRON LC 49 ug/dL (38-169); TIBC (LC) 223 ug/dL (250-450); UIBC 174 ug/dL (111-343)
[2019-03-27] MEDS: Aspirin 81mg Chewable Tab PO SCH (08:26)
[2019-03-27] MEDS: Ferrous Sulfate 325 MG TAB PO SCH (08:26)
[2019-03-27] MEDS: Lactobacillus Rhamnosus GG 15 Billion CFU CAP.SPRINK PO SCH (08:26)
[2019-03-27] MEDS: Multivitamin Tab PO SCH (08:26)
--- NOTE | 2019-03-27 11:00 | History & Physical ---
ADMIT DATE: 03/24/2019 ROOM: Room 10, bed A. SUBJECTIVE: The patient seems to be more alert, not in distress. According to the nursing staff, no vomiting or diarrhea. Tolerating fluids well. OBJECTIVE: VITAL SIGNS: Temperature 97.3, pulse 70, blood pressure 131/61. Yesterday, his intake more than 1000 mL, output 1200. HEART: Regular. LUNGS: Clear. ABDOMEN: Benign. EXTREMITIES: No edema. LABORATORY DATA: Hemoglobin 8.6, WBC 7.9, platelets normal. Sodium improved from 152-143, potassium 4.1, chloride 110, CO2 of 21, BUN 64, creatinine 6.5, calcium 7.5, and phosphorus 6.2. IMPRESSION: 1. Acute kidney injury, improving. 2. Anemia. 3. Hypernatremia, improving. 4. Hyperphosphatemia. 5. Urinary tract infection. 6. History of dementia. 7. Hyperkalemia, improved. PLAN: 1. Continue current IV hydration. 2. Start the patient on phosphate binder. 3. Lab in the morning. 4. Continue rest of her medication. JOB# [id number]
[2019-03-27] MEDS: Insulin Glargine 100 units/ml 10ml Vial SUBQ SCH (20:24)
--- NOTE | 2019-03-27 22:15 | Progress Notes ---
DATE: IDENTIFICATION: This is a 68-year-old male. SUBJECTIVE: The patient seen and examined. The patient is lying in the bed. The patient does not provide any meaningful history. The patient is lying comfortably. PHYSICAL EXAMINATION: VITAL SIGNS: Temperature 97.3, pulse 70, respiratory rate 18, blood pressure 130/60. HEENT: No facial asymmetry. Poor dentition noted. NECK: Supple, no JVD. HEART: Regular. LUNGS: Clear to auscultation. ABDOMEN: Soft. No guarding, no rigidity. Bowel sounds present. No palpable mass. EXTREMITIES: No edema. AVAILABLE DIAGNOSTIC DATA: Sodium 143, potassium 4.1, chloride 110, CO2 21.3. BUN and creatinine 64 and 6.5, hemoglobin of 8.6, and platelet count of 189. CLINICAL DIAGNOSES: 1. Hypernatremia, resolved. 2. Acute kidney injury, resolving. 3. Psychotic disorder. 4. Dementia. 5. Degenerative joint disease. 6. Congestive heart failure. 7. Diabetes mellitus. 8. Hypertension. PLAN: 1. Keep him on telemetry unit. 2. Correct electrolytes. Continue to provide IV fluid. 3. Follow Nephrology recommendations. 4. Continue general nursing care along with fall precautions. 5. Provide PT and OT. 6. Care plan reviewed and discussed with staff. JOB# [id number]
[2019-03-28 05:24] LABS: % BASOPHILS 0.1 % (0.0-2.0); % MONOCYTES 7.7 % (2.0-10.0); % NEUTROPHILS 78.2 % (40.0-80.0); EOSINOPHILE ABSOLUTE 0.2 Th/cmm (0.1-0.4); HEMATOCRIT 24.7 % (41.0-60); HEMOGLOBIN 8.3 gm/dL (12-16); LYMPHOCYTE ABSOLUTE 0.8 Th/cmm (1.5-3.0); MEAN CELL VOLUME 94.1 fl (80-99); MEAN CORPUSCULAR HEMOGLOBIN 31.7 pg (27.0-31.0); MEAN CORPUSCULAR HGB CONC 33.7 pg (28.0-36.0); MONOCYTE ABSOLUTE 0.6 Th/cmm (0.3-1.0); NEUTROPHILE ABSOLUTE 5.8 Th/cmm (1.8-8.0); PLATELET COUNT 182 Th/cmm (150-400); RED BLOOD COUNT 2.62 Mil/cmm (3.80-5.80); RED CELL DISTRIBUTION WIDTH 15.1 % (11.5-20.0); WHITE BLOOD COUNT 7.4 Th/cmm (4.8-10.8)
[2019-03-28 05:28] LABS: ANION GAP 13.4 (7.0-16.0); CALCIUM SERUM 7.4 mg/dL (8.6-10.3); CARBON DIOXIDE 21.7 mEq/L (21.0-31.0); GFR AFRICAN-AMERICAN 12.9 ml/min (>90); GFR NON AFRICAN-AMERICAN 10.6 ml/min; PHOSPHOROUS 5.9 mg/dL (2.5-5.0); POTASSIUM SERUM 4.1 mEq/L (3.5-5.1)
[2019-03-28 05:47] LABS: CREATININE - SERUM 5.7 mg/dL (0.7-1.3)
[2019-03-28] MEDS: INSULIN LISPRO SLIDING SCALE 100 UNITS/ML UNIT SUBQ SCH ×4 (06:38→20:10)
[2019-03-28] MEDS: Ferrous Sulfate 325 MG TAB PO SCH (09:12)
[2019-03-28] MEDS: Lactobacillus Rhamnosus GG 15 Billion CFU CAP.SPRINK PO SCH (09:12)
[2019-03-28] MEDS: Aspirin 81mg Chewable Tab PO SCH (09:12)
[2019-03-28] MEDS: Multivitamin Tab PO SCH (09:12)
[2019-03-28] MEDS: Dextrose 5% 1,000 ML IV SCH (10:26)
[2019-03-28] MEDS ORDERED: D5-0.45NS 1,000 ML IV SCH (14:00)
--- NOTE | 2019-03-28 15:07 | Progress Notes ---
DATE: 03/24/2019 LOCATION: [facility], room 10A bed A. SUBJECTIVE: The patient seems to be more alert, tolerating food well. No vomiting or diarrhea. No shortness of breath. OBJECTIVE: VITAL SIGNS: Temperature 97.5, pulse 74, respiration 18. Good urine output. Intake 2155, urine output 2200. HEART: Regular. LUNGS: Good air entry. ABDOMEN: Soft. EXTREMITIES: No edema. LABORATORY DATA: WBC 7.4, hemoglobin 8.3, platelet count 182,000. Sodium 138, potassium 4.1, chloride 107, CO2 of 21, BUN 59, creatinine 5.7, calcium 7.4, phosphorus down to 5.9. ASSESSMENT: 1. Acute kidney injury. 2. Anemia. 3. Hypernatremia, improving. 4. Hyperphosphatemia, improving. 5. Urinary tract infection. 6. History of dementia. 7. Hyperkalemia, improving. PLAN: Increase IV hydration since urine output is increasing significantly. Continue rest of the treatment. Check labs in [address] Ferraro. JOB# [id number]
[2019-03-28] MEDS: Insulin Glargine 100 units/ml 10ml Vial SUBQ SCH (20:10)
[2019-03-29 06:37] LABS: ALB/GLOB RATIO 0.9 (1.0-1.8); ALBUMIN 2.9 gm/dL (4.2-5.5); ANION GAP 12.8 (7.0-16.0); BILIRUBIN,TOTAL 0.2 mg/dL (0.3-1.0); CARBON DIOXIDE 19.2 mEq/L (21.0-31.0); GFR AFRICAN-AMERICAN 13.4 ml/min (>90); GFR NON AFRICAN-AMERICAN 11.1 ml/min
[2019-03-29 06:54] LABS: CREATININE - SERUM 5.5 mg/dL (0.7-1.3)
[2019-03-29] MEDS: INSULIN LISPRO SLIDING SCALE 100 UNITS/ML UNIT SUBQ SCH ×4 (07:22→22:35)
[2019-03-29] MEDS: Multivitamin Tab PO SCH (08:35)
[2019-03-29] MEDS: Ferrous Sulfate 325 MG TAB PO SCH (08:36)
[2019-03-29] MEDS: Aspirin 81mg Chewable Tab PO SCH (08:36)
[2019-03-29] MEDS: Lactobacillus Rhamnosus GG 15 Billion CFU CAP.SPRINK PO SCH (08:36)
[2019-03-29 10:11] LABS: % BASOPHILS 0.2 % (0.0-2.0); % EOSINOPHILS 2.6 % (0.0-5.0); % LYMPHOCYTES 11.6 % (20.0-50.0); % NEUTROPHILS 73.6 % (40.0-80.0); EOSINOPHILE ABSOLUTE 0.2 Th/cmm (0.1-0.4); HEMOGLOBIN 8.3 gm/dL (12-16); LYMPHOCYTE ABSOLUTE 0.8 Th/cmm (1.5-3.0); MEAN CELL VOLUME 95.3 fl (80-99); MEAN CORPUSCULAR HEMOGLOBIN 31.6 pg (27.0-31.0); MEAN CORPUSCULAR HGB CONC 33.2 pg (28.0-36.0); MONOCYTE ABSOLUTE 0.9 Th/cmm (0.3-1.0); NEUTROPHILE ABSOLUTE 5.2 Th/cmm (1.8-8.0); PLATELET COUNT 164 Th/cmm (150-400); RED BLOOD COUNT 2.62 Mil/cmm (3.80-5.80); WHITE BLOOD COUNT 7.1 Th/cmm (4.8-10.8)
--- NOTE | 2019-03-29 11:43 | Progress Notes ---
DATE: 03/29/2019 LOCATION: [facility], room #10, bed A. SUBJECTIVE: The patient is conscious, confused at times. OBJECTIVE: VITAL SIGNS: Temperature 98, pulse 70, blood pressure 135/52, oxygen saturation 99. Yesterday's intake 2250, output 2510. HEART: Regular. LUNGS: Clear. ABDOMEN: Benign. EXTREMITIES: No edema. LABORATORY DATA: WBC 7.1, hemoglobin 8.3. Sodium 133, potassium is 5, BUN 58, creatinine 5.5, CO2 19. IMPRESSION: 1. Acute kidney injury, improving. 2. Anemia, chronic. 3. Hypertension. 4. Urinary tract infection. 5. Dementia. PLAN: I will increase IV hydration since the patient's urine output is way more than the total intake that will help probably improvement of acute kidney injury. Repeat CMP, phosphorus in the morning. JOB# [id number]
--- NOTE | 2019-03-29 11:53 | Progress Notes ---
DATE: ID: A 68-year-old male. SUBJECTIVE: The patient is seen and examined. The patient is lying in the bed. No new event. The patient remained hemodynamically stable. PHYSICAL EXAMINATION: VITAL SIGNS: Temperature 97.5, pulse 62, respiratory rate 18, blood pressure 118/52. HEENT: No facial asymmetry. NECK: Supple, no JVD. HEART: Regular. LUNGS: Clear to auscultation. ABDOMEN: Soft. No guarding, no rigidity. Bowel sounds are present. No palpable mass. EXTREMITIES: No edema. AVAILABLE DIAGNOSTIC DATA: Has been reviewed. CLINICAL IMPRESSION: 1. Acute kidney injury, resolving. 2. Diabetes mellitus. 3. Hypertension. 4. Hypernatremia, resolved. 5. Seizure disorder. 6. Dementia. 7. Psychotic disorder. PLAN: In the view of the patient's kidney injury have been improving, we will discontinue Rocephin for now since there is no evidence of acute source of infection for now. Change IV fluid to D5 half normal saline at 125 mL per hour for now. Monitor I's and O's. Follow the lab. If kidney function has significantly improved by tomorrow, we will consider this patient to be discharged to lower level of care and continue hydration therapy there. The patient's care plan has been reviewed with RN and case management. JOB# [id number]
[2019-03-29] MEDS: D5-0.45NS 1,000 ML IV SCH (22:26)
[2019-03-29] MEDS: Insulin Glargine 100 units/ml 10ml Vial SUBQ SCH (22:34)
--- NOTE | 2019-03-29 22:39 | Progress Notes ---
DATE: IDENTIFICATION: A 68-year-old male. SUBJECTIVE: The patient seen and examined. The patient is lying in the bed, does not provide a meaningful history. The patient remained hemodynamically stable. The patient has significant amount of urine output. Discussed with recycling crew supervisor as well as assigned nurse about the treatment plan. OBJECTIVE: VITAL SIGNS: Temperature 97, pulse is 70, respiratory rate 18, blood pressure 135/52. HEENT: No facial asymmetry. NECK: Supple. HEART: Regular. LUNGS: Clear. ABDOMEN: Soft. EXTREMITIES: No edema. NEUROLOGIC: Alert, awake, follows commands. CLINICAL IMPRESSION: 1. Acute kidney injury, improving. 2. Chronic kidney disease. 3. Alzheimer's type dementia. 4. Degenerative joint disease. 5. Psychotic disorder. 6. Hypertension. 7. Diabetes mellitus. PLAN: 1. Continue IV fluid. 2. Match I's and O's. 3. General nursing care. 4. Continue other medication as prescribed. 5. Follow consult recommendation. 6. Follow up lab. 7. If the patient's creatinine is significantly improving, we will consider this patient to be discharged to a prison, which has been discussed with RN. JOB# [id number]
[2019-03-30 05:41] LABS: % BASOPHILS 0.2 % (0.0-2.0); % EOSINOPHILS 5.5 % (0.0-5.0); % LYMPHOCYTES 23.3 % (20.0-50.0); % MONOCYTES 14.8 % (2.0-10.0); % NEUTROPHILS 56.2 % (40.0-80.0); EOSINOPHILE ABSOLUTE 0.3 Th/cmm (0.1-0.4); HEMATOCRIT 24.7 % (41.0-60); HEMOGLOBIN 8.2 gm/dL (12-16); LYMPHOCYTE ABSOLUTE 1.1 Th/cmm (1.5-3.0); MEAN CELL VOLUME 94.6 fl (80-99); MEAN CORPUSCULAR HEMOGLOBIN 31.3 pg (27.0-31.0); MEAN CORPUSCULAR HGB CONC 33.1 pg (28.0-36.0); MONOCYTE ABSOLUTE 0.7 Th/cmm (0.3-1.0); NEUTROPHILE ABSOLUTE 2.6 Th/cmm (1.8-8.0); PLATELET COUNT 168 Th/cmm (150-400); RED BLOOD COUNT 2.61 Mil/cmm (3.80-5.80); RED CELL DISTRIBUTION WIDTH 15.3 % (11.5-20.0); WHITE BLOOD COUNT 4.7 Th/cmm (4.8-10.8)
[2019-03-30 05:45] LABS: ALB/GLOB RATIO 0.9 (1.0-1.8); ALBUMIN 2.8 gm/dL (4.2-5.5); ANION GAP 13.4 (7.0-16.0); BILIRUBIN,TOTAL 0.2 mg/dL (0.3-1.0); CALCIUM SERUM 7.1 mg/dL (8.6-10.3); CARBON DIOXIDE 17.1 mEq/L (21.0-31.0); GFR NON AFRICAN-AMERICAN 11.6 ml/min; MAGNESIUM 2.3 mg/dL (1.9-2.7); POTASSIUM SERUM 4.5 mEq/L (3.5-5.1); TOTAL PROTEIN,SERUM 5.8 gm/dL (6.0-8.3)
[2019-03-30 06:14] LABS: CREATININE - SERUM 5.3 mg/dL (0.7-1.3)
[2019-03-30] MEDS: D5-0.45NS 1,000 ML IV SCH ×4 (06:47→23:27)
[2019-03-30] MEDS: INSULIN LISPRO SLIDING SCALE 100 UNITS/ML UNIT SUBQ SCH ×4 (06:53→20:45)
[2019-03-30] MEDS: Lactobacillus Rhamnosus GG 15 Billion CFU CAP.SPRINK PO SCH (08:54)
[2019-03-30] MEDS: Aspirin 81mg Chewable Tab PO SCH (08:54)
[2019-03-30] MEDS: Multivitamin Tab PO SCH (08:54)
[2019-03-30] MEDS: Ferrous Sulfate 325 MG TAB PO SCH (08:54)
--- NOTE | 2019-03-30 16:24 | Progress Notes ---
DATE: 03/30/2019 LOCATION: Room: 10, bed-A, [facility]. SUBJECTIVE: The patient is essentially same not in acute distress, eating well, tolerating food well. No vomiting or diarrhea. Good urine output. OBJECTIVE: VITAL SIGNS: Pulse 63, blood pressure 139/63, oxygen saturation 98. Yesterday's intake noted to be only 480, which is not accurate. The patient is getting more than 125 mL per hour IV fluids. Urine output has been noted as 3900. HEART: Regular. LUNGS: Good air entry. ABDOMEN: Soft. EXTREMITIES: No edema. LABORATORY DATA: WBC 4.7, hemoglobin 8.2, platelets normal. Sodium is 136, potassium 4.5, chloride 110, CO2 17, BUN 50, creatinine 5.3 and calcium 7.1. ASSESSMENT: 1. Acute kidney injury, improving slowly. 2. Dehydration, improving. 3. Anemia, stable. 4. Dementia. 5. Urinary tract infection. 6. Hypertension. PLAN: Continue IV hydration. Discussed with nursing staff to have a strict I and O. Repeat BMP in the morning. JOB# [id number]
[2019-03-30] MEDS: Insulin Glargine 100 units/ml 10ml Vial SUBQ SCH (20:45)
--- NOTE | 2019-03-31 00:55 | Progress Notes ---
DATE: IDENTIFICATION: This is a 68-year-old male. SUBJECTIVE: The patient seen and examined. The patient is lying in the bed. No new event. The patient is alert, awake, follows commands. PHYSICAL EXAMINATION: VITAL SIGNS: Temperature 97.3, pulse 63, respiratory rate 18, blood pressure 139/63. HEENT: No facial asymmetry. NECK: Supple, no JVD. HEART: Regular. LUNGS: Clear to auscultation. ABDOMEN: Soft. EXTREMITIES: No edema. AVAILABLE DIAGNOSTIC DATA: White count of 4.7, hemoglobin 8.2, platelet count of 168. BUN and creatinine is 50 and 5.3, potassium 4.5, albumin of 2.8. Input/output delgado, the patient has a negative fluid balance of -20. CLINICAL IMPRESSION: 1. Acute kidney injury, improving with negative fluid balance. 2. Chronic kidney disease. 3. Dementia. 4. Degenerative joint disease. 5. Psychotic disorder. 6. Hypertension. 7. Diabetes. PLAN: I will increase IV fluids to match I's and O's. Continue to follow labs. Continue to provide general nursing care. Continue other medication as prescribed. In the view of acute kidney injury with persistent elevated creatinine, I do not think the patient is safe to be discharged to lower level of care. Care plan reviewed and discussed with staff. JOB# [id number]
[2019-03-31] MEDS: D5-0.45NS 1,000 ML IV SCH ×4 (05:08→22:21)
[2019-03-31 05:25] LABS: % BASOPHILS 0.3 % (0.0-2.0); % EOSINOPHILS 5.7 % (0.0-5.0); % LYMPHOCYTES 18.4 % (20.0-50.0); % MONOCYTES 13.7 % (2.0-10.0); % NEUTROPHILS 61.9 % (40.0-80.0); EOSINOPHILE ABSOLUTE 0.3 Th/cmm (0.1-0.4); HEMATOCRIT 24.2 % (41.0-60); LYMPHOCYTE ABSOLUTE 0.9 Th/cmm (1.5-3.0); MEAN CELL VOLUME 93.5 fl (80-99); MEAN CORPUSCULAR HEMOGLOBIN 30.9 pg (27.0-31.0); MEAN CORPUSCULAR HGB CONC 33.1 pg (28.0-36.0); MONOCYTE ABSOLUTE 0.7 Th/cmm (0.3-1.0); NEUTROPHILE ABSOLUTE 2.9 Th/cmm (1.8-8.0); PLATELET COUNT 175 Th/cmm (150-400); RED BLOOD COUNT 2.59 Mil/cmm (3.80-5.80); RED CELL DISTRIBUTION WIDTH 15.1 % (11.5-20.0); WHITE BLOOD COUNT 4.8 Th/cmm (4.8-10.8)
[2019-03-31 05:42] LABS: ALB/GLOB RATIO 0.9 (1.0-1.8); ALBUMIN 2.7 gm/dL (4.2-5.5); ANION GAP 12.6 (7.0-16.0); BILIRUBIN,TOTAL 0.2 mg/dL (0.3-1.0); CALCIUM SERUM 6.9 mg/dL (8.6-10.3); CARBON DIOXIDE 16.1 mEq/L (21.0-31.0); GFR AFRICAN-AMERICAN 16.1 ml/min (>90); GFR NON AFRICAN-AMERICAN 13.3 ml/min; POTASSIUM SERUM 4.7 mEq/L (3.5-5.1); TOTAL PROTEIN,SERUM 5.7 gm/dL (6.0-8.3)
[2019-03-31 06:07] LABS: CREATININE - SERUM 4.7 mg/dL (0.7-1.3)
[2019-03-31] MEDS: INSULIN LISPRO SLIDING SCALE 100 UNITS/ML UNIT SUBQ SCH ×4 (06:30→20:32)
[2019-03-31] MEDS: Lactobacillus Rhamnosus GG 15 Billion CFU CAP.SPRINK PO SCH (09:30)
[2019-03-31] MEDS: Multivitamin Tab PO SCH (09:31)
[2019-03-31] MEDS: Aspirin 81mg Chewable Tab PO SCH (09:31)
[2019-03-31] MEDS: Ferrous Sulfate 325 MG TAB PO SCH (09:31)
--- NOTE | 2019-03-31 10:21 | General Progress Note ---
Subjective - Review of Systems Service Date: 03/31/19 Subjective: SLEEPING NO DISTRESS Objective - Results Result Diagrams: 03/31/19 05:10 03/31/19 05:10 Recent Labs: Laboratory Last Values WBC 4.8 Th/cmm (4.8-10.8) 03/31/19 05:10 Corrected WBC (auto) Cancelled 03/25/19 05:20 RBC 2.59 Mil/cmm (3.80-5.80) L 03/31/19 05:10 Hgb 8.0 gm/dL (12-16) L 03/31/19 05:10 Hct 24.2 % (41.0-60) L 03/31/19 05:10 MCV 93.5 fl (80-99) 03/31/19 05:10 MCH 30.9 pg (27.0-31.0) 03/31/19 05:10 MCHC Differential 33.1 pg (28.0-36.0) 03/31/19 05:10 RDW 15.1 % (11.5-20.0) 03/31/19 05:10 Plt Count 175 Th/cmm (150-400) 03/31/19 05:10 MPV 7.8 fl 03/31/19 05:10 Add Manual Diff YES 03/25/19 06:00 Neutrophils % 61.9 % (40.0-80.0) 03/31/19 05:10 Band Neutrophils % 0 % (0-10) 03/25/19 06:00 Lymphocytes % 18.4 % (20.0-50.0) L 03/31/19 05:10 Monocytes % 13.7 % (2.0-10.0) H 03/31/19 05:10 Eosinophils % 5.7 % (0.0-5.0) H 03/31/19 05:10 Basophils % 0.3 % (0.0-2.0) 03/31/19 05:10 Neutrophils (Manual) 71 % (40-80) 03/25/19 06:00 Lymphocytes 15 % (20-50) L 03/25/19 06:00 Monocytes 11 % (2-10) H 03/25/19 06:00 Eosinophils 3 % (0-5) 03/25/19 06:00 Basophils 0 % (0-3) 03/25/19 06:00 Metamyelocytes Cancelled 03/25/19 05:20 Myelocytes Cancelled 03/25/19 05:20 Promyelocytes Cancelled 03/25/19 05:20 Nucleated RBCs Cancelled 03/25/19 05:20 Hypersegmented Polys Cancelled 03/25/19 05:20 Atypical Lymphocytes Cancelled 03/25/19 05:20 Vacuolated Monocytes Cancelled 03/25/19 05:20 Myeloblasts Cancelled 03/25/19 05:20 Plasma Cells Cancelled 03/25/19 05:20 Smudge Cells Cancelled 03/25/19 05:20 Other Cell Type Cancelled 03/25/19 05:20 Hypochromia Cancelled 03/25/19 05:20 Toxic Granulation Cancelled 03/25/19 05:20 Dohle Bodies Cancelled 03/25/19 05:20 Pelger-Huet Cells Cancelled 03/25/19 05:20 Anthony Rods Cancelled 03/25/19 05:20 Platelet Estimate ADEQUATE (NORMAL) 03/25/19 06:00 Platelet Morphology Cancelled 03/25/19 05:20 Polychromasia Cancelled 03/25/19 05:20 Poikilocytosis Cancelled 03/25/19 05:20 Basophilic Stippling Cancelled 03/25/19 05:20 Anisocytosis Cancelled 03/25/19 05:20 Microcytosis Cancelled 03/25/19 05:20 Macrocytosis Cancelled 03/25/19 05:20 Spherocytes Cancelled 03/25/19 05:20 Pappenheimer Bodies Cancelled 03/25/19 05:20 Sickle Cells Cancelled 03/25/19 05:20 Target Cells Cancelled 03/25/19 05:20 Tear Drop Cells Cancelled 03/25/19 05:20 Ovalocytes Cancelled 03/25/19 05:20 Stomatocytes Cancelled 03/25/19 05:20 Helmet Cells Cancelled 03/25/19 05:20 Simmons-Gruver Bodies Cancelled 03/25/19 05:20 [place] Rings Cancelled 03/25/19 05:20 Kavita Cells Cancelled 03/25/19 05:20 Crenated Cell Cancelled 03/25/19 05:20 Acanthocytes (Spur) Cancelled 03/25/19 05:20 Rouleaux Cancelled 03/25/19 05:20 Schistocytes Cancelled 03/25/19 05:20 RBC Morph Micro Appear Cancelled 03/25/19 05:20 Morphology Comment Cancelled 03/25/19 05:20 Smear Path Review Cancelled 03/25/19 05:20 Eos Smear Source URINE 03/25/19 21:55 Eos Smear Total Cells NONE SEEN (NONE SEEN) 03/25/19 21:55 PT 9.9 SECONDS (9.5-11.5) 03/24/19 16:00 INR 0.95 (0.5-1.4) 03/24/19 16:00 PTT (Actin FS) 27.6 SECONDS (26.0-38.0) 03/24/19 16:00 Specimen Source ARTERIAL 03/24/19 17:13 Sample Site LEFT RADIAL 03/24/19 17:13 pH 7.280 (7.35-7.45) L 03/24/19 17:13 pCO2 38.5 mmHg (35.0-45.0) 03/24/19 17:13 pO2 187.0 mmHg (80.0-100.0) H 03/24/19 17:13 HCO3 18.0 mEq/L (20.0-26.0) L 03/24/19 17:13 Base Excess -8.0 mEq/L (-3.0-3.0) L 03/24/19 17:13 O2 Saturation 99.0 % (92.0-100.0) 03/24/19 17:13 Diaz Test YES 03/24/19 17:13 Vent Rate N/A 03/24/19 17:13 Inspired O2 28 03/24/19 17:13 Tidal Volume N/A 03/24/19 17:13 PEEP N/A 03/24/19 17:13 Pressure (ins/psv/peep) N/A 03/24/19 17:13 Critical Value OR 03/24/19 17:13 Sodium 135 mEq/L (136-145) L 03/31/19 05:10 Potassium 4.7 mEq/L (3.5-5.1) 03/31/19 05:10 Chloride 111 mEq/L (98-107) H 03/31/19 05:10 Carbon Dioxide 16.1 mEq/L (21.0-31.0) L 03/31/19 05:10 Anion Gap 12.6 (7.0-16.0) 03/31/19 05:10 BUN 44 mg/dL (7-25) H 03/31/19 05:10 Creatinine 4.7 mg/dL (0.7-1.3) H* 03/31/19 05:10 Est GFR ( Amer) 16.1 ml/min (>90) 03/31/19 05:10 Est GFR (Non-Af Amer) 13.3 ml/min 03/31/19 05:10 BUN/Creatinine Ratio 9.4 03/31/19 05:10 Glucose 88 mg/dL (70-105) 03/31/19 05:10 POC Glucose 80 MG/DL (70 - 105) 03/31/19 05:34 Calcium 6.9 mg/dL (8.6-10.3) L 03/31/19 05:10 Phosphorus 5.9 mg/dL (2.5-5.0) H 03/28/19 04:15 Magnesium 2.3 mg/dL (1.9-2.7) 03/30/19 04:55 Iron 49 ug/dL (38-169) 03/26/19 05:50 TIBC 223 ug/dL (250-450) L 03/26/19 05:50 Iron Saturation 22 % (15-55) 03/26/19 05:50 Unsaturated IBC 174 ug/dL (111-343) 03/26/19 05:50 Total Bilirubin 0.2 mg/dL (0.3-1.0) L 03/31/19 05:10 AST 15 U/L (13-39) 03/31/19 05:10 ALT 11 U/L (7-52) 03/31/19 05:10 Alkaline Phosphatase 97 U/L (34-104) 03/31/19 05:10 Troponin I 0.02 ng/mL (0.01-0.05) 03/25/19 20:40 B-Natriuretic Peptide 145.0 pg/mL (5.0-100.0) H 03/24/19 16:00 Total Protein 5.7 gm/dL (6.0-8.3) L 03/31/19 05:10 Albumin 2.7 gm/dL (4.2-5.5) L 03/31/19 05:10 Globulin 3.0 gm/dL 03/31/19 05:10 Albumin/Globulin Ratio 0.9 (1.0-1.8) L 03/31/19 05:10 Triglycerides 261 mg/dL (<150) H 03/24/19 16:00 Cholesterol 171 mg/dL (<200) 03/24/19 16:00 LDL Cholesterol Direct 102 mg/dL (75-193) 03/24/19 16:00 HDL Cholesterol 43 mg/dL (23-92) 03/24/19 16:00 Free T4 0.81 ng/dL (0.82-1.77) L 03/25/19 05:20 Free T3 1.7 pg/mL (2.0-4.4) L 03/25/19 05:20 TSH 1.90 uIU/ml (0.34-5.60) 03/25/19 06:00 Urine Source [place] 03/25/19 00:35 Urine Color LIGHT YELLOW 03/25/19 00:35 Urine Clarity HAZY (CLEAR) 03/25/19 00:35 Urine pH 6.0 (4.6 - 8.0) 03/25/19 00:35 Ur Specific [place] 1.020 (1.005-1.030) 03/25/19 00:35 Urine Protein 100 mg/dL (NEGATIVE) H 03/25/19 00:35 Urine Glucose (UA) NEGATIVE mg/dL (NEGATIVE) 03/25/19 00:35 Urine Ketones NEGATIVE mg/dL (NEGATIVE) 03/25/19 00:35 Urine Blood LARGE (NEGATIVE) H 03/25/19 00:35 Urine Nitrate NEGATIVE (NEGATIVE) 03/25/19 00:35 Urine Bilirubin NEGATIVE (NEGATIVE) 03/25/19 00:35 Urine Urobilinogen 0.2 E.U./dL (0.2 - 1.0) 03/25/19 00:35 Ur Leukocyte Esterase NEGATIVE (NEGATIVE) 03/25/19 00:35 Urine RBC 2-5 /hpf (0-5) H 03/25/19 00:35 Urine WBC 0-2 /hpf (0-5) 03/25/19 00:35 Ur Epithelial Cells FEW /lpf (FEW) 03/25/19 00:35 Calcium Oxalate Crystal FEW /hpf 03/25/19 00:35 Urine Bacteria FEW /hpf (NONE SEEN) 03/25/19 00:35 Coarse Granular Casts 2-5 /lpf (NONE SEEN) H 03/24/19 17:00 Stool Occult Blood NEGATIVE (NEGATIVE) 03/26/19 09:00 Levetiracetam 33.3 ug/mL (10.0-40.0) 03/24/19 16:00 RPR NONREACTIVE (NONREACTIVE) 03/24/19 16:00 - Physical Exam Vitals and I&O: Vital Signs Temp 97.1 F 03/31/19 08:02 Pulse 72 03/31/19 09:31 Resp 18 03/31/19 08:02 BP 112/59 03/31/19 09:31 Pulse Ox 98 03/31/19 08:02 Intake & Output 03/30/19 03/31/19 03/31/19 18:59 06:59 18:59 Intake Total 4898.240 6309.250 Output Total 3000 Balance 1477.917 -553.750 Weight (lbs) 68.039 kg 50.349 kg Intake: Intake, IV Amount 755.319 7521.250 D5-0.45NS 1,000 ml @ 175 413.180 0015.250 mls/hr IV .Q5H43M [facility] Rx# :[id number] Oral 600 460 Output: Urine 3000 Other: # Bowel Movements 2 Stool Characteristics Brown Weight Source Bedscale Bedscale Active Medications: Current Medications Acetaminophen (Tylenol) 650 mg PO Q4H PRN PRN Reason: Pain (Moderate) Stop: 05/23/19 23:22 Acetaminophen (Tylenol) 650 mg PO Q4HR PRN PRN Reason: Mild Pain / Temp above 100 Stop: 05/24/19 15:06 Amlodipine Besylate (Norvasc) 10 mg PO DAILY [facility] Stop: 05/24/19 08:59 Last Admin: 03/31/19 09:31 Dose: 10 mg Aspirin (Aspirin Chewable) 81 mg PO DAILY [facility] Stop: 05/24/19 08:59 Last Admin: 03/31/19 09:31 Dose: 81 mg Dextrose (D50w) 50 ml IVP PRN PRN PRN Reason: Blood Glucose less than 70 Stop: 05/24/19 04:04 Dextrose (Glutose 40%) 18.75 gm PO PRN PRN PRN Reason: Blood Glucose less than 70 Stop: 05/24/19 04:04 Docusate Sodium (Colace) 100 mg PO BID [facility] Stop: 05/24/19 08:59 Last Admin: 03/31/19 09:31 Dose: 100 mg Donepezil HCl (Aricept) 10 mg PO HS [facility] Stop: 05/24/19 20:59 Last Admin: 03/30/19 20:45 Dose: 10 mg Ferrous Sulfate (Iron) 325 mg PO DAILY [facility] Stop: 05/24/19 08:59 Last Admin: 03/31/19 09:31 Dose: 325 mg Folic Acid (Folate) 1 mg PO DAILY [facility] Stop: 05/25/19 08:59 Last Admin: 03/31/19 09:31 Dose: 1 mg Glucagon (Glucagen) 1 mg IM PRN PRN PRN Reason: Blood Glucose less than 70 Stop: 05/24/19 04:04 Dextrose/Sodium Chloride (D5-0.45ns) 1,000 mls @ 175 mls/hr IV .Q5H43M [facility] Stop: 05/29/19 12:29 Last Admin: 03/31/19 05:08 Dose: 175 mls/hr Insulin Glargine (Lantus Insulin) 5 units SUBQ HS [facility] Stop: 05/24/19 20:59 Last Admin: 03/30/19 20:45 Dose: 5 units Insulin Human Lispro (Humalog Insulin Sliding Scale) 0 units SUBQ ACHS [facility]; Protocol Stop: 05/24/19 07:29 Last Admin: 03/31/19 06:30 Dose: Not Given Lactobacillus Rhamnosus (Culturelle 15b) 1 each PO DAILY [facility] Stop: 05/25/19 08:59 Last Admin: 03/31/19 09:30 Dose: 1 each Levetiracetam (Keppra) 500 mg PO BID [facility] Stop: 05/24/19 08:59 Last Admin: 03/31/19 09:32 Dose: 500 mg Magnesium Hydroxide (Milk Of Magnesia) 30 ml PO HS PRN PRN Reason: Constipation Stop: 05/23/19 21:32 Miscellaneous (Clinical Monitoring) 1 ea MC DAILY PRN PRN Reason: RENAL DOSING Stop: 05/28/19 07:59 Multivitamins/Vitamin C (Theragran) 1 tab PO DAILY [facility] Stop: 05/24/19 08:59 Last Admin: 03/31/19 09:31 Dose: 1 tab Sevelamer Carbonate (Renvela) 2,400 mg PO TIDWM [facility] Stop: 05/26/19 11:59 Last Admin: 03/31/19 09:29 Dose: 2,400 mg Thiamine HCl (Vitamin B1) 100 mg PO DAILY [facility] Stop: 05/24/19 08:59 Last Admin: 03/31/19 09:31 Dose: 100 mg General: No acute distress Neck: Supple Cardiovascular: Regular rate, Normal S1, Normal S2 Abdomen: Bowel sounds Extremities: Pulses, Other, no Clubbing, no Cyanosis, no Edema, no Tender - Procedures Procedures: Procedures Procedure Code Date BLOOD TRANSFUSION SERVICE 95383 04/12/17 EXCISION OF ANUS, ENDO, DIAGN [id number] 08/24/17 EXCISION OF DESCENDING COLON, ENDO, DIAGN [id number] 08/24/17 EXCISION OF ESOPHAGOGASTRIC JUNCTION, ENDO, DIAGN [id number] 08/24/17 EXCISION OF RECTUM, ENDO, DIAGN [id number] 08/24/17 EXCISION OF STOMACH, ENDO, DIAGN [id number] 08/24/17 TRANSFUSE NONAUT RED BLOOD CELLS IN PERIPH VEIN, PERC 44451A1 08/24/17 Assessment/Plan - Assessment Assessment: ARF CONT TO IMPROVE WITH IVF ANEMIA UTI HTN - Plan Plan: CONT CURRENT IV CHECK LYTES AND REPLACE Nutritional Asmnt/Malnutr-PDOC - Dietary Evaluation Malnutrition Findings (Please click <Entered> for more info): Nutritional Asmnt/Malnutrition Start: 03/25/19 11: 50 Text: Status: Complete Freq: Protocol: Document 03/25/19 11:53 MMULN (Rec: 03/25/19 12:24 MMULHERN NANCY- [email or web address]) Nutritional Asmnt/Malnutrition Patient General Information Nutritional Screening High Risk Consult Diagnosis ESRD, DM Pertinent Medical Hx/Surgical Hx DM, CAD, CHF, Seizures, Dementia Subjective Information Consult received for BG 231. Current Diet Order/ Nutrition Support 2gm Na, 45gm CCHO, Renal, Chopped Patient / S.O Not Indicated Pertinent Medications D50W, D5W, Colace, Iron, Glucagon, lantus, humalog, MOM , theragran, Vitamin B1 Pertinent Labs (03/25) Na 153, BUN 76, Cr 8.3 , glucose 66-212, TAG 261, Albumin 3.3 Nutritional Hx/Data Height 1.63 m Height (Calculated Centimeters) 162.6 Current Weight (lbs) 68.039 kg Weight (Calculated Kilograms) 68.0 Weight (Calculated Grams) 38455.9 [place] Body Weight 130 % [place] Body Weight 115 Body Mass Index (BMI) 25.7 Recent Weight Change No Weight Status Overweight GI Symptoms GI Symptoms None Last BM 03/25 Difficult in: None Food Allergies No Cultural/Ethnic/Nondenominational Belief none indicated Usual diet at home unknown Skin Integrity/Comment: [place] 11, Decubitus ulceration lower coccyx Current %PO Fair (50-74%) Estimated Nutritional Goals BEE in Kcals: Using Current wt Calories/Kcals/Kg using CBW 68.1 kg 25-30 kcal/ kg Kcals Calculated ~9503-5312 kcal/day Protein: Using Current wt Protein g/k.8-1 gm/kg Protein Calculated ~55-65 gm/day Fluid: ml ~6641-9187 kcal/day Nutritional Problem 1. Problem Problem Inadequate oral intake related to Etiology possible poor appetite aeb Signs/Symptoms: PO <75% of meals Intervention/Recommendation Comments 1. Continue 45 gm CCHO, 2 gm Na, chopped diet as tolerated by patient. Consider checking Phosphorus level to determine need for renal restrictions. 2. If oral intake remains inadequate, consider adding Nepro BID day to supplement meals. Expected Outcomes/Goals Expected Outcomes/Goals PO intake to meet >75% of nutritional needs, weight stability or trend toward ideal body weight, skin intact , nutrition related labs to approach WNL. F/U MR
[2019-03-31] MEDS: Insulin Glargine 100 units/ml 10ml Vial SUBQ SCH (20:31)
--- NOTE | 2019-04-01 01:16 | Progress Notes ---
DATE: 03/31/2019 IDENTIFICATION: A 68-helena-old male. SUBJECTIVE: The patient seen and examined. The patient is lying in the bed, unable to get meaningful history from the patient. PHYSICAL EXAMINATION: VITAL SIGNS: Temperature 97.1, pulse 60, respiratory rate 18, blood pressure 144/57. HEENT: No facial asymmetry. NECK: Supple. HEART: Regular. LUNGS: Clear. ABDOMEN: Soft. No guarding or rigidity. Bowel sounds are present. No palpable mass. EXTREMITIES: No edema. AVAILABLE DIAGNOSTIC DATA: Sodium 135, potassium 4.7, chloride 111, BUN and creatinine is 44 and 4.7 with AST, ALT are normal. A 24-hour input and output has been noted, now the patient has positive fluid balance of 924. CLINICAL IMPRESSION: 1. Acute kidney injury, improving. 2. Diabetes mellitus. 3. Hypertension. 4. Dementia. 5. Chronic kidney disease. 6. Degenerative joint disease. 7. Psychotic disorder. PLAN: The patient has a positive fluid balance at this time. We will keep this patient for next 24 hours. If creatinine is significantly improved, we will discharge this patient to lower level of care. Meanwhile, continue current medication as prescribed and we will follow software sales consultant's recommendations. Care plan has been reviewed and discussed with the staff. [facility]# [id number]
[2019-04-01 05:02] LABS: % BASOPHILS 0.3 % (0.0-2.0); % EOSINOPHILS 4.4 % (0.0-5.0); % MONOCYTES 12.5 % (2.0-10.0); % NEUTROPHILS 67.8 % (40.0-80.0); EOSINOPHILE ABSOLUTE 0.2 Th/cmm (0.1-0.4); HEMOGLOBIN 8.5 gm/dL (12-16); LYMPHOCYTE ABSOLUTE 0.8 Th/cmm (1.5-3.0); MEAN CELL VOLUME 95.1 fl (80-99); MEAN CORPUSCULAR HGB CONC 32.6 pg (28.0-36.0); MONOCYTE ABSOLUTE 0.7 Th/cmm (0.3-1.0); NEUTROPHILE ABSOLUTE 3.6 Th/cmm (1.8-8.0); PLATELET COUNT 176 Th/cmm (150-400); RED BLOOD COUNT 2.74 Mil/cmm (3.80-5.80); RED CELL DISTRIBUTION WIDTH 15.2 % (11.5-20.0); WHITE BLOOD COUNT 5.3 Th/cmm (4.8-10.8)
[2019-04-01] MEDS: D5-0.45NS 1,000 ML IV SCH ×4 (05:16→23:57)
[2019-04-01 05:20] LABS: ALB/GLOB RATIO 0.9 (1.0-1.8); ALBUMIN 2.7 gm/dL (4.2-5.5); BILIRUBIN,TOTAL 0.2 mg/dL (0.3-1.0); CARBON DIOXIDE 15.9 mEq/L (21.0-31.0); GFR AFRICAN-AMERICAN 17.3 ml/min (>90); GFR NON AFRICAN-AMERICAN 14.3 ml/min; POTASSIUM SERUM 4.9 mEq/L (3.5-5.1); TOTAL PROTEIN,SERUM 5.8 gm/dL (6.0-8.3)
[2019-04-01 05:53] LABS: CREATININE - SERUM 4.4 mg/dL (0.7-1.3)
--- NOTE | 2019-04-01 07:07 | General Progress Note ---
Subjective - Review of Systems Subjective: AWAKE NO DISTRESS DEMENTED Objective - Results Result Diagrams: 04/01/19 04:50 04/01/19 04:50 Recent Labs: Laboratory Last Values WBC 5.3 Th/cmm (4.8-10.8) 04/01/19 04:50 Corrected WBC (auto) Cancelled 03/25/19 05:20 RBC 2.74 Mil/cmm (3.80-5.80) L 04/01/19 04:50 Hgb 8.5 gm/dL (12-16) L 04/01/19 04:50 Hct 26.0 % (41.0-60) L 04/01/19 04:50 MCV 95.1 fl (80-99) 04/01/19 04:50 MCH 31.0 pg (27.0-31.0) 04/01/19 04:50 MCHC Differential 32.6 pg (28.0-36.0) 04/01/19 04:50 RDW 15.2 % (11.5-20.0) 04/01/19 04:50 Plt Count 176 Th/cmm (150-400) 04/01/19 04:50 MPV 7.6 fl 04/01/19 04:50 Add Manual Diff YES 03/25/19 06:00 Neutrophils % 67.8 % (40.0-80.0) 04/01/19 04:50 Band Neutrophils % 0 % (0-10) 03/25/19 06:00 Lymphocytes % 15.0 % (20.0-50.0) L 04/01/19 04:50 Monocytes % 12.5 % (2.0-10.0) H 04/01/19 04:50 Eosinophils % 4.4 % (0.0-5.0) 04/01/19 04:50 Basophils % 0.3 % (0.0-2.0) 04/01/19 04:50 Neutrophils (Manual) 71 % (40-80) 03/25/19 06:00 Lymphocytes 15 % (20-50) L 03/25/19 06:00 Monocytes 11 % (2-10) H 03/25/19 06:00 Eosinophils 3 % (0-5) 03/25/19 06:00 Basophils 0 % (0-3) 03/25/19 06:00 Metamyelocytes Cancelled 03/25/19 05:20 Myelocytes Cancelled 03/25/19 05:20 Promyelocytes Cancelled 03/25/19 05:20 Nucleated RBCs Cancelled 03/25/19 05:20 Hypersegmented Polys Cancelled 03/25/19 05:20 Atypical Lymphocytes Cancelled 03/25/19 05:20 Vacuolated Monocytes Cancelled 03/25/19 05:20 Myeloblasts Cancelled 03/25/19 05:20 Plasma Cells Cancelled 03/25/19 05:20 Smudge Cells Cancelled 03/25/19 05:20 Other Cell Type Cancelled 03/25/19 05:20 Hypochromia Cancelled 03/25/19 05:20 Toxic Granulation Cancelled 03/25/19 05:20 Dohle Bodies Cancelled 03/25/19 05:20 Pelger-Huet Cells Cancelled 03/25/19 05:20 Anthony Rods Cancelled 03/25/19 05:20 Platelet Estimate ADEQUATE (NORMAL) 03/25/19 06:00 Platelet Morphology Cancelled 03/25/19 05:20 Polychromasia Cancelled 03/25/19 05:20 Poikilocytosis Cancelled 03/25/19 05:20 Basophilic Stippling Cancelled 03/25/19 05:20 Anisocytosis Cancelled 03/25/19 05:20 Microcytosis Cancelled 03/25/19 05:20 Macrocytosis Cancelled 03/25/19 05:20 Spherocytes Cancelled 03/25/19 05:20 Pappenheimer Bodies Cancelled 03/25/19 05:20 Sickle Cells Cancelled 03/25/19 05:20 Target Cells Cancelled 03/25/19 05:20 Tear Drop Cells Cancelled 03/25/19 05:20 Ovalocytes Cancelled 03/25/19 05:20 Stomatocytes Cancelled 03/25/19 05:20 Helmet Cells Cancelled 03/25/19 05:20 [place] Bodies Cancelled 03/25/19 05:20 [place] Rings Cancelled 03/25/19 05:20 [place] Cells Cancelled 03/25/19 05:20 Crenated Cell Cancelled 03/25/19 05:20 Acanthocytes (Spur) Cancelled 03/25/19 05:20 Rouleaux Cancelled 03/25/19 05:20 Schistocytes Cancelled 03/25/19 05:20 RBC Morph Micro Appear Cancelled 03/25/19 05:20 Morphology Comment Cancelled 03/25/19 05:20 Smear Path Review Cancelled 03/25/19 05:20 Eos Smear Source URINE 03/25/19 21:55 Eos Smear Total Cells NONE SEEN (NONE SEEN) 03/25/19 21:55 PT 9.9 SECONDS (9.5-11.5) 03/24/19 16:00 INR 0.95 (0.5-1.4) 03/24/19 16:00 PTT (Actin FS) 27.6 SECONDS (26.0-38.0) 03/24/19 16:00 Specimen Source ARTERIAL 03/24/19 17:13 Sample Site LEFT RADIAL 03/24/19 17:13 pH 7.280 (7.35-7.45) L 03/24/19 17:13 pCO2 38.5 mmHg (35.0-45.0) 03/24/19 17:13 pO2 187.0 mmHg (80.0-100.0) H 03/24/19 17:13 HCO3 18.0 mEq/L (20.0-26.0) L 03/24/19 17:13 Base Excess -8.0 mEq/L (-3.0-3.0) L 03/24/19 17:13 O2 Saturation 99.0 % (92.0-100.0) 03/24/19 17:13 Diaz Test YES 03/24/19 17:13 Vent Rate N/A 03/24/19 17:13 Inspired O2 28 03/24/19 17:13 Tidal Volume N/A 03/24/19 17:13 PEEP N/A 03/24/19 17:13 Pressure (ins/psv/peep) N/A 03/24/19 17:13 Critical Value OR 03/24/19 17:13 Sodium 137 mEq/L (136-145) 04/01/19 04:50 Potassium 4.9 mEq/L (3.5-5.1) 04/01/19 04:50 Chloride 114 mEq/L (98-107) H 04/01/19 04:50 Carbon Dioxide 15.9 mEq/L (21.0-31.0) L 04/01/19 04:50 Anion Gap 12.0 (7.0-16.0) 04/01/19 04:50 BUN 40 mg/dL (7-25) H 04/01/19 04:50 Creatinine 4.4 mg/dL (0.7-1.3) H* 04/01/19 04:50 Est GFR ( Amer) 17.3 ml/min (>90) 04/01/19 04:50 Est GFR (Non-Af Amer) 14.3 ml/min 04/01/19 04:50 BUN/Creatinine Ratio 9.1 04/01/19 04:50 Glucose 66 mg/dL (70-105) L 04/01/19 04:50 POC Glucose 77 MG/DL (70 - 105) 04/01/19 06:29 Calcium 7.0 mg/dL (8.6-10.3) L 04/01/19 04:50 Phosphorus 5.9 mg/dL (2.5-5.0) H 03/28/19 04:15 Magnesium 2.3 mg/dL (1.9-2.7) 03/30/19 04:55 Iron 49 ug/dL (38-169) 03/26/19 05:50 TIBC 223 ug/dL (250-450) L 03/26/19 05:50 Iron Saturation 22 % (15-55) 03/26/19 05:50 Unsaturated IBC 174 ug/dL (111-343) 03/26/19 05:50 Total Bilirubin 0.2 mg/dL (0.3-1.0) L 04/01/19 04:50 AST 16 U/L (13-39) 04/01/19 04:50 ALT 11 U/L (7-52) 04/01/19 04:50 Alkaline Phosphatase 91 U/L (34-104) 04/01/19 04:50 Troponin I 0.02 ng/mL (0.01-0.05) 03/25/19 20:40 B-Natriuretic Peptide 145.0 pg/mL (5.0-100.0) H 03/24/19 16:00 Total Protein 5.8 gm/dL (6.0-8.3) L 04/01/19 04:50 Albumin 2.7 gm/dL (4.2-5.5) L 04/01/19 04:50 Globulin 3.1 gm/dL 04/01/19 04:50 Albumin/Globulin Ratio 0.9 (1.0-1.8) L 04/01/19 04:50 Triglycerides 261 mg/dL (<150) H 03/24/19 16:00 Cholesterol 171 mg/dL (<200) 03/24/19 16:00 LDL Cholesterol Direct 102 mg/dL (75-193) 03/24/19 16:00 HDL Cholesterol 43 mg/dL (23-92) 03/24/19 16:00 Free T4 0.81 ng/dL (0.82-1.77) L 03/25/19 05:20 Free T3 1.7 pg/mL (2.0-4.4) L 03/25/19 05:20 TSH 1.90 uIU/ml (0.34-5.60) 03/25/19 06:00 Urine Source [place] 03/25/19 00:35 Urine Color LIGHT YELLOW 03/25/19 00:35 Urine Clarity HAZY (CLEAR) 03/25/19 00:35 Urine pH 6.0 (4.6 - 8.0) 03/25/19 00:35 Ur Specific [place] 1.020 (1.005-1.030) 03/25/19 00:35 Urine Protein 100 mg/dL (NEGATIVE) H 03/25/19 00:35 Urine Glucose (UA) NEGATIVE mg/dL (NEGATIVE) 03/25/19 00:35 Urine Ketones NEGATIVE mg/dL (NEGATIVE) 03/25/19 00:35 Urine Blood LARGE (NEGATIVE) H 03/25/19 00:35 Urine Nitrate NEGATIVE (NEGATIVE) 03/25/19 00:35 Urine Bilirubin NEGATIVE (NEGATIVE) 03/25/19 00:35 Urine Urobilinogen 0.2 E.U./dL (0.2 - 1.0) 03/25/19 00:35 Ur Leukocyte Esterase NEGATIVE (NEGATIVE) 03/25/19 00:35 Urine RBC 2-5 /hpf (0-5) H 03/25/19 00:35 Urine WBC 0-2 /hpf (0-5) 03/25/19 00:35 Ur Epithelial Cells FEW /lpf (FEW) 03/25/19 00:35 Calcium Oxalate Crystal FEW /hpf 03/25/19 00:35 Urine Bacteria FEW /hpf (NONE SEEN) 03/25/19 00:35 Coarse Granular Casts 2-5 /lpf (NONE SEEN) H 03/24/19 17:00 Stool Occult Blood NEGATIVE (NEGATIVE) 03/26/19 09:00 Levetiracetam 33.3 ug/mL (10.0-40.0) 03/24/19 16:00 RPR NONREACTIVE (NONREACTIVE) 03/24/19 16:00 - Physical Exam Vitals and I&O: Vital Signs Temp 97 F 04/01/19 03:52 Pulse 62 04/01/19 03:52 Resp 18 04/01/19 03:52 BP 142/72 04/01/19 03:52 Pulse Ox 98 04/01/19 03:52 Intake & Output 03/31/19 04/01/19 04/01/19 18:59 06:59 18:59 Intake Total 2195.417 2180 Output Total 1450 1999 Balance 745.417 180 Weight (lbs) 50.349 kg 50.349 kg Intake: Intake, IV Amount 2249.905 4625 D5-0.45NS 1,000 ml @ 175 7244.321 6476 mls/hr IV .Q5H43M [facility] Rx# :[id number] Oral 300 180 Output: Urine 1450 2000 Other: # Bowel Movements 1 2 Weight Source Bedscale Bedscale Active Medications: Current Medications Acetaminophen (Tylenol) 650 mg PO Q4H PRN PRN Reason: Pain (Moderate) Stop: 05/23/19 23:22 Acetaminophen (Tylenol) 650 mg PO Q4HR PRN PRN Reason: Mild Pain / Temp above 100 Stop: 05/24/19 15:06 Amlodipine Besylate (Norvasc) 10 mg PO DAILY [facility] Stop: 05/24/19 08:59 Last Admin: 03/31/19 09:31 Dose: 10 mg Aspirin (Aspirin Chewable) 81 mg PO DAILY [facility] Stop: 05/24/19 08:59 Last Admin: 03/31/19 09:31 Dose: 81 mg Dextrose (D50w) 50 ml IVP PRN PRN PRN Reason: Blood Glucose less than 70 Stop: 05/24/19 04:04 Dextrose (Glutose 40%) 18.75 gm PO PRN PRN PRN Reason: Blood Glucose less than 70 Stop: 05/24/19 04:04 Docusate Sodium (Colace) 100 mg PO BID [facility] Stop: 05/24/19 08:59 Last Admin: 03/31/19 16:30 Dose: 100 mg Donepezil HCl (Aricept) 10 mg PO HS [facility] Stop: 05/24/19 20:59 Last Admin: 03/31/19 20:31 Dose: 10 mg Ferrous Sulfate (Iron) 325 mg PO DAILY [facility] Stop: 05/24/19 08:59 Last Admin: 03/31/19 09:31 Dose: 325 mg Folic Acid (Folate) 1 mg PO DAILY [facility] Stop: 05/25/19 08:59 Last Admin: 03/31/19 09:31 Dose: 1 mg Glucagon (Glucagen) 1 mg IM PRN PRN PRN Reason: Blood Glucose less than 70 Stop: 05/24/19 04:04 Dextrose/Sodium Chloride (D5-0.45ns) 1,000 mls @ 175 mls/hr IV .Q5H43M [facility] Stop: 05/29/19 12:29 Last Admin: 04/01/19 05:16 Dose: 175 mls/hr Insulin Glargine (Lantus Insulin) 5 units SUBQ HS [facility] Stop: 05/24/19 20:59 Last Admin: 03/31/19 20:31 Dose: 5 units Insulin Human Lispro (Humalog Insulin Sliding Scale) 0 units SUBQ [facility]; Protocol Stop: 05/24/19 07:29 Last Admin: 03/31/19 20:32 Dose: Not Given Lactobacillus Rhamnosus (Culturelle 15b) 1 each PO DAILY [facility] Stop: 05/25/19 08:59 Last Admin: 03/31/19 09:30 Dose: 1 each Levetiracetam (Keppra) 500 mg PO BID [facility] Stop: 05/24/19 08:59 Last Admin: 03/31/19 16:30 Dose: 500 mg Magnesium Hydroxide (Milk Of Magnesia) 30 ml PO HS PRN PRN Reason: Constipation Stop: 05/23/19 21:32 Miscellaneous (Clinical Monitoring) 1 ea MC DAILY PRN PRN Reason: RENAL DOSING Stop: 05/28/19 07:59 Multivitamins/Vitamin C (Theragran) 1 tab PO DAILY [facility] Stop: 05/24/19 08:59 Last Admin: 03/31/19 09:31 Dose: 1 tab Sevelamer Carbonate (Renvela) 2,400 mg PO TIDWM [facility] Stop: 05/26/19 11:59 Last Admin: 03/31/19 16:29 Dose: 2,400 mg Thiamine HCl (Vitamin B1) 100 mg PO DAILY [facility] Stop: 05/24/19 08:59 Last Admin: 03/31/19 09:31 Dose: 100 mg General: No acute distress Neck: Supple Cardiovascular: Regular rate, Normal S1, Normal S2 Abdomen: Bowel sounds Extremities: Pulses, Other, no Clubbing, no Cyanosis, no Edema, no Tender - Procedures Procedures: Procedures Procedure Code Date BLOOD TRANSFUSION SERVICE 36974 04/12/17 EXCISION OF ANUS, ENDO, DIAGN [id number] 08/24/17 EXCISION OF DESCENDING COLON, ENDO, DIAGN [id number] 08/24/17 EXCISION OF ESOPHAGOGASTRIC JUNCTION, ENDO, DIAGN [id number] 08/24/17 EXCISION OF RECTUM, ENDO, DIAGN [id number] 08/24/17 EXCISION OF STOMACH, ENDO, DIAGN [id number] 08/24/17 TRANSFUSE NONAUT RED BLOOD CELLS IN PERIPH VEIN, PERC 35134Q8 08/24/17 Assessment/Plan - Assessment Assessment: ARF CONT TO IMPROVE WITH IVF ANEMIA UTI HTN - Plan Plan: CONT CURRENT IV S CR NOT BACK TO BASELINE YET CHECK LYTES AND REPLACE Nutritional Asmnt/Malnutr-PDOC - Dietary Evaluation Malnutrition Findings (Please click <Entered> for more info): Nutritional Asmnt/Malnutrition Start: 03/25/19 11: 50 Text: Status: Complete Freq: Protocol: Document 03/25/19 11:53 MATTIE (Rec: 03/25/19 12:24 [email or web address] FN) Nutritional Asmnt/Malnutrition Patient General Information Nutritional Screening High Risk Consult Diagnosis ESRD, DM Pertinent Medical Hx/Surgical Hx DM, CAD, CHF, Seizures, Dementia Subjective Information Consult received for BG 231. Current Diet Order/ Nutrition Support 2gm Na, 45gm CCHO, Renal, Chopped Patient / S.O Not Indicated Pertinent Medications D50W, D5W, Colace, Iron, Glucagon, lantus, humalog, MOM , theragran, Vitamin B1 Pertinent Labs (03/25) Na 153, BUN 76, Cr 8.3 , glucose 66-212, TAG 261, Albumin 3.3 Nutritional Hx/Data Height 1.63 m Height (Calculated Centimeters) 162.6 Current Weight (lbs) 68.039 kg Weight (Calculated Kilograms) 68.0 Weight (Calculated Grams) 07639.9 [place] Body Weight 130 % [place] Body Weight 115 Body Mass Index (BMI) 25.7 Recent Weight Change No Weight Status Overweight GI Symptoms GI Symptoms None Last BM 03/25 Difficult in: None Food Allergies No Cultural/Ethnic/[place]ruze Belief none indicated Usual diet at home unknown Skin Integrity/Comment: [place] 11, Decubitus ulceration lower coccyx Current %PO Fair (50-74%) Estimated Nutritional Goals BEE in Kcals: Using Current wt Calories/Kcals/Kg using CBW 68.1 kg 25-30 kcal/ kg Kcals Calculated ~1829-4704 kcal/day Protein: Using Current wt Protein g/k.8-1 gm/kg Protein Calculated ~55-65 gm/day Fluid: ml ~0613-0880 kcal/day Nutritional Problem 1. Problem Problem Inadequate oral intake related to Etiology possible poor appetite aeb Signs/Symptoms: PO <75% of meals Intervention/Recommendation Comments 1. Continue 45 gm CCHO, 2 gm Na, chopped diet as tolerated by patient. Consider checking Phosphorus level to determine need for renal restrictions. 2. If oral intake remains inadequate, consider adding Nepro BID day to supplement meals. Expected Outcomes/Goals Expected Outcomes/Goals PO intake to meet >75% of nutritional needs, weight stability or trend toward ideal body weight, skin intact , nutrition related labs to approach WNL. F/U MR 03/28-
[2019-04-01] MEDS: INSULIN LISPRO SLIDING SCALE 100 UNITS/ML UNIT SUBQ SCH ×4 (07:50→21:25)
[2019-04-01] MEDS: Lactobacillus Rhamnosus GG 15 Billion CFU CAP.SPRINK PO SCH (08:47)
[2019-04-01] MEDS: Aspirin 81mg Chewable Tab PO SCH (08:48)
[2019-04-01] MEDS: Ferrous Sulfate 325 MG TAB PO SCH (08:48)
[2019-04-01] MEDS: Multivitamin Tab PO SCH (08:48)
[2019-04-01] MEDS: Insulin Glargine 100 units/ml 10ml Vial SUBQ SCH (21:25)
--- NOTE | 2019-04-02 03:52 | Progress Notes ---
DATE: 04/01/2019 IDENTIFICATION DATA: A 68-year-old male. SUBJECTIVE: The patient seen and examined. The patient is lying in the bed. The patient is nonverbal. OBJECTIVE: VITAL SIGNS: Temperature 97.3, pulse 64, respiratory rate 18, blood pressure 168/69. HEENT: No facial asymmetry. NECK: Supple, no JVD. HEART: Regular. LUNGS: Clear to auscultation. ABDOMEN: Soft. No guarding or rigidity. Bowel sounds heard. No palpable mass. EXTREMITIES: No edema. LABORATORY DATA: BUN and creatinine is 40 and 4.4, albumin of 2.7. A 24-hour I's and O's has a positive fluid balance. CLINICAL IMPRESSION: 1. Acute kidney injury, improving. 2. Chronic kidney disease, stage 3. 3. Diabetes mellitus. 4. Hypertension. 5. Hyperlipidemia. 6. Degenerative joint disease. 7. Dementia. 8. Fall precautions. PLAN: 1. Follow up lab for tomorrow. 2. Continue other medicine as prescribed. 3. Nutritional support. 4. Continue IV fluid as prescribed. 5. General nursing care. 6. Fall precautions. 7. Symptoms management. 8. Chronic disease management. 9. Care plan reviewed and discussed with staff. JOB# [id number]
[2019-04-02 05:22] LABS: % BASOPHILS 0.1 % (0.0-2.0); % EOSINOPHILS 3.4 % (0.0-5.0); % LYMPHOCYTES 14.2 % (20.0-50.0); % MONOCYTES 11.5 % (2.0-10.0); % NEUTROPHILS 70.8 % (40.0-80.0); EOSINOPHILE ABSOLUTE 0.2 Th/cmm (0.1-0.4); HEMATOCRIT 27.2 % (41.0-60); HEMOGLOBIN 9.1 gm/dL (12-16); LYMPHOCYTE ABSOLUTE 0.7 Th/cmm (1.5-3.0); MEAN CELL VOLUME 94.6 fl (80-99); MEAN CORPUSCULAR HEMOGLOBIN 31.8 pg (27.0-31.0); MEAN CORPUSCULAR HGB CONC 33.6 pg (28.0-36.0); MONOCYTE ABSOLUTE 0.6 Th/cmm (0.3-1.0); NEUTROPHILE ABSOLUTE 3.4 Th/cmm (1.8-8.0); PLATELET COUNT 196 Th/cmm (150-400); RED BLOOD COUNT 2.88 Mil/cmm (3.80-5.80); RED CELL DISTRIBUTION WIDTH 15.4 % (11.5-20.0); WHITE BLOOD COUNT 4.9 Th/cmm (4.8-10.8)
[2019-04-02] MEDS: Dextrose 50% 50 mL Abboject IVP PRN ×2 (05:57→09:59)
[2019-04-02 06:03] LABS: ALB/GLOB RATIO 0.9 (1.0-1.8); ALBUMIN 2.9 gm/dL (4.2-5.5); ANION GAP 11.1 (7.0-16.0); BILIRUBIN,TOTAL 0.2 mg/dL (0.3-1.0); CALCIUM SERUM 7.3 mg/dL (8.6-10.3); CREATININE - SERUM 3.9 mg/dL (0.7-1.3); GFR AFRICAN-AMERICAN 19.9 ml/min (>90); GFR NON AFRICAN-AMERICAN 16.5 ml/min; POTASSIUM SERUM 5.1 mEq/L (3.5-5.1); TOTAL PROTEIN,SERUM 6.3 gm/dL (6.0-8.3)
[2019-04-02] MEDS: INSULIN LISPRO SLIDING SCALE 100 UNITS/ML UNIT SUBQ SCH ×3 (06:43→16:34)
[2019-04-02] MEDS: Aspirin 81mg Chewable Tab PO SCH (08:39)
[2019-04-02] MEDS: Lactobacillus Rhamnosus GG 15 Billion CFU CAP.SPRINK PO SCH (08:39)
[2019-04-02] MEDS: Ferrous Sulfate 325 MG TAB PO SCH (08:39)
[2019-04-02] MEDS: Multivitamin Tab PO SCH (08:39)
--- NOTE | 2019-04-02 10:19 | General Progress Note ---
Subjective - Review of Systems Service Date: 04/02/19 Subjective: AWAKE NO DISTRESS DEMENTED Objective - Results Result Diagrams: 04/02/19 05:15 04/02/19 05:15 Recent Labs: Laboratory Last Values WBC 4.9 Th/cmm (4.8-10.8) 04/02/19 05:15 Corrected WBC (auto) Cancelled 03/25/19 05:20 RBC 2.88 Mil/cmm (3.80-5.80) L 04/02/19 05:15 Hgb 9.1 gm/dL (12-16) L 04/02/19 05:15 Hct 27.2 % (41.0-60) L 04/02/19 05:15 MCV 94.6 fl (80-99) 04/02/19 05:15 MCH 31.8 pg (27.0-31.0) H 04/02/19 05:15 MCHC Differential 33.6 pg (28.0-36.0) 04/02/19 05:15 RDW 15.4 % (11.5-20.0) 04/02/19 05:15 Plt Count 196 Th/cmm (150-400) 04/02/19 05:15 MPV 7.8 fl 04/02/19 05:15 Add Manual Diff YES 03/25/19 06:00 Neutrophils % 70.8 % (40.0-80.0) 04/02/19 05:15 Band Neutrophils % 0 % (0-10) 03/25/19 06:00 Lymphocytes % 14.2 % (20.0-50.0) L 04/02/19 05:15 Monocytes % 11.5 % (2.0-10.0) H 04/02/19 05:15 Eosinophils % 3.4 % (0.0-5.0) 04/02/19 05:15 Basophils % 0.1 % (0.0-2.0) 04/02/19 05:15 Neutrophils (Manual) 71 % (40-80) 03/25/19 06:00 Lymphocytes 15 % (20-50) L 03/25/19 06:00 Monocytes 11 % (2-10) H 03/25/19 06:00 Eosinophils 3 % (0-5) 03/25/19 06:00 Basophils 0 % (0-3) 03/25/19 06:00 Metamyelocytes Cancelled 03/25/19 05:20 Myelocytes Cancelled 03/25/19 05:20 Promyelocytes Cancelled 03/25/19 05:20 Nucleated RBCs Cancelled 03/25/19 05:20 Hypersegmented Polys Cancelled 03/25/19 05:20 Atypical Lymphocytes Cancelled 03/25/19 05:20 Vacuolated Monocytes Cancelled 03/25/19 05:20 Myeloblasts Cancelled 03/25/19 05:20 Plasma Cells Cancelled 03/25/19 05:20 Smudge Cells Cancelled 03/25/19 05:20 Other Cell Type Cancelled 03/25/19 05:20 Hypochromia Cancelled 03/25/19 05:20 Toxic Granulation Cancelled 03/25/19 05:20 Dohle Bodies Cancelled 03/25/19 05:20 Pelger-Huet Cells Cancelled 03/25/19 05:20 Anthony Rods Cancelled 03/25/19 05:20 Platelet Estimate ADEQUATE (NORMAL) 03/25/19 06:00 Platelet Morphology Cancelled 03/25/19 05:20 Polychromasia Cancelled 03/25/19 05:20 Poikilocytosis Cancelled 03/25/19 05:20 Basophilic Stippling Cancelled 03/25/19 05:20 Anisocytosis Cancelled 03/25/19 05:20 Microcytosis Cancelled 03/25/19 05:20 Macrocytosis Cancelled 03/25/19 05:20 Spherocytes Cancelled 03/25/19 05:20 Pappenheimer Bodies Cancelled 03/25/19 05:20 Sickle Cells Cancelled 03/25/19 05:20 Target Cells Cancelled 03/25/19 05:20 Tear Drop Cells Cancelled 03/25/19 05:20 Ovalocytes Cancelled 03/25/19 05:20 Stomatocytes Cancelled 03/25/19 05:20 Helmet Cells Cancelled 03/25/19 05:20 Simmons-Williamsfield Bodies Cancelled 03/25/19 05:20 Canadian Rings Cancelled 03/25/19 05:20 [place]un Cells Cancelled 03/25/19 05:20 Crenated Cell Cancelled 03/25/19 05:20 Acanthocytes (Spur) Cancelled 03/25/19 05:20 Rouleaux Cancelled 03/25/19 05:20 Schistocytes Cancelled 03/25/19 05:20 RBC Morph Micro Appear Cancelled 03/25/19 05:20 Morphology Comment Cancelled 03/25/19 05:20 Smear Path Review Cancelled 03/25/19 05:20 Eos Smear Source URINE 03/25/19 21:55 Eos Smear Total Cells NONE SEEN (NONE SEEN) 03/25/19 21:55 PT 9.9 SECONDS (9.5-11.5) 03/24/19 16:00 INR 0.95 (0.5-1.4) 03/24/19 16:00 PTT (Actin FS) 27.6 SECONDS (26.0-38.0) 03/24/19 16:00 Specimen Source ARTERIAL 03/24/19 17:13 Sample Site LEFT RADIAL 03/24/19 17:13 pH 7.280 (7.35-7.45) L 03/24/19 17:13 pCO2 38.5 mmHg (35.0-45.0) 03/24/19 17:13 pO2 187.0 mmHg (80.0-100.0) H 03/24/19 17:13 HCO3 18.0 mEq/L (20.0-26.0) L 03/24/19 17:13 Base Excess -8.0 mEq/L (-3.0-3.0) L 03/24/19 17:13 O2 Saturation 99.0 % (92.0-100.0) 03/24/19 17:13 Diaz Test YES 03/24/19 17:13 Vent Rate N/A 03/24/19 17:13 Inspired O2 28 03/24/19 17:13 Tidal Volume N/A 03/24/19 17:13 PEEP N/A 03/24/19 17:13 Pressure (ins/psv/peep) N/A 03/24/19 17:13 Critical Value OR 03/24/19 17:13 Sodium 135 mEq/L (136-145) L 04/02/19 05:15 Potassium 5.1 mEq/L (3.5-5.1) 04/02/19 05:15 Chloride 113 mEq/L (98-107) H 04/02/19 05:15 Carbon Dioxide 16.0 mEq/L (21.0-31.0) L 04/02/19 05:15 Anion Gap 11.1 (7.0-16.0) 04/02/19 05:15 BUN 36 mg/dL (7-25) H 04/02/19 05:15 Creatinine 3.9 mg/dL (0.7-1.3) H 04/02/19 05:15 Est GFR ( Amer) 19.9 ml/min (>90) 04/02/19 05:15 Est GFR (Non-Af Amer) 16.5 ml/min 04/02/19 05:15 BUN/Creatinine Ratio 9.2 04/02/19 05:15 Glucose 79 mg/dL (70-105) 04/02/19 05:15 POC Glucose 60 MG/DL (70 - 105) L 04/02/19 07:58 Calcium 7.3 mg/dL (8.6-10.3) L 04/02/19 05:15 Phosphorus 5.9 mg/dL (2.5-5.0) H 03/28/19 04:15 Magnesium 2.3 mg/dL (1.9-2.7) 03/30/19 04:55 Iron 49 ug/dL (38-169) 03/26/19 05:50 TIBC 223 ug/dL (250-450) L 03/26/19 05:50 Iron Saturation 22 % (15-55) 03/26/19 05:50 Unsaturated IBC 174 ug/dL (111-343) 03/26/19 05:50 Total Bilirubin 0.2 mg/dL (0.3-1.0) L 04/02/19 05:15 AST 18 U/L (13-39) 04/02/19 05:15 ALT 12 U/L (7-52) 04/02/19 05:15 Alkaline Phosphatase 98 U/L (34-104) 04/02/19 05:15 Troponin I 0.02 ng/mL (0.01-0.05) 03/25/19 20:40 B-Natriuretic Peptide 145.0 pg/mL (5.0-100.0) H 03/24/19 16:00 Total Protein 6.3 gm/dL (6.0-8.3) 04/02/19 05:15 Albumin 2.9 gm/dL (4.2-5.5) L 04/02/19 05:15 Globulin 3.4 gm/dL 04/02/19 05:15 Albumin/Globulin Ratio 0.9 (1.0-1.8) L 04/02/19 05:15 Triglycerides 261 mg/dL (<150) H 03/24/19 16:00 Cholesterol 171 mg/dL (<200) 03/24/19 16:00 LDL Cholesterol Direct 102 mg/dL (75-193) 03/24/19 16:00 HDL Cholesterol 43 mg/dL (23-92) 03/24/19 16:00 Free T4 0.81 ng/dL (0.82-1.77) L 03/25/19 05:20 Free T3 1.7 pg/mL (2.0-4.4) L 03/25/19 05:20 TSH 1.90 uIU/ml (0.34-5.60) 03/25/19 06:00 Urine Source [place] 03/25/19 00:35 Urine Color LIGHT YELLOW 03/25/19 00:35 Urine Clarity HAZY (CLEAR) 03/25/19 00:35 Urine pH 6.0 (4.6 - 8.0) 03/25/19 00:35 Ur Specific [place] 1.020 (1.005-1.030) 03/25/19 00:35 Urine Protein 100 mg/dL (NEGATIVE) H 03/25/19 00:35 Urine Glucose (UA) NEGATIVE mg/dL (NEGATIVE) 03/25/19 00:35 Urine Ketones NEGATIVE mg/dL (NEGATIVE) 03/25/19 00:35 Urine Blood LARGE (NEGATIVE) H 03/25/19 00:35 Urine Nitrate NEGATIVE (NEGATIVE) 03/25/19 00:35 Urine Bilirubin NEGATIVE (NEGATIVE) 03/25/19 00:35 Urine Urobilinogen 0.2 E.U./dL (0.2 - 1.0) 03/25/19 00:35 Ur Leukocyte Esterase NEGATIVE (NEGATIVE) 03/25/19 00:35 Urine RBC 2-5 /hpf (0-5) H 03/25/19 00:35 Urine WBC 0-2 /hpf (0-5) 03/25/19 00:35 Ur Epithelial Cells FEW /lpf (FEW) 03/25/19 00:35 Calcium Oxalate Crystal FEW /hpf 03/25/19 00:35 Urine Bacteria FEW /hpf (NONE SEEN) 03/25/19 00:35 Coarse Granular Casts 2-5 /lpf (NONE SEEN) H 03/24/19 17:00 Stool Occult Blood NEGATIVE (NEGATIVE) 03/26/19 09:00 Levetiracetam 33.3 ug/mL (10.0-40.0) 03/24/19 16:00 RPR NONREACTIVE (NONREACTIVE) 03/24/19 16:00 - Physical Exam Vitals and I&O: Vital Signs Temp 96.5 F 04/02/19 07:51 Pulse 50 04/02/19 08:39 Resp 18 04/02/19 08:00 BP 133/70 04/02/19 08:39 Pulse Ox 99 04/02/19 07:51 Intake & Output 04/01/19 04/02/19 04/02/19 18:59 06:59 18:59 Intake Total 2189.583 1100 Output Total 2500 4700 Balance -310.417 -3600 Weight (lbs) 50.349 kg 50.802 kg Intake: Intake, IV Amount 5492.976 5769 D5-0.45NS 1,000 ml @ 175 3034.477 5381 mls/hr IV .Q5H43M [facility] Rx# :[id number] Oral 300 100 Output: Urine 2500 4700 Other: # Bowel Movements 2 1 Weight Source Bedscale Bedscale Active Medications: Current Medications Acetaminophen (Tylenol) 650 mg PO Q4H PRN PRN Reason: Pain (Moderate) Stop: 05/23/19 23:22 Last Admin: 04/02/19 03:44 Dose: 650 mg Acetaminophen (Tylenol) 650 mg PO Q4HR PRN PRN Reason: Mild Pain / Temp above 100 Stop: 05/24/19 15:06 Amlodipine Besylate (Norvasc) 10 mg PO DAILY [facility] Stop: 05/24/19 08:59 Last Admin: 04/02/19 08:39 Dose: 10 mg Aspirin (Aspirin Chewable) 81 mg PO DAILY [facility] Stop: 05/24/19 08:59 Last Admin: 04/02/19 08:39 Dose: 81 mg Dextrose (D50w) 50 ml IVP PRN PRN PRN Reason: Blood Glucose less than 70 Stop: 05/24/19 04:04 Last Admin: 04/02/19 09:59 Dose: 50 ml Dextrose (Glutose 40%) 18.75 gm PO PRN PRN PRN Reason: Blood Glucose less than 70 Stop: 05/24/19 04:04 Docusate Sodium (Colace) 100 mg PO BID [facility] Stop: 05/24/19 08:59 Last Admin: 04/02/19 08:39 Dose: 100 mg Donepezil HCl (Aricept) 10 mg PO HS [facility] Stop: 05/24/19 20:59 Last Admin: 04/01/19 21:23 Dose: 10 mg Ferrous Sulfate (Iron) 325 mg PO DAILY [facility] Stop: 05/24/19 08:59 Last Admin: 04/02/19 08:39 Dose: 325 mg Folic Acid (Folate) 1 mg PO DAILY [facility] Stop: 05/25/19 08:59 Last Admin: 04/02/19 08:39 Dose: 1 mg Glucagon (Glucagen) 1 mg IM PRN PRN PRN Reason: Blood Glucose less than 70 Stop: 05/24/19 04:04 Dextrose/Sodium Chloride (D5-0.45ns) 1,000 mls @ 175 mls/hr IV .Q5H43M [facility] Stop: 05/29/19 12:29 Last Admin: 04/01/19 23:57 Dose: 175 mls/hr Insulin Glargine (Lantus Insulin) 5 units SUBQ HS [facility] Stop: 05/24/19 20:59 Last Admin: 04/01/19 21:25 Dose: 5 units Insulin Human Lispro (Humalog Insulin Sliding Scale) 0 units SUBQ [facility]; Protocol Stop: 05/24/19 07:29 Last Admin: 04/02/19 06:43 Dose: Not Given Lactobacillus Rhamnosus (Culturelle 15b) 1 each PO DAILY [facility] Stop: 05/25/19 08:59 Last Admin: 04/02/19 08:39 Dose: 1 each Levetiracetam (Keppra) 500 mg PO BID [facility] Stop: 05/24/19 08:59 Last Admin: 04/02/19 08:39 Dose: 500 mg Magnesium Hydroxide (Milk Of Magnesia) 30 ml PO HS PRN PRN Reason: Constipation Stop: 05/23/19 21:32 Miscellaneous (Clinical Monitoring) 1 ea MC DAILY PRN PRN Reason: RENAL DOSING Stop: 05/28/19 07:59 Multivitamins/Vitamin C (Theragran) 1 tab PO DAILY [facility] Stop: 05/24/19 08:59 Last Admin: 04/02/19 08:39 Dose: 1 tab Sevelamer Carbonate (Renvela) 2,400 mg PO TIDWM [facility] Stop: 05/26/19 11:59 Last Admin: 04/02/19 08:38 Dose: 2,400 mg Thiamine HCl (Vitamin B1) 100 mg PO DAILY [facility] Stop: 05/24/19 08:59 Last Admin: 04/02/19 08:39 Dose: 100 mg General: No acute distress Neck: Supple Cardiovascular: Regular rate, Normal S1, Normal S2 Abdomen: Bowel sounds Extremities: Pulses, Other, no Clubbing, no Cyanosis, no Edema, no Tender - Procedures Procedures: Procedures Procedure Code Date BLOOD TRANSFUSION SERVICE 66455 04/12/17 EXCISION OF ANUS, ENDO, DIAGN 2GTO4OD 08/24/17 EXCISION OF DESCENDING COLON, ENDO, DIAGN 3BPG6EK 08/24/17 EXCISION OF ESOPHAGOGASTRIC JUNCTION, ENDO, DIAGN 3ND46RA 08/24/17 EXCISION OF RECTUM, ENDO, DIAGN [id number] 08/24/17 EXCISION OF STOMACH, ENDO, DIAGN [id number] 08/24/17 TRANSFUSE NONAUT RED BLOOD CELLS IN PERIPH VEIN, PERC 15024I7 08/24/17 Assessment/Plan - Assessment Assessment: ARF CONT TO IMPROVE WITH IVF ANEMIA IMPROVING UTI HTN - Plan Plan: CONT CURRENT IV S CR NOT BACK TO BASELINE YET CHECK LYTES AND REPLACE Nutritional Asmnt/Malnutr-PDOC - Dietary Evaluation Malnutrition Findings (Please click <Entered> for more info): Nutritional Asmnt/Malnutrition Start: 03/25/19 11: 50 Text: Status: Complete Freq: Protocol: Document 03/25/19 11:53 MATTIE (Rec: 03/25/19 12:24 MATTIE MACIEL) Nutritional Asmnt/Malnutrition Patient General Information Nutritional Screening High Risk Consult Diagnosis ESRD, DM Pertinent Medical Hx/Surgical Hx DM, CAD, CHF, Seizures, Dementia Subjective Information Consult received for BG 231. Current Diet Order/ Nutrition Support 2gm Na, 45gm CCHO, Renal, Chopped Patient / S.O Not Indicated Pertinent Medications D50W, D5W, Colace, Iron, Glucagon, lantus, humalog, MOM , theragran, Vitamin B1 Pertinent Labs (03/25) Na 153, BUN 76, Cr 8.3 , glucose 66-212, TAG 261, Albumin 3.3 Nutritional Hx/Data Height 1.63 m Height (Calculated Centimeters) 162.6 Current Weight (lbs) 68.039 kg Weight (Calculated Kilograms) 68.0 Weight (Calculated Grams) 53569.9 [place] Body Weight 130 % [place] Body Weight 115 Body Mass Index (BMI) 25.7 Recent Weight Change No Weight Status Overweight GI Symptoms GI Symptoms None Last BM 03/25 Difficult in: None Food Allergies No Cultural/Ethnic/P[employer]al Belief none indicated Usual diet at home unknown Skin Integrity/Comment: [place] 11, Decubitus ulceration lower coccyx Current %PO Fair (50-74%) Estimated Nutritional Goals BEE in Kcals: Using Current wt Calories/Kcals/Kg using CBW 68.1 kg 25-30 kcal/ kg Kcals Calculated ~5546-4395 kcal/day Protein: Using Current wt Protein g/k.8-1 gm/kg Protein Calculated ~55-65 gm/day Fluid: ml ~0742-8152 kcal/day Nutritional Problem 1. Problem Problem Inadequate oral intake related to Etiology possible poor appetite aeb Signs/Symptoms: PO <75% of meals Intervention/Recommendation Comments 1. Continue 45 gm CCHO, 2 gm Na, chopped diet as tolerated by patient. Consider checking Phosphorus level to determine need for renal restrictions. 2. If oral intake remains inadequate, consider adding Nepro BID day to supplement meals. Expected Outcomes/Goals Expected Outcomes/Goals PO intake to meet >75% of nutritional needs, weight stability or trend toward ideal body weight, skin intact , nutrition related labs to approach WNL. F/U MR 03/28-
[2019-04-02] MEDS: D5-0.45NS 1,000 ML IV SCH ×2 (11:36→19:41)
--- NOTE | 2019-04-02 19:09 | Discharge Summary ---
DATE OF DISCHARGE: 04/02/2019 IDENTIFYING DATA: A 68-year-old male. PRINCIPAL DIAGNOSES: 1. Acute kidney injury secondary to acute tubular necrosis. 2. Hypernatremia. 3. Chronic kidney disease stage 3. 4. Diabetes. 5. Hypertension. 6. Congestive heart failure. 7. Psychotic disorder. 8. Degenerative joint disease. 9. Dementia. 10. Dysphagia. 11. Decline in self-care and mobility. BRIEF STATEMENT FOR THE REASON FOR ADMISSION: A 68-year-old [place] male from [facility] sent [facility] Room for abnormal labs evaluation. The patient was evaluated in the Emergency Room and noted to have hypernatremia, hyperkalemia along with acute kidney injury. Please refer to my medical H and P for further information. HOSPITAL COURSE: The patient was admitted to telemetry unit. The patient was on diuretics, which were on hold. Her potassium was corrected. D5W was started. Appropriate workup for acute kidney injury was ordered and Nephrology consultation was requested. Cardiac monitoring were also continued. The patient did have ATN which continues to improve with the medical management. The patient did have a significant creatinine elevation from 9.5, at the time of transfer to 3.9. The patient had adequate urine output as well. The patient's other appropriate home medicine was reconciled during the admission and at the time of discharge too. The patient will be followed by myself and my nurse practitioner at [facility]. JOB# [id number]
--- NOTE | 2019-04-03 00:12 | Progress Notes ---
DATE: IDENTIFICATION: A 68-year-old male. SUBJECTIVE: The patient is seen and examined. The patient is lying in the bed. The patient is nonverbal. PHYSICAL EXAMINATION: VITAL SIGNS: See nurse's note. HEENT: Poor dentition. NECK: Supple, no JVD. HEART: Regular. LUNGS: Clear. ABDOMEN: Soft. EXTREMITIES: No edema. AVAILABLE LABORATORY DATA: MAR reviewed. CLINICAL IMPRESSION: 1. Acute kidney injury, improving. 2. Diabetes. 3. Hypoglycemia, corrected. 4. Hypertension. 5. Dementia. 6. Degenerative joint disease. 7. Dysphagia. 8. Psychotic disorder. PLAN: Discharge to [facility] with the same medication and IV fluid. Follow up lab will be done and we will follow this patient in a fpc. JOB# [id number]
== END 2019-04-02 20:20 | DRG 640 ==
LOC: ER 15:27 → TELE 18:34
PROVIDERS: ADMIT Internal Medicine; ATTEND Internal Medicine
DX: E87.0 Hyperosmolality and hypernatremia (principal); N17.0 Acute kidney failure with tubular necrosis; N39.0 Urinary tract infection, site not specified; I13.0 Hypertensive heart and chronic kidney disease with heart failure and stage 1 through stage 4 chronic kidney disease, or unspecified chronic kidney disease; E87.2 Acidosis; I25.10 Atherosclerotic heart disease of native coronary artery without angina pectoris; I50.9 Heart failure, unspecified; G40.909 Epilepsy, unspecified, not intractable, without status epilepticus; K59.09 Other constipation; E11.22 Type 2 diabetes mellitus with diabetic chronic kidney disease; E87.5 Hyperkalemia; E86.9 Volume depletion, unspecified; M19.90 Unspecified osteoarthritis, unspecified site; T42.6X5A Adverse effect of other antiepileptic and sedative-hypnotic drugs, initial encounter; Y92.89 Other specified places as the place of occurrence of the external cause; F29 Unspecified psychosis not due to a substance or known physiological condition; R13.10 Dysphagia, unspecified; D63.1 Anemia in chronic kidney disease; F02.80 Dementia in other diseases classified elsewhere, unspecified severity, without behavioral disturbance, psychotic disturbance, mood disturbance, and anxiety; G30.9 Alzheimer's disease, unspecified; E11.65 Type 2 diabetes mellitus with hyperglycemia; E83.39 Other disorders of phosphorus metabolism; N18.3 Chronic kidney disease, stage 3 (moderate); E11.649 Type 2 diabetes mellitus with hypoglycemia without coma
CPT/HCPCS: 36415-UA; 70450-TC; 71045-TC; 76770-TC; 80048-TC; 80053-TC; 80061-TC; 80299-90; 81001-TC; 81015-TC; 82270-TC; 82803-TC; 82948-90; 83036-90; 83540-90; 83550-90; 83735-TC; 83880-TC; 84100-TC; 84439-90; 84443-TC; 84479-90; 84484-TC; 85007-TC; 85025-TC; 85610-TC; 85730-TC; 86592-TC; 87086-90; 93005; 96374; 96375; 97530; J0696; J1815; J7070; J7799; X3904; Z7610